=== PATIENT | female | born 1995 | race Caucasian/White ===

== ENCOUNTER 2023-02-21 09:28 | Outpatient (OUT) | payer OTHER, SELFPAY ==
--- NOTE | 2023-02-21 09:30 | US_ITS ---
[place] [id number] Patient Name: HAROLDO MARCH MRN: [id number] date: 1995 Sex: F Assigned Patient Location: US Current Patient Location: US Accession/Order Number: [id number] Exam Date: 02/21/2023 09:31 Report Date: 02/21/2023 10:12 At the request of: IVANNA BRYANT Procedure: US OB growth EXAMINATION: US OB growth HISTORY: SIZE INCONSISTENT WITH DATES COMPARISON: 12/01/2022 FINDINGS: position: Cephalic presentation, longitudinal lie Amniotic fluid volume: 17.4 cm, normal. Largest fluid pocket: 5.6 cm Heart rate: 149 bpm BPD: 8.8 cm, 35 weeks 3 days, 37% Head circumference: 32.2 cm, 36 weeks 2 days, 24% Abdominal circumference: 32.6 cm, 36 weeks 3 days, 70% Femur length: 7 cm, 35 weeks 6 days, 39% Estimated weight: 2873 g, 6 lbs. 5 oz., 53% Femur length BPD: 79.9 Femur length abdominal circumference: 21.5 Femur length head circumference: 21.8 Clinical age: 36 weeks 1 day Clinical HANNAH: 03/20/2023 Ultrasound age: 36 weeks 0 days Ultrasound HANNAH: 03/21/2023 US/US OB growth IMPRESSION: Normal interval growth Electronically authenticated by: LIUDMILA CARRION Date: 02/21/2023 10:12
== END 2023-02-21 09:29 | disposition home or self-care (01) ==
LOC: US 09:28
PROVIDERS: Visit Provider Obstetrics & Gynecology
DX: O26.843 Uterine size-date discrepancy, third trimester (principal); Z3A.36 36 weeks gestation of pregnancy
CPT/HCPCS: 76816; 87081; 87150; 87186

== ENCOUNTER 2023-02-21 19:05 | Outpatient (REF) | payer OTHER, SELFPAY | END 2023-02-21 19:06 | disposition home or self-care (01) | LOC: LAB 19:05 | PROVIDERS: Visit Provider Obstetrics & Gynecology | DX: Z34.93 Encounter for supervision of normal pregnancy, unspecified, third trimester (principal) | CPT/HCPCS: 87081; 87150 ==

== ENCOUNTER 2023-03-15 22:02 | Inpatient (IN) | payer OTHER, SELFPAY ==
[2023-03-15 22:28] VITALS: BP 121/70; PULSE 71; RESP 18; TEMP 36.8
[2023-03-15] MEDS: 0.9 % SODIUM CHLORIDE 1,000 ML 125 ML IV (22:40)
[2023-03-15 22:43] LABS: Hematocrit 35.1 % (36.0-48.0); Hemoglobin 11.9 g/dL (12.0-16.0); Mean Corpuscular HGB Conc 33.9 g/dL (29.9-35.2); Mean Corpuscular Hemoglobin 29.2 pg (26.7-34.0); Mean Platelet Volume 11.1 fL (9.5-13.5); Platelet Count 229 10^3/uL (150-450); Red Blood Count 4.08 10^6/uL (4.20-5.40); Red Cell Distribution Width 13.5 % (11.0-15.0); White Blood Count 11.8 10^3/uL (4.0-11.0)
[2023-03-15 22:55] VITALS: TEMP 36.8
[2023-03-15 22:56] LABS: Amphetamine Screen Urine NEGATIVE (NEGATIVE); Barbiturates Screen Urine NEGATIVE (NEGATIVE); Benzodiazepines Screen Urine NEGATIVE (NEGATIVE); Buprenorphine Screen Urine NEGATIVE (NEGATIVE); Cannabinoid Screen Urine POSITIVE (NEGATIVE); Cocaine Screen Urine NEGATIVE (NEGATIVE); Methadone Screen Urine NEGATIVE (NEGATIVE); Methamphetamines Screen Urine NEGATIVE (NEGATIVE); Opiate Screen Urine NEGATIVE (NEGATIVE); Oxycodone Screen Urine NEGATIVE (NEGATIVE); Phencyclidine Screen Urine NEGATIVE (NEGATIVE); Tricyclic Antidepressant Urine NEGATIVE (NEGATIVE)
[2023-03-15 22:59] VITALS: BP 121/70; PULSE 71
[2023-03-16] VITALS (85 sets, daily range): BP systolic 107–166; BP diastolic 52–95; PULSE 51–106; RESP 16; TEMP 34.9–36.6
[2023-03-16] MEDS: AMPICILLIN SODIUM 2,000 MG in 0.9 % SODIUM CHLORIDE 100 ML 200 MG IV
[2023-03-16] MEDS: AMPICILLIN SODIUM 1,000 MG in 0.9 % SODIUM CHLORIDE 50 ML 100 MG IV ×5 (04:21→19:46)
[2023-03-16] MEDS: 0.9 % SODIUM CHLORIDE 1,000 ML 125 ML IV (07:20)
[2023-03-16] MEDS: 0.9 % SODIUM CHLORIDE 1,000 ML 1000 ML IV ×2 (10:00→16:33)
[2023-03-16] MEDS: FENTANYL CITRATE/PF 100 MCG/2 ML VIAL EPIDURAL ×3 (10:01→23:20)
[2023-03-16] MEDS: LIDOCAINE HCL 2% PF 100 MG/5 ML VIAL INJ (10:02)
[2023-03-16] MEDS: ROPIVACAINE HCL/PF 400 MG/200 ML PREMIX 6 MG EPIDURAL (10:02)
[2023-03-16] MEDS: ROPIVACAINE HCL/PF 400 MG/200 ML PREMIX EPIDURAL ×2 (10:02→23:16)
[2023-03-16] MEDS: OXYTOCIN/0.9 % SODIUM CHLORIDE 10 UNITS/500 ML PLAST..BAG 6 UNIT IV ×3 (10:59→19:45)
[2023-03-16] MEDS: ONDANSETRON PF 4 MG/2 ML VIAL IV ×2 (11:03→21:52)
[2023-03-17] VITALS (32 sets, daily range): BP systolic 106–155; BP diastolic 51–115; PULSE 55–125; RESP 16; TEMP 36.4–36.5
[2023-03-17] MEDS: AMPICILLIN SODIUM 1,000 MG in 0.9 % SODIUM CHLORIDE 50 ML 100 MG IV ×2 (00:12→03:51)
[2023-03-17] MEDS: 0.9 % SODIUM CHLORIDE 1,000 ML 125 ML IV (01:42)
[2023-03-17] MEDS: OXYTOCIN/0.9 % SODIUM CHLORIDE 10 UNITS/500 ML PLAST..BAG 6 UNIT IV (03:50)
--- NOTE | 2023-03-17 04:49 | PM.OBPRCVD ---
Procedure Intrapartal events: None Induction method: per pitocin protocol Delivery augmentation: rupture of membranes and pitocin Delivery monitor: external FHT and external uterine Route of delivery: Episiotomy Description: none Laceration description: none Estimated blood loss (mL): 250 Anesthesia type: possible epidural Disposition: floor Infant Delivery date: 03/17/23 presentation: vertex Placental delivery description: Spontaneous cord description: 3 Vessels
--- NOTE | 2023-03-17 06:34 | PC.NURSE ---
0620-Epidural removed with tip intact. Patient up to bathroom without issue. Linens changed and patient back to bed.
[2023-03-17] MEDS: IBUPROFEN 600 MG TABLET PO (16:59)
--- NOTE | 2023-03-17 17:02 | PM.OBPN ---
Exam Constitutional Vital Signs, click to edit/add: Last Vital Signs Temp 97.7 F 03/17/23 03:22 Pulse 64 03/17/23 16:55 Resp 16 03/17/23 03:22 BP 139/74 03/17/23 16:55 OB - PN: A/P Time Spent with Patient Time: Total time spent is greater than 50% in coordination of care (as documented) at patient's floor/unit and/or counseling patient: Total time spent with greater than 50% in coordination of care (as documented) at patient's floor/unit and/or counseling patient: less than 15 minutes
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
[2023-03-18 05:38] LABS: Alanine Aminotransferase 8 U/L (14-59); Albumin Globulin Ratio 0.6; Albumin Level 2.1 g/dL (3.4-5.0); Alkaline Phosphatase 84 U/L (46-116); Anion Gap 12.9; Aspartate Amino Transferase 35 U/L (15-37); BUN Creatinine Ratio 14.3; Bilirubin Total 0.3 mg/dL (0.2-1.0); Calcium 8.3 mg/dL (8.5-10.1); Carbon Dioxide 20.6 mmol/L (21.0-32.0); Chloride 106 mmol/L (98-107); Estimated GFR (African America >60 (>=60); Estimated GFR (Non-African Ame >60 (>=60); Globulin 3.5 g/dL; Glucose 72 mg/dL (74-106); Potassium 3.5 mmol/L (3.5-5.1); Sodium 136 mmol/L (136-145); Total Protein 5.6 g/dL (6.4-8.2)
[2023-03-18 06:20] LABS: Basophils Percent Auto 0.2 % (0.2-2.0); Eosinophils Absolute Auto 0.3 10^3/uL (0.0-0.7); Hematocrit 31.4 % (36.0-48.0); Hemoglobin 10.7 g/dL (12.0-16.0); Immature Granulocytes Abs Auto 0.04 10^3/uL (0.00-0.03); Immature Granulocytes Pct Auto 0.4 % (0.0-0.5); Lymphocytes Absolute Auto 2.6 10^3/uL (1.2-3.8); Lymphocytes Percent Auto 28.7 % (20.5-60.0); Mean Corpuscular HGB Conc 34.1 g/dL (29.9-35.2); Mean Corpuscular Hemoglobin 29.6 pg (26.7-34.0); Mean Platelet Volume 11.5 fL (9.5-13.5); Monocytes Absolute Auto 0.5 10^3/uL (0.3-0.8); Monocytes Percent Auto 5.3 % (1.7-12.0); Neutrophils Absolute Auto 5.6 10^3/uL (1.4-6.5); Neutrophils Percent Auto 62.4 % (43.0-75.0); Platelet Count 184 10^3/uL (150-450); Red Blood Count 3.61 10^6/uL (4.20-5.40); Red Cell Distribution Width 13.5 % (11.0-15.0); White Blood Count 8.9 10^3/uL (4.0-11.0)
--- NOTE | 2023-03-18 07:04 | W.PC.ACHO ---
Registration Status: ADM IN Primary Language: Liberian Preferred Language: Liberian Active Medications Generic Name Dose Route Start Last Admin Trade Name Freq PRN Reason Stop Dose Admin Acetaminophen 650 mg 03/17/23 04:46 Acetaminophen 325 Mg Tablet PO Q6H PRN Mild Pain Al Hydroxide/Mg Hydroxide 2,400 mg 03/17/23 04:46 Magnesium Hydroxide 2,400 Mg/10 Ml Oral.Susp PO Q6H PRN Dyspepsia Benzocaine/Menthol 1 applic 03/17/23 04:46 Benzocaine/Menthol 85 Gram Bottle TOPICAL Q2H PRN Pain Carboprost Tromethamine 250 mcg 03/15/23 22:07 Carboprost Tromethamine 250 Mcg/Ml 1 Ml Vial IM Q15M PRN Bleeding Diphenhydramine HCl 25 mg 03/16/23 07:34 Diphenhydramine Hcl 50 Mg/Ml (1ml) Vial IV Q6H PRN Itching Diphtheria/Pertussis/Tetanus Vacc 0.5 ml 03/19/23 09:00 Adacel Diph,Pertuss(Acell),Tet Vac/Pf 0.5 Ml Adult Syringe IM 03/19/23 09:01 .ONCE ONE Docusate Sodium 100 mg 03/18/23 09:00 Docusate Sodium 100 Mg Capsule PO BID BREANNE Ephedrine Sulfate 5 mg 03/16/23 07:34 Ephedrine Sulfate 50 Mg/Ml Vial IV Q5M PRN Blood Pressure - Low Fentanyl Citrate 100 mcg 03/16/23 23:27 03/16/23 23:20 Fentanyl Citrate/Pf 100 Mcg/2 Ml Vial EPIDURAL 100 mcg Q4H PRN Administration Pain Ampicillin 1,000 mg/ Sodium 50 mls @ 100 mls/hr 03/16/23 04:00 03/17/23 03:51 Chloride IV 100 ml/hr Q4H BREANNE 100 mls/hr Administration Sodium Chloride 1,000 mls @ 125 mls/hr 03/15/23 22:15 03/17/23 01:42 Sodium Chloride 0.9% 1,000 Ml IV 125 mls/hr .Q8H BREANNE Administration Oxytocin/Sodium Chloride 20 units in 1,000 mls @ 125 mls/hr 03/15/23 22:07 Pitocin 20 Unit/1,000 Ml-Ns IV ONCE PRN delivery Protocol Ropivacaine/Sodium Chloride 400 mg in 200 mls @ 6 mls/hr 03/16/23 07:45 03/16/23 23:16 Naropin 0.2% 400 Mg/200 Ml Bag EPIDURAL 400 mls/hr Q24H BREANNE 400 mls/hr Administration Oxytocin/Sodium Chloride 10 units in 500 mls @ 6 mls/hr 03/16/23 19:26 03/17/23 03:50 Pitocin 10 Unit/500 Ml-Ns IV 2 milliunit/min Q24H BREANNE 6 mls/hr Administration Protocol 2 MILLIUNIT/MIN Ibuprofen 600 mg 03/17/23 04:46 03/17/23 16:59 Ibuprofen 600 Mg Tablet PO 600 mg Q6H PRN Administration Moderate Pain Lidocaine 5 ml 03/15/23 22:07 Lidocaine Viscous 2% 15 Ml Topical Solution TOPICAL .PRN PRN Pain Lidocaine 1 ml 03/15/23 22:07 Lidocaine Hcl 1% 200 Mg/20 Ml Mdv INJ .PRN PRN Pain Lidocaine 5 ml 03/16/23 07:34 03/16/23 10:02 Lidocaine Hcl 2% Pf 100 Mg/5 Ml Vial INJ 5 ml Q1H PRN Administration Pain Measles/Mumps/Rubella Vaccine Live 0.5 ml 03/19/23 09:00 Measles,Mumps,Rubella Vacc/Pf 0.5 Ml Vial SQ 03/19/23 09:01 .ONCE ONE Methylergonovine Maleate 0.2 mg 03/15/23 22:07 Methylergonovine Maleate 0.2 Mg Tablet PO Q4H PRN Uterine Contractility/Contract Methylergonovine Maleate 0.2 mg 03/15/23 22:07 Methylergonovine Maleate 0.2 Mg/Ml Ampule IM ONCE PRN Uterine Contractility/Contract Misoprostol 600 mcg 03/15/23 22:07 Misoprostol 100 Mcg Tablet PO ONCE PRN Uterine Bleeding Misoprostol 800 mcg 03/15/23 22:07 Misoprostol 100 Mcg Tablet SL ONCE PRN Uterine Bleeding Misoprostol 1,000 mcg 03/15/23 22:07 Misoprostol 100 Mcg Tablet WI ONCE PRN Uterine Bleeding Ondansetron HCl 4 mg 03/15/23 22:07 03/16/23 21:52 Ondansetron Pf 4 Mg/2 Ml Vial IV 4 mg Q6H PRN Administration Nausea And Vomiting Ondansetron HCl 4 mg 03/15/23 22:07 Ondansetron 4 Mg Rapdis Tablet SL Q6H PRN Nausea And Vomiting Oxytocin 10 unit 03/15/23 22:07 Oxytocin 10 Unit/Ml Vial IM ONCE PRN Bleeding Senna 17.2 mg 03/17/23 20:00 Sennosides 8.6 Mg Tablet PO QHS PRN Constipation Simethicone 80 mg 03/17/23 04:46 Simethicone 80 Mg Tab.Chew PO QID PRN Abdominal Distention Temazepam 15 mg 03/17/23 20:00 Temazepam 15 Mg Capsule PO HS PRN Sleep Witch Batool/Glycerin 1 pad 03/17/23 04:46 Glycerin/Witch Batool Pads TOPICAL Q2H PRN Pain Diet Category Date Time Status Regular Consistency Diet Diet 03/17/23 Breakfast Active Respiratory Oxygen Delivery Method Room Air Oxygen Delivery Method Room Air
[2023-03-18] MEDS: IBUPROFEN 600 MG TABLET PO (09:06)
[2023-03-18] MEDS: DOCUSATE SODIUM 100 MG CAPSULE PO (09:07)
[2023-03-18 09:08] VITALS: BP 133/73; PULSE 56
--- NOTE | 2023-03-18 12:58 | PM.OBPN ---
OB - PN: Subj Subjective Patient comments: no complaints [place] status: doing well [place] feeding status: exclusively bottle feeding Exam Constitutional Vital Signs, click to edit/add: Last Vital Signs Temp 97.5 F L 03/17/23 23:54 Pulse 56 L 03/18/23 09:08 Resp 16 03/17/23 23:54 BP 133/73 03/18/23 09:08 O2 Del Method Room Air 03/17/23 23:54 Documenting provider has reviewed patient's vital signs: yes Common normals: no apparent distress, oriented x3, no limitations, healthy appearing, alert and well nourished General appearance: cooperative, comfortable and well kempt Nutritional appearance: overweight Orientation/consciousness: Yes awake, Yes oriented to person, Yes oriented to place and Yes oriented to time HENMT Common normals: normocephalic and head/scalp atraumatic Eye Pupil: PERRL and accommodation reflex normal Neck & C-Spine Common normals: full ROM and supple Respiratory Common normals: normal respiratory effort and no retractions Cardio Common normals: regular rate and regular rhythm Common normals: no CVA tenderness Extremity Common normals: normal to inspection, full ROM and no calf tenderness Neuro Common normals: CN's II-XII intact bilaterally, moves all extremities, no focal motor deficits and no sensory deficits noted Motor exam: strength 5/5 throughout Psych Common normals: mental status grossly normal, thought process normal, cooperative, affect normal and denies suicidal ideation Appearance: grossly normal and well kempt Attitude: calm and engaged Activity/motor behavior: appropriate eye contact Speech: normal speech Mood and affect: euthymic mood Thought process: normal thought process Attention/concentration: attention grossly intact Other: STATES NO DEPRESSED MOOD Results Labs Labs: Short CBC 03/18/23 Range/Units 04:52 WBC 8.9 (4.0-11.0) 10^3/uL Hgb 10.7 L (12.0-16.0) g/dL Hct 31.4 L (36.0-48.0) % Plt Count 184 (150-450) 10^3/uL BMP 03/18/23 04:52 Sodium 136 Potassium 3.5 Chloride 106 Carbon Dioxide 20.6 L BUN 8.0 Creatinine 0.56 Glucose 72 L Calcium 8.3 L Liver Function 03/18/23 Range/Units 04:52 Total Bilirubin 0.3 (0.2-1.0) mg/dL AST 35 (15-37) U/L ALT 8 L (14-59) U/L Alkaline Phosphatase 84 (46-116) U/L Albumin 2.1 L (3.4-5.0) g/dL OB - PN: A/P Assessment and Plan (1) Anxiety: Assessment and Plan: DENIES (2) Depression: Assessment and Plan: DENIES (3) Enlarged liver: Assessment and Plan: INFORMED THAT LFT'S DRAWN TODAY WERE NORMAL (4) GERD (gastroesophageal reflux disease): Assessment and Plan: NO COMPLAINTS (5) Hepatitis C: Assessment and Plan: APPARENTLY NOT ACTIVE PER PATIENT HISTORY (6) Panic attack: Assessment and Plan: NONE (7) Suicidal thoughts: Assessment and Plan: NONE Plan - Vaginal Delivery day: 2 Plan: routine care Comment: BABY NOT READY FOR DISCHARGE NOR IS PATIENT. SOCIAL SERVICE TO SEE PATIENT TOMORROW. Time Spent with Patient Time: Total time spent is greater than 50% in coordination of care (as documented) at patient's floor/unit and/or counseling patient: Total time spent with greater than 50% in coordination of care (as documented) at patient's floor/unit and/or counseling patient: less than 15 minutes
[2023-03-18 16:20] VITALS: TEMP 37.1
[2023-03-18 16:21] VITALS: BP 113/53; PULSE 69
--- NOTE | 2023-03-18 17:30 | PC.NURSE ---
patient requests electric breast pump use- demonstrated use of breast pump and pumps 10 ml of colostrum
--- NOTE | 2023-03-18 19:19 | W.PC.ACHO ---
Registration Status: ADM IN Primary Language: Mongolian Preferred Language: Mongolian Active Medications Generic Name Dose Route Start Last Admin Trade Name Freq PRN Reason Stop Dose Admin Acetaminophen 650 mg 03/17/23 04:46 Acetaminophen 325 Mg Tablet PO Q6H PRN Mild Pain Al Hydroxide/Mg Hydroxide 2,400 mg 03/17/23 04:46 Magnesium Hydroxide 2,400 Mg/10 Ml Oral.Susp PO Q6H PRN Dyspepsia Benzocaine/Menthol 1 applic 03/17/23 04:46 Benzocaine/Menthol 85 Gram Bottle TOPICAL Q2H PRN Pain Carboprost Tromethamine 250 mcg 03/15/23 22:07 Carboprost Tromethamine 250 Mcg/Ml 1 Ml Vial IM Q15M PRN Bleeding Diphenhydramine HCl 25 mg 03/16/23 07:34 Diphenhydramine Hcl 50 Mg/Ml (1ml) Vial IV Q6H PRN Itching Diphtheria/Pertussis/Tetanus Vacc 0.5 ml 03/19/23 09:00 Adacel Diph,Pertuss(Acell),Tet Vac/Pf 0.5 Ml Adult Syringe IM 03/19/23 09:01 .ONCE ONE Docusate Sodium 100 mg 03/18/23 09:00 03/18/23 09:07 Docusate Sodium 100 Mg Capsule PO 100 mg BID BREANNE Administration Ephedrine Sulfate 5 mg 03/16/23 07:34 Ephedrine Sulfate 50 Mg/Ml Vial IV Q5M PRN Blood Pressure - Low Fentanyl Citrate 100 mcg 03/16/23 23:27 03/16/23 23:20 Fentanyl Citrate/Pf 100 Mcg/2 Ml Vial EPIDURAL 100 mcg Q4H PRN Administration Pain Ampicillin 1,000 mg/ Sodium 50 mls @ 100 mls/hr 03/16/23 04:00 03/17/23 03:51 Chloride IV 100 ml/hr Q4H BREANNE 100 mls/hr Administration Sodium Chloride 1,000 mls @ 125 mls/hr 03/15/23 22:15 03/17/23 01:42 Sodium Chloride 0.9% 1,000 Ml IV 125 mls/hr .Q8H BREANNE Administration Oxytocin/Sodium Chloride 20 units in 1,000 mls @ 125 mls/hr 03/15/23 22:07 Pitocin 20 Unit/1,000 Ml-Ns IV ONCE PRN delivery Protocol Ropivacaine/Sodium Chloride 400 mg in 200 mls @ 6 mls/hr 03/16/23 07:45 03/16/23 23:16 Naropin 0.2% 400 Mg/200 Ml Bag EPIDURAL 400 mls/hr Q24H BREANNE 400 mls/hr Administration Oxytocin/Sodium Chloride 10 units in 500 mls @ 6 mls/hr 03/16/23 19:26 03/17/23 03:50 Pitocin 10 Unit/500 Ml-Ns IV 2 milliunit/min Q24H BREANNE 6 mls/hr Administration Protocol 2 MILLIUNIT/MIN Ibuprofen 600 mg 03/17/23 04:46 03/18/23 09:06 Ibuprofen 600 Mg Tablet PO 600 mg Q6H PRN Administration Moderate Pain Lidocaine 5 ml 03/15/23 22:07 Lidocaine Viscous 2% 15 Ml Topical Solution TOPICAL .PRN PRN Pain Lidocaine 1 ml 03/15/23 22:07 Lidocaine Hcl 1% 200 Mg/20 Ml Mdv INJ .PRN PRN Pain Lidocaine 5 ml 03/16/23 07:34 03/16/23 10:02 Lidocaine Hcl 2% Pf 100 Mg/5 Ml Vial INJ 5 ml Q1H PRN Administration Pain Measles/Mumps/Rubella Vaccine Live 0.5 ml 03/19/23 09:00 Measles,Mumps,Rubella Vacc/Pf 0.5 Ml Vial SQ 03/19/23 09:01 .ONCE ONE Methylergonovine Maleate 0.2 mg 03/15/23 22:07 Methylergonovine Maleate 0.2 Mg Tablet PO Q4H PRN Uterine Contractility/Contract Methylergonovine Maleate 0.2 mg 03/15/23 22:07 Methylergonovine Maleate 0.2 Mg/Ml Ampule IM ONCE PRN Uterine Contractility/Contract Misoprostol 600 mcg 03/15/23 22:07 Misoprostol 100 Mcg Tablet PO ONCE PRN Uterine Bleeding Misoprostol 800 mcg 03/15/23 22:07 Misoprostol 100 Mcg Tablet SL ONCE PRN Uterine Bleeding Misoprostol 1,000 mcg 03/15/23 22:07 Misoprostol 100 Mcg Tablet [place] ONCE PRN Uterine Bleeding Ondansetron HCl 4 mg 03/15/23 22:07 03/16/23 21:52 Ondansetron Pf 4 Mg/2 Ml Vial IV 4 mg Q6H PRN Administration Nausea And Vomiting Ondansetron HCl 4 mg 03/15/23 22:07 Ondansetron 4 Mg Rapdis Tablet SL Q6H PRN Nausea And Vomiting Oxytocin 10 unit 03/15/23 22:07 Oxytocin 10 Unit/Ml Vial IM ONCE PRN Bleeding Senna 17.2 mg 03/17/23 20:00 Sennosides 8.6 Mg Tablet PO QHS PRN Constipation Simethicone 80 mg 03/17/23 04:46 Simethicone 80 Mg Tab.Chew PO QID PRN Abdominal Distention Temazepam 15 mg 03/17/23 20:00 Temazepam 15 Mg Capsule PO HS PRN Sleep Witch Batool/Glycerin 1 pad 03/17/23 04:46 Glycerin/Witch Batool Pads TOPICAL Q2H PRN Pain Respiratory Oxygen Delivery Method Room Air Oxygen Delivery Method Room Air
[2023-03-19 00:56] VITALS: BP 134/60; PULSE 55
[2023-03-19] MEDS: IBUPROFEN 600 MG TABLET PO (00:59)
--- NOTE | 2023-03-19 06:09 | PM.ANPOEV ---
Post Anesthesia Evaluation Visit Summary Date of anesthesia: 03/19/23 Type of anesthesia: epidural Mental status: baseline Last Vital Signs Last Vitals: Temp Pulse Resp BP O2 Del Method 98.7 F 55 L 16 134/60 Room Air 03/18/23 16:20 03/19/23 00:56 03/17/23 23:54 03/19/23 00:56 03/18/23 16:20 Patient Conditions Respiratory status: stable Cardiovascular status: stable Subjective pain score (0-10): 1 Objective pain score: mild Nausea: none Vomiting: none Post-op hydration status: adequate Regional anesthetic: no residual effects noted Additional Comments Additional comments: Patient doing well, post- day #2 Anesthesia Outcomes Anesthesia: no adverse outcomes Recovered from Anesthesia Care Patient has recovered from anesthesia care: Patient has recovered from anesthesia care
--- NOTE | 2023-03-19 07:09 | W.PC.ACHO ---
Registration Status: ADM IN Primary Language: Jamaican Preferred Language: Jamaican Active Medications Generic Name Dose Route Start Last Admin Trade Name Freq PRN Reason Stop Dose Admin Acetaminophen 650 mg 03/17/23 04:46 Acetaminophen 325 Mg Tablet PO Q6H PRN Mild Pain Al Hydroxide/Mg Hydroxide 2,400 mg 03/17/23 04:46 Magnesium Hydroxide 2,400 Mg/10 Ml Oral.Susp PO Q6H PRN Dyspepsia Benzocaine/Menthol 1 applic 03/17/23 04:46 Benzocaine/Menthol 85 Gram Bottle TOPICAL Q2H PRN Pain Carboprost Tromethamine 250 mcg 03/15/23 22:07 Carboprost Tromethamine 250 Mcg/Ml 1 Ml Vial IM Q15M PRN Bleeding Diphenhydramine HCl 25 mg 03/16/23 07:34 Diphenhydramine Hcl 50 Mg/Ml (1ml) Vial IV Q6H PRN Itching Diphtheria/Pertussis/Tetanus Vacc 0.5 ml 03/19/23 09:00 Adacel Diph,Pertuss(Acell),Tet Vac/Pf 0.5 Ml Adult Syringe IM 03/19/23 09:01 .ONCE ONE Docusate Sodium 100 mg 03/18/23 09:00 03/19/23 01:00 Docusate Sodium 100 Mg Capsule PO Not Given BID BREANNE Ephedrine Sulfate 5 mg 03/16/23 07:34 Ephedrine Sulfate 50 Mg/Ml Vial IV Q5M PRN Blood Pressure - Low Fentanyl Citrate 100 mcg 03/16/23 23:27 03/16/23 23:20 Fentanyl Citrate/Pf 100 Mcg/2 Ml Vial EPIDURAL 100 mcg Q4H PRN Administration Pain Ampicillin 1,000 mg/ Sodium 50 mls @ 100 mls/hr 03/16/23 04:00 03/17/23 03:51 Chloride IV 100 ml/hr Q4H BREANNE 100 mls/hr Administration Sodium Chloride 1,000 mls @ 125 mls/hr 03/15/23 22:15 03/17/23 01:42 Sodium Chloride 0.9% 1,000 Ml IV 125 mls/hr .Q8H BREANNE Administration Oxytocin/Sodium Chloride 20 units in 1,000 mls @ 125 mls/hr 03/15/23 22:07 Pitocin 20 Unit/1,000 Ml-Ns IV ONCE PRN delivery Protocol Ropivacaine/Sodium Chloride 400 mg in 200 mls @ 6 mls/hr 03/16/23 07:45 03/16/23 23:16 Naropin 0.2% 400 Mg/200 Ml Bag EPIDURAL 400 mls/hr Q24H BREANNE 400 mls/hr Administration Oxytocin/Sodium Chloride 10 units in 500 mls @ 6 mls/hr 03/16/23 19:26 03/17/23 03:50 Pitocin 10 Unit/500 Ml-Ns IV 2 milliunit/min Q24H BREANNE 6 mls/hr Administration Protocol 2 MILLIUNIT/MIN Ibuprofen 600 mg 03/17/23 04:46 03/19/23 00:59 Ibuprofen 600 Mg Tablet PO 600 mg Q6H PRN Administration Moderate Pain Lidocaine 5 ml 03/15/23 22:07 Lidocaine Viscous 2% 15 Ml Topical Solution TOPICAL .PRN PRN Pain Lidocaine 1 ml 03/15/23 22:07 Lidocaine Hcl 1% 200 Mg/20 Ml Mdv INJ .PRN PRN Pain Lidocaine 5 ml 03/16/23 07:34 03/16/23 10:02 Lidocaine Hcl 2% Pf 100 Mg/5 Ml Vial INJ 5 ml Q1H PRN Administration Pain Measles/Mumps/Rubella Vaccine Live 0.5 ml 03/19/23 09:00 Measles,Mumps,Rubella Vacc/Pf 0.5 Ml Vial SQ 03/19/23 09:01 .ONCE ONE Methylergonovine Maleate 0.2 mg 03/15/23 22:07 Methylergonovine Maleate 0.2 Mg Tablet PO Q4H PRN Uterine Contractility/Contract Methylergonovine Maleate 0.2 mg 03/15/23 22:07 Methylergonovine Maleate 0.2 Mg/Ml Ampule IM ONCE PRN Uterine Contractility/Contract Misoprostol 600 mcg 03/15/23 22:07 Misoprostol 100 Mcg Tablet PO ONCE PRN Uterine Bleeding Misoprostol 800 mcg 03/15/23 22:07 Misoprostol 100 Mcg Tablet SL ONCE PRN Uterine Bleeding Misoprostol 1,000 mcg 03/15/23 22:07 [address] ONCE PRN Uterine Bleeding Ondansetron HCl 4 mg 03/15/23 22:07 03/16/23 21:52 Ondansetron Pf 4 Mg/2 Ml Vial IV 4 mg Q6H PRN Administration Nausea And Vomiting Ondansetron HCl 4 mg 03/15/23 22:07 Ondansetron 4 Mg Rapdis Tablet SL Q6H PRN Nausea And Vomiting Oxytocin 10 unit 03/15/23 22:07 Oxytocin 10 Unit/Ml Vial IM ONCE PRN Bleeding Senna 17.2 mg 03/17/23 20:00 Sennosides 8.6 Mg Tablet PO QHS PRN Constipation Simethicone 80 mg 03/17/23 04:46 Simethicone 80 Mg Tab.Chew PO QID PRN Abdominal Distention Temazepam 15 mg 03/17/23 20:00 Temazepam 15 Mg Capsule PO HS PRN Sleep Witch Batool/Glycerin 1 pad 03/17/23 04:46 Glycerin/Witch Batool Pads TOPICAL Q2H PRN Pain Respiratory Oxygen Delivery Method Room Air
[2023-03-19 08:08] VITALS: BP 138/72; PULSE 65
[2023-03-19 08:15] VITALS: RESP 16; TEMP 37.1
--- NOTE | 2023-03-19 08:26 | P.OBPN_ITS ---
OB - PN: Subj Subjective Patient comments: no complaints [place] status: doing well Exam Constitutional Vital Signs, click to edit/add: Last Vital Signs Temp 98.7 F 03/18/23 16:20 Pulse 65 03/19/23 08:08 Resp 16 03/17/23 23:54 BP 138/72 03/19/23 08:08 O2 Del Method Room Air 03/18/23 16:20 Documenting provider has reviewed patient's vital signs: yes Common normals: no apparent distress Respiratory Common normals: normal respiratory effort and clear to auscultation bilaterally Cardio Common normals: regular rate and regular rhythm GI Common normals: Normal to inspection, nondistended, normoactive bowel sounds present Extremity Common normals: no clubbing, cyanosis or edema and no calf tenderness OB - PN: A/P Assessment and Plan (1) Anxiety: (2) Depression: (3) Enlarged liver: (4) GERD (gastroesophageal reflux disease): (5) Hepatitis C: (6) Panic attack: (7) Suicidal thoughts: Plan - Vaginal Delivery day: 2 Plan: routine care, discharge home and follow up 6 weeks Time Spent with Patient Time: Total time spent is greater than 50% in coordination of care (as documented) at patient's floor/unit and/or counseling patient: Total time spent with greater than 50% in coordination of care (as documented) at patient's floor/unit and/or counseling patient: less than 15 minutes
[2023-03-19] MEDS: MEASLES,MUMPS,RUBELLA VACC/PF 0.5 ML VIAL SQ (11:38)
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
[2023-03-21 12:09] LABS: Cannabinoid Positive (.); Carboxy THC Conf, MS, UR 484 ng/mL (Cutoff=10)
== END 2023-03-19 12:00 | disposition home or self-care (01) | DRG 560 ==
PROVIDERS: Obstetrics & Gynecology; Admitting Provider Obstetrics & Gynecology; Visit Provider Obstetrics & Gynecology
DX: O99.62 Diseases of the digestive system complicating childbirth (principal); K21.9 Gastro-esophageal reflux disease without esophagitis; O99.344 Other mental disorders complicating childbirth; F41.9 Anxiety disorder, unspecified; O99.824 Streptococcus B carrier state complicating childbirth; Z3A.00 Weeks of gestation of pregnancy not specified; Z37.0 Single live birth; O99.214 Obesity complicating childbirth; E66.01 Morbid (severe) obesity due to excess calories; Z86.59 Personal history of other mental and behavioral disorders; Z86.19 Personal history of other infectious and parasitic diseases; Z91.51 Personal history of suicidal behavior
CPT/HCPCS: 36415; 51702; 59050; 59410; 80053; 80307; 80349; 85025; 85027; 86850; 86900; 86901; 90471; 90707; 96365; 96366; 96368; 96375; 96376

== ENCOUNTER 2023-04-11 12:15 | Outpatient (OUT) | payer OTHER, SELFPAY ==
--- NOTE | 2023-04-11 12:59 | XR_ITS ---
The [address] [address] Patient Name: HAROLDO MARCH MRN: [id number] date: 1995 Sex: F Assigned Patient Location: SURGOUT Current Patient Location: [facility] Accession/Order Number: [id number] Exam Date: 04/11/2023 12:50 Report Date: 04/11/2023 13:27 At the request of: IVANNA BRYANT Procedure: XR chest 2V EXAM: XR chest 2V HISTORY: Preop exam COMPARISON: None. TECHNIQUE: PA and lateral views of the chest. FINDINGS: The cardiomediastinal silhouette is normal. No focal consolidation is identified. There is no pneumothorax. No pleural effusion is noted. The osseous structures are intact. XR/XR chest 2V IMPRESSION: No acute cardiopulmonary process. Electronically authenticated by: CARSON SIMON Date: 04/11/2023 13:27
== END 2023-04-11 12:16 | disposition home or self-care (01) ==
LOC: PST 12:15
PROVIDERS: Visit Provider Obstetrics & Gynecology
DX: Z01.810 Encounter for preprocedural cardiovascular examination (principal); Z30.2 Encounter for sterilization
CPT/HCPCS: 71046

== ENCOUNTER 2023-04-25 11:15 | Day surgery (SDC) | payer OTHER, SELFPAY ==
[2023-04-11 12:43] VITALS: BP 137/85; PULSE 72; RESP 14; TEMP 36.5; O2SAT 98; BMI 40.0
[2023-04-25] VITALS (15 sets, daily range): BP systolic 130–145; BP diastolic 67–95; PULSE 51–85; RESP 7–19; TEMP 36.1–36.7; O2SAT 94–100; BMI 41.2
[2023-04-25] MEDS: LACTATED RINGER'S SOLUTION 1,000 ML 50 ML IV (11:44)
[2023-04-25 11:54] LABS: Basophils Percent Auto 0.5 % (0.2-2.0); Eosinophils Absolute Auto 0.3 10^3/uL (0.0-0.7); Eosinophils Percent Auto 3.6 % (0.9-7.0); Hematocrit 37.8 % (36.0-48.0); Hemoglobin 12.3 g/dL (12.0-16.0); Immature Granulocytes Abs Auto 0.03 10^3/uL (0.00-0.03); Immature Granulocytes Pct Auto 0.4 % (0.0-0.5); Lymphocytes Absolute Auto 2.2 10^3/uL (1.2-3.8); Lymphocytes Percent Auto 28.2 % (20.5-60.0); Mean Corpuscular HGB Conc 32.5 g/dL (29.9-35.2); Mean Corpuscular Hemoglobin 29.2 pg (26.7-34.0); Mean Corpuscular Volume 89.8 fL (81.0-99.0); Mean Platelet Volume 10.6 fL (9.5-13.5); Monocytes Absolute Auto 0.4 10^3/uL (0.3-0.8); Monocytes Percent Auto 4.7 % (1.7-12.0); Neutrophils Absolute Auto 4.9 10^3/uL (1.4-6.5); Neutrophils Percent Auto 62.6 % (43.0-75.0); Platelet Count 246 10^3/uL (150-450); Red Blood Count 4.21 10^6/uL (4.20-5.40); Red Cell Distribution Width 13.1 % (11.0-15.0); White Blood Count 7.9 10^3/uL (4.0-11.0)
[2023-04-25 12:29] LABS: HCG Quantitative <1 mIU/mL
--- NOTE | 2023-04-25 13:58 | P.ON_ITS ---
Brief Operative Note Date of procedure: 04/25/23 Pre-op diagnosis: desires permanent sterilization Post-op diagnosis: same as pre-op Procedure: NAME OF PROCEDURE: bilateral laparoscopic salpingectomy PROCEDURE: The patient was taken back to the Operating Room where she was given general anesthesia without difficulty. She was then prepped and draped in the normal sterile fashion after being placed in a dorsal lithotomy position. A wet sponge stick was placed into the patient's vagina. Attention was then turned to the patient's abdomen, where a scalpel was used to make a small infraumbilical incision. The S retractors were then used to dissect the underlying layers until the fascia could be seen. The fascia was then grasped with Millie clamps and tented up. A knife was then used to make a small incision to the fascia. The m uscle was identified, at that time two sutures of #0 Vicryl on a GI needle was then used and placed through the fascia. the peritoneum was then identified and entered bluntly. The 10-4 Bettie was then placed into the patient's abdomen. This was confirmed with direct visualization of the bowel, using the laparoscope. The patient's abdomen was then insufflated using approximately 4 liters of CO2 gas. Survey of the patient's abdomen demonstrated ovaries were normal in appearance as well as both tubes and uterus. A second and third rt and lt lateral robotic ports which were 8 mm in size, was then placed after the skin incision was made under direct visualization . robotic arms were engaged. The patient's tube on the patient's right side was identified and tented up using a grasper, the vessel sealer apparatus was then used to come across the mesosalpingx from the fimbriated end to the insertion site at the uterus, the tube was then amputated and removed in its entirety. This was done on the contralateral side. The tubes were the removed from the patients abdomen. Excellent hemostasis was noted. The lateral ports were then moved under direct visualization with excellent hemostasis. All instruments were removed from the patient's abdomen. The fascia was closed using the #0 Vicryl on GI needle. The skin was closed using 4-0 Vicryl subcuticularly. All instruments were removed from the patient's vagina as well. The patient was taken out of the dorsal lithotomy position and placed in the supine position and taken to recovery in stable condition. Sponge, lap and needle counts were correct x2. Anesthesia: KALEY Surgeon: Mike Goetz [employer] Field Service Technician: Demi Lira Estimated blood loss (mL): 5 Pathology: other (bilateral tubes) Condition: stable Disposition: PACU
[2023-04-25] MEDS: HYDROMORPHONE HCL 0.5 MG/0.5 ML SYRINGE IV ×2 (14:27→14:40)
[2023-04-25] MEDS: LACTATED RINGER'S SOLUTION 1,000 ML 150 ML IV (15:04)
== END 2023-04-25 15:54 | disposition home or self-care (01) ==
PROVIDERS: Visit Provider Obstetrics & Gynecology
PROC: (CPT 840; principal; 2023-04-25 12:30)
DX: Z30.2 Encounter for sterilization (principal)
CPT/HCPCS: 58661; 36415; 84702; 85025; 88302; J1170; J2704

== ENCOUNTER 2023-08-11 17:18 | Emergency (ER) | payer OTHER, SELFPAY ==
[2023-08-11 17:22] VITALS: BP 147/98; PULSE 117; RESP 16; TEMP 37.4; O2SAT 97; BMI 43.3
--- NOTE | 2023-08-11 17:35 | ED.ABDPAIN1 ---
HPI - Abdominal Pain General Chief Complaint: Nausea/Vomiting/Diarrhea Stated Complaint: ABDOMINAL/FLANK PAIN Time Seen by Provider: 08/11/23 17:33 Source: patient Mode of arrival: walk-in Limitations: no limitations History of Present Illness HPI narrative: 27 year old female presents to the ED for N//V x3 days. She developed chills, fever, and RUQ pain today. Denies diarrhea, injury, urinary sx. Denies cough, congestion. Reports taking Tylenol around 1300 today. Rates her pain 01/06. Denies chance of . MD elicited complaint: Reports abdominal pain Related Data Previous Rx's Medication Instructions Recorded cephalexin 500 mg capsule 500 mg PO BID 5 days #10 caps 08/11/23 dicyclomine 10 mg capsule 10 mg PO QID PRN abdominal pain 08/11/23 #12 caps ondansetron 4 mg disintegrating 4 mg PO Q8H PRN nausea and 08/11/23 tablet vomiting 4 days #12 tabs Allergies Allergy/AdvReac Type Severity Reaction Status Date / Time No Known Drug Allergies Allergy Verified 08/11/23 17:22 Review of Systems ROS Constitutional Reports: fever and chills Ears, nose, mouth, and throat Denies: throat pain or neck pain Cardiovascular Denies: chest pain Respiratory Denies: shortness of breath or cough Gastrointestinal Reports: abdominal pain, nausea and vomiting; Denies: diarrhea or constipation Genitourinary Denies: painful urination, urinary frequency, urinary urgency or blood in urine Musculoskeletal Denies: back pain or neck pain Integumentary/Breast Denies: rash PFSH PFSH Medical History (Updated 08/11/23 @ 20:04 by Katy Romeo) Migraine ?G43.909 - Migraine, unspecified, not intractable, without status migrainosus (ICD-10) Heartburn ?R12 - Heartburn (ICD-10) Request for sterilization ?Z30.2 - Encounter for sterilization (ICD-10) Enlarged liver ?R16.0 - Hepatomegaly, not elsewhere classified (ICD-10) Suicidal thoughts ?R45.851 - Suicidal ideations (ICD-10) Depression ?F32.A - Depression, unspecified (ICD-10) Panic attack ?F41.0 - Panic disorder [episodic paroxysmal anxiety] (ICD-10) Anxiety ?F41.9 - Anxiety disorder, unspecified (ICD-10) GERD (gastroesophageal reflux disease) ?K21.9 - Gastro-esophageal reflux disease without esophagitis (ICD-10) Hepatitis C ?B19.20 - Unspecified viral hepatitis C without hepatic coma (ICD-10) Surgical History (Updated 04/11/23 @ 12:43 by Clari Pineda NP) History of wisdom tooth extraction ?K08.409 - Partial loss of teeth, unspecified cause, unspecified class (ICD-10) Family History (Updated 03/16/23 @ 03:25 by Jostin Rose) Grandmother Family history of COPD (chronic obstructive pulmonary disease) Family history of diabetes mellitus Family history of hypertension Family history of stroke Mother Family history of hypertension Grandfather Family history of myocardial infarction Sister Cystic fibrosis carrier Social History (Updated 03/15/23 @ 22:37 by Jostin Rose) Within the past year, how often did you have a drink containing alcohol: never Within the past year, how often did you have six or more drinks on one occasion: never Score interpretation: A score less than 3 is consistent with normal alcohol consumption. Smoking status: Current every day smoker Nicotine containing products detail: 1/2 pack Non-prescribed substance use: cannabis (any form) Non-prescribed substance use details: past IV drug use Known occupational exposures/hazards details: [employer] Highest level of school completed/degree received: some college, no degree In a typical week, how many times do you talk on the telephone with family, friends, or neighbors: 3 or more times per week How often do you get together with friends or relatives: 3 or more times per week How often do you attend congregation or jew services: never Do you belong to any clubs or organizations such as congregation groups unions, fraternal or athletic groups, or school groups: no Little interest or pleasure in doing things: not at all Feeling down, depressed, or hopeless: not at all Feel stressed/tense/nervous/anxious/difficulty sleeping: not at all Do you think of yourself as: straight/heterosexual Gender Identity: female Exam Constitutional Vital Signs, click to edit/add: Last Vital Signs Temp 99.4 F 08/11/23 17:22 Pulse 85 08/11/23 19:41 Resp 16 08/11/23 17:22 BP 120/64 08/11/23 20:16 Pulse Ox 96 08/11/23 20:16 Common normals: no apparent distress and oriented x3 HENMT Mouth: oral and palatal mucosa normal and lip normal Eye Common normals: conjunctivae normal and no scleral icterus Neck & C-Spine Common normals: supple Chest Chest: symmetrical chest wall rise Respiratory Common normals: normal respiratory effort Effort & inspection: able to speak in complete sentences and symmetric chest movement Auscultation: clear to auscultation bilaterally Cardio Common normals: regular rhythm Rate: tachycardic GI Common normals: soft to palpation Inspection: normal to inspection Auscultation: normoactive bowel sounds Palpation: tender Details: RLQ and RUQ Neuro Common normals: oriented x3 and moves all extremities Sensorium/orientation: awake and alert Course Vital Signs Vital signs: Vital Signs Temperature 99.4 F 08/11/23 17:22 Pulse Rate 117 H 08/11/23 17:22 Respiratory Rate 16 08/11/23 17:22 Blood Pressure 147/98 H 08/11/23 17:22 Pulse Oximetry 97 08/11/23 17:22 Temperature 99.4 F 08/11/23 17:22 Pulse Rate 85 08/11/23 19:41 Respiratory Rate 16 08/11/23 17:22 Blood Pressure 120/64 08/11/23 20:16 Pulse Oximetry 96 08/11/23 20:16 MDM - Abdominal Pain MDM Narrative Medical decision making narrative: WBC count was 16.2. CT scan of the abdomen/pelvis was negative for acute findings. Urinalysis showed concerns for infection; culture is pending. Findings were discussed with the patient. She was given medication with some improvement. Prescriptions were provided for Zofran, Keflex, and Bentyl. Follow up with pcp for a recheck, further evaluation and treatment. Return to ED if condition worsens. Differential Diagnosis Differential diagnosis: Likely abdominal pain, acute appendicitis, diverticulitis, gastroenteritis, pancreatitis and small bowel obstruction Medical Records Attestation: I reviewed the patient's medical records. Lab Data Attestation: I reviewed the patient's lab results. Labs: Lab Results 08/11/23 08/11/23 Range/Units 17:40 17:50 WBC 16.2 H (4.0-11.0) 10^3/uL RBC 4.84 (4.20-5.40) 10^6/uL Hgb 13.4 (12.0-16.0) g/dL Hct 42.0 (36.0-48.0) % MCV 86.8 (81.0-99.0) fL MCH 27.7 (26.7-34.0) pg MCHC 31.9 (29.9-35.2) g/dL RDW 13.1 (11.0-15.0) % Plt Count 256 (150-450) 10^3/uL MPV 10.9 (9.5-13.5) fL Neut % (Auto) 85.9 H (43.0-75.0) % Lymph % (Auto) 8.2 L (20.5-60.0) % [place] % (Auto) 3.8 (1.7-12.0) % Eos % (Auto) 1.6 (0.9-7.0) % Baso % (Auto) 0.2 (0.2-2.0) % Neut # (Auto) 14.0 H (1.4-6.5) 10^3/uL Lymph # (Auto) 1.3 (1.2-3.8) 10^3/uL [place] # (Auto) 0.6 (0.3-0.8) 10^3/uL Eos # (Auto) 0.3 (0.0-0.7) 10^3/uL Baso # (Auto) 0.0 (0.0-0.1) 10^3/uL Abs Immat Gran (auto) 0.05 H (0.00-0.03) 10^3/uL Imm/Tot Granulo (auto) 0.3 (0.0-0.5) % Sodium 137 (136-145) mmol/L Potassium 3.7 (3.5-5.1) mmol/L Chloride 102 (98-107) mmol/L Carbon Dioxide 23.3 (21.0-32.0) mmol/L Anion Gap 15.4 BUN 10.0 (7.0-18.0) mg/dL Creatinine 0.93 (0.55-1.02) mg/dL Est GFR ( Amer) >60 (>=60) Est GFR (Non-Af Amer) >60 (>=60) BUN/Creatinine Ratio 10.8 Glucose 100 (74-106) mg/dL Calcium 9.2 (8.5-10.1) mg/dL Total Bilirubin 0.6 (0.2-1.0) mg/dL AST 23 (15-37) U/L ALT 34 (14-59) U/L Alkaline Phosphatase 71 (46-116) U/L Total Protein 8.4 H (6.4-8.2) g/dL Albumin 3.8 (3.4-5.0) g/dL Globulin 4.6 g/dL Albumin/Globulin Ratio 0.8 Lipase 33.0 (16.0-77.0) U/L Urine Color Yellow (YELLOW) Urine Clarity Clear (CLEAR) Urine pH 8.5 (5.0-9.0) Ur Specific [place] 1.015 (1.005-1.025) Urine Protein Negative (NEG/TRACE) mg/dL Urine Glucose (UA) Negative (NEGATIVE) mg/dL Urine Ketones Negative (NEGATIVE) mg/dL Urine Occult Blood Trace-i (NEGATIVE) Urine Nitrite Negative (NEGATIVE) Urine Bilirubin Negative (NEGATIVE) Urine Urobilinogen 0.2 (0.2-1.0) EU/dL Ur Leukocyte Esterase Negative (NEGATIVE) Urine RBC 2-5 A (0-2) #/HPF Urine WBC 10-20 A (NONE SEEN) #/HPF Ur Squamous Epith Cells Rare (NONE/RARE) #/LPF Urine Crystals None seen (None Seen) #/HPF Urine Bacteria Trace A (NONE SEEN) #/HPF Urine Casts None seen (NONE SEEN) #/LPF Urine Mucus Trace A (NONE SEEN) Ur Culture Indicated? Yes Urine HCG, Qual Negative (NEGATIVE) Imaging Data CT scan - abdomen: Attestation: I have reviewed the pertinent imaging results. Radiologist's impression: ITS Impressions Abdomen/Pelvis CT 08/11/23 18:24 IMPRESSION: No acute abdominal pathology. No acute inflammatory process. No obstructing urinary tract stone. No evidence for bowel obstruction. Hepatic steatosis. 10 mm nonobstructing stone lower pole left kidney. Electronically authenticated by: JOHNSON SCANLON Date: 08/11/2023 19:31 Procedure: CT abdomen pelvis w con EXAM: CT abdomen pelvis w con TECHNIQUE: Axial CT images were obtained of the abdomen and pelvis with intravenous contrast. Sagittal and coronal reformatted images were also obtained. Dose reduction techniques were achieved by using automated exposure control and/or adjustment of mA and/or kV according to patient size and/or use of iterative reconstruction technique. HISTORY: pain COMPARISON: None. FINDINGS: Lower chest: Lungs are clear inferiorly. Liver: Diffuse decreased attenuation of liver consistent with steatosis. Gallbladder: The gallbladder is unremarkable. There is no intra or extrahepatic biliary dilatation. Pancreas: The pancreas is homogeneous without evidence for mass lesion or inflammation. Spleen: The spleen is unremarkable without evidence for mass lesion. Adrenal glands: The adrenal glands are unremarkable Kidneys and bladder: Small benign cyst posterior cortex right kidney. 10 mm nonobstructing stone lower pole left kidney. The ureters demonstrate normal caliber. The urinary bladder is unremarkable. GI Tract: Stomach is unremarkable. Visualized small bowel is unremarkable without evidence for obstruction or active inflammation. The appendix is unremarkable.The visualized portion of the large bowel is unremarkable. Reproductive: Unremarkable Lymph nodes: No retroperitoneal or abdominal lymphadenopathy. Vascular: The aorta is not dilated. Peritoneum: No free intraperitoneal air or fluid. No acute inflammation. Abdominal wall: Unremarkable without acute abnormality. CT/CT abdomen pelvis w con IMPRESSION: No acute abdominal pathology. No acute inflammatory process. No obstructing urinary tract stone. No evidence for bowel obstruction. Hepatic steatosis. 10 mm nonobstructing stone lower pole left kidney. Electronically authenticated by: JOHNSON SCANLON Date: 08/11/2023 19:31 Discharge Plan Discharge Chief Complaint: Nausea/Vomiting/Diarrhea Clinical Impression: UTI (urinary tract infection), Nausea & vomiting, Abdominal pain Patient Disposition: Home, Self-Care Time of Disposition Decision: 20:04 Condition: Good Mode of Transportation: Private Vehicle Prescriptions / Home Meds: New cephalexin 500 mg capsule 500 mg PO BID 5 Days Qty: 10 0RF ondansetron 4 mg tablet,disintegrating 4 mg PO Q8H PRN (Reason: nausea and vomiting) 4 Days Qty: 12 0RF dicyclomine 10 mg capsule 10 mg PO QID PRN (Reason: abdominal pain) Qty: 12 0RF Instructions: Urinary Tract Infection in Women (ED), Acute Nausea and Vomiting (ED), Abdominal Pain (ED) Additional Instructions: Return to the ER if your condition worsens. Follow up with your family physician for a recheck, further evaluation and treatment. Stand Alone Forms: Portal Instructions Referrals: Physician,Non-Staff, MD [Primary Care Provider] - 1 week Discharge Date/Time: 08/11/23 20:18
[2023-08-11 17:48] LABS: Basophils Percent Auto 0.2 % (0.2-2.0); Eosinophils Absolute Auto 0.3 10^3/uL (0.0-0.7); Eosinophils Percent Auto 1.6 % (0.9-7.0); Hemoglobin 13.4 g/dL (12.0-16.0); Immature Granulocytes Abs Auto 0.05 10^3/uL (0.00-0.03); Immature Granulocytes Pct Auto 0.3 % (0.0-0.5); Lymphocytes Absolute Auto 1.3 10^3/uL (1.2-3.8); Lymphocytes Percent Auto 8.2 % (20.5-60.0); Mean Corpuscular HGB Conc 31.9 g/dL (29.9-35.2); Mean Corpuscular Hemoglobin 27.7 pg (26.7-34.0); Mean Corpuscular Volume 86.8 fL (81.0-99.0); Mean Platelet Volume 10.9 fL (9.5-13.5); Monocytes Absolute Auto 0.6 10^3/uL (0.3-0.8); Monocytes Percent Auto 3.8 % (1.7-12.0); Neutrophils Percent Auto 85.9 % (43.0-75.0); Platelet Count 256 10^3/uL (150-450); Red Blood Count 4.84 10^6/uL (4.20-5.40); Red Cell Distribution Width 13.1 % (11.0-15.0); White Blood Count 16.2 10^3/uL (4.0-11.0)
[2023-08-11] MEDS: 0.9 % SODIUM CHLORIDE 1,000 ML 1000 ML IV (17:56)
[2023-08-11] MEDS: ONDANSETRON PF 4 MG/2 ML VIAL IV (17:56)
[2023-08-11] MEDS: FAMOTIDINE/PF 20 MG/2 ML VIAL IV (17:56)
[2023-08-11 18:06] LABS: Alanine Aminotransferase 34 U/L (14-59); Albumin Globulin Ratio 0.8; Albumin Level 3.8 g/dL (3.4-5.0); Alkaline Phosphatase 71 U/L (46-116); Anion Gap 15.4; Aspartate Amino Transferase 23 U/L (15-37); BUN Creatinine Ratio 10.8; Bilirubin Total 0.6 mg/dL (0.2-1.0); Calcium 9.2 mg/dL (8.5-10.1); Carbon Dioxide 23.3 mmol/L (21.0-32.0); Chloride 102 mmol/L (98-107); Estimated GFR (African America >60 (>=60); Estimated GFR (Non-African Ame >60 (>=60); Globulin 4.6 g/dL; Glucose 100 mg/dL (74-106); Potassium 3.7 mmol/L (3.5-5.1); Sodium 137 mmol/L (136-145); Total Protein 8.4 g/dL (6.4-8.2)
[2023-08-11 18:19] LABS: Bilirubin Urine NEGATIVE (NEGATIVE); Blood Urine TRACE-I (NEGATIVE); Clarity Urine CLEAR (CLEAR); Color Urine YELLOW (YELLOW); Glucose Urine UA NEGATIVE (NEGATIVE); Ketones Urine NEGATIVE (NEGATIVE); Leukocyte Esterase Urine NEGATIVE (NEGATIVE); Nitrite Urine NEGATIVE (NEGATIVE); Protein Urine NEGATIVE (NEG/TRACE); Specific Gravity Urine 1.015 (1.005-1.025); Urobilinogen Urine 0.2 EU/dL (0.2-1.0); pH Urine 8.5 (5.0-9.0)
[2023-08-11 18:21] LABS: HCG Qualitative Urine* NEGATIVE (NEGATIVE); Urine Microscopic Indicated YES
--- NOTE | 2023-08-11 18:24 | CT_ITS ---
[address] [address] Patient Name: HAROLDO MARCH MRN: [id number] date: 1995 Sex: F Assigned Patient Location: ER Current Patient Location: ER Accession/Order Number: [id number] Exam Date: 08/11/2023 18:40 Report Date: 08/11/2023 19:31 At the request of: KENNETH BARRAGAN Procedure: CT abdomen pelvis w con EXAM: CT abdomen pelvis w con TECHNIQUE: Axial CT images were obtained of the abdomen and pelvis with intravenous contrast. Sagittal and coronal reformatted images were also obtained. Dose reduction techniques were achieved by using automated exposure control and/or adjustment of mA and/or kV according to patient size and/or use of iterative reconstruction technique. HISTORY: pain COMPARISON: None. FINDINGS: Lower chest: Lungs are clear inferiorly. Liver: Diffuse decreased attenuation of liver consistent with steatosis. Gallbladder: The gallbladder is unremarkable. There is no intra or extrahepatic biliary dilatation. Pancreas: The pancreas is homogeneous without evidence for mass lesion or inflammation. Spleen: The spleen is unremarkable without evidence for mass lesion. Adrenal glands: The adrenal glands are unremarkable Kidneys and bladder: Small benign cyst posterior cortex right kidney. 10 mm nonobstructing stone lower pole left kidney. The ureters demonstrate normal caliber. The urinary bladder is unremarkable. GI Tract: Stomach is unremarkable. Visualized small bowel is unremarkable without evidence for obstruction or active inflammation. The appendix is unremarkable.The visualized portion of the large bowel is unremarkable. Reproductive: Unremarkable Lymph nodes: No retroperitoneal or abdominal lymphadenopathy. Vascular: The aorta is not dilated. Peritoneum: No free intraperitoneal air or fluid. No acute inflammation. Abdominal wall: Unremarkable without acute abnormality. CT/CT abdomen pelvis w con IMPRESSION: No acute abdominal pathology. No acute inflammatory process. No obstructing urinary tract stone. No evidence for bowel obstruction. Hepatic steatosis. 10 mm nonobstructing stone lower pole left kidney. Electronically authenticated by: JOHNSON SCANLON Date: 08/11/2023 19:31
[2023-08-11 18:26] LABS: Bacteria Urine TRACE #/HPF (NONE SEEN); Cast Seen? NONE SEEN #/LPF (NONE SEEN); Crystals Seen? None Seen #/HPF (None Seen); Mucus Urine TRACE (NONE SEEN); Squamous Epithelial Cell Urine RARE #/LPF (NONE/RARE); Urine Culture Indicated YES
[2023-08-11 19:22] VITALS: BP 119/86; O2SAT 98
[2023-08-11] MEDS: FENTANYL CITRATE/PF 100 MCG/2 ML VIAL 50 MCG IV (19:40)
[2023-08-11 19:41] VITALS: BP 121/71; PULSE 85; O2SAT 99
[2023-08-11] MEDS: DICYCLOMINE HCL 20 MG/2 ML VIAL IM (20:07)
[2023-08-11 20:16] VITALS: BP 120/64; O2SAT 96
== END 2023-08-11 20:18 | disposition home or self-care (01) ==
PROVIDERS: Nurse Practitioner Family; Emergency Provider Emergency Medicine
DX: N39.0 Urinary tract infection, site not specified (principal); R11.2 Nausea with vomiting, unspecified; R10.9 Unspecified abdominal pain; F32.A Depression, unspecified; F41.9 Anxiety disorder, unspecified; K21.9 Gastro-esophageal reflux disease without esophagitis; B19.20 Unspecified viral hepatitis C without hepatic coma; F17.210 Nicotine dependence, cigarettes, uncomplicated; F12.90 Cannabis use, unspecified, uncomplicated
CPT/HCPCS: 36415; 74177; 80053; 81001; 83690; 84703; 85025; 87086; 96361; 96372; 96374; 96375; 99285; J0500; J2405; J3010; Q9967

== ENCOUNTER 2023-10-01 08:40 | Outpatient (OUT) | payer OTHER, SELFPAY ==
--- OUTSIDE RECORDS SUMMARY | 2023-10-01 08:45 | XMS_ITS | CCD ---
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 Role Phone Radames Ridley Unavailable REQUEST, NONE LISTED Primary Care Unavaila ble KARLY, DR SOLIS Admitting Unavailable PAY ., DR ALVAREZ Consulting Unavailable KARLY, DR SOLIS Attending Unavailable GRECHNY ., ANJALI MURRIETA Consulting Unavailabl e ANNETTE ., DR GONCALVES Attending Unavailable REQUEST, DR NONE LISTED Primary Care Unavaila ble ANNETTE ., DR GONCALVES Consulting Unavailable ANNETTE ., DR GONCALVES Admitting Unavailable REQUEST, NONE LISTED Primary Care Unavaila ble ANNETTE ., DR GONCALVES Attending Unavailable ANNETTE ., DR GONCALVES Admitting Unavailable ANNETTE ., DR GONCALVES Consulting Unavailable ZIEBER, DR ALVIN Griffin Consulting Unavailable REQUEST, DR MARTINEZ LISTED Consulting Unavaila ble LAISHA, SHAIKH Amanda Primary Care Unavailable GRECHNY ., ANJALI MURRIETA Consulting Unavailabl e HAY ., DR GRECO Admitting Unavailable HAY ., DR GRECO Attending Unavailable HAY ., DR GRECO Consulting Unavailable LIUDMILA MCKEON Consulting Unavailable REQUEST, DR NONE LISTED Primary Care Unavaila ble DIAB ., CHEO Consulting Unavailable DIAB ., CHEO Admitting Unavailable DIAB ., CHEO Attending Unavailable REQUEST, DR NONE LISTED Referring Unavaila ble REQUEST, DR MARTINEZ LISTED Primary Care Unavaila ble ANNETTE ., DR GONCALVES Admitting Unavailable ANNETTE ., DR GONCALVES Attending Unavailable ANNETTE ., DR GONCALVES Consulting Unavailable REQUEST, NONE LISTED Primary Care Unavaila ble GISELL ., BEAU Admitting Unavailable KENNETH BARRAGAN Consulting Unavailable GISELL ., BEAU Attending Unavailable DIAB ., CHEO Consulting Unavailable REQUEST, NONE LISTED Primary Care Unavaila ble ANNETTE ., DR GONCALVES Consulting Unavailable ANNETTE ., DR GONCALVES Attending Unavailable ANNETTE ., DR GONCALVES Admitting Unavailable ANNETTE ., DR GONCALVES Admitting Unavailable ANNETTE ., DR GONCALVES Attending Unavailable MISC, DR LYNN Primary Care Unavailable ANNETTE ., DR GONCALVES Consulting Unavailable MISC, DR LYNN Admitting Unavailable MISC, DR LYNN Attending Unavailable RADAMES RIDLEY Consulting Unavailable FAWWAD, PAEZ H Primary Care Unavailable REQUEST, DR NONE LISTED Primary Care Unavaila ble SKYLER ., JANN Admitting Unavailable SKYLER ., JANN Attending Unavailable SKYLER ., JANN Consulting Unavailable REQUEST, DR NONE LISTED Primary Care Unavaila ble ANNETTE ., DR GONCALVES Attending Unavailable WEST, DR LIUDMILA Gruber Consulting Unavailable ANNETTE ., DR GONCALVES Admitting Unavailable ANNETTE ., DR GONCALVES Consulting Unavailable REQUEST, DR NONE LISTED Primary Care Unavaila ble ANNETTE ., DR GONCALVES Attending Unavailable ANNETTE ., DR GONCALVES Consulting Unavailable ANNETTE ., DR GONCALVES Admitting Unavailable KALYAN ZAIDI Admitting Unavailable KALYAN ZAIDI Attending Unavailable GRECHNY ., ANJALI MURRIETA Consulting Unavailabl e MISC, DR LYNN Primary Care Unavailable KALYAN ZAIDI Consulting Unavailable AHDOOT, YADY Consulting Unavailable JOSEPH KWAN Consulting Unavailable REQUEST, DR NONE LISTED Primary Care Unavaila ble ANNETTE ., DR GONCALVES Attending Unavailable ANNETTE ., DR GONCALVES Admitting Unavailable ANNETTE ., DR GONCALVES Consulting Unavailable ZIEBER, DR ALVIN Griffin Consulting Unavailable ANNETTE ., DR GONCALVES Admitting Unavailable ANNETTE ., DR GONCALVES Attending Unavailable ANNETTE ., DR GONCALVES Consulting Unavailable REQUEST, DR NONE LISTED Primary Care Unavaila ble HOA, LIUDMILA Consulting Unavailable REQUEST, NONE LISTED Primary Care Unavaila ble ANNETTE ., DR GONCALVES Admitting Unavailable ANNETTE ., DR GONCALVES Attending Unavailable WEST, DR LIUDMILA Gruber Consulting Unavailable ANNETTE ., DR GONCALVES Consulting Unavailable KALYAN ZAIDI Admitting Unavailable KALYAN ZAIDI Attending Unavailable MISC, DR LYNN Primary Care Unavailable MURALI, DR LIUDMILA Gruber Consulting Unavailable SKYLER ., JANN Consulting Unavailable KALYAN ZAIDI Consulting Unavailable REQUEST, DR NONE LISTED Primary Care Unavaila ble ANNETTE ., DR GONCALVES Attending Unavailable KARASIK ., DR SEGURA Consulting Unavailabl e ANNETTE ., DR GONCALVES Admitting Unavailable ZIEBER, DR ALVIN Griffin Consulting Unavailable Gregorio Allen Attending Unavailab Gregorio Summers Admitting Unavailab amrik Vega Megha Unavailable IVANNA BRYANT Attending Unavailable Medications Current Medications Medication Drug Class(es) Dates Sig (Normalized) Sig (Original) amoxicillin 875 mg / clavulanate 125 mg oral tablet (1 source) Penicillin-class Antibacterial Start: 08-19-2023 take 1 tablet by mouth every twelve hours Amoxicillin-Pot Clavulanate 875-125 MG 1 tablet Orally every 12 hrs for 10 day(s) Jul, Active hydrocortisone 10 mg/ml / neomycin 3.5 mg/ml / polymyxin b 64008 unt/ml otic suspension (1 source) Aminoglycoside Antibacterial, Polymyxin-class Antibacterial, Corticosteroid Start: 08-19-2023 Neomycin-Polymyx in-HC [id number] 3 drops right ear Three times a day for 7 days Jul, Active Problems Active Problems Problem Classification Problem Date Documented Da te Episodic/Chronic Abdominal pain (10 sources) Right upper quadrant pain; Translations: [Unspecified abdominal pain] Onset: 07-17-2022 Episodic Hepatitis (7 sources) Viral hepatitis C; Translations: [Unspecified viral hepatitis C without hepatic coma] Onset: 04-25-2022 Episodic Immunizations and screening for infectious disease (1 source) Encounter for screening for infections with a predominantly sexual mode of transmission; Translations: [ENC SCREEN INFECTIONS SEXL TRANSMS] Onset: 10-16-2022 Episodic Menstrual disorders (5 sources) Irregular menstruation, unspecified; Translations: [IRREGULAR MENSTRUATION UNSPECIFIED] Onset: 07-19-2022 Chronic Nausea and vomiting (3 sources) Nausea; Translations: [Nausea with vomiting, unspecified] Onset: 06-29-2022 Episodic Other complications of (1 source) Smoking (tobacco) complicating , second trimester; Translations: [SMOKING TOBACCO COMP PREG 2ND TRI] Onset: 12-06-2022 Episodic Other complications of (4 sources) Other specified related conditions, second trimester; Translations: [OTH SPEC PREG RELATED COND 2ND TRI] Onset: 12-01-2022 Episodic Other ear and sense organ disorders (1 source) Unspecified acute noninfective otitis externa, right ear Episodic Other female genital disorders (1 source) Other specified noninflammatory disorders of vagina; Translations: [OTH SPEC NONINFLAMMATORY D/O VAGINA] Onset: 10-16-2022 Episodic Other gastrointestinal disorders (1 source) Diarrhea, unspecified; Translations: [DIARRHEA UNSPECIFIED] Onset: 12-25-2022 Episodic Other liver diseases (1 source) Abnormal levels of other serum enzymes Episodic Other screening for suspected conditions (not mental disorders or infectious disease) (20 sources) Elevated liver enzymes level; Translations: [Other specified abnormal findings of blood chemistry] Onset: 09-01-2022 Episodic Otitis media and related conditions (1 source) Otitis media, unspecified, bilateral Episodic Residual codes; unclassified (1 source) 28 weeks gestation of ; Translations: [28 WEEKS GESTATION OF ] Onset: 12-25-2022 Episodic Residual codes; unclassified (1 source) 24 weeks gestation of ; Translations: [24 WEEKS GESTATION OF ] Onset: 12-06-2022 Episodic Residual codes; unclassified (1 source) 17 weeks gestation of ; Translations: [17 WEEKS GESTATION OF ] Onset: 10-30-2022 Episodic Substance-related disorders (1 source) Nicotine dependence, cigarettes, uncomplicated; Translations: [NICOTINE DEPEND CIGARETTES UNCOMP] Onset: 12-06-2022 Chronic Substance-related disorders (2 sources) Drug use complicating , second trimester; Translations: [Cannabis use, unspecified, uncomplicated] Onset: 10-30-2022 Episodic Unclassified (1 source) OTH SPCF DIS/COND COMPL ; Translations: [OTH SPCF DIS/COND COMPL ] Onset: 12-25-2022 Unclassified (2 sources) LOW BACK PAIN, UNSPECIFIED; Translations: [LOW BACK PAIN, UNSPECIFIED] Onset: 09-18-2022 Unclassified (3 sources) COUGH, UNSPECIFIED; Translations: [COUGH, UNSPECIFIED] Onset: 07-28-2022 Unclassified (1 source) CONTACT W/AND (SUSP) EXPOS COVID-19; Translations: [CONTACT W/AND (SUSP) EXPOS COVID-19] Onset: 07-28-2022 Past or Other Problems Problem Classification Problem Date Documented Da te Episodic/Chronic E Codes: Natural/environment (1 source) Other and unspecified overexertion or strenuous movements or postures, initial encounter; Translations: [OTH AND UNS OVREXRT/STRN MVMT/POS INT] Onset: 09-18-2022 Episodic Gastritis and duodenitis (1 source) Gastritis, unspecified, without bleeding; Translations: [GASTRITIS UNS WITHOUT BLEEDING] Onset: 08-25-2022 Episodic Other complications of (1 source) Injury, poisoning and certain other consequences of external causes complicating , second trimester; Translations: [INJ POISON OTH EXT COMP PG 2ND TRI] Onset: 09-18-2022 Episodic Other complications of (1 source) Other specified related conditions, third trimester; Translations: [OTH SPEC PREG RELATED COND 3RD TRI] Onset: 08-25-2022 Episodic Other complications of (1 source) Smoking (tobacco) complicating , unspecified trimester; Translations: [SMOKING TOBACCO COMP PREG UNS TRI] Onset: 08-25-2022 Episodic Other complications of (1 source) Diseases of the digestive system complicating , unspecified trimester; Translations: [DZ DIGESTIVE SYS COMP PREG UNS TRI] Onset: 08-25-2022 Episodic Other complications of (1 source) Diseases of the respiratory system complicating , first trimester; Translations: [DISEASES RESP SYS COMP PREG 1ST TRI] Onset: 07-28-2022 Episodic Other complications of (2 sources) Other specified related conditions, first trimester; Translations: [OTH SPEC PREG RELATED COND 1ST TRI] Onset: 07-19-2022 Episodic Other complications of (1 source) Smoking (tobacco) complicating , first trimester; Translations: [SMOKING TOBACCO COMP PREG 1ST TRI] Onset: 07-28-2022 Episodic Other connective tissue disease (1 source) Myalgia, unspecified site; Translations: [MYALGIA UNSPECIFIED SITE] Onset: 07-28-2022 Episodic Other non-traumatic joint disorders (1 source) Pain in unspecified joint; Translations: [PAIN IN UNSPECIFIED JOINT] Onset: 07-28-2022 Episodic Other and delivery including normal (3 sources) Encounter for supervision of normal first , first trimester; Translations: [Encounter for supervision of other normal , first trimester] Onset: 08-19-2022 Episodic Other upper respiratory infections (1 source) Acute upper respiratory infection, unspecified; Translations: [ACUTE UP RESPIRATORY INFECTION UNS] Onset: 07-28-2022 Episodic Residual codes; unclassified (1 source) 14 weeks gestation of ; Translations: [14 WEEKS GESTATION OF ] Onset: 09-18-2022 Episodic Residual codes; unclassified (1 source) Weeks of gestation of not specified; Translations: [WEEKS GESTATION NOT SPEC] Onset: 08-25-2022 Episodic Residual codes; unclassified (1 source) Less than 8 weeks gestation of ; Translations: [< 8 WEEKS GESTATION ] Onset: 07-28-2022 Episodic Spondylosis; intervertebral disc disorders; other back problems (1 source) Lumbago with sciatica, unspecified side; Translations: [LUMBAGO WITH SCIATICA UNS SIDE] Onset: 09-18-2022 Episodic Sprains and strains (1 source) Strain of muscle, fascia and tendon of lower back, initial encounter; Translations: [STRAIN MUSC FASC TENDON LW BACK INT] Onset: 09-18-2022 Episodic Unclassified (1 source) LOW BACK PAIN, UNSPECIFIED; Translations: [LOW BACK PAIN, UNSPECIFIED] Onset: 09-14-2022 Unclassified (1 source) COUGH, UNSPECIFIED; Translations: [COUGH, UNSPECIFIED] Onset: 07-26-2022 Results Test Name Value Interpretation Reference Range Facil ity AMYLASEon 12-21-2022 Amylase [Catalytic activity/Vol] 59 U/L Normal 25-115 [facility] Comment on above: Performed By: #### E RUR #### [facility] [address] [address] [address] Augustine Lou CBC AUTO DIFFon 12-21-2022 BASO # 0.0 103/ul Normal 0.0-0.1 [facility] Comment on above: Performed By: #### H IV12 #### [facility] [address] [address] [address] Augustine Lou Basophils/100 WBC (Bld) 0.2 % Normal 0.2-2.0 [facility] Comment on above: Performed By: #### H IV12 #### [facility] [address] [address] [address] Augustine Lou EO # 0.2 103/ul Normal 0.0-0.7 [facility] Comment on above: Performed By: #### H IV12 #### [facility] [address] [place] [address] Dr. Augustine Lou Eosinophils/100 WBC (Bld) 1.2 % Normal 0.9-7.0 [facility] Comment on above: Performed By: #### H IV12 #### [facility] [address] [place] [address] Dr. Augustine Lou Erythrocyte distribution width (RBC) [Ratio] 13.0 % Normal 11.0-15.0 [facility] Comment on above: Performed By: #### H IV12 #### [facility] [address] [place] [address] Dr. Augustine Lou Hematocrit (Bld) [Volume fraction] 35.9 % Critically low 36.0-48.0 [facility] Comment on above: Performed By: #### H IV12 #### [facility] [address] [place] [address] Dr. Augustine Lou Hemoglobin (Bld) [Mass/Vol] 12.1 g/dL Normal 12.0-16.0 [facility] Comment on above: Performed By: #### H IV12 #### [facility] [address] [place] [address] Dr. Augustine Lou IG # 0.08 10e3/ul Critically high 0.00-0.03 [facility] Comment on above: Performed By: #### H IV12 #### [facility] [address] [place] [address] Dr. Augustine Lou IG % 0.5 % Normal 0.0-0.5 [facility] Comment on above: Performed By: #### H IV12 #### [facility] [address] [place] [address] Dr. Augustine Lou LYMPH # 1.3 103/ul Normal 1.2-3.8 [facility] Comment on above: Performed By: #### H IV12 #### [facility] [address] [place] [address] Dr. Augustine Lou Lymphocytes/100 WBC (Bld) 7.8 % Critically low 20.5-60.0 [facility] Comment on above: Performed By: #### H IV12 #### [facility] [address] [place] [address] Dr. Augustine Lou MANUAL DIFF REQ NO Normal [facility] Comment on above: Performed By: #### H IV12 #### [facility] [address] [place] [address] Dr. Augustine Lou MCH (RBC) [Entitic mass] 29.6 pg Normal 26.7-34.0 [facility] Comment on above: Performed By: #### H IV12 #### [facility] [address] [place] [address] Dr. Augustine Lou MCHC (RBC) [Mass/Vol] 33.7 g/dL Normal 29.9-35.2 [facility] Comment on above: Performed By: #### H IV12 #### [facility] [address] [place] [address] Dr. Augustine Lou MCV (RBC) [Entitic vol] 87.8 fL Normal 81.0-99.0 [facility] Comment on above: Performed By: #### H IV12 #### [facility] [address] [place] [address] Dr. Augustine Lou MONO # 0.7 103/ul Normal 0.3-0.8 [facility] Comment on above: Performed By: #### H IV12 #### [facility] [address] [place] [address] Dr. Augustine Lou Monocytes/100 WBC (Bld) 4.3 % Normal 1.7-12.0 [facility] Comment on above: Performed By: #### H IV12 #### [facility] [address] [place] [address] Dr. Augustine Lou NEUT # 14.7 103/ul Critically high 1.4-6.5 [facility] Comment on above: Performed By: #### H IV12 #### [facility] [address] [place] [address] Dr. Augustine Lou Neutrophils/100 WBC (Bld) 86.0 % Critically high 43.0-75.0 [facility] Comment on above: Performed By: #### H IV12 #### [facility] [address] [place] [address] Dr. Augustine Lou Platelet mean volume (Bld) [Entitic vol] 10.4 fL Normal 9.5-13.5 [facility] Comment on above: Performed By: #### H IV12 #### [facility] [address] [address] [address] Augustine Lou PLT 249 103/ul Normal 150-450 [facility] Comment on above: Performed By: #### H IV12 #### [facility] [address] [address] [address] Augustine Lou RBC 4.09 106/ul Critically low 4.20-5.40 [facility] Comment on above: Performed By: #### H IV12 #### [facility] [address] [place] [address] Dr. Augustine Lou WBC 17.0 103/ul Critically high 4.0-11.0 [facility] Comment on above: Performed By: #### H IV12 #### [facility] [address] [place] [address] Dr. Augustine Lou GI PANEL (PCR)on 12-21-2022 Adenovirus F 40/41 Not detected Normal NOT DETECTED [facility] Comment on above: Performed By: #### P T #### [facility] [address] [place] [address] Dr. Augustine Lou Astrovirus Not detected Normal NOT DETECTED [facility] Comment on above: Performed By: #### P T #### [facility] [address] [place] [address] Dr. Augustine Lou C. Diff toxin A/B Not detected Normal NOT DETECTED [facility] Comment on above: Performed By: #### P T #### [facility] [address] [place] [address] Dr. Augustine Lou Campylobacter Not detected Normal NOT DETECTED [facility] Comment on above: Performed By: #### P T #### [facility] [address] [place] [address] Dr. Augustine Lou Cryptosporidium Not detected Normal NOT DETECTED [facility] Comment on above: Performed By: #### P T #### [facility] [address] [address] [address] Augustine Lou Cyclos. Cayetanensis Not detected Normal NOT DETECTED [facility] Comment on above: Performed By: #### P T #### [facility] [address] [place] [address] Dr. Augustine Lou E. Coli O157 Not Applicable Normal Not Applicable [facility] Comment on above: Performed By: #### P T #### [facility] [address] [place] [address] Dr. Augustine Lou E. histolytica Not detected Normal NOT DETECTED [facility] Comment on above: Performed By: #### P T #### [facility] [address] [place] [address] Dr. Augustine Lou EAEC Not detected Normal NOT DETECTED [facility] Comment on above: Performed By: #### P T #### [facility] [address] [place] [address] Dr. Augustine Lou EIEC Not detected Normal NOT DETECTED [facility] Comment on above: Performed By: #### P T #### [facility] [address] [place] [address] Dr. Augustine Lou EPEC Not detected Normal NOT DETECTED [facility] Comment on above: Performed By: #### P T #### [facility] [address] [place] [address] Dr. Augustine Lou ETEC Not detected Normal NOT DETECTED [facility] Comment on above: Performed By: #### P T #### [facility] [address] [place] [address] Dr. Augustine Lou G. Lamblia Not detected Normal NOT DETECTED [facility] Comment on above: Performed By: #### P T #### [facility] [address] [place] [address] Dr. Augustine Lou GIPANEL CONTROLS PASSED Normal [facility] Comment on above: Performed By: #### P T #### [facility] [address] [address] [address] Augustine FAYE HEADER GI PANEL BACTERIA Normal [facility] Comment on above: Performed By: #### P T #### [facility] [address] [address] [address] Augustine BOUDREAUX ECOLI GI PANEL DIARRHEAGEN IC E.COLI / SHIGELLA Normal [facility] Comment on above: Performed By: #### P T #### [facility] [address] [address] [address] Augustine BOUDREAUX INFO SEE BELOW Normal [facility] Comment on above: Result Comment: EAEC - Enteroaggregative E. Coli EPEC- Enteropathogenic E. Coli ETEC- Enterotoxigenic E. Coli lt/st STEC- Shigella-like toxin-producing E. Coli stx1/stx2 EIEC- Shigella/Enteroinvasive E. Coli Performed By: #### P T #### [facility] [address] [place] [address] Dr. Augustine BOUDREAUX PARASITES GI PANEL PARASITES Normal [facility] Comment on above: Performed By: #### P T #### [facility] [address] [place] [address] Dr. Augustine BOUDREAUX VIRUS GI PANEL VIRUSES Normal [facility] Comment on above: Performed By: #### P T #### [facility] [address] [place] [address] Dr. Augustine Lou Norovirus GI/GII Not detected Normal NOT DETECTED [facility] Comment on above: Performed By: #### P T #### [facility] [address] [address] [address] Augustine Kilpatrick. Shigelloides Not detected Normal NOT DETECTED [facility] Comment on above: Performed By: #### P T #### [facility] [address] [address] [address] Augustine Lou Rotavirus A Not detected Normal NOT DETECTED [facility] Comment on above: Performed By: #### P T #### [facility] [address] [place] [address] Dr. Augustine Lou Salmonella Not detected Normal NOT DETECTED [facility] Comment on above: Performed By: #### P T #### [facility] [address] [place] [address] Dr. Augustine Lou Sapovirus Not detected Normal NOT DETECTED [facility] Comment on above: Performed By: #### P T #### [facility] [address] [place] [address] Dr. Augustine Lou STEC Not detected Normal NOT DETECTED [facility] Comment on above: Performed By: #### P T #### [facility] [address] [place] [address] Dr. Augustine Lou Vibrio Not detected Normal NOT DETECTED [facility] Comment on above: Performed By: #### P T #### [facility] [address] [place] [address] Dr. Augustine Lou Vibrio Cholera Not detected Normal NOT DETECTED [facility] Comment on above: Performed By: #### P T #### [facility] [address] [place] [address] Dr. Augustine Lou Y. Enterocolitica Not detected Normal NOT DETECTED [facility] Comment on above: Performed By: #### P T #### [facility] [address] [place] [address] Dr. Augustine Lou LIPASEon 12-21-2022 Lipase [Catalytic activity/Vol] 89.0 U/L Normal 73.0-393.0 [facility] Comment on above: Performed By: #### E RUR #### [facility] [address] [place] [address] Dr. Augustine Lou LIVER PROFILEon 12-21-2022 Albumin [Mass/Vol] 2.7 g/dL Critically low 3.4-5.[address] [facility] Comment on above: Performed By: #### E RUR #### [facility] [address] [place] [address] Dr. Augustine Lou Albumin/Globulin [Mass ratio] 0.6 {ratio} Normal [facility] Comment on above: Performed By: #### E RUR #### [facility] [address] [address] [address] Augustine Lou ALP [Catalytic activity/Vol] 59 U/L Normal 46-116 [facility] Comment on above: Performed By: #### E RUR #### [facility] [address] [address] [address] Augustine Lou ALT [Catalytic activity/Vol] 18 U/L Normal 14-59 [facility] Comment on above: Performed By: #### E RUR #### [facility] [address] [address] [address] Augustine Lou AST [Catalytic activity/Vol] 17 U/L Normal 15-37 [facility] Comment on above: Performed By: #### E RUR #### [facility] [address] [place] [address] Dr. Augustine Lou BILI, CONJUGATED 0.0 mg/dL Normal 0.0-0.2 [facility] Comment on above: Performed By: #### E RUR #### [facility] [address] [place] [address] Dr. Augustine Lou Bilirubin [Mass/Vol] 0.2 mg/dL Normal 0.2-1.0 [facility] Comment on above: Performed By: #### E RUR #### [facility] [address] [place] [address] Dr. Augustine Lou Globulin (S) [Mass/Vol] 4.4 g/dL Normal [facility] Comment on above: Performed By: #### E RUR #### [facility] [address] [place] [address] Dr. Augusitne Lou Protein [Mass/Vol] 7.1 g/dL Normal 6.4-8.2 [facility] Comment on above: Performed By: #### E RUR #### [facility] [address] [place] [address] Dr. Augustine Lou PROF CHEM 8 (BAS METB)on Anion gap [Moles/Vol] 15.2 mmol/L Normal [facility] Comment on above: Performed By: #### E RUR #### [facility] [address] [address] [address] Augustine Lou Calcium [Mass/Vol] 8.9 mg/dL Normal 8.5-10.1 [facility] [place] Comment on above: Performed By: #### E RUR #### [facility] [address] [place] [address] Dr. Augustine Lou Chloride [Moles/Vol] 106 mmol/L Normal 98-107 [facility] Comment on above: Performed By: #### E RUR #### [facility] [address] [place] [address] Dr. Augustine Lou CO2 [Moles/Vol] 21.7 mmol/L Normal 21.0-32.0 [facility] Comment on above: Performed By: #### E RUR #### [facility] [address] [place] [address] Dr. Augustine Lou Creatinine [Mass/Vol] 0.53 mg/dL Critically low 0.55-1.02 [facility] Comment on above: Performed By: #### E RUR #### [facility] [address] [place] [address] Dr. Augustine Lou EGFR-AF PALESTINIAN >60 Normal >=60 [facility] Comment on above: Performed By: #### E RUR #### [facility] [address] [place] [address] Dr. Augustine Lou EGFR-NON AF PALESTINIAN >60 Normal >=60 [facility] Comment on above: Performed By: #### E RUR #### [facility] [address] [place] [address] Dr. Augustine Lou Glucose [Mass/Vol] 86 mg/dL Normal 74-106 [facility] [place] Comment on above: Performed By: #### E RUR #### [facility] [address] [place] [address] Dr. Augustine Lou Potassium [Moles/Vol] 3.9 mmol/L Normal 3.5-5.1 [facility] Comment on above: Performed By: #### E RUR #### [facility] [address] [place], [place] [address] Dr. Augustine Lou Sodium [Moles/Vol] 139 mmol/L Normal 136-145 [facility] Comment on above: Performed By: #### E RUR #### [facility] [address] [place], [place] [address] Dr. Augustine Lou Urea nitrogen [Mass/Vol] 10.0 mg/dL Normal 7.0-18.0 [facility] Comment on above: Performed By: #### E RUR #### [facility] [address] [place], [place] [address] Dr. Augustine Lou Urea nitrogen/Creatinine [Mass ratio] 18.9 mg/mg Normal [facility] Comment on above: Performed By: #### E RUR #### [facility] [address] [place], [place] [address] Dr. Augustine Lou US SINGLE QUAD RT UPPERon US SINGLE QUAD RT UPPER EXAMINATION: US SINGLE QUAD RT UPPER HISTORY: Pain COMPARISON: 12/01/2022 FINDINGS: The pancreas is normal in appearance The liver is normal in size, contour and echotexture with no focal mass. Hepatopedal flow in the main portal vein with a velocity of 30 cm/s The gallbladder is normal in size. The wall measures 1.8 mm. Negative sonographic Delgado sign. The common bile duct measures 5.8 mm, normal. The right kidney is normal in size and echotexture measuring 11.7 x 6.1 x 5.4 cm IMPRESSION: No acute abnormality Electronically authenticated by: LIUDMILA CARRION Date: 2022-12-21 16:26 Normal [facility] US PREG INCOMPLETE ANATOMYon 12-05-2022 US PREG INCOMPLETE ANATOMY EXAMINATION: US PREG INCOMPLETE ANATOMY HISTORY: screening COMPARISON: Ultrasound anatomy single 11/03/2022 FINDINGS: Heart rate: 130 bpm Anatomy: Right ventricle outflow tract, left ventricle outflow tract, four-chamber heart, and hard palate visualized and appear unremarkable. GA: 25 weeks 0 days HANNAH: 03/20/2023 IMPRESSION: 1 single live intrauterine . 2. Adequate visualization of the four-chamber heart, cardiac outflow tracts, and hard palate. No appreciable abnormality. Electronically authenticated by: ALVIN GALDAMEZ Date: 2022-12-05 15:13 Normal [facility] BILIRUBIN CONJUGATED (DIRECT )on 12-01-2022 BILI, CONJUGATED 0.0 mg/dL Normal 0.0-0.2 [facility] Comment on above: Performed By: #### A FPMAT #### [facility] [address] [place] [address] Dr. Augustine Lou BILIRUBIN TOTALon 12-01-2022 Bilirubin [Mass/Vol] 0.1 mg/dL Critically low 0.2-1.0 [facility] Comment on above: Performed By: #### C BC #### [facility] [address] [place] [address] Dr. Augustine Lou BUNon 12-01-2022 Urea nitrogen [Mass/Vol] 6.0 mg/dL Critically low 7.0-18.0 [facility] Comment on above: Performed By: #### H IV12 #### [facility] [address] [place] [address] Dr. Augustine Lou CBC AUTO DIFFon 12-01-2022 BASO # 0.0 103/ul Normal 0.0-0.1 [facility] Comment on above: Performed By: #### C BC #### [facility] [address] [place] [address] Dr. Augustine Lou Basophils/100 WBC (Bld) 0.2 % Normal 0.2-2.0 [facility] Comment on above: Performed By: #### C BC #### [facility] [address] [place] [address] Dr. Augustine Lou EO # 0.3 103/ul Normal 0.0-0.7 [facility] Comment on above: Performed By: #### C BC #### [facility] [address] [place] [address] Dr. Augustine Lou Eosinophils/100 WBC (Bld) 3.5 % Normal 0.9-7.0 [facility] Comment on above: Performed By: #### C BC #### [facility] [address] [place] [address] Dr. Augustine Lou Erythrocyte distribution width (RBC) [Ratio] 13.1 % Normal 11.0-15.0 [facility] Comment on above: Performed By: #### C BC #### [facility] [address] [place] [address] Dr. Augustine Lou Hematocrit (Bld) [Volume fraction] 32.2 % Critically low 36.0-48.0 [facility] Comment on above: Performed By: #### C BC #### [facility] [address] [place] [address] Dr. Augustine Lou Hemoglobin (Bld) [Mass/Vol] 10.7 g/dL Critically low 12.0-16.0 [facility] Comment on above: Performed By: #### C BC #### [facility] [address] [place] [address] Dr. Augustine Lou IG # 0.04 10e3/ul Critically high 0.00-0.03 [facility] Comment on above: Performed By: #### C BC #### [facility] [address] [place] [address] Dr. Augustine Lou IG % 0.4 % Normal 0.0-0.5 [facility] Comment on above: Performed By: #### C BC #### [facility] [address] [place] [address] Dr. Augustine Lou LYMPH # 2.6 103/ul Normal 1.2-3.8 [facility] Comment on above: Performed By: #### C BC #### [facility] [address] [place] [address] Dr. Augustine Lou Lymphocytes/100 WBC (Bld) 27.2 % Normal 20.5-60.0 [facility] Comment on above: Performed By: #### C BC #### [facility] [address] [place] [address] Dr. Augustine Lou MANUAL DIFF REQ NO Normal [facility] Comment on above: Performed By: #### C BC #### [facility] [address] [place] [address] Dr. Augustine Lou MCH (RBC) [Entitic mass] 29.8 pg Normal 26.7-34.0 [facility] Comment on above: Performed By: #### C BC #### [facility] [address] [address] [address] Augustine Lou MCHC (RBC) [Mass/Vol] 33.2 g/dL Normal 29.9-35.2 [facility] Comment on above: Performed By: #### C BC #### [facility] [address] [address] [address] Augustine Lou MCV (RBC) [Entitic vol] 89.7 fL Normal 81.0-99.0 [facility] Comment on above: Performed By: #### C BC #### [facility] [address] [place] [address] Dr. Augustine Lou MONO # 0.6 103/ul Normal 0.3-0.8 [facility] Comment on above: Performed By: #### C BC #### [facility] [address] [place] [address] Dr. Augustine Lou Monocytes/100 WBC (Bld) 6.1 % Normal 1.7-12.0 [facility] Comment on above: Performed By: #### C BC #### [facility] [address] [place] [address] Dr. Augustine Lou NEUT # 5.9 103/ul Normal 1.4-6.5 [facility] Comment on above: Performed By: #### C BC #### [facility] [address] [place] [address] Dr. Augustine Lou Neutrophils/100 WBC (Bld) 62.6 % Normal 43.0-75.0 [facility] Comment on above: Performed By: #### C BC #### [facility] [address] [address] [address] Augustine Lou Platelet mean volume (Bld) [Entitic vol] 10.8 fL Normal 9.5-13.5 [facility] Comment on above: Performed By: #### C BC #### [facility] [address] [address] [address] Augustine Lou PLT 217 103/ul Normal 150-450 [facility] Comment on above: Performed By: #### C BC #### [facility] [address] [address] [address] Augustine Lou RBC 3.59 106/ul Critically low 4.20-5.40 [facility] Comment on above: Performed By: #### C BC #### [facility] [address] [place] [address] Dr. Augustine Lou WBC 9.4 103/ul Normal 4.0-11.0 [facility] Comment on above: Performed By: #### C BC #### [facility] [address] [address] [address] Augustine Lou CREATININEon 12-01-2022 Creatinine [Mass/Vol] 0.60 mg/dL Normal 0.55-1.02 [facility] Comment on above: Performed By: #### H IV12 #### [facility] [address] [place] [address] Dr. Augustine Lou EGFR-AF PALESTINIAN >60 Normal >=60 [facility] Comment on above: Performed By: #### H IV12 #### [facility] [address] [place] [address] Dr. Augustine Lou EGFR-NON AF PALESTINIAN >60 Normal >=60 [facility] Comment on above: Performed By: #### H IV12 #### [facility] [address] [place] [address] Dr. Augustine Lou ELECTROLYTESon 12-01-2022 Anion gap [Moles/Vol] 11.0 mmol/L Normal [facility] Comment on above: Performed By: #### C BC #### [facility] [address] [place] [address] Dr. Augustine Lou Chloride [Moles/Vol] 105 mmol/L Normal 98-107 [facility] Comment on above: Performed By: #### C BC #### [facility] [address] [place] [address] Dr. Augustine Lou CO2 [Moles/Vol] 25.6 mmol/L Normal 21.0-32.0 [facility] Comment on above: Performed By: #### C BC #### [facility] [address] [place] [address] Dr. Augustine Lou Potassium [Moles/Vol] 3.6 mmol/L Normal 3.5-5.1 [facility] Comment on above: Performed By: #### C BC #### [facility] [address] [place] [address] Dr. Augustine Lou Sodium [Moles/Vol] 138 mmol/L Normal 136-145 [facility] Comment on above: Performed By: #### C BC #### [facility] [address] [place] [address] Dr. Augustine Lou SGOTon 12-01-2022 AST [Catalytic activity/Vol] 19 U/L Normal 15-37 [facility] Comment on above: Performed By: #### H IV12 #### [facility] [address] [place] [address] Dr. Augustine Lou SGPTon 12-01-2022 ALT [Catalytic activity/Vol] 19 U/L Normal 14-59 [facility] Comment on above: Performed By: #### C BC #### [facility] [address] [place] [address] Dr. Augustine Lou UA (CLEAN/CATCH) THREAD SPOOLER/MICRO I F IND.on 12-01-2022 Bilirubin Ql (U) Negative Normal NEGATIVE [facility] Comment on above: Performed By: #### A FPMAT #### [facility] [address] [place] [address] Dr. Augustine Lou Clarity (U) CLEAR Normal CLEAR [facility] Comment on above: Performed By: #### A FPMAT #### [facility] [address] [place] [address] Dr. Augustine Lou Color (U) LT. YELLOW Normal YELLOW [facility] Comment on above: Performed By: #### A FPMAT #### [facility] [address] [place] [address] Dr. Augustine Lou Glucose Ql (U) Negative Normal NEGATIVE [facility] Comment on above: Performed By: #### A FPMAT #### [facility] [address] [address] [address] Augustine Lou Hemoglobin Ql (U) Negative Normal NEGATIVE [facility] Comment on above: Performed By: #### A FPMAT #### [facility] [address] [place] [address] Dr. Augustine Lou Ketones Ql (U) 15 mg/dl Abnormal NEGATIVE [facility] Comment on above: Performed By: #### A FPMAT #### [facility] [address] [place] [address] Dr. Augustine Lou LEUKOCYTES Negative Normal NEGATIVE [facility] Comment on above: Performed By: #### A FPMAT #### [facility] [address] [place] [address] Dr. Augustine Lou Nitrite Ql (U) Negative Normal NEGATIVE [facility] Comment on above: Performed By: #### A FPMAT #### [facility] [address] [place] [address] Dr. Augustine Lou pH (U) 6.0 [pH] Normal 5-9 [facility] Comment on above: Performed By: #### A FPMAT #### [facility] [address] [place] [address] Dr. Augustine Lou SPEC GRAVITY 1.020 Normal 1.005-<=1.025 [facility] Comment on above: Performed By: #### A FPMAT #### [facility] [address] [place] [address] Dr. Augustine Lou UA PROTEIN Negative Normal NEGATIVE/ TRACE [facility] Comment on above: Performed By: #### A FPMAT #### [facility] [address] [place] [address] Dr. Augustine Lou UR MICRO IND NOT INDICATED Normal [facility] Comment on above: Performed By: #### A FPMAT #### [facility] [address] [place] [address] Dr. Augustine Lou Urobilinogen Qn (U) 0.2 {Erinn'U}/dL Normal 0.2 - 1. 0 [facility] Comment on above: Performed By: #### A FPMAT #### [facility] [address] [address] [address] Augustine Lou US SINGLE QUAD RT UPPERon US SINGLE QUAD RT UPPER EXAMINATION: US SINGLE QUAD RT UPPER HISTORY: Right upper quadrant pain for 3 days COMPARISON: No relevant comparison available. TECHNIQUE: Transabdominal evaluation of the right upper quadrant. FINDINGS: LIVER: Normal size and echotexture. Color Doppler demonstrates patent hepatic veins. PORTAL VEIN: Duplex Doppler demonstrates normal hepatopetal flow pattern with flow velocity averaging 29 cm/s. GALLBLADDER: No visible gallstones, wall thickening, or pericholecystic free fluid. Negative sonographic Delgado's sign. BILIARY: No abnormal dilation or stones. Common bile duct diameter is within normal limits. PANCREASE: No visible mass, abnormal atrophy, or duct dilation. KIDNEY: No hydronephrosis. No visible mass or stones. Size: 12.0 x 6.8 x 5.9 cm IMPRESSION: 1. Normal right upper quadrant ultrasound. No acute findings to account for patient's symptoms. Electronically authenticated by: ALVIN GALDAMEZ Date: 2022-12-01 08:26 Normal [facility] US PREG ANATOMY SINGLEon US PREG ANATOMY SINGLE EXAMINATION: US PREG ANATOMY SINGLE HISTORY: screening COMPARISON: No relevant comparison available. TECHNIQUE: Transabdominal sonographic examination was performed for obstetrical and evaluation. FINDINGS: Number: 1 Heart Rate: 149.2 bpm H.B. /min Amniotic Fluid Volume: Subjectively normal position: Breech presentation, variable lie Placental Location: Posterior, grade 0. Placental edge 4.1 cm from the cervical os Cervix Length: 4.8 cm, closed Normal observed anatomy: Lateral ventricles, cerebellum, posterior fossa, orbits, diaphragm, stomach, kidneys, abdominal cord insertion, bladder, umbilical cord arteries, three-vessel cord, spine, extremities Suboptimal visualization: Four-chamber heart, RVOT, LVOT Nonvisualized, nose and lips BIOMETRY: BPD: 4.9 cm 20 weeks 6 days , 66% HC: 18.5 cm 20 weeks 6 days, 62% AC: 15.5 cm 20 weeks 5 days, 53% FL: 3.6 cm 21 weeks 2 days, 72% EFW:388.8 grams; 14 ounces, 75% FL/AC: 23.0 FL/BPD: 72.8 HC/AC: 1.2 GESTATIONAL AGE: Age by EDC: 20 weeks 3 days HANNAH by EDC: 03/20/2023 Age by current US: 21 weeks 0 days HANNAH by current US: 03/16/2023 IMPRESSION: Suboptimal/nonvisualiz ation detailed above Otherwise normal anatomy scan *Reference: [employer] Practice Guideline for the performance of Obstetric Ultrasound Examinations, April 29, 2007. Electronically authenticated by: LIUDMILA CARRION Date: 2022-11-03 10:30 [facility] PAP ACOG PANEL 2: 21 to 29on 10-19-2022 . . Normal [facility] Comment on above: Performed By: #### A 1C #### [facility] [address] [place] [address] Dr. Augustine Lou Age Gdln ACOG Testing - [facility] Comment on above: Performed By: #### A 1C #### [facility] [address] [place] [address] Dr. Augustine Lou DIAGNOSIS: Comment [facility] Comment on above: Result Comment: NEGA TIVE FOR INTRAEPITHELIAL LESION OR MALIGNANCY. Performed By: #### A 1C #### [facility] [address] [place] [address] Dr. Augustine Lou Methodology: Comment [facility] Comment on above: Result Comment: This liquid based ThinPrep(R) pap test was screened with the use of an image guided system. Performed By: #### A 1C #### [facility] [address] [place] [address] Dr. Augustine Lou Note: Comment [facility] Comment on above: Result Comment: The Pap smear is a screening test designed to aid in the detection of premalignant and malignant conditions of the uterine cervix. It is not a diagnostic procedure and should not be used as the sole means of detecting cervical cancer. Both false-positive and false-negative reports do occur. . Performed By: #### A 1C #### [facility] [address] [place] [address] Dr. Augustine Lou Performed by: Comment [facility] Comment on above: Result Comment: Michael Dempsey, Hoof And Shoe Inspector (ASCP) Performed By: #### A 1C #### [facility] [address] [place] [address] Dr. Augustine Lou Reflex Criteria: Comment Normal [facility] Comment on above: Result Comment: The HPV DNA reflex criteria were not met with this specimen result therefore, no HPV testing was performed. . Performed By: #### A 1C #### [facility] [address] [place] [address] Dr. Augustine Lou Specimen adequacy: Comment Normal [facility] [place] Comment on above: Result Comment: Sati sfactory for evaluation. Endocervical and/or squamous metaplastic cells (endocervical component) are present. Performed By: #### A 1C #### [facility] [address] [place] [address] Dr. Augustine Lou CBC AUTO DIFFon 10-16-2022 BASO # 0.0 103/ul Normal 0.0-0.1 [facility] Comment on above: Performed By: #### H IV12 #### [facility] [address] [place] [address] Dr. Augustine Lou Basophils/100 WBC (Bld) 0.2 % Normal 0.2-2.0 [facility] Comment on above: Performed By: #### H IV12 #### [facility] [address] [place] [address] Dr. Augustine Lou EO # 0.4 103/ul Normal 0.0-0.7 [facility] Comment on above: Performed By: #### H IV12 #### [facility] [address] [place] [address] Dr. Augustine Lou Eosinophils/100 WBC (Bld) 3.5 % Normal 0.9-7.0 [facility] Comment on above: Performed By: #### H IV12 #### [facility] [address] [place] [address] Dr. Augustine Lou Erythrocyte distribution width (RBC) [Ratio] 13.2 % Normal 11.0-15.0 [facility] Comment on above: Performed By: #### H IV12 #### [facility] [address] [place] [address] Dr. Augustine Lou Hematocrit (Bld) [Volume fraction] 32.1 % Critically low 36.0-48.0 [facility] Comment on above: Performed By: #### H IV12 #### [facility] [address] [place] [address] Dr. Augustine Lou Hemoglobin (Bld) [Mass/Vol] 10.8 g/dL Critically low 12.0-16.0 [facility] Comment on above: Performed By: #### H IV12 #### [facility] [address] [place] [address] Dr. Augustine Lou IG # 0.03 10e3/ul Normal 0.00-0.03 [facility] Comment on above: Performed By: #### H IV12 #### [facility] [address] [place] [address] Dr. Augustine Lou IG % 0.3 % Normal 0.0-0.5 [facility] Comment on above: Performed By: #### H IV12 #### [facility] [address] [place] [address] Dr. Augustine Lou LYMPH # 2.7 103/ul Normal 1.2-3.8 [facility] Comment on above: Performed By: #### H IV12 #### [facility] [address] [place] [address] Dr. Augustine Lou Lymphocytes/100 WBC (Bld) 27.5 % Normal 20.5-60.0 [facility] Comment on above: Performed By: #### H IV12 #### [facility] [address] [place] [address] Dr. Augustine Lou MANUAL DIFF REQ NO Normal [facility] Comment on above: Performed By: #### H IV12 #### [facility] [address] [place] [address] Dr. Augustine Lou MCH (RBC) [Entitic mass] 29.3 pg Normal 26.7-34.0 [facility] Comment on above: Performed By: #### H IV12 #### [facility] [address] [place] [address] Dr. Augustine Lou MCHC (RBC) [Mass/Vol] 33.6 g/dL Normal 29.9-35.2 [facility] Comment on above: Performed By: #### H IV12 #### [facility] [address] [place] [address] Dr. uAgustine Lou MCV (RBC) [Entitic vol] 87.0 fL Normal 81.0-99.0 [facility] Comment on above: Performed By: #### H IV12 #### [facility] [address] [place] [address] Dr. Augustine Lou MONO # 0.5 103/ul Normal 0.3-0.8 [facility] Comment on above: Performed By: #### H IV12 #### [facility] [address] [place] [address] Dr. Augustine Lou Monocytes/100 WBC (Bld) 5.5 % Normal 1.7-12.0 [facility] Comment on above: Performed By: #### H IV12 #### [facility] [address] [place] [address] Dr. Augustine Lou NEUT # 6.2 103/ul Normal 1.4-6.5 [facility] Comment on above: Performed By: #### H IV12 #### [facility] [address] [place] [address] Dr. Augustine Lou Neutrophils/100 WBC (Bld) 63.0 % Normal 43.0-75.0 [facility] Comment on above: Performed By: #### H IV12 #### [facility] [address] [place] [address] Dr. Augustine Lou Platelet mean volume (Bld) [Entitic vol] 10.5 fL Normal 9.5-13.5 [facility] Comment on above: Performed By: #### H IV12 #### [facility] [address] [place] [address] Dr. Augustine Lou PLT 208 103/ul Normal 150-450 [facility] Comment on above: Performed By: #### H IV12 #### [facility] [address] [place] [address] Dr. Augustine Lou RBC 3.69 106/ul Critically low 4.20-5.40 [facility] Comment on above: Performed By: #### H IV12 #### [facility] [address] [place] [address] Dr. Augustine Lou WBC 9.9 103/ul Normal 4.0-11.0 [facility] Comment on above: Performed By: #### H IV12 #### [facility] [address] [address] [address] Augustine Lou DRUG SCREEN RAPID (URINE)on 10-16-2022 AMP Negative Normal NEGATIVE [facility] Comment on above: Performed By: #### A 1C #### [facility] [address] [place] [address] Dr. Augustine Lou BAR Negative Normal NEGATIVE [facility] Comment on above: Performed By: #### A 1C #### [facility] [address] [place] [address] Dr. Augustine Lou BUP Negative Normal NEGATIVE [facility] Comment on above: Performed By: #### A 1C #### [facility] [address] [place] [address] Dr. Augustine Lou BZO Negative Normal NEGATIVE [facility] Comment on above: Performed By: #### A 1C #### [facility] [address] [place] [address] Dr. Augustine Lou FERNANDO Negative Normal NEGATIVE [facility] Comment on above: Performed By: #### A 1C #### [facility] [address] [place] [address] Dr. Augustine Lou CUT-OFFS SEE BELOW Normal [facility] Comment on above: Result Comment: AMP (Amphetamine): 500ng/mL, BAR (Barbituates): 200 ng/mL, BZO (Benzodiazepines): 150 ng/mL, BUP (Buprenorphine): 10 ng/mL, FERNANDO (Cocaine): 150 ng/mL, mAMP (Methamphetamine): 500 ng/mL, MTD (Methadone): 200 ng/mL, OPI (Opiates): 100 ng/mL, OXY (Oxycodone): 100 ng/mL, PCP (Phencyclidine): 25 ng/mL, PPX (Propoxyphene): 300 ng/mL, THC (Cannabinoids): 50 ng/mL, TCA (Trycyclic Antidepressants): 300 ng/mL Performed By: #### A 1C #### [facility] [address] [place] [address] Dr. Augustine Lou DRUG CUT HEADER DRUG CLASS TEST SYST EM CUT-OFF CONCENTRATIONS ARE FOLLOWS: Normal [facility] Comment on above: Performed By: #### A 1C #### [facility] [address] [place] [address] Dr. Augustine Lou mAMP Negative Normal NEGATIVE [facility] Comment on above: Performed By: #### A 1C #### [facility] [address] [place] [address] Dr. Augustine Lou MTD Negative Normal NEGATIVE [facility] Comment on above: Performed By: #### A 1C #### [facility] [address] [place] [address] Dr. Augustine Lou OPI Negative Normal NEGATIVE [facility] Comment on above: Performed By: #### A 1C #### [facility] [address] [place] [address] Dr. Augustine Lou OXY Negative Normal NEGATIVE [facility] Comment on above: Performed By: #### A 1C #### [facility] [address] [place] [address] Dr. Augustine Lou PCP Negative Normal NEGATIVE [facility] Comment on above: Performed By: #### A 1C #### [facility] [address] [place] [address] Dr. Augustine Lou PPX Negative Normal NEGATIVE [facility] Comment on above: Performed By: #### A 1C #### [facility] [address] [place] [address] Dr. Augustine Lou TCA Negative Normal NEGATIVE [facility] Comment on above: Performed By: #### A 1C #### [facility] [address] [place] [address] Dr. Augustine Lou THC Positive Abnormal NEGATIVE [facility] Comment on above: Performed By: #### A 1C #### [facility] [address] [place] [address] Dr. Augustine Lou UA (CLEAN/CATCH) THREAD SPOOLER/MICRO I F IND.on 10-16-2022 Bilirubin Ql (U) Negative Normal NEGATIVE [facility] Comment on above: Performed By: #### U ACSIND #### [facility] [address] [place] [address] Dr. Augustine Lou Clarity (U) CLEAR Normal CLEAR [facility] Comment on above: Performed By: #### U ACSIND #### [facility] [address] [place] [address] Dr. Augustine Lou Color (U) LT. YELLOW Normal YELLOW [facility] Comment on above: Performed By: #### U ACSIND #### [facility] [address] [place] [address] Dr. Augustine Lou Glucose Ql (U) Negative Normal NEGATIVE [facility] Comment on above: Performed By: #### U ACSIND #### [facility] [address] [place] [address] Dr. Augustine Lou Hemoglobin Ql (U) Negative Normal NEGATIVE [facility] Comment on above: Performed By: #### U ACSIND #### [facility] [address] [place] [address] Dr. Augustine Lou Ketones Ql (U) Negative Normal NEGATIVE [facility] Comment on above: Performed By: #### U ACSIND #### [facility] [address] [place] [address] Dr. Augustine Lou LEUKOCYTES Negative Normal NEGATIVE [facility] Comment on above: Performed By: #### U ACSIND #### [facility] [address] [place] [address] Dr. Augustine Lou Nitrite Ql (U) Negative Normal NEGATIVE [facility] Comment on above: Performed By: #### U ACSIND #### [facility] [address] [place] [address] Dr. Augustine Lou pH (U) 6.0 [pH] Normal 5-9 [facility] Comment on above: Performed By: #### U ACSIND #### [facility] [address] [place] [address] Dr. Augustine Lou SPEC GRAVITY 1.020 Normal 1.005-<=1.025 [facility] Comment on above: Performed By: #### U ACSIND #### [facility] [address] [address] [address] Augustine Lou UA PROTEIN Negative Normal NEGATIVE/ TRACE [facility] Comment on above: Performed By: #### U ACSIND #### [facility] [address] [address] [address] Augustine Lou UR MICRO IND NOT INDICATED Normal [facility] Comment on above: Performed By: #### U ACSIND #### [facility] [address] [address] [address] Augustine Lou Urobilinogen Qn (U) 0.2 {Erinn'U}/dL Normal 0.2 - 1. 0 [facility] Comment on above: Performed By: #### U ACSIND #### [facility] [address] [place] [address] Dr. Augustine Lou US PREG PLACENTAon 3 US PREG PLACENTA EXAMINATION: US PREG PLACENTA HISTORY: Abdominal pain ; trauma to right lower quadrant COMPARISON: No relevant comparison available. FINDINGS: PLACENTA: [Patient or subchorionic hematoma. CERVIX LENGTH: Not evaluated. HEART RATE: 141 bpm OTHER: presentation: Breech; amniotic fluid volume is subjectively normal. IMPRESSION: 1. Single live intrauterine 17 weeks 6 days by gestational age. 2. No acute or suspicious findings. Electronically authenticated by: ALVIN GALDAMEZ Date: 2022-10-16 15:44 Normal [facility] CHLAMYDIA/GONOCOCCUS GISELLE ( AB/URINE/PAPon 10-14-2022 Chlamydia trachomatis, GISELLE Negative Normal Negative [facility] Comment on above: Performed By: #### S SCRCarl GRASTCX #### [facility] [address] [place] [address] Dr. Augustine Lou Neisseria gonorrhoeae, GISELLE Negative Normal Negative [facility] Comment on above: Performed By: #### S SCRN GRASTCX #### [facility] [address] [place] [address] Dr. Augustine Lou VAGINITIS/VAGINOSIS DNA PROB Camilo 10-13-2022 Gloria species Negative Normal Negative [facility] Comment on above: Performed By: #### E RUR #### [facility] [address] [address] [address] Augustine Lou Gardnerella vaginalis Positive Abnormal Negative [facility] Comment on above: Performed By: #### E RUR #### [facility] [address] [address] [address] Augustine Lou Trichomonas vaginalis Negative Normal Negative [facility] Comment on above: Performed By: #### E RUR #### [facility] [address] [address] [address] Augustine Lou AFP MATERNAL FOR SPINA BIFID Aon 09-30-2022 AFP MoM 0.58 Normal [facility] Comment on above: Performed By: #### A FPMAT #### [facility] [address] [place] [address] Dr. Augustine Lou AFP Value 13.6 ng/mL Normal [facility] Comment on above: Performed By: #### A FPMAT #### [facility] [address] [address] [address] Augustine Lou AFP, Serum for Spina Bifida Report Normal [facility] Comment on above: Performed By: #### A FPMAT #### [facility] [address] [place] [address] Dr. Augustine Lou Comment Comment Normal [facility] Comment on above: Result Comment: Elva Pelayo, Ph.D., [facility] Director . References: Available Upon Request. . Multiples Of Median Cutoffs For AFP Elevations Malcolm 2.5 Black 2.8 IDD 2.0 Twins 4.5 Abbreviation Definitions IDD - Insulin Dep Diabetes OSBR - Open Spina Bifida Risk . For further inquiries contact [employer] [facility] at [phone]. . This test was developed and its performance characteristics determined by [employer]. It has not been cleared or approved by the Food and Drug Administration. Performed By: #### A FPMAT #### [facility] [address] [address] [address] Augustine Lou Gest Age Collection Date 15.3 weeks Normal [facility] Comment on above: Performed By: #### A FPMAT #### [facility] [address] [place] [address] Dr. Augustine Lou Gestat, Age Based on Ultrasound Normal [facility] Comment on above: Result Comment: 8.9 on 08/14/2022 Recalculations are not recommended when gestational dating by LMP and ultrasound are within 10 days. Performed By: #### A FPMAT #### [facility] [address] [place] [address] Dr. Augustine Lou Insulin Dep Diabetes No Normal [facility] Comment on above: Performed By: #### A FPMAT #### [facility] [address] [place] [address] Dr. Augustine Lou Interpretation Comment Normal [facility] Comment on above: Result Comment: Inte rpretation: Screen Negative . This result is screen negative for OSB. The AFP MoM calculated is based on the gestational age provided. MS-AFP can identify up to 80% of open neural tube defects. Closed neural tube defects and some open defects may not be detected by this test. This test does not screen for Down Syndrome or Trisomy 18. If screening for Down Syndrome or Trisomy 18 is desired, contact [employer] to discuss available options. The [employer] recommends amniocentesis be offered to women age 35 and older. Performed By: #### A FPMAT #### [facility] [address] [place] [address] Dr. Augustine Lou [age] Normal [facility] Comment on above: Performed By: #### A FPMAT #### [facility] [address] [place] [address] Dr. Augustine Lou Multiple Gestation No Normal [facility] Comment on above: Performed By: #### A FPMAT #### [facility] [address] [place] [address] Dr. Augustine Lou OS[place] [id number] Normal [facility] Comment on above: Performed By: #### A FPMAT #### [facility] [address] [place] [address] Dr. Augustine Lou PDF . Normal [facility] Comment on above: Performed By: #### A FPMAT #### [facility] [address] [place] [address] Dr. Augustine Lou Race Comment Normal [facility] Comment on above: Result Comment: Not provided. . Performed By: #### A FPMAT #### [facility] [address] [place] [address] Dr. Augustine Lou Test Results: Negative Normal [facility] Comment on above: Performed By: #### A FPMAT #### [facility] [address] [place] [address] Dr. Augustine Lou CULTURE URINEon 09-14-2022 CULTURE URINE Culture Observations : LIGHT GROWTH OF MIXED GENITAL PASTOR. NO POTENTIAL PATHOGENS SEEN. Normal [facility] Comment on above: Performed By: #### A FPMAT #### [facility] [address] [place] [address] Dr. Augustine Lou ER URINE PROFILEon 3 Bilirubin Ql (U) Negative Normal NEGATIVE [facility] Comment on above: Performed By: #### H IV12 #### [facility] [address] [place] [address] Dr. Augustine Lou Clarity (U) CLEAR Normal CLEAR [facility] Comment on above: Performed By: #### H IV12 #### [facility] [address] [place] [address] Dr. Augustine Lou Color (U) YELLOW Normal YELLOW [facility] Comment on above: Performed By: #### H IV12 #### [facility] [address] [place] [address] Dr. Augustine Lou ERUAUGUSTO A micrscopic examination will be performed if indicated. [facility] Comment on above: Performed By: #### H IV12 #### [facility] [address] [place] [address] Dr. Augustine Lou Glucose Ql (U) Negative Normal NEGATIVE [facility] Comment on above: Performed By: #### H IV12 #### [facility] [address] [address] [address] Augustine Lou Hemoglobin Ql (U) MODERATE Abnormal NEGATIVE [facility] Comment on above: Performed By: #### H IV12 #### [facility] [address] [address] [address] Augustine Lou Ketones Ql (U) Negative Normal NEGATIVE [facility] Comment on above: Performed By: #### H IV12 #### [facility] [address] [place] [address] Dr. Augustine Lou LEUKOCYTES Negative Normal NEGATIVE [facility] Comment on above: Performed By: #### H IV12 #### [facility] [address] [place] [address] Dr. Augustine Lou Nitrite Ql (U) Negative Normal NEGATIVE [facility] Comment on above: Performed By: #### H IV12 #### [facility] [address] [place] [address] Dr. Augustine Lou pH (U) 5.5 [pH] Normal 5-9 [facility] Comment on above: Performed By: #### H IV12 #### [facility] [address] [place] [address] Dr. Augustine Lou SPEC GRAVITY >=1.030 Abnormal 1.005-<=1.025 [facility] Comment on above: Performed By: #### H IV12 #### [facility] [address] [place] [address] Dr. Augustine Lou UA PROTEIN TRACE Normal NEGATIVE/ TRACE [facility] Comment on above: Performed By: #### H IV12 #### [facility] [address] [place] [address] Dr. Augustine Lou UR MICRO IND INDICATED Normal [facility] Comment on above: Performed By: #### H IV12 #### [facility] [address] [place] [address] Dr. Augustine Lou Urobilinogen Qn (U) 0.2 {Erinn'U}/dL Normal 0.2 - 1. 0 [facility] Comment on above: Performed By: #### H IV12 #### [facility] [address] [address] [address] Augustine Lou URon 09-14-2022 , QUAL Positive Abnormal NEGATIVE [facility] Comment on above: Performed By: #### H IV12 #### [facility] [address] [place] [address] Dr. Augustine Lou URINE MICROSCOPIC ONLYon BACTERIA NONE SEEN Normal NONE SEEN [facility] Comment on above: Performed By: #### H IV12 #### [facility] [address] [address] [address] Augustine Lou Bacteria identified Cx Nom (U) INDICATED Normal [facility] Comment on above: Performed By: #### H IV12 #### [facility] [address] [place] [address] Dr. Augustine Lou CAST NONE SEEN Normal NONE SEEN [facility] Comment on above: Performed By: #### H IV12 #### [facility] [address] [place] [address] Dr. Augustine Lou Crystals LM Nom (Urine sed) NONE SEEN Normal NONE SEEN [facility] Comment on above: Performed By: #### H IV12 #### [facility] [address] [address] [address] Augustine Lou Epithelial cells LM Ql (Urine sed) FEW Abnormal NONE SEEN /RARE [facility] Comment on above: Performed By: #### H IV12 #### [facility] [address] [address] [address] Augustine Lou MUCOUS MODERATE Abnormal NONE SEEN [facility] Comment on above: Performed By: #### H IV12 #### [facility] [address] [address] [address] Augustine Lou RBC 20-50 Abnormal 0-2 [facility] Comment on above: Performed By: #### H IV12 #### [facility] [address] [place] [address] Dr. Augustine Lou WBC 5-10 Abnormal NONE SEEN [facility] Comment on above: Performed By: #### H IV12 #### [facility] [address] [address] [address] Augustine Lou HEPATITIS C VIRUS AB W/ REFL EX QUANTon 09-05-2022 HCV AB >11.0 Critically high 0.0-0.9 [facility] Comment on above: Result Comment: . Performed By: #### P T #### [facility] [address] [address] [address] Augustine Lou HCV log10 Normal [facility] Comment on above: Performed By: #### P T #### [facility] [address] [address] [address] Augustine Lou Hep C Quantitation Not detected Normal [facility] Comment on above: Performed By: #### P T #### [facility] [address] [place] [address] Dr. Augustine Lou Interpretation Comment Normal [facility] Comment on above: Result Comment: Posi tive HCV antibody screen without the presence of HCV RNA is consistent with a resolved past infection or a false positive HCV antibody. Consider repeat testing after one month. Performed By: #### P T #### [facility] [address] [place] [address] Dr. Augustine Lou Test Information: Comment Normal [facility] Comment on above: Result Comment: The quantitative range of this assay is 15 IU/mL to 100 million IU/mL. Performed By: #### P T #### [facility] [address] [place] [address] Dr. Augustine Lou HEP B SURFACE ANTIGEN SCREEN on 09-02-2022 HBsAg Screen Negative Normal Negative [facility] [facility] Comment on above: Performed By: #### A 1C #### [facility] [address] [place] [address] Dr. Augustine Lou HIV 1 AND 2 WITH REFLEXon HIV Screen 4th Generation wRfx Non-Reactive Normal Non Reactive [facility] Comment on above: Result Comment: HIV Negative HIV-1/HIV-2 antibodies and HIV-1 p24 antigen were NOT detected. There is no laboratory evidence of HIV infection. Performed By: #### A FPMAT #### [facility] [address] [place] [address] Dr. Augustine Lou RPR QUANTon 09-02-2022 Rapid Plasma Reagin, Quant Non-Reactive Normal NonRea<1:1 [facility] Comment on above: Result Comment: Werner sepulveda Note: This test does not meet current guidelines for screening and diagnosis of syphilis. This test is intended for following treatment response in patients being treated for syphilis infection. To screen for syphilis infection, a reflex cascade that includes both RPR and a treponema-specific assay should be utilized, such as Treponema pallidum (Syphilis) Screening Creola (764699) or Rapid Plasma Reagin (RPR) Test With Reflex to Quantitative RPR and Confirmatory Treponema pallidum Antibodies (237341). Performed By: #### E RUR #### [facility] [address] [place] [address] Dr. Augustine Lou RUBELLA AB IGGon 09-02-2022 Rubella Antibodies, IgG <0.90 Critically low Immune >0.99 [facility] Comment on above: Result Comment: Non- immune <0.90 Equivocal 0.90 - 0.99 Immune >0.99 Performed By: #### A 1C #### [facility] [address] [place] [address] Dr. Augustine Lou CBC AUTO DIFFon 09-01-2022 BASO # 0.0 103/ul Normal 0.0-0.1 [facility] Comment on above: Performed By: #### A 1C #### [facility] [address] [place] [address] Dr. Augustine Lou Basophils/100 WBC (Bld) 0.2 % Normal 0.2-2.0 [facility] Comment on above: Performed By: #### A 1C #### [facility] [address] [place] [address] Dr. Augustine Lou EO # 0.3 103/ul Normal 0.0-0.7 [facility] Comment on above: Performed By: #### A 1C #### [facility] [address] [place] [address] Dr. Augustine Lou Eosinophils/100 WBC (Bld) 2.6 % Normal 0.9-7.0 [facility] Comment on above: Performed By: #### A 1C #### [facility] [address] [place] [address] Dr. Augustine Lou Erythrocyte distribution width (RBC) [Ratio] 12.4 % Normal 11.0-15.0 [facility] Comment on above: Performed By: #### A 1C #### [facility] [address] [place] [address] Dr. Augustine Lou Hematocrit (Bld) [Volume fraction] 35.7 % Critically low 36.0-48.0 [facility] Comment on above: Performed By: #### A 1C #### [facility] [address] [place] [address] Dr. Augustine Lou Hemoglobin (Bld) [Mass/Vol] 13.3 g/dL Normal 12.0-16.0 [facility] Comment on above: Performed By: #### A 1C #### [facility] [address] [place] [address] Dr. Augustine Lou IG # 0.04 10e3/ul Critically high 0.00-0.03 [facility] Comment on above: Performed By: #### A 1C #### [facility] [address] [place] [address] Dr. Augustine Lou IG % 0.4 % Normal 0.0-0.5 [facility] Comment on above: Performed By: #### A 1C #### [facility] [address] [place] [address] Dr. Augustine Lou LYMPH # 3.1 103/ul Normal 1.2-3.8 [facility] Comment on above: Performed By: #### A 1C #### [facility] [address] [place] [address] Dr. Augustine Lou Lymphocytes/100 WBC (Bld) 31.1 % Normal 20.5-60.0 [facility] Comment on above: Performed By: #### A 1C #### [facility] [address] [place] [address] Dr. Augustine Lou MANUAL DIFF REQ NO Normal [facility] Comment on above: Performed By: #### A 1C #### [facility] [address] [place] [address] Dr. Augustine Lou MCH (RBC) [Entitic mass] 29.5 pg Normal 26.7-34.0 [facility] Comment on above: Performed By: #### A 1C #### [facility] [address] [place] [address] Dr. Augustine Lou MCHC (RBC) [Mass/Vol] 37.3 g/dL Critically high 29.9-35.2 [facility] Comment on above: Performed By: #### A 1C #### [facility] [address] [place] [address] Dr. Augustine Lou MCV (RBC) [Entitic vol] 79.2 fL Critically low 81.0-99.0 [facility] Comment on above: Performed By: #### A 1C #### [facility] [address] [place] [address] Dr. Augustine Lou MONO # 0.5 103/ul Normal 0.3-0.8 [facility] Comment on above: Performed By: #### A 1C #### [facility] [address] [place] [address] Dr. Augustine Lou Monocytes/100 WBC (Bld) 4.8 % Normal 1.7-12.0 [facility] Comment on above: Performed By: #### A 1C #### [facility] [address] [place] [address] Dr. Augustine Lou NEUT # 6.1 103/ul Normal 1.4-6.5 [facility] Comment on above: Performed By: #### A 1C #### [facility] [address] [place] [address] Dr. Augustine Luo Neutrophils/100 WBC (Bld) 60.9 % Normal 43.0-75.0 [facility] Comment on above: Performed By: #### A 1C #### [facility] [address] [place] [address] Dr. Augustine Lou Platelet mean volume (Bld) [Entitic vol] 10.7 fL Normal 9.5-13.5 [facility] Comment on above: Performed By: #### A 1C #### [facility] [address] [place] [address] Dr. Augustine Lou PLT 228 103/ul Normal 150-450 [facility] Comment on above: Performed By: #### A 1C #### [facility] [address] [place] [address] Dr. Augustine Lou RBC 4.51 106/ul Normal 4.20-5.40 [facility] Comment on above: Performed By: #### A 1C #### [facility] [address] [place] [address] Dr. Augustine Lou WBC 10.0 103/ul Normal 4.0-11.0 [facility] Comment on above: Performed By: #### A 1C #### [facility] [address] [place] [address] Dr. Augustine Lou CULTURE URINEon 09-01-2022 CULTURE URINE Culture Observations : NO GROWTH. Normal [facility] Comment on above: Performed By: #### A FPMAT #### [facility] [address] [place] [address] Dr. Augustine Lou GLYCOHEMOGLOBIN A1Con 2022 ADA RECOMMENDATION SEE BELOW Normal [facility] Comment on above: Result Comment: ADA RECOMMENDED LIMIT 4.0 - 6.0 ADA THERAPEUTIC TARGET < 7.0 ACTION SUGGESTED > 7.0 Performed By: #### A 1C #### [facility] [address] [place] [address] Dr. Augustine Lou Glucose [Mass/Vol] 105 mg/dL Normal [facility] Comment on above: Performed By: #### A 1C #### [facility] [address] [place] [address] Dr. Augustine Lou HbA1c (Bld) [Mass fraction] 5.3 % Normal 4.5-6.2 [facility] Comment on above: Performed By: #### A 1C #### [facility] [address] [place] [address] Dr. Augustine Lou EVANGELINA BOX TEST PT SEND OUTo n 09-01-2022 SENT TO REF LAB 09/01/2021 Normal [facility] Comment on above: Performed By: #### A 1C #### [facility] [address] [place] [address] Dr. Augustine Lou TYPE AND SCREENon 09-01-2022 TYPE AND SCREEN Negative Normal [facility] Comment on above: Performed By: #### A FPMAT #### [facility] [address] [place] [address] Dr. Augustine Lou CBC AUTO DIFFon 08-24-2022 BASO # 0.0 103/ul Normal 0.0-0.1 [facility] Comment on above: Performed By: #### C BC #### [facility] [address] [place] [address] Dr. Augustine Lou Basophils/100 WBC (Bld) 0.1 % Critically low 0.2-2.0 [facility] Comment on above: Performed By: #### C BC #### [facility] [address] [place] [address] Dr. Augustine Lou EO # 0.2 103/ul Normal 0.0-0.7 [facility] Comment on above: Performed By: #### C BC #### [facility] [address] [place] [address] Dr. Augustine Lou Eosinophils/100 WBC (Bld) 2.1 % Normal 0.9-7.0 [facility] Comment on above: Performed By: #### C BC #### [facility] [address] [place] [address] Dr. Augustine Lou Erythrocyte distribution width (RBC) [Ratio] 12.9 % Normal 11.0-15.0 [facility] Comment on above: Performed By: #### C BC #### [facility] [address] [place] [address] Dr. Augustine Lou Hematocrit (Bld) [Volume fraction] 38.8 % Normal 36.0-48.0 [facility] Comment on above: Performed By: #### C BC #### [facility] [address] [place] [address] Dr. Augustine Lou Hemoglobin (Bld) [Mass/Vol] 11.9 g/dL Critically low 12.0-16.0 [facility] Comment on above: Performed By: #### C BC #### [facility] [address] [place] [address] Dr. Augustine Lou IG # 0.02 10e3/ul Normal 0.00-0.03 [facility] Comment on above: Performed By: #### C BC #### [facility] [address] [place] [address] Dr. Augustine Lou IG % 0.2 % Normal 0.0-0.5 [facility] Comment on above: Performed By: #### C BC #### [facility] [address] [place] [address] Dr. Augustine Lou LYMPH # 2.1 103/ul Normal 1.2-3.8 [facility] Comment on above: Performed By: #### C BC #### [facility] [address] [place] [address] Dr. Augustine Lou Lymphocytes/100 WBC (Bld) 25.8 % Normal 20.5-60.0 [facility] Comment on above: Performed By: #### C BC #### [facility] [address] [place] [address] Dr. Augustine Lou MANUAL DIFF REQ NO Normal [facility] Comment on above: Performed By: #### C BC #### [facility] [address] [place] [address] Dr. Augustine Lou MCH (RBC) [Entitic mass] 29.0 pg Normal 26.7-34.0 [facility] Comment on above: Performed By: #### C BC #### [facility] [address] [place] [address] Dr. Augustine Lou MCHC (RBC) [Mass/Vol] 30.7 g/dL Normal 29.9-35.2 [facility] Comment on above: Performed By: #### C BC #### [facility] [address] [place] [address] Dr. Augustine Lou MCV (RBC) [Entitic vol] 94.4 fL Normal 81.0-99.0 [facility] Comment on above: Performed By: #### C BC #### [facility] [address] [address] [address] Augustine Lou MONO # 0.6 103/ul Normal 0.3-0.8 [facility] Comment on above: Performed By: #### C BC #### [facility] [address] [address] [address] Augustine Lou Monocytes/100 WBC (Bld) 7.5 % Normal 1.7-12.0 [facility] Comment on above: Performed By: #### C BC #### [facility] [address] [address] [address] Augustine Lou NEUT # 5.1 103/ul Normal 1.4-6.5 [facility] Comment on above: Performed By: #### C BC #### [facility] [address] [place] [address] Dr. Augustine Lou Neutrophils/100 WBC (Bld) 64.3 % Normal 43.0-75.0 [facility] Comment on above: Performed By: #### C BC #### [facility] [address] [address] [address] Augustine Lou Platelet mean volume (Bld) [Entitic vol] 11.0 fL Normal 9.5-13.5 [facility] Comment on above: Performed By: #### C BC #### [facility] [address] [address] [address] Augustine Lou PLT 234 103/ul Normal 150-450 [facility] Comment on above: Performed By: #### C BC #### [facility] [address] [address] [address] Augustine Lou RBC 4.11 106/ul Critically low 4.20-5.40 [facility] Comment on above: Performed By: #### C BC #### [facility] [address] [address] [address] Augustine Lou WBC 8.0 103/ul Normal 4.0-11.0 [facility] Comment on above: Performed By: #### C BC #### [facility] [address] [address] [address] Augustine Lou ER URINE PROFILEon 3 Bilirubin Ql (U) Negative Normal NEGATIVE [facility] Comment on above: Performed By: #### H IV12 #### [facility] [address] [address] [address] Augustine Lou Clarity (U) CLEAR Normal CLEAR [facility] Comment on above: Performed By: #### H IV12 #### [facility] [address] [address] [address] Augustine Lou Color (U) YELLOW Normal YELLOW [facility] Comment on above: Performed By: #### H IV12 #### [facility] [address] [place] [address] Dr. Augustine VALERIO A micrscopic examination will be performed if indicated. Normal [facility] Comment on above: Performed By: #### H IV12 #### [facility] [address] [address] [address] Augustine Lou Glucose Ql (U) Negative Normal NEGATIVE [facility] Comment on above: Performed By: #### H IV12 #### [facility] [address] [place] [address] Dr. Augustine Lou Hemoglobin Ql (U) Negative Normal NEGATIVE [facility] Comment on above: Performed By: #### H IV12 #### [facility] [address] [address] [address] Augustine Lou Ketones Ql (U) Negative Normal NEGATIVE [facility] Comment on above: Performed By: #### H IV12 #### [facility] [address] [address] [address] Augustine Lou LEUKOCYTES Negative Normal NEGATIVE [facility] Comment on above: Performed By: #### H IV12 #### [facility] [address] [place] [address] Dr. Augustine Lou Nitrite Ql (U) Negative Normal NEGATIVE [facility] Comment on above: Performed By: #### H IV12 #### [facility] [address] [place] [address] Dr. Augustine Lou pH (U) 6.0 [pH] Normal 5-9 [facility] Comment on above: Performed By: #### H IV12 #### [facility] [address] [place] [address] Dr. Augustine Lou SPEC GRAVITY 1.025 Normal 1.005-<=1.025 [facility] Comment on above: Performed By: #### H IV12 #### [facility] [address] [place] [address] Dr. Augustine Lou UA PROTEIN Negative Normal NEGATIVE/ TRACE [facility] Comment on above: Performed By: #### H IV12 #### [facility] [address] [place] [address] Dr. Augustine Lou UR MICRO IND NOT INDICATED Normal [facility] Comment on above: Performed By: #### H IV12 #### [facility] [address] [place] [address] Dr. Augustine Lou Urobilinogen Qn (U) 0.2 {Erinn'U}/dL Normal 0.2 - 1. 0 [facility] Comment on above: Performed By: #### H IV12 #### [facility] [address] [place] [address] Dr. Augustine Lou PROF 14(COMP METB)on 023 Albumin [Mass/Vol] 3.1 g/dL Critically low 3.4-5.[address] [facility] Comment on above: Performed By: #### H IV12 #### [facility] [address] [place] [address] Dr. Augustine Lou Albumin/Globulin [Mass ratio] 0.7 {ratio} Normal [facility] Comment on above: Performed By: #### H IV12 #### [facility] [address] [place] [address] Dr. Augustine Lou ALP [Catalytic activity/Vol] 47 U/L Normal 46-116 [facility] Comment on above: Performed By: #### H IV12 #### [facility] [address] [place] [address] Dr. Augustine Lou ALT [Catalytic activity/Vol] 15 U/L Normal 14-59 [facility] Comment on above: Performed By: #### H IV12 #### [facility] [address] [place] [address] Dr. Augustine Lou Anion gap [Moles/Vol] 10.6 mmol/L Normal [facility] Comment on above: Performed By: #### H IV12 #### [facility] [address] [address] [address] Augustine Lou AST [Catalytic activity/Vol] 11 U/L Critically low 15-37 [facility] Comment on above: Performed By: #### H IV12 #### [facility] [address] [address] [address] Augustine Lou Bilirubin [Mass/Vol] 0.2 mg/dL Normal 0.2-1.0 [facility] Comment on above: Performed By: #### H IV12 #### [facility] [address] [address] [address] Augustine Lou Calcium [Mass/Vol] 9.3 mg/dL Normal 8.5-10.1 [facility] Comment on above: Performed By: #### H IV12 #### [facility] [address] [place] [address] Dr. Augustine Lou Chloride [Moles/Vol] 104 mmol/L Normal 98-107 [facility] Comment on above: Performed By: #### H IV12 #### [facility] [address] [address] [address] Augustine Lou CO2 [Moles/Vol] 26.9 mmol/L Normal 21.0-32.0 [facility] Comment on above: Performed By: #### H IV12 #### [facility] [address] [address] [address] Augustine Lou Creatinine [Mass/Vol] 0.59 mg/dL Normal 0.55-1.02 [facility] Comment on above: Performed By: #### H IV12 #### [facility] [address] [address] [address] Augustine Lou EGFR-AF PALESTINIAN >60 Normal >=60 [facility] Comment on above: Performed By: #### H IV12 #### [facility] [address] [address] [address] Augustine Lou EGFR-NON AF PALESTINIAN >60 Normal >=60 [facility] Comment on above: Performed By: #### H IV12 #### [facility] [address] [address] [address] Augustine Lou Globulin (S) [Mass/Vol] 4.2 g/dL Normal [facility] Comment on above: Performed By: #### H IV12 #### [facility] [address] [address] [address] Augustine Lou Glucose [Mass/Vol] 93 mg/dL Normal 74-106 [facility] Comment on above: Performed By: #### H IV12 #### [facility] [address] [place] [address] Dr. Augustine Lou Potassium [Moles/Vol] 3.5 mmol/L Normal 3.5-5.1 [facility] Comment on above: Performed By: #### H IV12 #### [facility] [address] [address] [address] Augustine Lou Protein [Mass/Vol] 7.3 g/dL Normal 6.4-8.2 [facility] Comment on above: Performed By: #### H IV12 #### [facility] [address] [address] [address] Augustine Lou Sodium [Moles/Vol] 138 mmol/L Normal 136-145 [facility] Comment on above: Performed By: #### H IV12 #### [facility] [address] [address] [address] Augustine Lou Urea nitrogen [Mass/Vol] 7.0 mg/dL Normal 7.0-18.0 [facility] Comment on above: Performed By: #### H IV12 #### [facility] [address] [address] [address] Augustine Lou Urea nitrogen/Creatinine [Mass ratio] 11.9 mg/mg Normal [facility] Comment on above: Performed By: #### H IV12 #### [facility] [address] [address] [address] Augustine Lou US SINGLE QUAD RT UPPERon US SINGLE QUAD RT UPPER EXAM: US SINGLE QUAD RT UPPER HISTORY: . Cholecystitis . COMPARISON: None. TECHNIQUE: Grayscale and color imaging was performed FINDINGS: The pancreas appears normal. Scanning of the liver demonstrates a liver to be normal in size. No masses are noted. Color-flow is noted in the portal and hepatic veins. The gallbladder appears to be partially contracted. Grossly no stones or sludge is identified. Common bile duct is normal measuring 4 mm. Right kidney measures 12 x 5.5 x 6.6 cm. No solid renal cortical masses or hydronephrosis is noted. No fluid is noted in the right upper quadrant. IMPRESSION: 1. The gallbladder was partially contracted which limits evaluation. Grossly no stones or sludge identified. Patient had no pain upon scanning over the gallbladder. 2. The remainder the right upper quadrant was unremarkable. Electronically authenticated by: LIUDMILA CAMARA Date: 2022-08-24 08:36 Normal [facility] US PREG TVon 08-15-2022 US PREG TV EXAMINATION: US PREG TV HISTORY: Missed period COMPARISON: No relevant comparison available. FINDINGS: Transvaginal images Malcolm intrauterine gestation Gestational sac: 3.98 cm, 9 weeks 2 days CRL: 2.2 cm, 8 weeks 6 days Yolk sac: 4.7 mm Heart rate: 174 bpm Cervix: Closed, 5.4 cm The uterus is normal, anteverted, anteflexed The ovaries are normal Clinical age: Unknown Ultrasound age: 8 weeks 6 days Ultrasound HANNAH: 03/20/2023 IMPRESSION: Viable malcolm intrauterine gestation measuring 8 weeks 6 days Electronically authenticated by: LIUDMILA CARRION Date: 2022-08-15 16:01 Normal [facility] Covid-19 PCR (CVDTB)on 06-30 SARS-CoV-2 (COVID-19) RNA GISELLE+probe Ql (Unsp spec) Not detected Normal NOT DETECTED [facility] Comment on above: Result Comment: This test is not yet approved or cleared by the [place] FDA. When there are no FDA-approved or cleared tests available, and other criteria are met, FDA can make tests available under an emergency access mechanism called an Emergency Use Authorization (EUA). The EUA for this test is supported by the [employer] of Health and Human Service's (HHS's) declaration that circumstances exist to justify the emergency use of in vitro diagnostics for the detection and/or diagnosis of the virus that causes COVID-19. This EUA will remain in effect (meaning this test can be used) for the duration of the COVID-19 declaration justifying emergency of IVDs, unless it is terminated or revoked by FDA (after which the test may no longer be used). When diagnostic testing is negative, the possibility of a false negative should be considered in the context of a patient's recent exposures and the presence of clinical signs and symptoms consistent with SARS-CoV-2. Performed By: #### A FPMAT #### [facility] [address] [place] [address] Dr. Augustine Lou ER URINE PROFILEon 2 Bilirubin Ql (U) Negative Normal NEGATIVE [facility] Comment on above: Performed By: #### C BC #### [facility] [address] [place] [address] Dr. Augustine Lou Clarity (U) CLEAR Normal CLEAR [facility] Comment on above: Performed By: #### C BC #### [facility] [address] [place] [address] Dr. Augustine Lou Color (U) YELLOW Normal YELLOW [facility] Comment on above: Performed By: #### C BC #### [facility] [address] [place] [address] Dr. Augustine MCDONOUGHJair A micrscopic examination will be performed if indicated. Normal [facility] Comment on above: Performed By: #### C BC #### [facility] [address] [place] [address] Dr. Augustine Lou Glucose Ql (U) Negative Normal NEGATIVE [facility] Comment on above: Performed By: #### C BC #### [facility] [address] [place] [address] Dr. Augustine Lou Hemoglobin Ql (U) Negative Normal NEGATIVE [facility] Comment on above: Performed By: #### C BC #### [facility] [address] [place] [address] Dr. Augustine Lou Ketones Ql (U) TRACE Abnormal NEGATIVE [facility] Comment on above: Performed By: #### C BC #### [facility] [address] [place] [address] Dr. Augustine Lou LEUKOCYTES Negative Normal NEGATIVE [facility] Comment on above: Performed By: #### C BC #### [facility] [address] [place] [address] Dr. Augustine Lou Nitrite Ql (U) Negative Normal NEGATIVE [facility] Comment on above: Performed By: #### C BC #### [facility] [address] [place] [address] Dr. Augustine Lou pH (U) 5.5 [pH] Normal 5-9 [facility] Comment on above: Performed By: #### C BC #### [facility] [address] [place] [address] Dr. Augustine Lou SPEC GRAVITY >=1.030 Abnormal 1.005-<=1.025 [facility] Comment on above: Performed By: #### C BC #### [facility] [address] [place] [address] Dr. Augustine Lou UA PROTEIN TRACE Normal NEGATIVE/ TRACE [facility] Comment on above: Performed By: #### C BC #### [facility] [address] [place] [address] Dr. Augustine Lou UR MICRO IND NOT INDICATED Normal [facility] Comment on above: Performed By: #### C BC #### [facility] [address] [place] [address] Dr. Augustine Lou Urobilinogen Qn (U) 0.2 {Erinn'U}/dL Normal 0.2 - 1. 0 [facility] Comment on above: Performed By: #### C BC #### [facility] [address] [place] [address] Dr. Augustine Lou GROUP A STREP CULTUREon 06-30 S. pyogenes Ag Ql (Unsp spec) Culture Observations: NEGATIVE FOR GROUP A STREPTOCOCCUS. Normal [facility] Comment on above: Performed By: #### S SCRN, GRASTCX #### [facility] [address] [place] [address] Dr. Augustine Lou INFLUENZA A AND B AGon 07-26 INFLUANEGH SEE BELOW Normal [facility] Comment on above: Result Comment: Nega tive for Flu A protein angiten. Infection due to Flu A cannot be ruled out. Flu A angiten in the sample may be below the detection limit of the test. Performed By: #### A 1C #### [facility] [address] [place] [address] Dr. Augustine Lou INFLUBNEGH SEE BELOW Normal [facility] Comment on above: Result Comment: Nega tive for Flu B protein antigen. Infection due to Flu B cannot be ruled out. Flu B antigen in the sample may be below the detection limit of the test. Performed By: #### A 1C #### [facility] [address] [place] [address] Dr. Augustine Lou INFLUENZA A AG Negative Normal NEGATIVE SEE COMMENT [facility] Comment on above: Performed By: #### A 1C #### [facility] [address] [place] [address] Dr. Augustine Lou INFLUENZA B AG Negative Normal NEGATIVE SEE COMMENT [facility] Comment on above: Performed By: #### A 1C #### [facility] [address] [place] [address] Dr. Augustine Lou STREPT SCREENon 07-26-2022 STREP SCREEN A Negative Normal NEGATIVE [facility] Comment on above: Performed By: #### S RASHEED GRASTCX #### [facility] [address] [place] [address] Dr. Augustine Lou CBC AUTO DIFFon 07-17-2022 BASO # 0.1 103/ul Normal 0.0-0.1 [facility] Comment on above: Performed By: #### A FPMAT #### [facility] [address] [place] [address] Dr. Augustine Lou Basophils/100 WBC (Bld) 0.6 % Normal 0.2-2.0 [facility] Comment on above: Performed By: #### A FPMAT #### [facility] [address] [place] [address] Dr. Augustine Lou EO # 0.4 103/ul Normal 0.0-0.7 [facility] Comment on above: Performed By: #### A FPMAT #### [facility] [address] [place] [address] Dr. Augustine Lou Eosinophils/100 WBC (Bld) 5.1 % Normal 0.9-7.0 [facility] Comment on above: Performed By: #### A FPMAT #### [facility] [address] [place] [address] Dr. Augustine Lou Erythrocyte distribution width (RBC) [Ratio] 13.2 % Normal 11.0-15.0 [facility] Comment on above: Performed By: #### A FPMAT #### [facility] [address] [place] [address] Dr. Augustine Lou Hematocrit (Bld) [Volume fraction] 38.6 % Normal 36.0-48.0 [facility] Comment on above: Performed By: #### A FPMAT #### [facility] [address] [place] [address] Dr. Augustine Lou Hemoglobin (Bld) [Mass/Vol] 13.1 g/dL Normal 12.0-16.0 [facility] Comment on above: Performed By: #### A FPMAT #### [facility] [address] [place] [address] Dr. Augustine Lou IG # 0.03 10e3/ul Normal 0.00-0.03 [facility] Comment on above: Performed By: #### A FPMAT #### [facility] [address] [place] [address] Dr. Augustine Lou IG % 0.4 % Normal 0.0-0.5 [facility] Comment on above: Performed By: #### A FPMAT #### [facility] [address] [place] [address] Dr. Augustine Lou LYMPH # 2.4 103/ul Normal 1.2-3.8 [facility] Comment on above: Performed By: #### A FPMAT #### [facility] [address] [address] [address] Augustine Lou Lymphocytes/100 WBC (Bld) 27.9 % Normal 20.5-60.0 [facility] Comment on above: Performed By: #### A FPMAT #### [facility] [address] [place] [address] Dr. Augustine Lou MANUAL DIFF REQ NO Normal [facility] Comment on above: Performed By: #### A FPMAT #### [facility] [address] [place] [address] Dr. Augustine Lou MCH (RBC) [Entitic mass] 29.9 pg Normal 26.7-34.0 [facility] Comment on above: Performed By: #### A FPMAT #### [facility] [address] [place] [address] Dr. Augustine Lou MCHC (RBC) [Mass/Vol] 33.9 g/dL Normal 29.9-35.2 [facility] Comment on above: Performed By: #### A FPMAT #### [facility] [address] [place] [address] Dr. Augustine Lou MCV (RBC) [Entitic vol] 88.1 fL Normal 81.0-99.0 [facility] Comment on above: Performed By: #### A FPMAT #### [facility] [address] [place] [address] Dr. Augustine Lou MONO # 0.5 103/ul Normal 0.3-0.8 [facility] Comment on above: Performed By: #### A FPMAT #### [facility] [address] [place] [address] Dr. Augustine Lou Monocytes/100 WBC (Bld) 5.6 % Normal 1.7-12.0 [facility] Comment on above: Performed By: #### A FPMAT #### [facility] [address] [place] [address] Dr. Augustine Lou NEUT # 5.1 103/ul Normal 1.4-6.5 [facility] Comment on above: Performed By: #### A FPMAT #### [facility] [address] [place] [address] Dr. Augustine Lou Neutrophils/100 WBC (Bld) 60.4 % Normal 43.0-75.0 [facility] Comment on above: Performed By: #### A FPMAT #### [facility] [address] [place] [address] Dr. Augustine Lou Platelet mean volume (Bld) [Entitic vol] 11.4 fL Normal 9.5-13.5 [facility] Comment on above: Performed By: #### A FPMAT #### [facility] [address] [place] [address] Dr. Augustine Lou PLT 339 103/ul Normal 150-450 [facility] Comment on above: Performed By: #### A FPMAT #### [facility] [address] [place] [address] Dr. Augustine Lou RBC 4.38 106/ul Normal 4.20-5.40 [facility] Comment on above: Performed By: #### A FPMAT #### [facility] [address] [place] [address] Dr. Augustine Lou WBC 8.4 103/ul Normal 4.0-11.0 [facility] Comment on above: Performed By: #### A FPMAT #### [facility] [address] [place] [address] Dr. Augustine Lou ER URINE PROFILEon 2 Bilirubin Ql (U) Negative Normal NEGATIVE [facility] Comment on above: Performed By: #### E RUR #### [facility] [address] [place] [address] Dr. Augustine Lou Clarity (U) CLEAR Normal CLEAR [facility] Comment on above: Performed By: #### E RUR #### [facility] [address] [place] [address] Dr. Augustine Lou Color (U) YELLOW Normal YELLOW [facility] Comment on above: Performed By: #### E RUR #### [facility] [address] [place] [address] Dr. Augustine VALERIO A micrscopic examination will be performed if indicated. Normal [facility] Comment on above: Performed By: #### E RUR #### [facility] [address] [place] [address] Dr. Augustine Lou Glucose Ql (U) Negative Normal NEGATIVE [facility] Comment on above: Performed By: #### E RUR #### [facility] [address] [place] [address] Dr. Augustine Lou Hemoglobin Ql (U) Negative Normal NEGATIVE [facility] Comment on above: Performed By: #### E RUR #### [facility] [address] [place] [address] Dr. Augustine Lou Ketones Ql (U) Negative Normal NEGATIVE [facility] Comment on above: Performed By: #### E RUR #### [facility] [address] [place] [address] Dr. Augustine Lou LEUKOCYTES Negative Normal NEGATIVE [facility] Comment on above: Performed By: #### E RUR #### [facility] [address] [place] [address] Dr. Augustine Lou Nitrite Ql (U) Negative Normal NEGATIVE [facility] Comment on above: Performed By: #### E RUR #### [facility] [address] [place] [address] Dr. Augustine Lou pH (U) 7.0 [pH] Normal 5-9 [facility] Comment on above: Performed By: #### E RUR #### [facility] [address] [place] [address] Dr. Augustine Lou SPEC GRAVITY 1.020 Normal 1.005-<=1.025 [facility] Comment on above: Performed By: #### E RUR #### [facility] [address] [place] [address] Dr. Augustine Lou UA PROTEIN Negative Normal NEGATIVE/ TRACE [facility] Comment on above: Performed By: #### E RUR #### [facility] [address] [place] [address] Dr. Augustine Lou UR MICRO IND NOT INDICATED Normal [facility] Comment on above: Performed By: #### E RUR #### [facility] [address] [place] [address] Dr. Augustine Lou Urobilinogen Qn (U) 0.2 {Erinn'U}/dL Normal 0.2 - 1. 0 [facility] Comment on above: Performed By: #### E RUR #### [facility] [address] [place] [address] Dr. Augustine Lou PREG QUANT HCGon 07-17-2022 HCG QUANT 2809 mIU/mL Normal [facility] Comment on above: Performed By: #### C BC #### [facility] [address] [place] [address] Dr. Augustine Lou HCG RANGE SEE BELOW Normal [facility] Comment on above: Result Comment: 5-50 0.2-1 WEEK 50-500 1-2 WEEKS 100-5,000 2-3 WEEKS 500-10,000 3-4 WEEKS 1,000-50,000 4-5 WEEKS 10,000-100,000 5-6 WEEKS 15,000-200,000 6-8 WEEKS 10,000-100,000 2-3 MONTHS Performed By: #### C BC #### [facility] [address] [place] [address] Dr. Augustine Lou PROF 14(COMP METB)on 022 Albumin [Mass/Vol] 3.2 g/dL Critically low 3.4-5.0 [facility] Comment on above: Performed By: #### A 1C #### [facility] [address] [place] [address] Dr. Augustine Lou Albumin/Globulin [Mass ratio] 0.8 {ratio} Normal [facility] Comment on above: Performed By: #### A 1C #### [facility] [address] [place] [address] Dr. Augustine Lou ALP [Catalytic activity/Vol] 54 U/L Normal 46-116 [facility] Comment on above: Performed By: #### A 1C #### [facility] [address] [place], [place] [id number] Dr. Augustine Lou ALT [Catalytic activity/Vol] 16 U/L Normal 14-59 [facility] Comment on above: Performed By: #### A 1C #### [facility] [address] [place] [address] Dr. Augustine Lou Anion gap [Moles/Vol] 13.2 mmol/L Normal [facility] Comment on above: Performed By: #### A 1C #### [facility] [address] [address] [address] Augustine Lou AST [Catalytic activity/Vol] 21 U/L Normal 15-37 [facility] Comment on above: Performed By: #### A 1C #### [facility] [address] [place] [address] Dr. Augustine Lou Bilirubin [Mass/Vol] 0.2 mg/dL Normal 0.2-1.0 [facility] Comment on above: Performed By: #### A 1C #### [facility] [address] [place] [address] Dr. Augustine Lou Calcium [Mass/Vol] 9.0 mg/dL Normal 8.5-10.1 [facility] Comment on above: Performed By: #### A 1C #### [facility] [address] [place] [address] Dr. Augustine Lou Chloride [Moles/Vol] 105 mmol/L Normal 98-107 [facility] Comment on above: Performed By: #### A 1C #### [facility] [address] [place] [address] Dr. Augustine Lou CO2 [Moles/Vol] 24.9 mmol/L Normal 21.0-32.0 [facility] Comment on above: Performed By: #### A 1C #### [facility] [address] [place] [address] Dr. Augustine Lou Creatinine [Mass/Vol] 0.58 mg/dL Normal 0.55-1.02 [facility] Comment on above: Performed By: #### A 1C #### [facility] [address] [place] [address] Dr. Augustine Lou EGFR-AF PALESTINIAN >60 Normal >=60 [facility] Comment on above: Performed By: #### A 1C #### [facility] [address] [address] [address] Augustine Lou EGFR-NON AF PALESTINIAN >60 Normal >=60 [facility] Comment on above: Performed By: #### A 1C #### [facility] [address] [address] [address] Augustine Lou Globulin (S) [Mass/Vol] 4.1 g/dL Normal [facility] Comment on above: Performed By: #### A 1C #### [facility] [address] [address] [address] Augustine Lou Glucose [Mass/Vol] 96 mg/dL Normal 74-106 [facility] Comment on above: Performed By: #### A 1C #### [facility] [address] [place] [address] Dr. Augustine Lou Potassium [Moles/Vol] 4.1 mmol/L Normal 3.5-5.1 [facility] Comment on above: Performed By: #### A 1C #### [facility] [address] [address] [address] Augustine Lou Protein [Mass/Vol] 7.3 g/dL Normal 6.4-8.2 [facility] Comment on above: Performed By: #### A 1C #### [facility] [address] [address] [address] Augustine Lou Sodium [Moles/Vol] 139 mmol/L Normal 136-145 [facility] Comment on above: Performed By: #### A 1C #### [facility] [address] [address] [address] Augustine Lou Urea nitrogen [Mass/Vol] 10.0 mg/dL Normal 7.0-18.0 [facility] Comment on above: Performed By: #### A 1C #### [facility] [address] [address] [address] Augustine Lou Urea nitrogen/Creatinine [Mass ratio] 17.2 mg/mg Normal [facility] Comment on above: Performed By: #### A 1C #### [facility] [address] [address] [address] Augustine Lou US APPENDIXon 07-17-2022 US APPENDIX INDICATION: Acute appendicitis EXAMINATION: Ultrasound US APPENDIX TECHNIQUE: Land scale imaging with graded compression and color doppler was obtained of the right lower quadrant. COMPARISON: None. FINDINGS: APPENDIX: Not visualized. FREE FLUID: None. BOWEL LOOPS: No fluid-filled bowel loops are identified. IMPRESSION: 1. The appendix is not visualized and cannot be commented upon. 2. No secondary evidence of acute appendicitis. Electronically authenticated by: JOSEPH KWAN Date: 2022-07-17 17:54 Normal [facility] US PREG TVon 07-17-2022 US PREG TV EXAM: US PREG TV HISTORY: Ectopic COMPARISON: CT abdomen/pelvis dated 05/11/2021. TECHNIQUE: Endovaginal approach pelvic ultrasound is performed. Multiple grayscale and color Doppler images are submitted for review. FINDINGS: The uterus is anteverted and demonstrates normal morphology with normal echotexture. No uterine mass is visualized. Intrauterine sonolucent sac is seen. Mean sac diameter measures 0.59 cm. Yolk sac, pole or cardiac activity are not visualized on this examination. The cervix is closed. Cervical length measures 3.4 cm. The right ovary measures 3.7 x 1.8 x 6.6 cm and demonstrates normal morphology and blood flow. The left ovary measures 2.0 x 1.9 x 2.9 cm and demonstrates normal morphology and blood flow. No significant free pelvic fluid is seen. No abnormal adnexal mass is visualized. IMPRESSION: Intrauterine sonolucent sac is seen with mean sac diameter measuring 0.59 cm. . No yolk sac or pole is seen at this time. No abnormal adnexal mass is visualized. This may be related to early intrauterine . However, continued clinical, laboratory and sonographic correlation is suggested. Electronically authenticated by: YADY COPELAND Date: 2022-07-17 18:16 Normal [facility] PREG QUANT HCGon 07-14-2022 HCG QUANT 822 mIU/mL Normal [facility] Comment on above: Performed By: #### P T #### [facility] [address] [address] [address] Augustine Lou HCG RANGE SEE BELOW Normal [facility] Comment on above: Result Comment: 5-50 0.2-1 WEEK 50-500 1-2 WEEKS 100-5,000 2-3 WEEKS 500-10,000 3-4 WEEKS 1,000-50,000 4-5 WEEKS 10,000-100,000 5-6 WEEKS 15,000-200,000 6-8 WEEKS 10,000-100,000 2-3 MONTHS Performed By: #### P T #### [facility] [address] [address] [address] Augustine Lou Covid-19 PCR ([facility])on 05-31 SARS-CoV-2 (COVID-19) RNA GISELLE+probe Ql (Unsp spec) Not detected Normal NOT DETECTED [facility] Comment on above: Result Comment: When diagnostic testing is negative, the possibility of a false negative should be considered in the context of a patient's recent exposures and the presence of clinical signs and symptoms consistent with SARS-CoV-2. This test is not yet approved or cleared by the [place] FDA. When there are no FDA-approved or cleared tests available, and other criteria are met, FDA can make tests available under an emergency access mechanism called an Emergency Use Authorization (EUA). The EUA for this test is supported by the [employer] of Health and Human Service's declaration that circumstances exist to justify the emergency use of in vitro diagnostics for the detection and/or diagnosis of the virus that causes COVID-19. This EUA will remain in effect for the duration of the COVID-19 declaration justifying emergency of IVDs, unless it is terminated or revoked by the FDA (after which the test may no longer be used). Performed By: #### P T #### [facility] [address] [address] [address] Augustine Lou INFLUENZA A AND B AGon 06-27 INFLUANEGH SEE BELOW Normal [facility] Comment on above: Result Comment: Nega tive for Flu A protein angiten. Infection due to Flu A cannot be ruled out. Flu A angiten in the sample may be below the detection limit of the test. Performed By: #### E RUR #### [facility] [address] [place] [address] [facility] SEE BELOW Normal [facility] Comment on above: Result Comment: Nega tive for Flu B protein antigen. Infection due to Flu B cannot be ruled out. Flu B antigen in the sample may be below the detection limit of the test. Performed By: #### E RUR #### [facility] [address] [place] [address] Dr. Augustine Lou INFLUENZA A AG Negative Normal NEGATIVE SEE COMMENT [facility] Comment on above: Performed By: #### E RUR #### [facility] [address] [place] [address] Dr. Augustine Lou INFLUENZA B AG Negative Normal NEGATIVE SEE COMMENT [facility] Comment on above: Performed By: #### E RUR #### [facility] [address] [place] [address] Dr. Augustine Lou INTERNAL CONTROLS Within Normal Limits Normal Wi thin Normal Limits [facility] Comment on above: Performed By: #### E RUR #### [facility] [address] [place] [address] Dr. Augustine Lou URon 06-27-2022 , QUAL Negative Normal NEGATIVE [facility] Comment on above: Performed By: #### E RUR #### [facility] [address] [place] [address] Dr. Augustine Lou XR CHEST 1 Von 06-27-2022 XR CHEST 1 V EXAMINATION: XR CHES T 1 V HISTORY: Cough COMPARISON: None. TECHNIQUE: Portable chest FINDINGS: The lung parenchyma is free of consolidation or infiltrate. No pneumothorax or pleural effusion. The cardiac, mediastinal and hilar contours are normal. The visualized osseous structures exhibit no gross abnormality. IMPRESSION: No acute cardiopulmonary abnormality. Electronically authenticated by: LIUDMILA MCKEON Date: 2022-06-27 18:03 Normal [facility] HEPATITIS C VIRUS GENOTYPING , NONREFLEXon 04-29-2022 Hepatitis C Genotype Comment Normal [facility] Comment on above: Result Comment: Spec imen has insufficient hepatitis C virus RNA to obtain genotyping results. This genotyping assay should only be used for known HCV positive patients with HCV RNA levels above 1000 IU/mL. Performed By: #### A 1C #### [facility] [address] [place] [address] Dr. Augustine Lou Please note: Comment Normal [facility] Comment on above: Result Comment: This test was developed and its performance characteristics determined by [employer]. It has not been cleared or approved by the U.S. Food and Drug Administration. . The FDA has determined that such clearance or approval is not necessary. This test is used for clinical purposes. It should not be regarded as investigational or for research. Performed By: #### A 1C #### [facility] [address] [place] [address] Dr. Augustine Lou HEPATITIS C VIRUS AB W/ REFL EX QUANTon 04-28-2022 HCV AB >11.0 Critically high 0.0-0.9 [facility] Comment on above: Result Comment: . Performed By: #### A 1C #### [facility] [address] [place] [address] Dr. Augustine Lou HCV log10 Normal [facility] Comment on above: Performed By: #### A 1C #### [facility] [address] [place] [address] Dr. Augustine Lou Hep C Quantitation Not detected Normal [facility] Comment on above: Performed By: #### A 1C #### [facility] [address] [place] [address] Dr. Augustine Lou Interpretation Comment Normal [facility] Comment on above: Result Comment: Posi tive HCV antibody screen without the presence of HCV RNA is consistent with a resolved past infection or a false positive HCV antibody. Consider repeat testing after one month. Performed By: #### A 1C #### [facility] [address] [place] [address] Dr. Augustine Lou Test Information: Comment Normal [facility] Comment on above: Result Comment: The quantitative range of this assay is 15 IU/mL to 100 million IU/mL. Performed By: #### A 1C #### [facility] [address] [place] [address] Dr. Augustine Lou HEP B SURFACE ANTIGEN SCREEN on 04-26-2022 HBsAg Screen Negative Normal Negative [facility] Comment on above: Performed By: #### A FPMAT #### [facility] [address] [place] [address] Dr. Augustine Lou HEPATITIS B CORE, IgMon 03-31 Hep B Core Ab, IgM Negative Normal Negative [facility] Comment on above: Performed By: #### E RUR #### [facility] [address] [place] [address] Dr. Augustine Lou HEPATITIS B SURFACE ANTIBODY , QUANTon 04-26-2022 Hepatitis B Surf AB Quant <3.1 Critically low Immunity>9.9 [facility] Comment on above: Result Comment: Stat us of Immunity Anti-HBs Level Inconsistent with Immunity 0.0 - 9.9 Consistent with Immunity >9.9 Performed By: #### H EPBSRF #### [facility] [address] [place] [address] Dr. Augustine Lou HIV 1 AND 2 WITH REFLEXon HIV Screen 4th Generation wRfx Non-Reactive Normal Non Reactive [facility] Comment on above: Result Comment: HIV Negative HIV-1/HIV-2 antibodies and HIV-1 p24 antigen were NOT detected. There is no laboratory evidence of HIV infection. Performed By: #### H IV12 #### [facility] [address] [place] [address] Dr. Augustine Lou CBC AUTO DIFFon 04-25-2022 BASO # 0.0 103/ul Normal 0.0-0.1 [facility] Comment on above: Performed By: #### E RUR #### [facility] [address] [place] [address] Dr. Augustine Lou Basophils/100 WBC (Bld) 0.4 % Normal 0.2-2.0 [facility] Comment on above: Performed By: #### E RUR #### [facility] [address] [place] [address] Dr. Augustine Lou EO # 0.2 103/ul Normal 0.0-0.7 [facility] Comment on above: Performed By: #### E RUR #### [facility] [address] [place] [address] Dr. Augustine Lou Eosinophils/100 WBC (Bld) 1.5 % Normal 0.9-7.0 [facility] Comment on above: Performed By: #### E RUR #### [facility] [address] [place] [address] Dr. Augustine Lou Erythrocyte distribution width (RBC) [Ratio] 13.2 % Normal 11.0-15.0 [facility] Comment on above: Performed By: #### E RUR #### [facility] [address] [place] [address] Dr. Augustine Lou Hematocrit (Bld) [Volume fraction] 44.4 % Normal 36.0-48.0 [facility] Comment on above: Performed By: #### E RUR #### [facility] [address] [place] [address] Dr. Augustine Lou Hemoglobin (Bld) [Mass/Vol] 14.6 g/dL Normal 12.0-16.0 [facility] Comment on above: Performed By: #### E RUR #### [facility] [address] [place] [address] Dr. Augustine Lou IG # 0.03 10e3/ul Normal 0.00-0.03 [facility] Comment on above: Performed By: #### E RUR #### [facility] [address] [place] [address] Dr. Augustine Lou IG % 0.3 % Normal 0.0-0.5 [facility] Comment on above: Performed By: #### E RUR #### [facility] [address] [place] [address] Dr. Augustine Lou LYMPH # 2.8 103/ul Normal 1.2-3.8 [facility] Comment on above: Performed By: #### E RUR #### [facility] [address] [place] [address] Dr. Augustine Lou Lymphocytes/100 WBC (Bld) 26.3 % Normal 20.5-60.0 [facility] Comment on above: Performed By: #### E RUR #### [facility] [address] [place] [address] Dr. Augustine Lou MANUAL DIFF REQ NO Normal [facility] Comment on above: Performed By: #### E RUR #### [facility] [address] [place] [address] Dr. Augustine Lou MCH (RBC) [Entitic mass] 28.9 pg Normal 26.7-34.0 [facility] Comment on above: Performed By: #### E RUR #### [facility] [address] [place] [address] Dr. Augustine Lou MCHC (RBC) [Mass/Vol] 32.9 g/dL Normal 29.9-35.2 [facility] Comment on above: Performed By: #### E RUR #### [facility] [address] [place] [address] Dr. Augustine Lou MCV (RBC) [Entitic vol] 87.7 fL Normal 81.0-99.0 [facility] Comment on above: Performed By: #### E RUR #### [facility] [address] [place] [address] Dr. Augustine Lou MONO # 0.5 103/ul Normal 0.3-0.8 [facility] Comment on above: Performed By: #### E RUR #### [facility] [address] [place] [address] Dr. Augustine Lou Monocytes/100 WBC (Bld) 4.3 % Normal 1.7-12.0 [facility] Comment on above: Performed By: #### E RUR #### [facility] [address] [place] [address] Dr. Augustine Lou NEUT # 7.2 103/ul Critically high 1.4-6.5 [facility] Comment on above: Performed By: #### E RUR #### [facility] [address] [place] [address] Dr. Augustine Lou Neutrophils/100 WBC (Bld) 67.2 % Normal 43.0-75.0 [facility] Comment on above: Performed By: #### E RUR #### [facility] [address] [place] [address] Dr. Augustine Lou Platelet mean volume (Bld) [Entitic vol] 10.7 fL Normal 9.5-13.5 [facility] Comment on above: Performed By: #### E RUR #### [facility] [address] [place] [address] Dr. Augustine Lou PLT 258 103/ul Normal 150-450 [facility] Comment on above: Performed By: #### E RUR #### [facility] [address] [place] [address] Dr. Augustine Luo RBC 5.06 106/ul Normal 4.20-5.40 [facility] Comment on above: Performed By: #### E RUR #### [facility] [address] [place] [address] Dr. Augustine Lou WBC 10.8 103/ul Normal 4.0-11.0 [facility] Comment on above: Performed By: #### E RUR #### [facility] [address] [place] [address] Dr. Augustine Lou PROF 14(COMP METB)on 022 Albumin [Mass/Vol] 4.3 g/dL Normal 3.4-5.0 [facility] Comment on above: Performed By: #### C BC #### [facility] [address] [place] [address] Dr. Augustine Lou Albumin/Globulin [Mass ratio] 1.0 {ratio} Normal [facility] Comment on above: Performed By: #### C BC #### [facility] [address] [place] [address] Dr. Augustine Lou ALP [Catalytic activity/Vol] 65 U/L Normal 46-116 [facility] Comment on above: Performed By: #### C BC #### [facility] [address] [place] [address] Dr. Augustine Lou ALT [Catalytic activity/Vol] 38 U/L Normal 14-59 [facility] Comment on above: Performed By: #### C BC #### [facility] [address] [place] [address] Dr. Augustine Lou Anion gap [Moles/Vol] 14.9 mmol/L Normal [facility] Comment on above: Performed By: #### C BC #### [facility] [address] [address] [address] Augustine Lou AST [Catalytic activity/Vol] 23 U/L Normal 15-37 [facility] Comment on above: Performed By: #### C BC #### [facility] [address] [place] [address] Dr. Augustine Lou Bilirubin [Mass/Vol] 0.9 mg/dL Normal 0.2-1.0 [facility] Comment on above: Performed By: #### C BC #### [facility] [address] [place] [address] Dr. Augustine Lou Calcium [Mass/Vol] 9.8 mg/dL Normal 8.5-10.1 [facility] Comment on above: Performed By: #### C BC #### [facility] [address] [place] [address] Dr. Augustine Lou Chloride [Moles/Vol] 104 mmol/L Normal 98-107 [facility] Comment on above: Performed By: #### C BC #### [facility] [address] [place] [address] Dr. Augustine Lou CO2 [Moles/Vol] 24.8 mmol/L Normal 21.0-32.0 [facility] Comment on above: Performed By: #### C BC #### [facility] [address] [place] [address] Dr. Augustine Lou Creatinine [Mass/Vol] 0.87 mg/dL Normal 0.55-1.02 [facility] Comment on above: Performed By: #### C BC #### [facility] [address] [place] [address] Dr. Augustine Lou EGFR-AF PALESTINIAN >60 Normal >=60 [facility] Comment on above: Performed By: #### C BC #### [facility] [address] [address] [address] Augustine Lou EGFR-NON AF PALESTINIAN >60 Normal >=60 [facility] Comment on above: Performed By: #### C BC #### [facility] [address] [address] [address] Augustine Lou Globulin (S) [Mass/Vol] 4.4 g/dL Normal [facility] Comment on above: Performed By: #### C BC #### [facility] [address] [address] [address] Augustine Lou Glucose [Mass/Vol] 90 mg/dL Normal 74-106 [facility] Comment on above: Performed By: #### C BC #### [facility] [address] [place] [address] Dr. Augustine Lou Potassium [Moles/Vol] 3.7 mmol/L Normal 3.5-5.1 [facility] Comment on above: Performed By: #### C BC #### [facility] [address] [place] [address] Dr. Augustine Lou Protein [Mass/Vol] 8.7 g/dL Critically high 6.4-8.2 [facility] Comment on above: Performed By: #### C BC #### [facility] [address] [place] [address] Dr. Augustine Lou Sodium [Moles/Vol] 140 mmol/L Normal 136-145 [facility] Comment on above: Performed By: #### C BC #### [facility] [address] [address] [address] Augustine Lou Urea nitrogen [Mass/Vol] 12.0 mg/dL Normal 7.0-18.0 [facility] Comment on above: Performed By: #### C BC #### [facility] [address] [address] [address] Augustine Lou Urea nitrogen/Creatinine [Mass ratio] 13.8 mg/mg Normal [facility] Comment on above: Performed By: #### C BC #### [facility] [address] [place], [place] [address] Dr. Augustine Lou PROTIMEon 04-25-2022 INR Coag (PPP) [Relative time] 1.02 {INR} Normal [facility] Comment on above: Performed By: #### P T #### [facility] [address] [address] [address] Augustine Lou INR GUIDELINES SEE BELOW Normal [facility] Comment on above: Result Comment: RICKEY RED INR: 2.0 - 3.0 CONDITIONS NOT LISTED BELOW 2.5 - 3.5 FOR PROSTHETIC HEART VALVE REPLACEMENT 2.5 - 3.5 RECURRENT THROMBOSIS Performed By: #### P T #### [facility] [address] [address] [address] Augustine Lou PT Coag (PPP) [Time] 11.0 s Normal 9.0-11.6 [facility] Comment on above: Performed By: #### P T #### [facility] [address] [address] [address] Augustine Lou Vital Signs Date Time Vital Sign Value Performing Clinician Facility 08-19-2023 14:05-0500 Body height 177.8 cm Megha Silvia Other [facility] Other 08-19-2023 14:05-0500 Body mass index (BMI) [Ratio] 41.89 kg/m2 Megha Silvia Other [facility] Other 08-19-2023 14:05-0500 Body temperature 97.7 [degF] Megha Silvia Other [facility] Other 08-19-2023 14:05-0500 Body weight 132.45 kg Megha Silvia Other [facility] Other 08-19-2023 14:05-0500 Diastolic blood pressure 70 mm[Hg] Megha Silvia Other [facility] Other 08-19-2023 14:05-0500 Respiratory rate 18 /min Megha Vega Other [facility] Other 08-19-2023 14:05-0500 SaO2% (BldA) [Mass fraction] 96 % Megha Vega Other [facility] Other 08-19-2023 14:05-0500 Systolic blood pressure 124 mm[Hg] Megha Vega Other [facility] Other 09-30-2022 03:06-0500 Body weight 116.[address] MARTINEZ LISTED REQUEST [facility] Comment on above: Performed By: #### AFPMAT #### [facility] [address] [place] [address] Dr. Augustine Lou 04-25-2022 12:15-0400 Body height 182.88 cm Radames Ridley Other [facility] Other 04-25-2022 12:15-0400 Body mass index (BMI) [Ratio] 32.82 kg/m2 Radames Ridley Other [facility] Other 04-25-2022 12:15-0400 Body weight 109.77 kg Radames Ridley Other [facility] Other 04-25-2022 12:15-0400 Diastolic blood pressure 105 mm[Hg] Radames Ridley Other [facility] Other 04-25-2022 12:15-0400 Systolic blood pressure 136 mm[Hg] Radames Ridley Other [facility] Other Encounters Encounter Date Encounter Type Care Provider Facility Start: 09-18-2023 End: 09-18-2023 ambulatory IVANNA BRYANT Not Available Start: 08-19-2023 End: 08-19-2023 ambulatory Megha Vega Other [facility] Other Start: 08-19-2023 Office outpatient visit 15 minutes Megha Vega [facility] Start: 04-24-2023 ambulatory Gregorio Fernandez acility:[facility] Start: 12-21-2022 End: 12-21-2022 ambulatory KALYAN ZAIDI Facility:[facility] Start: 12-05-2022 End: 12-06-[address] NONE LISTED REQUEST Facility:[facility] Start: 12-01-2022 End: 12-01-[address] NONE LISTED REQUEST Facility: Start: 11-03-2022 End: 11-04-[address] NONE LISTED REQUEST Facility: Start: 10-16-2022 End: 10-16-[address] NONE LISTED REQUEST Facility:[facility] Start: 10-11-2022 End: 10-11-[address] NONE LISTED REQUEST Facility:[facility] Start: 09-28-2022 End: 09-29-[address] NONE LISTED REQUEST Facility:[facility] Start: 09-14-2022 End: 09-14-[address] NONE LISTED REQUEST Facility: Start: 09-01-2022 End: 09-02-[address] NONE LISTED REQUEST Facility: Start: 08-24-2022 End: 08-25-[address] IVANNA BRYANT . Facility:[facility] Start: 08-24-2022 End: 08-24-[address] NONE LISTED REQUEST Facility:[facility] Start: 08-14-2022 End: 08-15-[address] NONE LISTED REQUEST Facility:[facility] Start: 07-26-2022 End: 07-27-[address] NONE LISTED REQUEST Facility:[facility] Start: 07-17-2022 End: 07-18-[address] IVANNA BRYANT . Facility:[facility] Start: 07-14-2022 End: 07-30-[address] NONE LISTED REQUEST Facility:[facility] Start: 06-27-2022 End: 06-27-2022 ambulatory PAEZ H FAWTARSHA Facility:[facility] Start: 04-25-2022 End: 04-26-[address] LYNN [facility] Other Start: 04-25-2022 [facility] visit new patient Radames Ridley [facility] Payers Date Payer Category Payer Self-pay 1994 Unknown [id number] 2.16.84 [id number] 1994 Unknown [id number] 2.16.84 [id number] 1994 Unknown [id number] 2.16.84 [id number] 1994 Unknown [id number] 2.16.84 0.1.385313.3.579.2.593 1994 Unknown [id number] 2.16.84 [id number] 1994 Unknown [id number] 2.16.84 0.1.495553.3.579.2.593 1994 Unknown [id number] 2.16.84 0.1.132920.3.579.2.593 1994 Unknown [id number] 2.16.84 0.1.753930.3.579.2.593 1994 Unknown [id number] 2.16.84 0.1.336047.3.579.2.593 1994 Unknown [id number] 2.16.84 0.1.625568.3.579.2.593 1994 Unknown [id number] 2.16.84 0.1.347928.3.579.2.593 1994 Unknown [id number] 2.16.84 0.1.875439.3.579.2.593 1994 Unknown [id number] 2.16.84 0.1.766863.3.579.2.593 1994 Unknown [id number] 2.16.84 0.1.925077.3.579.2.593 1994 Unknown [id number] 2.16.84 0.1.014186.3.579.2.593 1994 Unknown [id number] 2.16.84 0.1.656656.3.579.2.593 1994 Unknown [id number] 2.16.84 0.1.673977.3.579.2.593 1994 Unknown [id number] 2.16.84 0.1.993015.3.579.2.593 1994 Unknown [id number] 2.16.84 0.1.143033.3.579.2.1259 1959 Unknown [id number] 2.1 [id number] 1959 Unknown [id number] Unknown [id number] 2.16.84 0.1.868700.3.579.2.593 Social History Date Type Detail Facility Sex Assigned At [facility] Other Evaluation note 08-19-2023 Note Date & Type Note Facility 08-19-2023 Evaluation note Encounter Date Diagnosis Assessment Notes Jul, Bilateral otitis media, unspecified otitis media type (ICD-10 - H66.93) Drink plenty fluids, get plenty of rest. Take the amoxicillin with clavulanate as prescribed until gone for your middle ear infections. Use eardrops as prescribed for your outer ear infection on the right. You may use them on the left if you need to. Take Tylenol or Motrin as needed for aches pains or fevers. Follow-up with your family physician if no improvement in 2 to 3 days if no improvement Jul, Acute otitis externa of right ear, unspecified type (ICD-10 - H60.501) [facility] Other History general Narrative - Reported 03-30-2023 Note Date & Type Note Facility 03-30-2023 History general N arrative - Reported Type Surgical History tubal ligation 03/2023 [facility] Other Evaluation note 04-25-2022 Note Date & Type Note Facility 04-25-2022 Evaluation note Encounter Date Diagnosis Assessment Notes Mar, Elevated liver enzymes (ICD-10 - R74.8) Mar, Hepatitis C (ICD-10 - B19.20) START PPW FOR [facility] THERAPY THIS PATIENT IS A GOOD CANDIDATE FOR THERAPY HE / SHE IS MOTIVATED AND AGREES TO PROCEED WITH THERAPY THE PATIENT READINESS CONSENT WAS DISCUSSED AND SIGNED BY PATIENT AND PHYSICIAN HE / SHE DOES NOT HAVE ANY LIMITED LIFE EXPECTACNCY DUE TO NON LIVER COMORBITIES AND AGREES TO RNA TESTING Q 4 WEEKS WHILE ON THERAPY Mar, Nausea (ICD-10 - R11.0) [facility] Other Summary Purpose Family History No Family History Records FoundNo Family History Records FoundNo Family History Records Found Advance Directives No Advanced Directives Records FoundNo Advanced Directives Records FoundNo Advanced Directives Records Found Additional Source Comments REASON FOR VISIT (unrecogniz ed section and content) PATIENT HERE AT THE REQUEST OF DR INTERIANO FOR HEP C AND ELEVATED LIVER ENZYMESPOSS EAR INFECTION INFORMATION SOURCE (unrecogn ized section and content) DATE CREATED AUTHOR 01/05/[address] [facility] DATE CREATED AUTHOR AUTHOR'S ORGANIZ ATION 07/20/2023 [facility] DATE CREATED AUTHOR AUTHOR'S ORGANIZ ATION 09/19/2023 [facility] FOR RECORDS PERTAINING TO PATIENTS WHO ARE OR HAVE BEEN ENROLLED IN A CHEMICAL DEPENDENCY/SUBSTANCEABUSE PROGRAM, SOME INFORMATION MAY BE OMITTED. This clinical summary was aggregated from multiple sources. Caution should be exercised in using it in the provision of clinical care. This summary normalizes information from multiple sources, and as a consequence, information in this document may materially change the coding, format and clinical context of patient data. In addition, data may be omitted in some cases. CLINICAL DECISIONS SHOULD BE BASED ON THE PRIMARY CLINICAL RECORDS. [employer] provides no warranty or guarantee of the accuracy or completeness of information in this document.
[2023-10-01 09:26] LABS: Basophils Percent Auto 0.4 % (0.2-2.0); Eosinophils Absolute Auto 0.5 10^3/uL (0.0-0.7); Eosinophils Percent Auto 4.7 % (0.9-7.0); Hematocrit 38.8 % (36.0-48.0); Hemoglobin 12.2 g/dL (12.0-16.0); Immature Granulocytes Abs Auto 0.02 10^3/uL (0.00-0.03); Immature Granulocytes Pct Auto 0.2 % (0.0-0.5); Lymphocytes Percent Auto 29.6 % (20.5-60.0); Mean Corpuscular HGB Conc 31.4 g/dL (29.9-35.2); Mean Corpuscular Hemoglobin 27.9 pg (26.7-34.0); Mean Corpuscular Volume 88.6 fL (81.0-99.0); Mean Platelet Volume 10.9 fL (9.5-13.5); Monocytes Absolute Auto 0.5 10^3/uL (0.3-0.8); Monocytes Percent Auto 5.4 % (1.7-12.0); Neutrophils Percent Auto 59.7 % (43.0-75.0); Platelet Count 259 10^3/uL (150-450); Red Blood Count 4.38 10^6/uL (4.20-5.40); Red Cell Distribution Width 14.2 % (11.0-15.0); White Blood Count 10.1 10^3/uL (4.0-11.0)
[2023-10-01 09:35] LABS: INR 0.96; Partial Thromboplastin Time 25.6 sec (22.3-36.2); Prothrombin Time 10.2 sec (9.0-11.6)
[2023-10-01 09:54] LABS: HCG Quantitative <1 mIU/mL; Thyroid Stimulating Hormone 2.072 uIU/mL (0.358-3.740)
[2023-10-01 10:03] LABS: Free T4 1.06 ng/dL (0.76-1.46)
[2023-10-01 11:01] LABS: Estimated Average Glucose 108 mg/dL; Glycohemoglobin A1C 5.4 % (4.5-6.2)
== END 2023-10-01 08:41 | disposition home or self-care (01) ==
LOC: LAB 08:41
PROVIDERS: Visit Provider Obstetrics & Gynecology
DX: N92.0 Excessive and frequent menstruation with regular cycle (principal)
CPT/HCPCS: 36415; 83036; 84439; 84443; 84702; 85025; 85610; 85730

== ENCOUNTER 2023-10-02 16:40 | Outpatient (OUT) | payer OTHER, SELFPAY ==
--- NOTE | 2023-10-02 | US_ITS ---
The [address] [address] Patient Name: HAROLDO MARCH MRN: [id number] date: 1995 Sex: F Assigned Patient Location: Current Patient Location: Accession/Order Number: [id number] Exam Date: 10/02/2023 17:00 Report Date: 10/03/2023 07:25 At the request of: IVANNA BRYANT Procedure: US pelvis w/ transvaginal EXAMINATION: US pelvis w/ transvaginal HISTORY: Menorrhagia/pelvic pain COMPARISON: No relevant comparison available. FINDINGS: The uterus is normal in size, contour and myometrial echotexture measuring 9.5-4 0.9 x 5.6 cm. No focal myometrial mass The endometrium measures 13.9 mm, normal The right ovary is normal measuring 4.5 x 2.1 x 2.7 cm. Normal color and Doppler flow Left ovary is normal measuring 2.5 x 1.7 x 1.7 cm. Normal color and Doppler flow US/US pelvis w/ transvaginal IMPRESSION: Normal exam Electronically authenticated by: LIUDMILA CARRION Date: 10/03/2023 07:25
== END 2023-10-02 16:41 | disposition home or self-care (01) ==
LOC: US 16:40
PROVIDERS: Visit Provider Obstetrics & Gynecology
DX: N92.0 Excessive and frequent menstruation with regular cycle (principal)
CPT/HCPCS: 76830; 76856

== ENCOUNTER 2023-10-29 11:56 | Outpatient (OUT) | payer OTHER, SELFPAY | END 2023-10-29 11:57 | disposition home or self-care (01) | LOC: PST 11:57 | PROVIDERS: Visit Provider Obstetrics & Gynecology | DX: Z01.818 Encounter for other preprocedural examination (principal); N92.0 Excessive and frequent menstruation with regular cycle; N93.9 Abnormal uterine and vaginal bleeding, unspecified; R10.2 Pelvic and perineal pain ==

== ENCOUNTER 2023-11-05 08:04 | Day surgery (SDC) | payer OTHER, SELFPAY ==
[2023-10-29 12:46] VITALS: BP 141/94; PULSE 80; TEMP 36.2; O2SAT 96; BMI 41.9
[2023-11-05] VITALS (15 sets, daily range): BP systolic 123–180; BP diastolic 83–107; PULSE 46–78; TEMP 36.1–36.6; O2SAT 95–98; BMI 42.9
--- OUTSIDE RECORDS SUMMARY | 2023-11-05 08:13 | XMS_ITS | CCD ---
Author Organization [facility] [place] Care Team Providers Care Proof Sorter Name Role Phone Radames Ridley Unavailable REQUEST, [...] REQUEST, DR MARTINEZ LISTED Consulting Unavaila ble PATRICIAWTARSHA, SHAIKH Amanda Primary Care Unavailable GRECHNY ., ANJALI MURRIETA Consulting Unavailabl e HAY ., DR GRECO Admitting Unavailable HAY ., DR GRECO Attending Unavailable HAY ., DR GRECO Consulting Unavailable LIUDMILA MCKEON Consulting Unavailable REQUEST, NONE LISTED Primary Care Unavaila ble DIAB ., CHEO Consulting Unavailable DIAB ., CHEO Admitting Unavailable DIAB ., CHEO Attending Unavailable REQUEST, DR MARTINEZ LISTED Referring Unavaila ble REQUEST, DR MARTINEZ LISTED Primary Care Unavaila ble ANNETTE ., DR GONCALVES Admitting Unavailable ANNETTE ., DR GONCALVES Attending Unavailable ANNETTE ., DR GONCALVES Consulting Unavailable REQUEST, DR MARTINEZ LISTED Primary Care Unavaila ble GISELL ., [...] LYNN Attending Unavailable RADAMES RIDLEY Consulting Unavailable SHAIKH Amanda INTERIANO Primary Care Unavailable REQUEST, DR NONE LISTED [...] Unavailable ANNETTE ., DR GONCALVES Admitting Unavailable KATKO, KALYAN Adam Admitting Unavailable KATKALYAN ROSALES Attending Unavailable GRECHNY ., ANJALI MURRIETA Consulting Unavailabl e MISC, DR LYNN Primary Care Unavailable KALYAN ZAIDI Consulting Unavailable AHDOGARDENIA, YADY Consulting Unavailable JOSEPH KWAN Consulting Unavailable [...] DR NONE LISTED Primary Care Unavaila ble LIUDMILA CAMARA Consulting Unavailable REQUEST, DR NONE LISTED Primary [...] Allen Attending Unavailab Gregorio Summers Admitting Unavailab Megha Cano Unavailable IVANNA BRYANT Attending Unavailable IVANNA BRYANT Attending Unavailable Medications Current [...] / neomycin 3.5 mg/ml / polymyxin b 75061 unt/ml otic suspension (1 source) Aminoglycoside Antibacterial, Polymyxin-class Antibacterial, Corticosteroid Start: 08-19-2023 Neomycin-Polymyx in-HC [id number] 3 drops right ear Three times a [...] Amylase [Catalytic activity/Vol] 59 U/L Normal 25-115 [facility] Comment on above: Performed By: #### E RUR #### [facility] [address] [place] [address] Dr. Augustine Lou CBC AUTO DIFFon 12-21-2022 BASO # 0.0 103/ul Normal 0.0-0.1 [facility] Comment on above: Performed By: #### H IV12 #### [facility] [address] [place] [address] Dr. Augustine Lou Basophils/100 WBC (Bld) 0.2 % Normal 0.2-2.0 [facility] Comment on above: Performed By: #### H IV12 #### [facility] [address] [place] [address] Dr. Augustine Lou EO # 0.2 103/ul Normal 0.0-0.7 [facility] Comment on above: Performed By: #### H IV12 #### [facility] [address] [address] [address] Augustine Lou Eosinophils/100 WBC (Bld) 1.2 % Normal 0.9-7.0 [facility] Comment on above: Performed By: #### H IV12 #### [facility] [address] [place] [address] Dr. Augustine Lou Erythrocyte distribution width (RBC) [Ratio] 13.0 % Normal 11.0-15.0 [facility] Comment on above: Performed By: #### H IV12 #### [facility] [address] [place] [address] Dr. Augustine Lou Hematocrit (Bld) [Volume fraction] 35.9 % Critically low 36.0-48.0 [facility] Comment on above: Performed By: #### H IV12 #### [facility] [address] [place] [address] Dr. Augustine Lou Hemoglobin (Bld) [Mass/Vol] 12.1 g/dL Normal 12.0-16.0 [facility] Comment on above: Performed By: #### H IV12 #### [facility] [address] [place] [address] Dr. Augustine Lou IG # 0.08 10e3/ul Critically high 0.00-0.03 [facility] Comment on above: Performed By: #### H IV12 #### [facility] [address] [place] [address] Dr. Augusitne Lou IG % 0.5 % Normal 0.0-0.5 [facility] Comment on above: Performed By: #### H IV12 #### [facility] [address] [place] [address] Dr. Augustine Lou LYMPH # 1.3 103/ul Normal 1.2-3.8 [facility] Comment on above: Performed By: #### H IV12 #### [facility] [address] [place] [address] Dr. Augustine Lou Lymphocytes/100 WBC (Bld) 7.8 % Critically low 20.5-60.0 [facility] Comment on above: Performed By: #### H IV12 #### [facility] [address] [address] [address] Augustine Lou MANUAL DIFF REQ NO Normal [facility] Comment on above: Performed By: #### H IV12 #### [facility] [address] [address] [address] Augustine Lou MCH (RBC) [Entitic mass] 29.6 pg Normal 26.7-34.0 [facility] Comment on above: Performed By: #### H IV12 #### [facility] [address] [address] [address] Augustine Lou MCHC (RBC) [Mass/Vol] 33.7 g/dL Normal 29.9-35.2 [facility] Comment on above: Performed By: #### H IV12 #### [facility] [address] [place] [address] Dr. Augustine Lou MCV (RBC) [Entitic vol] 87.8 fL Normal 81.0-99.0 [facility] Comment on above: Performed By: #### H IV12 #### [facility] [address] [address] [address] Augustine Lou MONO # 0.7 103/ul Normal 0.3-0.8 [facility] Comment on above: Performed By: #### H IV12 #### [facility] [address] [place] [address] Dr. Augustine Lou Monocytes/100 WBC (Bld) 4.3 % Normal 1.7-12.0 [facility] Comment on above: Performed By: #### H IV12 #### [facility] [address] [place] [address] Dr. Augustine Lou NEUT # 14.7 103/ul Critically high 1.4-6.5 [facility] Comment on above: Performed By: #### H IV12 #### [facility] [address] [place] [address] Dr. Augustine Lou Neutrophils/100 WBC (Bld) 86.0 % Critically high 43.0-75.0 [facility] Comment on above: Performed By: #### H IV12 #### [facility] [address] [address] [address] Augustine Lou Platelet mean volume (Bld) [Entitic vol] 10.4 fL Normal 9.5-13.5 [facility] Comment on above: Performed By: #### H IV12 #### [facility] [address] [address] [address] Augustine Lou PLT 249 103/ul Normal 150-450 [facility] Comment on above: Performed By: #### H IV12 #### [facility] [address] [address] [address] Augustine Lou RBC 4.09 106/ul Critically low 4.20-5.40 [facility] Comment on above: Performed By: #### H IV12 #### [facility] [address] [place] [address] Dr. Augustine Lou WBC 17.0 103/ul Critically high 4.0-11.0 [facility] Comment on above: Performed By: #### H IV12 #### [facility] [address] [place] [address] Dr. Augustine Lou GI PANEL (PCR)on 12-21-2022 Adenovirus F 40/41 Not detected Normal NOT DETECTED [facility] Comment on above: Performed By: #### P T #### [facility] [address] [place] [address] Dr. Augustine Lou Astrovirus Not detected Normal NOT DETECTED [facility] Comment on above: Performed By: #### P T #### [facility] [address] [place] [address] Dr. Augustine Lou C. Diff toxin A/B Not detected Normal NOT DETECTED [facility] Comment on above: Performed By: #### P T #### [facility] [address] [place] [address] Dr. Augustine Lou Campylobacter Not detected Normal NOT DETECTED [facility] Comment on above: Performed By: #### P T #### [facility] [address] [place] [address] Dr. Augustine Lou Cryptosporidium Not detected Normal NOT DETECTED [facility] Comment on above: Performed By: #### P T #### [facility] [address] [place] [address] Dr. Augustine Lou Cyclos. Cayetanensis Not detected Normal NOT DETECTED [facility] Comment on above: Performed By: #### P T #### [facility] [address] [place] [address] Dr. Augustine Lou E. Coli O157 Not Applicable Normal Not Applicable [facility] Comment on above: Performed By: #### P T #### [facility] [address] [place] [address] Dr. Augustine Lou E. histolytica Not detected Normal NOT DETECTED [facility] Comment on above: Performed By: #### P T #### [facility] [address] [place] [address] Dr. Augustine Lou EAEC Not detected Normal NOT DETECTED [facility] Comment on above: Performed By: #### P T #### [facility] [address] [place] [address] Dr. Augustine Lou EIEC Not detected Normal NOT DETECTED [facility] Comment on above: Performed By: #### P T #### [facility] [address] [place] [address] Dr. Augustine Lou EPEC Not detected Normal NOT DETECTED [facility] Comment on above: Performed By: #### P T #### [facility] [address] [place] [address] Dr. Augustine Lou ETEC Not detected Normal NOT DETECTED [facility] Comment on above: Performed By: #### P T #### [facility] [address] [place] [address] Dr. Augustine Lou G. Lamblia Not detected Normal NOT DETECTED [facility] Comment on above: Performed By: #### P T #### [facility] [address] [place] [address] Dr. Augustine Lou GIPANEL CONTROLS PASSED Normal [facility] Comment on above: Performed By: #### P T #### [facility] [address] [address] [address] Augustine [facility] HEADER GI PANEL BACTERIA Normal [facility] Comment on above: Performed By: #### P T #### [facility] [address] [address] [address] Augustine BOUDREAUX ECOLI GI PANEL DIARRHEAGEN IC E.COLI / SHIGELLA Normal [facility] Comment on above: Performed By: #### P T #### [facility] [address] [address] [address] Augustine BOUDREAUX INFO SEE BELOW Normal [facility] Comment on above: Result Comment: EAEC - Enteroaggregative E. Coli EPEC- Enteropathogenic E. Coli ETEC- Enterotoxigenic E. Coli lt/st STEC- Shigella-like toxin-producing E. Coli stx1/stx2 EIEC- Shigella/Enteroinvasive E. Coli Performed By: #### P T #### [facility] [address] [address] [address] Augustine BOUDREAUX PARASITES GI PANEL PARASITES Normal [facility] Comment on above: Performed By: #### P T #### [facility] [address] [address] [address] Augustine BOUDREAUX VIRUS GI PANEL VIRUSES Normal [facility] Comment on above: Performed By: #### P T #### [facility] [address] [address] [address] Augustine Lou Norovirus GI/GII Not detected Normal NOT DETECTED [facility] Comment on above: Performed By: #### P T #### [facility] [address] [address] [address] Augustine Kilpatrick. Shigelloides Not detected Normal NOT DETECTED [facility] Comment on above: Performed By: #### P T #### [facility] [address] [address] [address] Augustine Lou Rotavirus A Not detected Normal NOT DETECTED [facility] Comment on above: Performed By: #### P T #### [facility] [address] [address] [address] Augustine Lou Salmonella Not detected Normal NOT DETECTED [facility] Comment on above: Performed By: #### P T #### [facility] [address] [place] [address] Dr. Augustine Lou Sapovirus Not detected Normal NOT DETECTED [facility] Comment on above: Performed By: #### P T #### [facility] [address] [place] [address] Dr. Augustine Lou STEC Not detected Normal NOT DETECTED [facility] Comment on above: Performed By: #### P T #### [facility] [address] [place] [address] Dr. Augustine Lou Vibrio Not detected Normal NOT DETECTED [facility] Comment on above: Performed By: #### P T #### [facility] [address] [place] [address] Dr. Augustine Lou Vibrio Cholera Not detected Normal NOT DETECTED [facility] Comment on above: Performed By: #### P T #### [facility] [address] [place] [address] Dr. Augustine Lou Y. Enterocolitica Not detected Normal NOT DETECTED [facility] Comment on above: Performed By: #### P T #### [facility] [address] [place] [address] Dr. Augustine Lou LIPASEon 12-21-2022 Lipase [Catalytic activity/Vol] 89.0 U/L Normal 73.0-393.0 [facility] Comment on above: Performed By: #### E RUR #### [facility] [address] [place] [address] Dr. Augustine Lou LIVER PROFILEon 12-21-2022 Albumin [Mass/Vol] 2.7 g/dL Critically low 3.4-5.0 [facility] Comment on above: Performed By: #### E RUR #### [facility] [address] [place] [address] Dr. Augustine Lou Albumin/Globulin [Mass ratio] 0.6 {ratio} Normal [facility] Comment on above: Performed By: #### E RUR #### [facility] [address] [place] [address] Dr. Augustine Lou ALP [Catalytic activity/Vol] 59 U/L Normal 46-116 [facility] Comment on above: Performed By: #### E RUR #### [facility] [address] [place] [address] Dr. Augustine Lou ALT [Catalytic activity/Vol] 18 U/L Normal 14-59 [facility] Comment on above: Performed By: #### E RUR #### [facility] [address] [place] [address] Dr. Augustine Lou AST [Catalytic activity/Vol] 17 U/L Normal 15-37 [facility] Comment on above: Performed By: #### E RUR #### [facility] [address] [place] [address] Dr. Augustine Lou BILI, CONJUGATED 0.0 mg/dL Normal 0.0-0.2 [facility] Comment on above: Performed By: #### E RUR #### [facility] [address] [place] [address] Dr. Augustine Lou Bilirubin [Mass/Vol] 0.2 mg/dL Normal 0.2-1.0 [facility] Comment on above: Performed By: #### E RUR #### [facility] [address] [place] [address] Dr. Augustine Lou Globulin (S) [Mass/Vol] 4.4 g/dL Normal [facility] Comment on above: Performed By: #### E RUR #### [facility] [address] [place] [address] Dr. Augustine Lou Protein [Mass/Vol] 7.1 g/dL Normal 6.4-8.2 [facility] Comment on above: Performed By: #### E RUR #### [facility] [address] [place] [address] Dr. Augustine Lou PROF CHEM 8 (BAS METB)on Anion gap [Moles/Vol] 15.2 mmol/L Normal [facility] Comment on above: Performed By: #### E RUR #### [facility] [address] [address] [address] Augustine Lou Calcium [Mass/Vol] 8.9 mg/dL Normal 8.5-10.1 [facility] Comment on above: Performed By: #### E RUR #### [facility] [address] [address] [address] Augustine Lou Chloride [Moles/Vol] 106 mmol/L Normal 98-107 [facility] Comment on above: Performed By: #### E RUR #### [facility] [address] [address] [address] Augustine Lou CO2 [Moles/Vol] 21.7 mmol/L Normal 21.0-32.0 [facility] Comment on above: Performed By: #### E RUR #### [facility] [address] [place] [address] Dr. Augustine Lou Creatinine [Mass/Vol] 0.53 mg/dL Critically low 0.55-1.02 [facility] Comment on above: Performed By: #### E RUR #### [facility] [address] [address] [address] Augustine Lou EGFR-AF NORWEGIAN >60 Normal >=60 [facility] Comment on above: Performed By: #### E RUR #### [facility] [address] [place] [address] Dr. Augustine Lou EGFR-NON AF NORWEGIAN >60 Normal >=60 [facility] Comment on above: Performed By: #### E RUR #### [facility] [address] [address] [address] Augustine Lou Glucose [Mass/Vol] 86 mg/dL Normal 74-106 [facility] Comment on above: Performed By: #### E RUR #### [facility] [address] [address] [address] Augustine Lou Potassium [Moles/Vol] 3.9 mmol/L Normal 3.5-5.1 [facility] Comment on above: Performed By: #### E RUR #### [facility] [address] [address] [address] Augustine Lou Sodium [Moles/Vol] 139 mmol/L Normal 136-145 [facility] Comment on above: Performed By: #### E RUR #### [facility] [address] [address] [address] Augustine Lou Urea nitrogen [Mass/Vol] 10.0 mg/dL Normal 7.0-18.0 [facility] Comment on above: Performed By: #### E RUR #### [facility] [address] [address] [address] Augustine Lou Urea nitrogen/Creatinine [Mass ratio] 18.9 mg/mg Normal [facility] Comment on above: Performed By: #### E RUR #### [facility] [address] [address] [address] Augustine Lou US SINGLE QUAD RT [...] LIUDMILA CARRION Date: 2022-12-21 16:26 Normal [facility] US PREG INCOMPLETE ANATOMYon 12-05-2022 US PREG [...] by: ALVIN GALDAMEZ Date: 2022-12-05 15:13 Normal [facility] BILIRUBIN CONJUGATED (DIRECT )on 12-01-2022 BILI, CONJUGATED 0.0 mg/dL Normal 0.0-0.2 [facility] Comment on above: Performed By: #### A FPMAT #### [facility] [address] [place] [address] Dr. Augustine Lou BILIRUBIN TOTALon 12-01-2022 Bilirubin [Mass/Vol] 0.1 mg/dL Critically low 0.2-1.0 [facility] Comment on above: Performed By: #### C BC #### [facility] [address] [place] [address] Dr. Augustine Lou BUNon 12-01-2022 Urea nitrogen [Mass/Vol] 6.0 mg/dL Critically low 7.0-18.0 [facility] Comment on above: Performed By: #### H IV12 #### [facility] [address] [place] [address] Dr. Augustine Lou CBC AUTO DIFFon 12-01-2022 BASO # 0.0 103/ul Normal 0.0-0.1 [facility] Comment on above: Performed By: #### C BC #### [facility] [address] [place] [address] Dr. Augustine Lou Basophils/100 WBC (Bld) 0.2 % Normal 0.2-2.0 [facility] Comment on above: Performed By: #### C BC #### [facility] [address] [place] [address] Dr. Augustine Lou EO # 0.3 103/ul Normal 0.0-0.7 [facility] Comment on above: Performed By: #### C BC #### [facility] [address] [place] [address] Dr. Augustine Lou Eosinophils/100 WBC (Bld) 3.5 % Normal 0.9-7.0 [facility] Comment on above: Performed By: #### C BC #### [facility] [address] [place] [address] Dr. Augustine Lou Erythrocyte distribution width (RBC) [Ratio] 13.1 % Normal 11.0-15.0 [facility] Comment on above: Performed By: #### C BC #### [facility] [address] [address] [address] Augustine Lou Hematocrit (Bld) [Volume fraction] 32.2 % Critically low 36.0-48.0 [facility] Comment on above: Performed By: #### C BC #### [facility] [address] [address] [address] Augustine Lou Hemoglobin (Bld) [Mass/Vol] 10.7 g/dL Critically low 12.0-16.0 [facility] Comment on above: Performed By: #### C BC #### [facility] [address] [place] [address] Dr. Augustine Lou IG # 0.04 10e3/ul Critically high 0.00-0.03 [facility] Comment on above: Performed By: #### C BC #### [facility] [address] [place] [address] Dr. Augustine Lou IG % 0.4 % Normal 0.0-0.5 [facility] Comment on above: Performed By: #### C BC #### [facility] [address] [address] [address] Augustine Lou LYMPH # 2.6 103/ul Normal 1.2-3.8 [facility] Comment on above: Performed By: #### C BC #### [facility] [address] [place] [address] Dr. Augustine Lou Lymphocytes/100 WBC (Bld) 27.2 % Normal 20.5-60.0 [facility] Comment on above: Performed By: #### C BC #### [facility] [address] [place] [address] Dr. Augustine Lou MANUAL DIFF REQ NO Normal [facility] Comment on above: Performed By: #### C BC #### [facility] [address] [place] [address] Dr. Augustine Lou MCH (RBC) [Entitic mass] 29.8 pg Normal 26.7-34.0 [facility] Comment on above: Performed By: #### C BC #### [facility] [address] [place] [address] Dr. Augustine Lou MCHC (RBC) [Mass/Vol] 33.2 g/dL Normal 29.9-35.2 [facility] Comment on above: Performed By: #### C BC #### [facility] [address] [place] [address] Dr. Augustine Lou MCV (RBC) [Entitic vol] 89.7 fL Normal 81.0-99.0 [facility] Comment on above: Performed By: #### C BC #### [facility] [address] [place] [address] Dr. Augustine Lou MONO # 0.6 103/ul Normal 0.3-0.8 [facility] Comment on above: Performed By: #### C BC #### [facility] [address] [place] [address] Dr. Augustine Lou Monocytes/100 WBC (Bld) 6.1 % Normal 1.7-12.0 [facility] Comment on above: Performed By: #### C BC #### [facility] [address] [place] [address] Dr. Augustine Lou NEUT # 5.9 103/ul Normal 1.4-6.5 [facility] Comment on above: Performed By: #### C BC #### [facility] [address] [place] [address] Dr. Augustine Lou Neutrophils/100 WBC (Bld) 62.6 % Normal 43.0-75.0 [facility] Comment on above: Performed By: #### C BC #### [facility] [address] [place] [address] Dr. Augustine Lou Platelet mean volume (Bld) [Entitic vol] 10.8 fL Normal 9.5-13.5 [facility] Comment on above: Performed By: #### C BC #### [facility] [address] [place] [address] Dr. Augustine Lou PLT 217 103/ul Normal 150-450 [facility] Comment on above: Performed By: #### C BC #### [facility] [address] [place] [address] Dr. Augustien Lou RBC 3.59 106/ul Critically low 4.20-5.40 [facility] Comment on above: Performed By: #### C BC #### [facility] [address] [place] [address] Dr. Augustine Lou WBC 9.4 103/ul Normal 4.0-11.0 [facility] Comment on above: Performed By: #### C BC #### [facility] [address] [place] [address] Dr. Augustine Lou CREATININEon 12-01-2022 Creatinine [Mass/Vol] 0.60 mg/dL Normal 0.55-1.02 [facility] [facility] Comment on above: Performed By: #### H IV12 #### [facility] [address] [place] [address] Dr. Augustine Lou EGFR-AF NORWEGIAN >60 Normal >=60 [facility] Comment on above: Performed By: #### H IV12 #### [facility] [address] [place] [address] Dr. Augustine Lou EGFR-NON AF NORWEGIAN >60 Normal >=60 [facility] Comment on above: Performed By: #### H IV12 #### [facility] [address] [place] [address] Dr. Augustine Lou ELECTROLYTESon 12-01-2022 Anion gap [Moles/Vol] 11.0 mmol/L Normal [facility] Comment on above: Performed By: #### C BC #### [facility] [address] [place] [address] Dr. Augustine Lou Chloride [Moles/Vol] 105 mmol/L Normal 98-107 [facility] Comment on above: Performed By: #### C BC #### [facility] [address] [place] [address] Dr. Augustine Lou CO2 [Moles/Vol] 25.6 mmol/L Normal 21.0-32.0 [facility] Comment on above: Performed By: #### C BC #### [facility] [address] [place] [address] Dr. Augustine Lou Potassium [Moles/Vol] 3.6 mmol/L Normal 3.5-5.1 [facility] Comment on above: Performed By: #### C BC #### [facility] [address] [place] [address] Dr. Augustine Lou Sodium [Moles/Vol] 138 mmol/L Normal 136-145 [facility] Comment on above: Performed By: #### C BC #### [facility] [address] [place] [address] Dr. Augustine Lou SGOTon 12-01-2022 AST [Catalytic activity/Vol] 19 U/L Normal 15-37 [facility] Comment on above: Performed By: #### H IV12 #### [facility] [address] [place] [address] Dr. Augustine Lou SGPTon 12-01-2022 ALT [Catalytic activity/Vol] 19 U/L Normal 14-59 [facility] Comment on above: Performed By: #### C BC #### [facility] [address] [place] [address] Dr. Augustine Lou UA (CLEAN/CATCH) PROVIDER NETWORK MGR/MICRO I F IND.on 12-01-2022 Bilirubin Ql (U) Negative Normal NEGATIVE [facility] Comment on above: Performed By: #### A FPMAT #### [facility] [address] [place] [address] Dr. Augustine Lou Clarity (U) CLEAR Normal CLEAR [facility] Comment on above: Performed By: #### A FPMAT #### [facility] [address] [place] [address] Dr. Augustine Lou Color (U) LT. YELLOW Normal YELLOW [facility] Comment on above: Performed By: #### A FPMAT #### [facility] [address] [place] [address] Dr. Augustine Lou Glucose Ql (U) Negative Normal NEGATIVE [facility] Comment on above: Performed By: #### A FPMAT #### [facility] [address] [place] [address] Dr. Augustine Lou Hemoglobin Ql (U) Negative Normal NEGATIVE [facility] Comment on above: Performed By: #### A FPMAT #### [facility] [address] [place] [address] Dr. Augustine Lou Ketones Ql (U) 15 mg/dl Abnormal NEGATIVE [facility] Comment on above: Performed By: #### A FPMAT #### [facility] [address] [place] [address] Dr. Augustine Lou LEUKOCYTES Negative Normal NEGATIVE [facility] Comment on above: Performed By: #### A FPMAT #### [facility] [address] [place] [address] Dr. Augustine Lou Nitrite Ql (U) Negative Normal NEGATIVE [facility] Comment on above: Performed By: #### A FPMAT #### [facility] [address] [place] [address] Dr. Augustine Lou pH (U) 6.0 [pH] Normal 5-9 [facility] Comment on above: Performed By: #### A FPMAT #### [facility] [address] [place] [address] Dr. Augustine Lou SPEC GRAVITY 1.020 Normal 1.005-<=1.025 [facility] Comment on above: Performed By: #### A FPMAT #### [facility] [address] [place] [address] Dr. Augustine Lou UA PROTEIN Negative Normal NEGATIVE/ TRACE [facility] Comment on above: Performed By: #### A FPMAT #### [facility] [address] [place] [address] Dr. Augustine Lou UR MICRO IND NOT INDICATED Normal [facility] Comment on above: Performed By: #### A FPMAT #### [facility] [address] [place] [address] Dr. Augustine Lou Urobilinogen Qn (U) 0.2 {Erinn'U}/dL Normal 0.2 - 1. 0 [facility] Comment on above: Performed By: #### A FPMAT #### [facility] [address] [place] [address] Dr. Augustine Lou US SINGLE QUAD RT [...] by: ALVIN GALDAMEZ Date: 2022-12-01 08:26 Normal [facility] US PREG ANATOMY SINGLEon US PREG ANATOMY [...] authenticated by: LIUDMILA CARRION Date: 2022-11-03 10:30 Normal [facility] PAP ACOG PANEL 2: 21 to 29on 10-19-2022 . . Normal [facility] Comment on above: Performed By: #### A 1C #### [facility] [address] [place] [address] Dr. Augustine Lou Age Gdln ACOG Testing - [facility] Comment on above: Performed By: #### A 1C #### [facility] [address] [place] [address] Dr. Augustine Lou DIAGNOSIS: Comment [facility] Comment on above: Result Comment: NEGA TIVE FOR INTRAEPITHELIAL LESION OR MALIGNANCY. Performed By: #### A 1C #### [facility] [address] [place] [address] Dr. Augustine Lou Methodology: Comment [facility] Comment on above: Result Comment: This liquid based ThinPrep(R) pap test was screened with the use of an image guided system. Performed By: #### A 1C #### [facility] [address] [place] [address] Dr. Augustine Lou Note: Comment [facility] Comment on above: Result Comment: The Pap smear is a screening test designed to aid in the detection of premalignant and malignant conditions of the uterine cervix. It is not a diagnostic procedure and should not be used as the sole means of detecting cervical cancer. Both false-positive and false-negative reports do occur. . Performed By: #### A 1C #### [facility] [address] [place] [address] Dr. Augustine Lou Performed by: Comment Normal [facility] Comment on above: Result Comment: Michael Dempsey, Credit Collections Manager (ASCP) Performed By: #### A 1C #### [facility] [address] [place] [address] Dr. Augustine Lou Reflex Criteria: Comment Normal [facility] Comment on above: Result Comment: The HPV DNA reflex criteria were not met with this specimen result therefore, no HPV testing was performed. . Performed By: #### A 1C #### [facility] [address] [place] [address] Dr. Augustine Lou Specimen adequacy: Comment Normal [facility] Comment on above: Result Comment: Sati sfactory for evaluation. Endocervical and/or squamous metaplastic cells (endocervical component) are present. Performed By: #### A 1C #### [facility] [address] [place] [address] Dr. Augustine Lou CBC AUTO DIFFon 10-16-2022 BASO # 0.0 103/ul Normal 0.0-0.1 [facility] Comment on above: Performed By: #### H IV12 #### [facility] [address] [place] [address] Dr. Augustine Lou Basophils/100 WBC (Bld) 0.2 % Normal 0.2-2.0 [facility] Comment on above: Performed By: #### H IV12 #### [facility] [address] [place] [address] Dr. Augustine Lou EO # 0.4 103/ul Normal 0.0-0.7 [facility] Comment on above: Performed By: #### H IV12 #### [facility] [address] [place] [address] Dr. Augustine Lou Eosinophils/100 WBC (Bld) 3.5 % Normal 0.9-7.0 [facility] Comment on above: Performed By: #### H IV12 #### [facility] [address] [place] [address] Dr. Augustine Lou Erythrocyte distribution width (RBC) [Ratio] 13.2 % Normal 11.0-15.0 [facility] Comment on above: Performed By: #### H IV12 #### [facility] [address] [place] [address] Dr. Augustine Lou Hematocrit (Bld) [Volume fraction] 32.1 % Critically low 36.0-48.0 [facility] Comment on above: Performed By: #### H IV12 #### [facility] [address] [address] [address] Augustine Lou Hemoglobin (Bld) [Mass/Vol] 10.8 g/dL Critically low 12.0-16.0 [facility] Comment on above: Performed By: #### H IV12 #### [facility] [address] [address] [address] Augustine Lou IG # 0.03 10e3/ul Normal 0.00-0.03 [facility] Comment on above: Performed By: #### H IV12 #### [facility] [address] [place] [address] Dr. Augustine Lou IG % 0.3 % Normal 0.0-0.5 [facility] Comment on above: Performed By: #### H IV12 #### [facility] [address] [address] [address] Augustine Lou LYMPH # 2.7 103/ul Normal 1.2-3.8 [facility] Comment on above: Performed By: #### H IV12 #### [facility] [address] [place] [address] Dr. Augustine Lou Lymphocytes/100 WBC (Bld) 27.5 % Normal 20.5-60.0 [facility] Comment on above: Performed By: #### H IV12 #### [facility] [address] [place] [address] Dr. Augustine Lou MANUAL DIFF REQ NO Normal [facility] Comment on above: Performed By: #### H IV12 #### [facility] [address] [address] [address] Augustine Lou MCH (RBC) [Entitic mass] 29.3 pg Normal 26.7-34.0 [facility] Comment on above: Performed By: #### H IV12 #### [facility] [address] [place] [address] Dr. Augustine Lou MCHC (RBC) [Mass/Vol] 33.6 g/dL Normal 29.9-35.2 [facility] Comment on above: Performed By: #### H IV12 #### [facility] [address] [place] [address] Dr. Augustine Lou MCV (RBC) [Entitic vol] 87.0 fL Normal 81.0-99.0 [facility] Comment on above: Performed By: #### H IV12 #### [facility] [address] [place] [address] Dr. Augustine Lou MONO # 0.5 103/ul Normal 0.3-0.8 [facility] Comment on above: Performed By: #### H IV12 #### [facility] [address] [place] [address] Dr. Augustine Lou Monocytes/100 WBC (Bld) 5.5 % Normal 1.7-12.0 [facility] Comment on above: Performed By: #### H IV12 #### [facility] [address] [place] [address] Dr. Augustine Lou NEUT # 6.2 103/ul Normal 1.4-6.5 [facility] Comment on above: Performed By: #### H IV12 #### [facility] [address] [place] [address] Dr. Augustine Lou Neutrophils/100 WBC (Bld) 63.0 % Normal 43.0-75.0 [facility] Comment on above: Performed By: #### H IV12 #### [facility] [address] [place] [address] Dr. Augustine Lou Platelet mean volume (Bld) [Entitic vol] 10.5 fL Normal 9.5-13.5 [facility] Comment on above: Performed By: #### H IV12 #### [facility] [address] [place] [address] Dr. Augustine Lou PLT 208 103/ul Normal 150-450 [facility] Comment on above: Performed By: #### H IV12 #### [facility] [address] [place] [address] Dr. Augustine Lou RBC 3.69 106/ul Critically low 4.20-5.40 [facility] Comment on above: Performed By: #### H IV12 #### [facility] [address] [place] [address] Dr. Augustine Lou WBC 9.9 103/ul Normal 4.0-11.0 [facility] Comment on above: Performed By: #### H IV12 #### [facility] [address] [place] [address] Dr. Augustine Lou DRUG SCREEN RAPID (URINE)on 10-16-2022 AMP Negative Normal NEGATIVE [facility] Comment on above: Performed By: #### A 1C #### [facility] [address] [place] [address] Dr. Augustine Lou BAR Negative Normal NEGATIVE [facility] Comment on above: Performed By: #### A 1C #### [facility] [address] [place] [address] Dr. Augustine Lou BUP Negative Normal NEGATIVE [facility] Comment on above: Performed By: #### A 1C #### [facility] [address] [place] [address] Dr. Augustine Lou BZO Negative Normal NEGATIVE [facility] Comment on above: Performed By: #### A 1C #### [facility] [address] [place] [address] Dr. Augustine Lou FERNANDO Negative Normal NEGATIVE [facility] Comment on above: Performed By: #### A 1C #### [facility] [address] [place] [address] Dr. Augustine Lou CUT-OFFS SEE BELOW Normal [facility] Comment on above: Result Comment: AMP (Amphetamine): 500ng/mL, BAR (Barbituates): 200 ng/mL, BZO (Benzodiazepines): 150 ng/mL, BUP (Buprenorphine): 10 ng/mL, FERNANDO (Cocaine): 150 ng/mL, mAMP (Methamphetamine): 500 ng/mL, MTD (Methadone): 200 ng/mL, OPI (Opiates): 100 ng/mL, OXY (Oxycodone): 100 ng/mL, PCP (Phencyclidine): 25 ng/mL, PPX (Propoxyphene): 300 ng/mL, THC (Cannabinoids): 50 ng/mL, TCA (Trycyclic Antidepressants): 300 ng/mL Performed By: #### A 1C #### [facility] [address] [place] [address] Dr. Augustine Lou DRUG CUT HEADER DRUG CLASS TEST SYST EM CUT-OFF CONCENTRATIONS ARE FOLLOWS: Normal [facility] Comment on above: Performed By: #### A 1C #### [facility] [address] [place] [address] Dr. Augustine Lou mAMP Negative Normal NEGATIVE [facility] Comment on above: Performed By: #### A 1C #### [facility] [address] [place] [address] Dr. Augustine Lou MTD Negative Normal NEGATIVE [facility] Comment on above: Performed By: #### A 1C #### [facility] [address] [place] [address] Dr. Augustine Lou OPI Negative Normal NEGATIVE [facility] Comment on above: Performed By: #### A 1C #### [facility] [address] [place] [address] Dr. Augustine Lou OXY Negative Normal NEGATIVE [facility] Comment on above: Performed By: #### A 1C #### [facility] [address] [place] [address] Dr. Augustine Lou PCP Negative Normal NEGATIVE [facility] Comment on above: Performed By: #### A 1C #### [facility] [address] [place] [address] Dr. Augustine Lou PPX Negative Normal NEGATIVE [facility] Comment on above: Performed By: #### A 1C #### [facility] [address] [place] [address] Dr. Augustine Lou TCA Negative Normal NEGATIVE [facility] Comment on above: Performed By: #### A 1C #### [facility] [address] [place] [address] Dr. Augustine Lou THC Positive Abnormal NEGATIVE [facility] Comment on above: Performed By: #### A 1C #### [facility] [address] [place] [address] Dr. Augustine Lou UA (CLEAN/CATCH) PROVIDER NETWORK MGR/MICRO I F IND.on 10-16-2022 Bilirubin Ql (U) Negative Normal NEGATIVE [facility] Comment on above: Performed By: #### U ACSIND #### [facility] [address] [place] [address] Dr. Augustine Lou Clarity (U) CLEAR Normal CLEAR [facility] Comment on above: Performed By: #### U ACSIND #### [facility] [address] [address] [address] Augustine Lou Color (U) LT. YELLOW Normal YELLOW [facility] Comment on above: Performed By: #### U ACSIND #### [facility] [address] [place] [address] Dr. Augustine Lou Glucose Ql (U) Negative Normal NEGATIVE [facility] Comment on above: Performed By: #### U ACSIND #### [facility] [address] [place] [address] Dr. Augustine Lou Hemoglobin Ql (U) Negative Normal NEGATIVE [facility] Comment on above: Performed By: #### U ACSIND #### [facility] [address] [place] [address] Dr. Augustine Lou Ketones Ql (U) Negative Normal NEGATIVE [facility] Comment on above: Performed By: #### U ACSIND #### [facility] [address] [place] [address] Dr. Augustine Lou LEUKOCYTES Negative Normal NEGATIVE [facility] Comment on above: Performed By: #### U ACSIND #### [facility] [address] [address] [address] Augustine Lou Nitrite Ql (U) Negative Normal NEGATIVE [facility] Comment on above: Performed By: #### U ACSIND #### [facility] [address] [place] [address] Dr. Augustine Lou pH (U) 6.0 [pH] Normal 5-9 [facility] Comment on above: Performed By: #### U ACSIND #### [facility] [address] [place] [address] Dr. Augustine Lou SPEC GRAVITY 1.020 Normal 1.005-<=1.025 [facility] Comment on above: Performed By: #### U ACSIND #### [facility] [address] [address] [address] Augustine Lou UA PROTEIN Negative Normal NEGATIVE/ TRACE [facility] Comment on above: Performed By: #### U ACSIND #### [facility] [address] [address] [address] Augustine Lou UR MICRO IND NOT INDICATED Normal [facility] Comment on above: Performed By: #### U ACSIND #### [facility] [address] [address] [address] Augustine Lou Urobilinogen Qn (U) 0.2 {Erinn'U}/dL Normal 0.2 - 1. 0 [facility] Comment on above: Performed By: #### U ACSIND #### [facility] [address] [place] [address] Dr. Augustine Lou US PREG PLACENTAon 3 [...] ALVIN GALDAMEZ Date: 2022-10-16 15:44 Normal [facility] CHLAMYDIA/GONOCOCCUS GISELLE (SW AB/URINE/PAPon 10-14-2022 Chlamydia trachomatis, GISELLE Negative Normal Negative [facility] Comment on above: Performed By: #### S SCRN GRASTCX #### [facility] [address] [place] [address] Dr. Augustine Lou Neisseria gonorrhoeae, GISELLE Negative Normal Negative [facility] Comment on above: Performed By: #### S SCRN, GRASTCX #### [facility] [address] [place] [address] Dr. Augustine Lou VAGINITIS/VAGINOSIS DNA PROB Camilo 10-13-2022 Gloria species Negative Normal Negative [facility] Comment on above: Performed By: #### E RUR #### [facility] [address] [address] [address] Augustine Lou Gardnerella vaginalis Positive Abnormal Negative [facility] Comment on above: Performed By: #### E RUR #### [facility] [address] [address] [address] Augustine Lou Trichomonas vaginalis Negative Normal Negative [facility] Comment on above: Performed By: #### E RUR #### [facility] [address] [address] [address] Augustine Lou AFP MATERNAL FOR SPINA BIFID Aon 09-30-2022 AFP MoM 0.58 Normal [facility] Comment on above: Performed By: #### A FPMAT #### [facility] [address] [place] [address] Dr. Augustine Lou AFP Value 13.6 ng/mL Normal [facility] Comment on above: Performed By: #### A FPMAT #### [facility] [address] [place] [address] Dr. Augustine Lou AFP, Serum for Spina Bifida Report Normal [facility] Comment on above: Performed By: #### A FPMAT #### [facility] [address] [place] [address] Dr. Augustine Lou Comment Comment Normal [facility] Comment on above: Result Comment: Elva Pelayo, Ph.D., [facility] Director . References: Available Upon Request. . Multiples Of Median Cutoffs For AFP Elevations Malcoml 2.5 Black 2.8 IDD 2.0 Twins 4.5 Abbreviation Definitions IDD - Insulin Dep Diabetes OSBR - Open Spina Bifida Risk . For further inquiries contact [employer] [facility] at [phone]. . This test was developed and its performance characteristics determined by [employer]. It has not been cleared or approved by the Food and Drug Administration. Performed By: #### A FPMAT #### [facility] [address] [place] [address] Dr. Augustine Lou Gest Age Collection Date 15.3 weeks Normal [facility] Comment on above: Performed By: #### A FPMAT #### [facility] [address] [place] [address] Dr. Augustine Lou Gestat, Age Based on Ultrasound Normal [facility] Comment on above: Result Comment: 8.9 on 08/14/2022 Recalculations are not recommended when gestational dating by LMP and ultrasound are within 10 days. Performed By: #### A FPMAT #### [facility] [address] [address] [address] Augustine Lou Insulin Dep Diabetes No Normal [facility] Comment on above: Performed By: #### A FPMAT #### [facility] [address] [place] [address] Dr. Augustine Lou Interpretation Comment Normal [facility] Comment on above: Result Comment: Inte [...] Customer Services to discuss available options. The [employer] recommends amniocentesis be offered to women age 35 and older. Performed By: #### A FPMAT #### [facility] [address] [place] [address] Dr. Augustine Lou [age] Normal [facility] Comment on above: Performed By: #### A FPMAT #### [facility] [address] [address] [address] Augustine Lou Multiple Gestation No Normal [facility] Comment on above: Performed By: #### A FPMAT #### [facility] [address] [place] [address] Dr. Augustine Lou [place] [id number] Normal [facility] Comment on above: Performed By: #### A FPMAT #### [facility] [address] [place] [address] Dr. Augustine Lou PDF . Normal [facility] Comment on above: Performed By: #### A FPMAT #### [facility] [address] [place] [address] Dr. Augustine Lou Race Comment Normal [facility] Comment on above: Result Comment: Not provided. . Performed By: #### A FPMAT #### [facility] [address] [place] [address] Dr. Augustine Lou Test Results: Negative Normal [facility] Comment on above: Performed By: #### A FPMAT #### [facility] [address] [place] [address] Dr. Augustine Lou CULTURE URINEon 09-14-2022 CULTURE URINE Culture Observations : LIGHT GROWTH OF MIXED GENITAL PASTOR. NO POTENTIAL PATHOGENS SEEN. Normal [facility] Comment on above: Performed By: #### A FPMAT #### [facility] [address] [place] [address] Dr. Augustine Lou ER URINE PROFILEon 3 Bilirubin Ql (U) Negative Normal NEGATIVE [facility] Comment on above: Performed By: #### H IV12 #### [facility] [address] [place] [address] Dr. Augustine Lou Clarity (U) CLEAR Normal CLEAR [facility] Comment on above: Performed By: #### H IV12 #### [facility] [address] [place] [address] Dr. Augustine Lou Color (U) YELLOW Normal YELLOW [facility] Comment on above: Performed By: #### H IV12 #### [facility] [address] [place] [address] Dr. Augustine Lou ERUAHD A micrscopic examination will be performed if indicated. Normal [facility] Comment on above: Performed By: #### H IV12 #### [facility] [address] [place] [address] Dr. Augustine Lou Glucose Ql (U) Negative Normal NEGATIVE [facility] Comment on above: Performed By: #### H IV12 #### [facility] [address] [address] [address] Augustine Lou Hemoglobin Ql (U) MODERATE Abnormal NEGATIVE [facility] Comment on above: Performed By: #### H IV12 #### [facility] [address] [address] [address] Augustine Lou Ketones Ql (U) Negative Normal NEGATIVE [facility] Comment on above: Performed By: #### H IV12 #### [facility] [address] [place] [address] Dr. Augustine Lou LEUKOCYTES Negative Normal NEGATIVE [facility] Comment on above: Performed By: #### H IV12 #### [facility] [address] [place] [address] Dr. Augustine Lou Nitrite Ql (U) Negative Normal NEGATIVE [facility] Comment on above: Performed By: #### H IV12 #### [facility] [address] [place] [address] Dr. Augustine Lou pH (U) 5.5 [pH] Normal 5-9 [facility] Comment on above: Performed By: #### H IV12 #### [facility] [address] [place] [address] Dr. Augustine Lou SPEC GRAVITY >=1.030 Abnormal 1.005-<=1.025 [facility] Comment on above: Performed By: #### H IV12 #### [facility] [address] [place] [address] Dr. Augustine Lou UA PROTEIN TRACE Normal NEGATIVE/ TRACE [facility] Comment on above: Performed By: #### H IV12 #### [facility] [address] [place] [address] Dr. Augustine Lou UR MICRO IND INDICATED Normal [facility] Comment on above: Performed By: #### H IV12 #### [facility] [address] [place] [address] Dr. Augustine Lou Urobilinogen Qn (U) 0.2 {Erinn'U}/dL Normal 0.2 - 1. 0 [facility] Comment on above: Performed By: #### H IV12 #### [facility] [address] [address] [address] Augustine Lou URon 09-14-2022 , QUAL Positive Abnormal NEGATIVE [facility] Comment on above: Performed By: #### H IV12 #### [facility] [address] [place] [address] Dr. Augustine Lou URINE MICROSCOPIC ONLYon BACTERIA NONE SEEN Normal NONE SEEN [facility] Comment on above: Performed By: #### H IV12 #### [facility] [address] [place] [address] Dr. Augustine Lou Bacteria identified Cx Nom (U) INDICATED Normal [facility] Comment on above: Performed By: #### H IV12 #### [facility] [address] [place] [address] Dr. Augustine Lou CAST NONE SEEN Normal NONE SEEN [facility] Comment on above: Performed By: #### H IV12 #### [facility] [address] [place] [address] Dr. Augustine Lou Crystals LM Nom (Urine sed) NONE SEEN Normal NONE SEEN [facility] Comment on above: Performed By: #### H IV12 #### [facility] [address] [place] [address] Dr. Augustine Lou Epithelial cells LM Ql (Urine sed) FEW Abnormal NONE SEEN /RARE [facility] Comment on above: Performed By: #### H IV12 #### [facility] [address] [place] [address] Dr. Augustine Lou MUCOUS MODERATE Abnormal NONE SEEN [facility] Comment on above: Performed By: #### H IV12 #### [facility] [address] [place] [address] Dr. Augustine Lou RBC 20-50 Abnormal 0-2 [facility] Comment on above: Performed By: #### H IV12 #### [facility] [address] [place] [address] Dr. Augustine Lou WBC 5-10 Abnormal NONE SEEN [facility] Comment on above: Performed By: #### H IV12 #### [facility] [address] [place] [address] Dr. Augustine Lou HEPATITIS C VIRUS AB W/ REFL EX QUANTon 09-05-2022 HCV AB >11.0 Critically high 0.0-0.9 [facility] Comment on above: Result Comment: . Performed By: #### P T #### [facility] [address] [place] [address] Dr. Augustine Lou HCV log10 Normal [facility] Comment on above: Performed By: #### P T #### [facility] [address] [place] [address] Dr. Augustine Lou Hep C Quantitation Not detected Normal [facility] Comment on above: Performed By: #### P T #### [facility] [address] [place] [address] Dr. Augustine Lou Interpretation Comment Normal [facility] Comment on above: Result Comment: Posi tive HCV antibody screen without the presence of HCV RNA is consistent with a resolved past infection or a false positive HCV antibody. Consider repeat testing after one month. Performed By: #### P T #### [facility] [address] [place] [address] Dr. Augustine Lou Test Information: Comment Normal [facility] Comment on above: Result Comment: The quantitative range of this assay is 15 IU/mL to 100 million IU/mL. Performed By: #### P T #### [facility] [address] [place] [address] Dr. Augustine Lou HEP B SURFACE ANTIGEN SCREEN on 09-02-2022 HBsAg Screen Negative Normal Negative [facility] Comment on above: Performed By: #### A 1C #### [facility] [address] [place] [address] Dr. Augustine Lou HIV 1 AND 2 WITH REFLEXon HIV Screen 4th Generation wRfx Non-Reactive Normal Non Reactive [facility] Comment on above: Result Comment: HIV Negative HIV-1/HIV-2 antibodies and HIV-1 p24 antigen were NOT detected. There is no laboratory evidence of HIV infection. Performed By: #### A FPMAT #### [facility] [address] [place] [address] Dr. Augustine Lou RPR QUANTon 09-02-2022 Rapid Plasma Reagin, Quant Non-Reactive Normal NonRea<1:1 [facility] Comment on above: Result Comment: Werner sepulveda Note: This test does not meet current guidelines for screening and diagnosis of syphilis. This test is intended for following treatment response in patients being treated for syphilis infection. To screen for syphilis infection, a reflex cascade that includes both RPR and a treponema-specific assay should be utilized, such as Treponema pallidum (Syphilis) Screening [place] (298204) or Rapid Plasma Reagin (RPR) Test With Reflex to Quantitative RPR and Confirmatory Treponema pallidum Antibodies (055566). Performed By: #### E RUR #### [facility] [address] [place] [address] Dr. Augustine Lou RUBELLA AB IGGon 09-02-2022 Rubella Antibodies, IgG <0.90 Critically low Immune >0.99 [facility] Comment on above: Result Comment: Non- immune <0.90 Equivocal 0.90 - 0.99 Immune >0.99 Performed By: #### A 1C #### [facility] [address] [place] [address] Dr. Augustine Lou CBC AUTO DIFFon 09-01-2022 BASO # 0.0 103/ul Normal 0.0-0.1 [facility] Comment on above: Performed By: #### A 1C #### [facility] [address] [place] [address] Dr. Augustine Lou Basophils/100 WBC (Bld) 0.2 % Normal 0.2-2.0 [facility] Comment on above: Performed By: #### A 1C #### [facility] [address] [place] [address] Dr. Augustine Lou EO # 0.3 103/ul Normal 0.0-0.7 [facility] Comment on above: Performed By: #### A 1C #### [facility] [address] [place] [address] Dr. Augustine Lou Eosinophils/100 WBC (Bld) 2.6 % Normal 0.9-7.0 [facility] Comment on above: Performed By: #### A 1C #### [facility] [address] [place] [address] Dr. Augustine Lou Erythrocyte distribution width (RBC) [Ratio] 12.4 % Normal 11.0-15.0 [facility] Comment on above: Performed By: #### A 1C #### [facility] [address] [place] [address] Dr. Augustine Lou Hematocrit (Bld) [Volume fraction] 35.7 % Critically low 36.0-48.0 [facility] Comment on above: Performed By: #### A 1C #### [facility] [address] [place] [address] Dr. Augustine Lou Hemoglobin (Bld) [Mass/Vol] 13.3 g/dL Normal 12.0-16.0 [facility] Comment on above: Performed By: #### A 1C #### [facility] [address] [place] [address] Dr. Augustine Lou IG # 0.04 10e3/ul Critically high 0.00-0.03 [facility] Comment on above: Performed By: #### A 1C #### [facility] [address] [place] [address] Dr. Augustine Lou IG % 0.4 % Normal 0.0-0.5 [facility] Comment on above: Performed By: #### A 1C #### [facility] [address] [place] [address] Dr. Augustine Lou LYMPH # 3.1 103/ul Normal 1.2-3.8 [facility] Comment on above: Performed By: #### A 1C #### [facility] [address] [place] [address] Dr. Augustine Lou Lymphocytes/100 WBC (Bld) 31.1 % Normal 20.5-60.0 [facility] Comment on above: Performed By: #### A 1C #### [facility] [address] [place] [address] Dr. Augustine Lou MANUAL DIFF REQ NO Normal [facility] Comment on above: Performed By: #### A 1C #### [facility] [address] [place] [address] Dr. Augustine Lou MCH (RBC) [Entitic mass] 29.5 pg Normal 26.7-34.0 [facility] Comment on above: Performed By: #### A 1C #### [facility] [address] [place] [address] Dr. Augustine Lou MCHC (RBC) [Mass/Vol] 37.3 g/dL Critically high 29.9-35.2 [facility] Comment on above: Performed By: #### A 1C #### [facility] [address] [place] [address] Dr. Augustine Lou MCV (RBC) [Entitic vol] 79.2 fL Critically low 81.0-99.0 [facility] Comment on above: Performed By: #### A 1C #### [facility] [address] [place] [address] Dr. Augustine Lou MONO # 0.5 103/ul Normal 0.3-0.8 [facility] Comment on above: Performed By: #### A 1C #### [facility] [address] [place] [address] Dr. Augustine Lou Monocytes/100 WBC (Bld) 4.8 % Normal 1.7-12.0 [facility] Comment on above: Performed By: #### A 1C #### [facility] [address] [place] [address] Dr. Augustine Lou NEUT # 6.1 103/ul Normal 1.4-6.5 [facility] Comment on above: Performed By: #### A 1C #### [facility] [address] [place] [address] Dr. Augustine Lou Neutrophils/100 WBC (Bld) 60.9 % Normal 43.0-75.0 [facility] Comment on above: Performed By: #### A 1C #### [facility] [address] [place] [address] Dr. Augustine Lou Platelet mean volume (Bld) [Entitic vol] 10.7 fL Normal 9.5-13.5 [facility] Comment on above: Performed By: #### A 1C #### [facility] [address] [place] [address] Dr. Augustine Lou PLT 228 103/ul Normal 150-450 [facility] Comment on above: Performed By: #### A 1C #### [facility] [address] [place] [address] Dr. Augustine Lou RBC 4.51 106/ul Normal 4.20-5.40 [facility] Comment on above: Performed By: #### A 1C #### [facility] [address] [place] [address] Dr. Augustine Lou WBC 10.0 103/ul Normal 4.0-11.0 [facility] Comment on above: Performed By: #### A 1C #### [facility] [address] [place] [address] Dr. Augustine Lou CULTURE URINEon 09-01-2022 CULTURE URINE Culture Observations : NO GROWTH. Normal [facility] Comment on above: Performed By: #### A FPMAT #### [facility] [address] [place] [address] Dr. Augustine Lou GLYCOHEMOGLOBIN A1Con 2022 ADA RECOMMENDATION SEE BELOW Normal [facility] Comment on above: Result Comment: ADA RECOMMENDED LIMIT 4.0 - 6.0 ADA THERAPEUTIC TARGET < 7.0 ACTION SUGGESTED > 7.0 Performed By: #### A 1C #### [facility] [address] [place] [address] Dr. Augustine Lou Glucose [Mass/Vol] 105 mg/dL Normal [facility] Comment on above: Performed By: #### A 1C #### [facility] [address] [place] [address] Dr. Augustine Lou HbA1c (Bld) [Mass fraction] 5.3 % Normal 4.5-6.2 [facility] Comment on above: Performed By: #### A 1C #### [facility] [address] [place] [address] Dr. Augustine Lou EVANGELINA BOX TEST PT SEND OUTo n 09-01-2022 SENT TO REF LAB 09/01/2021 Normal [facility] Comment on above: Performed By: #### A 1C #### [facility] [address] [place] [address] Dr. Augustine Lou TYPE AND SCREENon 09-01-2022 TYPE AND SCREEN Negative Normal [facility] Comment on above: Performed By: #### A FPMAT #### [facility] [address] [place] [address] Dr. Augustine Lou CBC AUTO DIFFon 08-24-2022 BASO # 0.0 103/ul Normal 0.0-0.1 [facility] Comment on above: Performed By: #### C BC #### [facility] [address] [place] [address] Dr. Augustine Lou Basophils/100 WBC (Bld) 0.1 % Critically low 0.2-2.0 [facility] Comment on above: Performed By: #### C BC #### [facility] [address] [place] [address] Dr. uAgustine Lou EO # 0.2 103/ul Normal 0.0-0.7 [facility] Comment on above: Performed By: #### C BC #### [facility] [address] [place] [address] Dr. Augustine Lou Eosinophils/100 WBC (Bld) 2.1 % Normal 0.9-7.0 [facility] Comment on above: Performed By: #### C BC #### [facility] [address] [place] [address] Dr. Augustine Lou Erythrocyte distribution width (RBC) [Ratio] 12.9 % Normal 11.0-15.0 [facility] Comment on above: Performed By: #### C BC #### [facility] [address] [place] [address] Dr. Augustine Lou Hematocrit (Bld) [Volume fraction] 38.8 % Normal 36.0-48.0 [facility] Comment on above: Performed By: #### C BC #### [facility] [address] [place] [address] Dr. Augustine Lou Hemoglobin (Bld) [Mass/Vol] 11.9 g/dL Critically low 12.0-16.0 [facility] Comment on above: Performed By: #### C BC #### [facility] [address] [place] [address] Dr. Augustine Lou IG # 0.02 10e3/ul Normal 0.00-0.03 [facility] Comment on above: Performed By: #### C BC #### [facility] [address] [place] [address] Dr. Augustine Lou IG % 0.2 % Normal 0.0-0.5 [facility] Comment on above: Performed By: #### C BC #### [facility] [address] [place] [address] Dr. Augustine Lou LYMPH # 2.1 103/ul Normal 1.2-3.8 [facility] Comment on above: Performed By: #### C BC #### [facility] [address] [place] [address] Dr. Augustine Lou Lymphocytes/100 WBC (Bld) 25.8 % Normal 20.5-60.0 [facility] Comment on above: Performed By: #### C BC #### [facility] [address] [place] [address] Dr. Augustine Lou MANUAL DIFF REQ NO Normal [facility] Comment on above: Performed By: #### C BC #### [facility] [address] [place] [address] Dr. Augustine Lou MCH (RBC) [Entitic mass] 29.0 pg Normal 26.7-34.0 [facility] Comment on above: Performed By: #### C BC #### [facility] [address] [place] [address] Dr. Augustine Lou MCHC (RBC) [Mass/Vol] 30.7 g/dL Normal 29.9-35.2 [facility] Comment on above: Performed By: #### C BC #### [facility] [address] [place] [address] Dr. Augustine Lou MCV (RBC) [Entitic vol] 94.4 fL Normal 81.0-99.0 [facility] Comment on above: Performed By: #### C BC #### [facility] [address] [place] [address] Dr. Augustine Lou MONO # 0.6 103/ul Normal 0.3-0.8 [facility] Comment on above: Performed By: #### C BC #### [facility] [address] [address] [address] Augustine Lou Monocytes/100 WBC (Bld) 7.5 % Normal 1.7-12.0 [facility] Comment on above: Performed By: #### C BC #### [facility] [address] [place] [address] Dr. Augustine Lou NEUT # 5.1 103/ul Normal 1.4-6.5 [facility] Comment on above: Performed By: #### C BC #### [facility] [address] [place] [address] Dr. Augustine Lou Neutrophils/100 WBC (Bld) 64.3 % Normal 43.0-75.0 [facility] Comment on above: Performed By: #### C BC #### [facility] [address] [place] [address] Dr. Augustine Lou Platelet mean volume (Bld) [Entitic vol] 11.0 fL Normal 9.5-13.5 [facility] Comment on above: Performed By: #### C BC #### [facility] [address] [place] [address] Dr. Augustine Lou PLT 234 103/ul Normal 150-450 [facility] Comment on above: Performed By: #### C BC #### [facility] [address] [place] [address] Dr. Augustine Lou RBC 4.11 106/ul Critically low 4.20-5.40 [facility] Comment on above: Performed By: #### C BC #### [facility] [address] [place] [address] Dr. Augustine Lou WBC 8.0 103/ul Normal 4.0-11.0 [facility] Comment on above: Performed By: #### C BC #### [facility] [address] [place] [address] Dr. Augustine Lou ER URINE PROFILEon 3 Bilirubin Ql (U) Negative Normal NEGATIVE [facility] Comment on above: Performed By: #### H IV12 #### [facility] [address] [place] [address] Dr. Augustine Lou Clarity (U) CLEAR Normal CLEAR [facility] Comment on above: Performed By: #### H IV12 #### [facility] [address] [place] [address] Dr. Augustine Lou Color (U) YELLOW Normal YELLOW [facility] Comment on above: Performed By: #### H IV12 #### [facility] [address] [place] [address] Dr. Augustine VALERIO A micrscopic examination will be performed if indicated. Normal [facility] Comment on above: Performed By: #### H IV12 #### [facility] [address] [place] [address] Dr. Augustine Lou Glucose Ql (U) Negative Normal NEGATIVE [facility] Comment on above: Performed By: #### H IV12 #### [facility] [address] [place] [address] Dr. Augustine Lou Hemoglobin Ql (U) Negative Normal NEGATIVE [facility] Comment on above: Performed By: #### H IV12 #### [facility] [address] [place] [address] Dr. Augustine Lou Ketones Ql (U) Negative Normal NEGATIVE [facility] Comment on above: Performed By: #### H IV12 #### [facility] [address] [place] [address] Dr. Augustine Lou LEUKOCYTES Negative Normal NEGATIVE [facility] Comment on above: Performed By: #### H IV12 #### [facility] [address] [place] [address] Dr. Augustine Lou Nitrite Ql (U) Negative Normal NEGATIVE [facility] Comment on above: Performed By: #### H IV12 #### [facility] [address] [place] [address] Dr. Augustine Lou pH (U) 6.0 [pH] Normal 5-9 [facility] Comment on above: Performed By: #### H IV12 #### [facility] [address] [place] [address] Dr. Augustine Lou SPEC GRAVITY 1.025 Normal 1.005-<=1.025 [facility] Comment on above: Performed By: #### H IV12 #### [facility] [address] [place] [address] Dr. Augustine Lou UA PROTEIN Negative Normal NEGATIVE/ TRACE [facility] Comment on above: Performed By: #### H IV12 #### [facility] [address] [address] [address] Augustine Lou UR MICRO IND NOT INDICATED Normal [facility] Comment on above: Performed By: #### H IV12 #### [facility] [address] [place] [address] Dr. Augustine Luo Urobilinogen Qn (U) 0.2 {Erinn'U}/dL Normal 0.2 - 1. 0 [facility] Comment on above: Performed By: #### H IV12 #### [facility] [address] [place] [address] Dr. Augustine Lou PROF 14(COMP METB)on 023 Albumin [Mass/Vol] 3.1 g/dL Critically low 3.4-5.0 [facility] Comment on above: Performed By: #### H IV12 #### [facility] [address] [place] [address] Dr. Augustine Lou Albumin/Globulin [Mass ratio] 0.7 {ratio} Normal [facility] Comment on above: Performed By: #### H IV12 #### [facility] [address] [place] [address] Dr. Augustine Lou ALP [Catalytic activity/Vol] 47 U/L Normal 46-116 [facility] Comment on above: Performed By: #### H IV12 #### [facility] [address] [place] [address] Dr. Augustine Lou ALT [Catalytic activity/Vol] 15 U/L Normal 14-59 [facility] Comment on above: Performed By: #### H IV12 #### [facility] [address] [address] [address] Augustine Lou Anion gap [Moles/Vol] 10.6 mmol/L Normal [facility] Comment on above: Performed By: #### H IV12 #### [facility] [address] [address] [address] Augustine Lou AST [Catalytic activity/Vol] 11 U/L Critically low 15-37 [facility] Comment on above: Performed By: #### H IV12 #### [facility] Laboratory [address] [address] [address] Augustine Lou Bilirubin [Mass/Vol] 0.2 mg/dL Normal 0.2-1.0 [facility] Comment on above: Performed By: #### H IV12 #### [facility] [address] [address] [address] Augustine Lou Calcium [Mass/Vol] 9.3 mg/dL Normal 8.5-10.1 [facility] Comment on above: Performed By: #### H IV12 #### [facility] [address] [address] [address] Augustine Lou Chloride [Moles/Vol] 104 mmol/L Normal 98-107 [facility] Comment on above: Performed By: #### H IV12 #### [facility] [address] [address] [address] Augustine Lou CO2 [Moles/Vol] 26.9 mmol/L Normal 21.0-32.0 [facility] Comment on above: Performed By: #### H IV12 #### [facility] [address] [address] [address] Augustine Lou Creatinine [Mass/Vol] 0.59 mg/dL Normal 0.55-1.02 [facility] Comment on above: Performed By: #### H IV12 #### [facility] [address] [address] [address] Augustine Lou EGFR-AF NORWEGIAN >60 Normal >=60 [facility] Comment on above: Performed By: #### H IV12 #### [facility] [address] [address] [address] Augustine Lou EGFR-NON AF NORWEGIAN >60 Normal >=60 [facility] Comment on above: Performed By: #### H IV12 #### [facility] [address] [address] [address] Augustine Lou Globulin (S) [Mass/Vol] 4.2 g/dL Normal [facility] Comment on above: Performed By: #### H IV12 #### [facility] [address] [address] [address] Augustine Lou Glucose [Mass/Vol] 93 mg/dL Normal 74-106 [facility] Comment on above: Performed By: #### H IV12 #### [facility] [address] [place] [address] Dr. Augustine Lou Potassium [Moles/Vol] 3.5 mmol/L Normal 3.5-5.1 [facility] Comment on above: Performed By: #### H IV12 #### [facility] [address] [place] [address] Dr. Augustine Lou Protein [Mass/Vol] 7.3 g/dL Normal 6.4-8.2 [facility] Comment on above: Performed By: #### H IV12 #### [facility] [address] [place] [address] Dr. Augustine Lou Sodium [Moles/Vol] 138 mmol/L Normal 136-145 [facility] Comment on above: Performed By: #### H IV12 #### [facility] [address] [address] [address] Augustine Lou Urea nitrogen [Mass/Vol] 7.0 mg/dL Normal 7.0-18.0 [facility] Comment on above: Performed By: #### H IV12 #### [facility] [address] [place] [address] Dr. Augustine Lou Urea nitrogen/Creatinine [Mass ratio] 11.9 mg/mg Normal [facility] Comment on above: Performed By: #### H IV12 #### [facility] [address] [place], [place] [address] Dr. Augustine Lou US SINGLE QUAD RT [...] LIUDMILA CAMARA Date: 2022-08-24 08:36 Normal [facility] US PREG TVon 08-15-2022 US PREG TV [...] LIUDMILA CARRION Date: 2022-08-15 16:01 Normal [facility] Covid-19 PCR (CVDTBH)on 06-30 SARS-CoV-2 (COVID-19) RNA GISELLE+probe Ql (Unsp spec) Not detected Normal NOT DETECTED [facility] Comment on above: Result Comment: This test is not yet approved or cleared by the [place] FDA. When there are no FDA-approved or cleared tests available, and other criteria are met, FDA can make tests available under an emergency access mechanism called an Emergency Use Authorization (EUA). The EUA for this test is supported by the [employer] of Health and Human Service's (HHS's) declaration [...] SARS-CoV-2. Performed By: #### A FPMAT #### [facility] [address] [place] [address] Dr. Augustine Lou ER URINE PROFILEon 2 Bilirubin Ql (U) Negative Normal NEGATIVE [facility] Comment on above: Performed By: #### C BC #### [facility] [address] [place] [address] Dr. Augustine Lou Clarity (U) CLEAR Normal CLEAR [facility] Comment on above: Performed By: #### C BC #### [facility] [address] [place] [address] Dr. Augustine Lou Color (U) YELLOW Normal YELLOW [facility] Comment on above: Performed By: #### C BC #### [facility] [address] [place] [address] Dr. Augustine VALERIO A micrscopic examination will be performed if indicated. Normal [facility] Comment on above: Performed By: #### C BC #### [facility] [address] [place] [address] Dr. Augustine Lou Glucose Ql (U) Negative Normal NEGATIVE [facility] Comment on above: Performed By: #### C BC #### [facility] [address] [place] [address] Dr. Augustine Lou Hemoglobin Ql (U) Negative Normal NEGATIVE [facility] Comment on above: Performed By: #### C BC #### [facility] [address] [place] [address] Dr. Augustine Lou Ketones Ql (U) TRACE Abnormal NEGATIVE [facility] Comment on above: Performed By: #### C BC #### [facility] [address] [place] [address] Dr. Augustine Lou LEUKOCYTES Negative Normal NEGATIVE [facility] Comment on above: Performed By: #### C BC #### [facility] [address] [place] [address] Dr. Augustine Lou Nitrite Ql (U) Negative Normal NEGATIVE [facility] Comment on above: Performed By: #### C BC #### [facility] [address] [place] [address] Dr. Augustine Lou pH (U) 5.5 [pH] Normal 5-9 [facility] Comment on above: Performed By: #### C BC #### [facility] [address] [place] [address] Dr. Augustine Lou SPEC GRAVITY >=1.030 Abnormal 1.005-<=1.025 [facility] Comment on above: Performed By: #### C BC #### [facility] [address] [place] [address] Dr. Augustine Lou UA PROTEIN TRACE Normal NEGATIVE/ TRACE [facility] Comment on above: Performed By: #### C BC #### [facility] [address] [place] [address] Dr. Augustine Lou UR MICRO IND NOT INDICATED Normal [facility] Comment on above: Performed By: #### C BC #### [facility] [address] [place] [address] Dr. Augustine Lou Urobilinogen Qn (U) 0.2 {Erinn'U}/dL Normal 0.2 - 1. 0 [facility] Comment on above: Performed By: #### C BC #### [facility] [address] [place] [address] Dr. Augustine Lou GROUP A STREP CULTUREon 06-30 S. pyogenes Ag Ql (Unsp spec) Culture Observations: NEGATIVE FOR GROUP A STREPTOCOCCUS. Normal [facility] Comment on above: Performed By: #### S SCRN, GRASTCX #### [facility] [address] [place] [address] Dr. Augustine Lou INFLUENZA A AND B AGon 07-26 INFLUANEGH SEE BELOW Normal [facility] Comment on above: Result Comment: Nega tive for Flu A protein angiten. Infection due to Flu A cannot be ruled out. Flu A angiten in the sample may be below the detection limit of the test. Performed By: #### A 1C #### [facility] [address] [place] [address] Dr. Augustine Lou INFLUBNEGH SEE BELOW Normal [facility] Comment on above: Result Comment: Nega tive for Flu B protein antigen. Infection due to Flu B cannot be ruled out. Flu B antigen in the sample may be below the detection limit of the test. Performed By: #### A 1C #### [facility] [address] [place] [address] Dr. Augustine Lou INFLUENZA A AG Negative Normal NEGATIVE SEE COMMENT [facility] Comment on above: Performed By: #### A 1C #### [facility] [address] [place] [address] Dr. Augustine Lou INFLUENZA B AG Negative Normal NEGATIVE SEE COMMENT [facility] Comment on above: Performed By: #### A 1C #### [facility] [address] [place] [address] Dr. Augustine Lou STREPT SCREENon 07-26-2022 STREP SCREEN A Negative Normal NEGATIVE [facility] Comment on above: Performed By: #### S SCRN, GRASTCX #### [facility] [address] [place] [address] Dr. Augustine Lou CBC AUTO DIFFon 07-17-2022 BASO # 0.1 103/ul Normal 0.0-0.1 [facility] Comment on above: Performed By: #### A FPMAT #### [facility] [address] [place] [address] Dr. Augustine Lou Basophils/100 WBC (Bld) 0.6 % Normal 0.2-2.0 [facility] Comment on above: Performed By: #### A FPMAT #### [facility] [address] [place] [address] Dr. Augustine Lou EO # 0.4 103/ul Normal 0.0-0.7 [facility] Comment on above: Performed By: #### A FPMAT #### [facility] [address] [place] [address] Dr. Augustine Lou Eosinophils/100 WBC (Bld) 5.1 % Normal 0.9-7.0 [facility] Comment on above: Performed By: #### A FPMAT #### [facility] [address] [place] [address] Dr. Augustine Lou Erythrocyte distribution width (RBC) [Ratio] 13.2 % Normal 11.0-15.0 [facility] Comment on above: Performed By: #### A FPMAT #### [facility] [address] [place] [address] Dr. Augustine Lou Hematocrit (Bld) [Volume fraction] 38.6 % Normal 36.0-48.0 [facility] Comment on above: Performed By: #### A FPMAT #### [facility] [address] [place] [address] Dr. Augustine Lou Hemoglobin (Bld) [Mass/Vol] 13.1 g/dL Normal 12.0-16.0 [facility] Comment on above: Performed By: #### A FPMAT #### [facility] [address] [place] [address] Dr. Augustine Lou IG # 0.03 10e3/ul Normal 0.00-0.03 [facility] Comment on above: Performed By: #### A FPMAT #### [facility] [address] [place] [address] Dr. Augustine Lou IG % 0.4 % Normal 0.0-0.5 [facility] Comment on above: Performed By: #### A FPMAT #### [facility] [address] [place] [address] Dr. Augustine Lou LYMPH # 2.4 103/ul Normal 1.2-3.8 [facility] Comment on above: Performed By: #### A FPMAT #### [facility] [address] [place] [address] Dr. Augustine Lou Lymphocytes/100 WBC (Bld) 27.9 % Normal 20.5-60.0 [facility] Comment on above: Performed By: #### A FPMAT #### [facility] [address] [place] [address] Dr. Augustine Lou MANUAL DIFF REQ NO Normal [facility] Comment on above: Performed By: #### A FPMAT #### [facility] [address] [place] [address] Dr. Augustine Lou MCH (RBC) [Entitic mass] 29.9 pg Normal 26.7-34.0 [facility] Comment on above: Performed By: #### A FPMAT #### [facility] [address] [place] [address] Dr. Augustine Lou MCHC (RBC) [Mass/Vol] 33.9 g/dL Normal 29.9-35.2 [facility] Comment on above: Performed By: #### A FPMAT #### [facility] [address] [place] [address] Dr. Augustine Lou MCV (RBC) [Entitic vol] 88.1 fL Normal 81.0-99.0 [facility] Comment on above: Performed By: #### A FPMAT #### [facility] [address] [place] [address] Dr. Augustine Lou MONO # 0.5 103/ul Normal 0.3-0.8 [facility] Comment on above: Performed By: #### A FPMAT #### [facility] [address] [place] [address] Dr. Augustine Lou Monocytes/100 WBC (Bld) 5.6 % Normal 1.7-12.0 [facility] Comment on above: Performed By: #### A FPMAT #### [facility] [address] [place] [address] Dr. Augustine Lou NEUT # 5.1 103/ul Normal 1.4-6.5 [facility] Comment on above: Performed By: #### A FPMAT #### [facility] [address] [place] [address] Dr. Augustine Lou Neutrophils/100 WBC (Bld) 60.4 % Normal 43.0-75.0 [facility] Comment on above: Performed By: #### A FPMAT #### [facility] [address] [place] [address] Dr. Augustine Lou Platelet mean volume (Bld) [Entitic vol] 11.4 fL Normal 9.5-13.5 [facility] Comment on above: Performed By: #### A FPMAT #### [facility] [address] [place] [address] Dr. Augustine Lou PLT 339 103/ul Normal 150-450 [facility] Comment on above: Performed By: #### A FPMAT #### [facility] [address] [place] [address] Dr. Augustine Lou RBC 4.38 106/ul Normal 4.20-5.40 [facility] Comment on above: Performed By: #### A FPMAT #### [facility] [address] [place] [address] Dr. Augustine Lou WBC 8.4 103/ul Normal 4.0-11.0 [facility] Comment on above: Performed By: #### A FPMAT #### [facility] [address] [place] [address] Dr. Augustine Lou ER URINE PROFILEon 2 Bilirubin Ql (U) Negative Normal NEGATIVE [facility] Comment on above: Performed By: #### E RUR #### [facility] [address] [place] [address] Dr. Augustine Lou Clarity (U) CLEAR Normal CLEAR [facility] Comment on above: Performed By: #### E RUR #### [facility] [address] [place] [address] Dr. Augustine Lou Color (U) YELLOW Normal YELLOW [facility] Comment on above: Performed By: #### E RUR #### [facility] [address] [place] [address] Dr. Yilan Lou ERUAHD A micrscopic examination will be performed if indicated. Normal [facility] Comment on above: Performed By: #### E RUR #### [facility] [address] [place] [address] Dr. Augustine Lou Glucose Ql (U) Negative Normal NEGATIVE [facility] Comment on above: Performed By: #### E RUR #### [facility] [address] [place] [address] Dr. Augustine Lou Hemoglobin Ql (U) Negative Normal NEGATIVE [facility] Comment on above: Performed By: #### E RUR #### [facility] [address] [place] [address] Dr. Augustine Lou Ketones Ql (U) Negative Normal NEGATIVE [facility] Comment on above: Performed By: #### E RUR #### [facility] [address] [place] [address] Dr. Augustine Lou LEUKOCYTES Negative Normal NEGATIVE [facility] Comment on above: Performed By: #### E RUR #### [facility] [address] [place] [address] Dr. Augustine Lou Nitrite Ql (U) Negative Normal NEGATIVE [facility] Comment on above: Performed By: #### E RUR #### [facility] [address] [place] [address] Dr. Augustine Lou pH (U) 7.0 [pH] Normal 5-9 [facility] Comment on above: Performed By: #### E RUR #### [facility] [address] [place] [address] Dr. Augustine Lou SPEC GRAVITY 1.020 Normal 1.005-<=1.025 [facility] Comment on above: Performed By: #### E RUR #### [facility] [address] [place] [address] Dr. Augustine Lou UA PROTEIN Negative Normal NEGATIVE/ TRACE [facility] Comment on above: Performed By: #### E RUR #### [facility] [address] [place] [address] Dr. Augustine Lou UR MICRO IND NOT INDICATED Normal [facility] Comment on above: Performed By: #### E RUR #### [facility] [address] [place] [address] Dr. Augustine Lou Urobilinogen Qn (U) 0.2 {Erinn'U}/dL Normal 0.2 - 1. 0 [facility] Comment on above: Performed By: #### E RUR #### [facility] [address] [place] [address] Dr. Augustine Lou PREG QUANT HCGon 07-17-2022 HCG QUANT 2809 mIU/mL Normal [facility] Comment on above: Performed By: #### C BC #### [facility] [address] [place] [address] Dr. Augustine Lou HCG RANGE SEE BELOW Normal [facility] Comment on above: Result Comment: 5-50 0.2-1 WEEK 50-500 1-2 WEEKS 100-5,000 2-3 WEEKS 500-10,000 3-4 WEEKS 1,000-50,000 4-5 WEEKS 10,000-100,000 5-6 WEEKS 15,000-200,000 6-8 WEEKS 10,000-100,000 2-3 MONTHS Performed By: #### C BC #### [facility] [address] [place] [address] Dr. Augustine Lou PROF 14(COMP METB)on 022 Albumin [Mass/Vol] 3.2 g/dL Critically low 3.4-5.0 [facility] Comment on above: Performed By: #### A 1C #### [facility] [address] [place] [address] Dr. Augustine Lou Albumin/Globulin [Mass ratio] 0.8 {ratio} Normal [facility] Comment on above: Performed By: #### A 1C #### [facility] [address] [place] [address] Dr. Augustine Lou ALP [Catalytic activity/Vol] 54 U/L Normal 46-116 [facility] Comment on above: Performed By: #### A 1C #### [facility] [address] [place] [address] Dr. Augustine Lou ALT [Catalytic activity/Vol] 16 U/L Normal 14-59 [facility] Comment on above: Performed By: #### A 1C #### [facility] [address] [place] [address] Dr. Augustine Lou Anion gap [Moles/Vol] 13.2 mmol/L Normal [facility] Comment on above: Performed By: #### A 1C #### [facility] [address] [address] [address] Augustine Lou AST [Catalytic activity/Vol] 21 U/L Normal 15-37 [facility] Comment on above: Performed By: #### A 1C #### [facility] [address] [address] [address] Augustine Lou Bilirubin [Mass/Vol] 0.2 mg/dL Normal 0.2-1.0 [facility] Comment on above: Performed By: #### A 1C #### [facility] [address] [place] [address] Dr. Augustine Lou Calcium [Mass/Vol] 9.0 mg/dL Normal 8.5-10.1 [facility] Comment on above: Performed By: #### A 1C #### [facility] [address] [place] [address] Dr. Augustine Lou Chloride [Moles/Vol] 105 mmol/L Normal 98-107 [facility] Comment on above: Performed By: #### A 1C #### [facility] [address] [place] [address] Dr. Augustine Lou CO2 [Moles/Vol] 24.9 mmol/L Normal 21.0-32.0 [facility] Comment on above: Performed By: #### A 1C #### [facility] [address] [place] [address] Dr. Augustine Lou Creatinine [Mass/Vol] 0.58 mg/dL Normal 0.55-1.02 [facility] Comment on above: Performed By: #### A 1C #### [facility] [address] [place] [address] Dr. Augustine Lou EGFR-AF NORWEGIAN >60 Normal >=60 [facility] Comment on above: Performed By: #### A 1C #### [facility] [address] [address] [address] Augustine Lou EGFR-NON AF NORWEGIAN >60 Normal >=60 [facility] Comment on above: Performed By: #### A 1C #### [facility] [address] [address] [address] Augustine Lou Globulin (S) [Mass/Vol] 4.1 g/dL Normal [facility] Comment on above: Performed By: #### A 1C #### [facility] [address] [address] [address] Augustine Lou Glucose [Mass/Vol] 96 mg/dL Normal 74-106 [facility] Comment on above: Performed By: #### A 1C #### [facility] [address] [place] [address] Dr. Augustine Lou Potassium [Moles/Vol] 4.1 mmol/L Normal 3.5-5.1 [facility] Comment on above: Performed By: #### A 1C #### [facility] [address] [place] [address] Dr. Augustine Lou Protein [Mass/Vol] 7.3 g/dL Normal 6.4-8.2 [facility] Comment on above: Performed By: #### A 1C #### [facility] [address] [place] [address] Dr. Augustine Lou Sodium [Moles/Vol] 139 mmol/L Normal 136-145 [facility] Comment on above: Performed By: #### A 1C #### [facility] [address] [place] [address] Dr. Augustine Lou Urea nitrogen [Mass/Vol] 10.0 mg/dL Normal 7.0-18.0 [facility] Comment on above: Performed By: #### A 1C #### [facility] [address] [place] [address] Dr. Augustine Lou Urea nitrogen/Creatinine [Mass ratio] 17.2 mg/mg Normal [facility] Comment on above: Performed By: #### A 1C #### [facility] [address] [address] [address] Augustine Lou US APPENDIXon 07-17-2022 US [...] JOSEPH KWAN Date: 2022-07-17 17:54 Normal [facility] US PREG TVon 07-17-2022 US PREG TV [...] YADY COPELAND Date: 2022-07-17 18:16 Normal [facility] PREG QUANT HCGon 07-14-2022 HCG QUANT 822 mIU/mL Normal [facility] Comment on above: Performed By: #### P T #### [facility] [address] [address] [address] Augustine Lou HCG RANGE SEE BELOW Normal [facility] Comment on above: Result Comment: 5-50 0.2-1 WEEK 50-500 1-2 WEEKS 100-5,000 2-3 WEEKS 500-10,000 3-4 WEEKS 1,000-50,000 4-5 WEEKS 10,000-100,000 5-6 WEEKS 15,000-200,000 6-8 WEEKS 10,000-100,000 2-3 MONTHS Performed By: #### P T #### [facility] [address] [place] [address] Dr. Augustine Lou Covid-19 PCR ([facility])on 05-31 SARS-CoV-2 (COVID-19) RNA GISELLE+probe Ql (Unsp spec) Not detected Normal NOT DETECTED [facility] Comment on above: Result Comment: When diagnostic [...] for this test is supported by the [place] of Health and Human Service's declaration that [...] used). Performed By: #### P T #### [facility] [address] [place], [place] [id number] Dr. Augustine Lou INFLUENZA A AND B AGon 06-27 INFLUANEGH SEE BELOW Normal [facility] Comment on above: Result Comment: Nega tive for Flu A protein angiten. Infection due to Flu A cannot be ruled out. Flu A angiten in the sample may be below the detection limit of the test. Performed By: #### E RUR #### [facility] [address] [address] [address] Augustine Lou [facility] SEE BELOW Normal [facility] Comment on above: Result Comment: Nega tive for Flu B protein antigen. Infection due to Flu B cannot be ruled out. Flu B antigen in the sample may be below the detection limit of the test. Performed By: #### E RUR #### [facility] [address] [address] [address] Augustine Lou INFLUENZA A AG Negative Normal NEGATIVE SEE COMMENT [facility] Comment on above: Performed By: #### E RUR #### [facility] [address] [address] [address] Augustine Lou INFLUENZA B AG Negative Normal NEGATIVE SEE COMMENT [facility] Comment on above: Performed By: #### E RUR #### [facility] [address] [address] [address] Augustine Lou INTERNAL CONTROLS Within Normal Limits Normal [place] thin Normal Limits [facility] Comment on above: Performed By: #### E RUR #### [facility] [address] [address] [address] Augustine Lou URon 06-27-2022 , QUAL Negative Normal NEGATIVE [facility] Comment on above: Performed By: #### E RUR #### [facility] [address] [address] [address] Augustine Lou XR CHEST 1 Von [...] LIUDMILA MCKEON Date: 2022-06-27 18:03 Normal [facility] HEPATITIS C VIRUS GENOTYPING , NONREFLEXon 04-29-2022 Hepatitis C Genotype Comment Normal [facility] Comment on above: Result Comment: Spec francesca has insufficient hepatitis C virus RNA to obtain genotyping results. This genotyping assay should only be used for known HCV positive patients with HCV RNA levels above 1000 IU/mL. Performed By: #### A 1C #### [facility] [address] [place] [address] Dr. Augustine Lou Please note: Comment Normal [facility] Comment on above: Result Comment: This test was developed and its performance characteristics determined by [employer]. It has not been cleared or approved by the U.S. Food and Drug Administration. . The FDA has determined that such clearance or approval is not necessary. This test is used for clinical purposes. It should not be regarded as investigational or for research. Performed By: #### A 1C #### [facility] [address] [address] [address] Augustine Lou HEPATITIS C VIRUS AB W/ REFL EX QUANTon 04-28-2022 HCV AB >11.0 Critically high 0.0-0.9 [facility] Comment on above: Result Comment: . Performed By: #### A 1C #### [facility] [address] [place] [address] Dr. Augustine Lou HCV log10 Normal [facility] Comment on above: Performed By: #### A 1C #### [facility] [address] [place] [address] Dr. Augustine Lou Hep C Quantitation Not detected Normal [facility] Comment on above: Performed By: #### A 1C #### [facility] [address] [place] [address] Dr. Augustine Lou Interpretation Comment Normal [facility] Comment on above: Result Comment: Posi tive HCV antibody screen without the presence of HCV RNA is consistent with a resolved past infection or a false positive HCV antibody. Consider repeat testing after one month. Performed By: #### A 1C #### [facility] [address] [place] [address] Dr. Augustine Lou Test Information: Comment Normal [facility] Comment on above: Result Comment: The quantitative range of this assay is 15 IU/mL to 100 million IU/mL. Performed By: #### A 1C #### [facility] [address] [place] [address] Dr. Augustine Lou HEP B SURFACE ANTIGEN SCREEN on 04-26-2022 HBsAg Screen Negative Normal Negative [facility] Comment on above: Performed By: #### A FPMAT #### [facility] [address] [place] [address] Dr. Augustine Lou HEPATITIS B CORE, IgMon 03-31 Hep B Core Ab, IgM Negative Normal Negative [facility] Comment on above: Performed By: #### E RUR #### [facility] [address] [place] [address] Dr. Augustine Lou HEPATITIS B SURFACE ANTIBODY , QUANTon 04-26-2022 Hepatitis B Surf AB Quant <3.1 Critically low Immunity>9.9 [facility] Comment on above: Result Comment: Stat us of Immunity Anti-HBs Level Inconsistent with Immunity 0.0 - 9.9 Consistent with Immunity >9.9 Performed By: #### H EPBSRF #### [facility] [address] [place] [address] Dr. Augustine Lou HIV 1 AND 2 WITH REFLEXon HIV Screen 4th Generation wRfx Non-Reactive Normal Non Reactive [facility] Comment on above: Result Comment: HIV Negative HIV-1/HIV-2 antibodies and HIV-1 p24 antigen were NOT detected. There is no laboratory evidence of HIV infection. Performed By: #### H IV12 #### [facility] [address] [place] [address] Dr. Augustine Lou CBC AUTO DIFFon 04-25-2022 BASO # 0.0 103/ul Normal 0.0-0.1 [facility] Comment on above: Performed By: #### E RUR #### [facility] [address] [place] [address] Dr. Augustine Lou Basophils/100 WBC (Bld) 0.4 % Normal 0.2-2.0 [facility] Comment on above: Performed By: #### E RUR #### [facility] [address] [place] [address] Dr. Augustine Lou EO # 0.2 103/ul Normal 0.0-0.7 [facility] Comment on above: Performed By: #### E RUR #### [facility] [address] [place] [address] Dr. Augustine Lou Eosinophils/100 WBC (Bld) 1.5 % Normal 0.9-7.0 [facility] Comment on above: Performed By: #### E RUR #### [facility] [address] [place] [address] Dr. Augustine Lou Erythrocyte distribution width (RBC) [Ratio] 13.2 % Normal 11.0-15.0 [facility] Comment on above: Performed By: #### E RUR #### [facility] [address] [place] [address] Dr. Augustine Lou Hematocrit (Bld) [Volume fraction] 44.4 % Normal 36.0-48.0 [facility] Comment on above: Performed By: #### E RUR #### [facility] [address] [place] [address] Dr. Augustine Lou Hemoglobin (Bld) [Mass/Vol] 14.6 g/dL Normal 12.0-16.0 [facility] Comment on above: Performed By: #### E RUR #### [facility] [address] [place] [address] Dr. Augustine Lou IG # 0.03 10e3/ul Normal 0.00-0.03 [facility] Comment on above: Performed By: #### E RUR #### [facility] [address] [place] [address] Dr. Augustine Lou IG % 0.3 % Normal 0.0-0.5 [facility] Comment on above: Performed By: #### E RUR #### [facility] [address] [place] [address] Dr. Augustine Lou LYMPH # 2.8 103/ul Normal 1.2-3.8 [facility] Comment on above: Performed By: #### E RUR #### [facility] [address] [place] [address] Dr. Augustine Lou Lymphocytes/100 WBC (Bld) 26.3 % Normal 20.5-60.0 [facility] Comment on above: Performed By: #### E RUR #### [facility] [address] [place] [address] Dr. Augustine Lou MANUAL DIFF REQ NO Normal [facility] Comment on above: Performed By: #### E RUR #### [facility] [address] [place] [address] Dr. Augustine Lou MCH (RBC) [Entitic mass] 28.9 pg Normal 26.7-34.0 [facility] Comment on above: Performed By: #### E RUR #### [facility] [address] [place] [address] Dr. Augustine Lou MCHC (RBC) [Mass/Vol] 32.9 g/dL Normal 29.9-35.2 [facility] Comment on above: Performed By: #### E RUR #### [facility] [address] [place] [address] Dr. Augustine Lou MCV (RBC) [Entitic vol] 87.7 fL Normal 81.0-99.0 [facility] Comment on above: Performed By: #### E RUR #### [facility] [address] [place] [address] Dr. Augustine Lou MONO # 0.5 103/ul Normal 0.3-0.8 [facility] Comment on above: Performed By: #### E RUR #### [facility] [address] [place] [address] Dr. Augustine Lou Monocytes/100 WBC (Bld) 4.3 % Normal 1.7-12.0 [facility] Comment on above: Performed By: #### E RUR #### [facility] [address] [place] [address] Dr. Augustine Lou NEUT # 7.2 103/ul Critically high 1.4-6.5 [facility] Comment on above: Performed By: #### E RUR #### [facility] [address] [place] [address] Dr. Augustine Lou Neutrophils/100 WBC (Bld) 67.2 % Normal 43.0-75.0 [facility] Comment on above: Performed By: #### E RUR #### [facility] [address] [place] [address] Dr. Augustine Lou Platelet mean volume (Bld) [Entitic vol] 10.7 fL Normal 9.5-13.5 [facility] Comment on above: Performed By: #### E RUR #### [facility] [address] [place] [address] Dr. Augustine Lou PLT 258 103/ul Normal 150-450 [facility] Comment on above: Performed By: #### E RUR #### [facility] [address] [place] [address] Dr. Augustine Lou RBC 5.06 106/ul Normal 4.20-5.40 [facility] Comment on above: Performed By: #### E RUR #### [facility] [address] [place] [address] Dr. Augustine Lou WBC 10.8 103/ul Normal 4.0-11.0 [facility] Comment on above: Performed By: #### E RUR #### [facility] [address] [place] [address] Dr. Augustine oLu PROF 14(COMP METB)on 022 Albumin [Mass/Vol] 4.3 g/dL Normal 3.4-5.0 [facility] Comment on above: Performed By: #### C BC #### [facility] [address] [place] [address] Dr. Augustine Lou Albumin/Globulin [Mass ratio] 1.0 {ratio} Normal [facility] Comment on above: Performed By: #### C BC #### [facility] [address] [place] [address] Dr. Augustine Lou ALP [Catalytic activity/Vol] 65 U/L Normal 46-116 [facility] Comment on above: Performed By: #### C BC #### [facility] [address] [place] [address] Dr. Augustine Lou ALT [Catalytic activity/Vol] 38 U/L Normal 14-59 [facility] Comment on above: Performed By: #### C BC #### [facility] [address] [address] [address] Augustine Lou Anion gap [Moles/Vol] 14.9 mmol/L Normal [facility] Comment on above: Performed By: #### C BC #### [facility] [address] [address] [address] Augustine Lou AST [Catalytic activity/Vol] 23 U/L Normal 15-37 [facility] Comment on above: Performed By: #### C BC #### [facility] [address] [address] [address] Augustine Lou Bilirubin [Mass/Vol] 0.9 mg/dL Normal 0.2-1.0 [facility] Comment on above: Performed By: #### C BC #### [facility] [address] [address] [address] Augustine Lou Calcium [Mass/Vol] 9.8 mg/dL Normal 8.5-10.1 [facility] Comment on above: Performed By: #### C BC #### [facility] [address] [address] [address] Augustine Lou Chloride [Moles/Vol] 104 mmol/L Normal 98-107 [facility] Comment on above: Performed By: #### C BC #### [facility] [address] [address] [address] Augustine Lou CO2 [Moles/Vol] 24.8 mmol/L Normal 21.0-32.0 [facility] Comment on above: Performed By: #### C BC #### [facility] [address] [address] [address] Augustine Lou Creatinine [Mass/Vol] 0.87 mg/dL Normal 0.55-1.02 [facility] Comment on above: Performed By: #### C BC #### [facility] [address] [address] [address] Augustine Lou EGFR-AF NORWEGIAN >60 Normal >=60 [facility] Comment on above: Performed By: #### C BC #### [facility] [address] [place] [address] Dr. Augustine Lou EGFR-NON AF NORWEGIAN >60 Normal >=60 [facility] Comment on above: Performed By: #### C BC #### [facility] [address] [address] [address] Augustine Lou Globulin (S) [Mass/Vol] 4.4 g/dL Normal [facility] Comment on above: Performed By: #### C BC #### [facility] [address] [place] [address] Dr. Augustine Lou Glucose [Mass/Vol] 90 mg/dL Normal 74-106 [facility] Comment on above: Performed By: #### C BC #### [facility] [address] [place] [address] Dr. Augustine Lou Potassium [Moles/Vol] 3.7 mmol/L Normal 3.5-5.1 [facility] Comment on above: Performed By: #### C BC #### [facility] [address] [place] [address] Dr. Augustine Lou Protein [Mass/Vol] 8.7 g/dL Critically high 6.4-8.[address] [facility] Comment on above: Performed By: #### C BC #### [facility] [address] [place] [address] Dr. Augustine Lou Sodium [Moles/Vol] 140 mmol/L Normal 136-145 [facility] Comment on above: Performed By: #### C BC #### [facility] [address] [place] [address] Dr. Augustine Lou Urea nitrogen [Mass/Vol] 12.0 mg/dL Normal 7.0-18.0 [facility] Comment on above: Performed By: #### C BC #### [facility] [address] [place] [address] Dr. Augustine Lou Urea nitrogen/Creatinine [Mass ratio] 13.8 mg/mg Normal [facility] Comment on above: Performed By: #### C BC #### [facility] [address] [place] [address] Dr. Augustine Lou PROTIMEon 04-25-2022 INR Coag (PPP) [Relative time] 1.02 {INR} Normal [facility] Comment on above: Performed By: #### P T #### [facility] [address] [address] [address] Augustine Lou INR GUIDELINES SEE BELOW Normal [facility] Comment on above: Result Comment: RICKEY RED INR: 2.0 - 3.0 CONDITIONS NOT LISTED BELOW 2.5 - 3.5 FOR PROSTHETIC HEART VALVE REPLACEMENT 2.5 - 3.5 RECURRENT THROMBOSIS Performed By: #### P T #### [facility] [address] [address] [address] Augustine Lou PT Coag (PPP) [Time] 11.0 s Normal 9.0-11.6 [facility] Comment on above: Performed By: #### P T #### [facility] [address] [address] [address] Augustine Lou Vital Signs Date Time Vital Sign Value Performing Clinician Facility 08-19-2023 14:05-0500 Body height 177.8 cm Megha Holmanmond Other [facility] Other 08-19-2023 14:05-0500 Body mass index (BMI) [Ratio] 41.89 kg/m2 Megha Silvia Other [facility] Other 08-19-2023 14:05-0500 Body temperature 97.7 [degF] Megha Silvia Other [facility] Other 08-19-2023 14:05-0500 Body weight 132.45 kg Megha Holmanmond Other [facility] Other 08-19-2023 14:05-0500 Diastolic blood pressure 70 mm[Hg] Megha Silvia Other [facility] Other 08-19-2023 14:05-0500 Respiratory rate 18 /min Megha Vega Other [facility] Other 08-19-2023 14:05-0500 SaO2% (BldA) [Mass fraction] 96 % Megha Vega Other [facility] Other 08-19-2023 14:05-0500 Systolic blood pressure 124 mm[Hg] Megha Vega Other [facility] Other 09-30-2022 03:06-0500 Body weight 116.[address] MARTINEZ LISTED REQUEST [facility] Comment on above: Performed By: #### AFPMAT #### [facility] [address] [place] [address] Dr. Augustine Lou 04-25-2022 12:15-0400 Body height 182.88 cm Radames Ridley Other [facility] Other 04-25-2022 12:15-0400 Body mass index (BMI) [Ratio] 32.82 kg/m2 Radames Ridley Other [facility] Other 04-25-2022 12:15-0400 Body weight 109.77 kg Radames Ridley Other [facility] Other 04-25-2022 12:15-0400 Diastolic blood pressure 105 mm[Hg] Radames Ridley Other [facility] Other 04-25-2022 12:15-0400 Systolic blood pressure 136 mm[Hg] Radames Ridley Other [facility] Other Encounters Encounter Date Encounter Type Care Provider Facility Start: 10-11-2023 End: 10-11-2023 ambulatory IVANNA ANNETTE Not Available Start: 09-18-2023 End: 09-18-2023 ambulatory IVANNA BASSO Not Available Start: 08-19-2023 End: 08-19-2023 ambulatory Megha Silvia Other [facility] Other Start: 08-19-2023 Office outpatient visit 15 minutes Megha Vega [facility] Start: 04-24-2023 ambulatory Gregorio Fernandez acility:[facility] Start: 12-21-2022 End: 12-21-2022 ambulatory KALYAN ZAIDI Facility:[facility] Start: 12-05-2022 End: 12-06-[address] NONE LISTED REQUEST Facility: Start: 12-01-2022 End: 12-01-[address] NONE LISTED REQUEST Facility:[facility] Start: 11-03-2022 End: 11-04-[address] NONE LISTED REQUEST Facility: Start: 10-16-2022 End: 10-16-[address] NONE LISTED REQUEST Facility: Start: 10-11-2022 End: 10-11-[address] NONE LISTED REQUEST Facility:[facility] Start: 09-28-2022 End: 09-29-[address] NONE LISTED REQUEST Facility: Start: 09-14-2022 End: 09-14-[address] NONE LISTED REQUEST Facility:[facility] Start: 09-01-2022 End: 09-02-[address] NONE LISTED REQUEST Facility:[facility] Start: 08-24-2022 End: 08-25-[address] IVANNA [...] REQUEST Facility:[facility] Start: 06-27-2022 End: 06-27-2022 ambulatory SHAIKH Amanda INTERIANO Facility:[facility] Start: 04-25-2022 End: 04-26-[address] LYNN [facility] [place] Other Start: 04-25-2022 FQ visit new patient Radames Ridley [facility] Payers Date Payer Category Payer Self-pay 1994 Unknown [id number] 2.16.84 [id number] 1994 Unknown [id number] 2.16.84 [id number] 1994 Unknown [id number] 2.16.84 0.1.988060.3.579.2.593 1994 Unknown [id number] 2.16.84 0.1.416542.3.579.2.593 1994 Unknown [id number] 2.16.84 0.1.859498.3.579.2.593 1994 Unknown [id number] 2.16.84 0.1.798920.3.579.2.593 1994 Unknown [id number] 2.16.84 0.1.316243.3.579.2.593 1994 Unknown [id number] 2.16.84 0.1.041613.3.579.2.593 1994 Unknown [id number] 2.16.84 0.1.584815.3.579.2.593 1994 Unknown [id number] 2.16.84 0.1.038785.3.579.2.593 1994 Unknown [id number] 2.16.84 0.1.432934.3.579.2.593 1994 Unknown [id number] 2.16.84 0.1.536889.3.579.2.593 1994 Unknown [id number] 2.16.84 0.1.585595.3.579.2.593 1994 Unknown [id number] 2.16.84 0.1.103737.3.579.2.593 1994 Unknown [id number] 2.16.84 0.1.295812.3.579.2.593 1994 Unknown [id number] 2.16.84 0.1.173107.3.579.2.593 1994 Unknown [id number] 2.16.84 0.1.340580.3.579.2.593 1994 Unknown [id number] 2.16.84 0.1.008740.3.579.2.593 1994 Unknown [id number] 2.16.84 0.1.324680.3.579.2.1259 1994 Unknown [id number] 2.16.84 0.1.784122.3.579.2.1259 1959 Unknown [id number] 2.1 6.840.1.955430.19 1959 Unknown [id number] Unknown [id number] 2.16.84 0.1.841482.3.579.2.593 Social History Date Type Detail Facility Sex Assigned At [facility] Other Evaluation note 08-19-2023 Note Date & [...] right ear, unspecified type (ICD-10 - H60.501) [facility] Other History general Narrative - Reported 03-30-2023 Note Date & Type Note Facility 03-30-2023 History general N arrative - Reported Type Surgical History tubal ligation 03/2023 [facility] Other Evaluation note 04-25-2022 Note Date & [...] ON THERAPY Mar, Nausea (ICD-10 - R11.0) [facility] Other Summary Purpose Family History No Family [...] and content) DATE CREATED AUTHOR 01/05/2023 [facility] DATE CREATED AUTHOR AUTHOR'S ORGANIZ ATION 07/20/2023 [facility] DATE CREATED AUTHOR AUTHOR'S ORGANIZ ATION 10/12/2023 [facility] FOR RECORDS PERTAINING TO PATIENTS WHO ARE [...] BE BASED ON THE PRIMARY CLINICAL RECORDS. [email or web address] provides no warranty or guarantee of the accuracy or completeness of information in this document.
[2023-11-05 08:19] LABS: Basophils Absolute Auto 0.1 10^3/uL (0.0-0.1); Basophils Percent Auto 0.5 % (0.2-2.0); Eosinophils Absolute Auto 0.5 10^3/uL (0.0-0.7); Eosinophils Percent Auto 5.6 % (0.9-7.0); Hematocrit 41.2 % (36.0-48.0); Hemoglobin 13.2 g/dL (12.0-16.0); Immature Granulocytes Abs Auto 0.02 10^3/uL (0.00-0.03); Immature Granulocytes Pct Auto 0.2 % (0.0-0.5); Lymphocytes Absolute Auto 3.7 10^3/uL (1.2-3.8); Lymphocytes Percent Auto 37.8 % (20.5-60.0); Mean Corpuscular Volume 87.5 fL (81.0-99.0); Mean Platelet Volume 10.8 fL (9.5-13.5); Monocytes Absolute Auto 0.7 10^3/uL (0.3-0.8); Monocytes Percent Auto 6.8 % (1.7-12.0); Neutrophils Absolute Auto 4.8 10^3/uL (1.4-6.5); Neutrophils Percent Auto 49.1 % (43.0-75.0); Platelet Count 264 10^3/uL (150-450); Red Blood Count 4.71 10^6/uL (4.20-5.40); Red Cell Distribution Width 13.8 % (11.0-15.0); White Blood Count 9.7 10^3/uL (4.0-11.0)
[2023-11-05] MEDS: LACTATED RINGER'S SOLUTION 1,000 ML 50 ML IV (08:32)
[2023-11-05 08:51] LABS: HCG Quantitative <1 mIU/mL
--- NOTE | 2023-11-05 10:33 | PM.ONB ---
Brief Operative Note Date of procedure: 11/05/23 Pre-op diagnosis general: menorrhagia Post-op diagnosis: same as pre-op Procedure: NAME OF PROCEDURE: [ ] Melissa endometrial ablation with hysteroscopy. PROCEDURE: The patient was taken back to the OR where she was prepped and draped in the normal sterile fashion after being placed in the dorsal lithotomy position, after being placed under general anesthesia without difficulty.? A weighted speculum was placed into the vagina. The anterior lip was grasped with a single tooth tenaculum. The patient was then sounded to approximated 8cm. The patient?s cervix was gently dilated using hegardilators. The hysteroscope was passed through the cervix into the uterus where both ostia were seen. No gross evidence of polyps, fibroids or malignancy. The cervical length was noted to be 4 cm. The total cavity length is 4cm.? The Melissa ablation apparatus was set to approximately 4cm in length. This was placed through the cervix and into the uterus. After the seal was tested, at that time the total ablation of 120 seconds was performed with the Melissa withoutdifficulty. All instruments were removed from the vagina. Excellent hemostasis noted.? Sponge and lap count correct times 2.? Patient taken to recovery in stable condition. Anesthesia: GETA Surgeon: Mike Goetz Estimated blood loss (mL): 5 Pathology: none sent Condition: stable Disposition: PACU Urinary Catheter Management Urinary Catheter Management Urethral: Cath placed during this visit: no
[2023-11-05] MEDS: HYDROCODONE/ACET 5-325 MG TABLET 1 TAB PO (10:51)
== END 2023-11-05 11:41 | disposition home or self-care (01) ==
PROVIDERS: Visit Provider Obstetrics & Gynecology
PROC: (CPT 00952; principal; 2023-11-05 09:30)
DX: N92.0 Excessive and frequent menstruation with regular cycle (principal); N93.9 Abnormal uterine and vaginal bleeding, unspecified; R10.2 Pelvic and perineal pain; K21.9 Gastro-esophageal reflux disease without esophagitis; B19.20 Unspecified viral hepatitis C without hepatic coma
CPT/HCPCS: 00952; 58563; 36415; 84702; 85025; J2704

== ENCOUNTER 2024-11-23 06:11 | Emergency (ER) | payer OTHER, SELFPAY ==
[2024-11-23 06:16] VITALS: BP 160/48; PULSE 69; TEMP 36.9; O2SAT 98; BMI 43.3
--- NOTE | 2024-11-23 06:52 | ED.LOWEXI1 ---
HPI HPI - Extremity Injury (Lower) General Chief Complaint: Extremity Injury, Lower Stated Complaint: LE INJURY Time Seen by Provider: 11/23/24 06:34 Source: patient Mode of arrival: walk-in Limitations: no limitations History of Present Illness HPI Narrative: cc - right ankle injury Patient said that she was leaving her work at [employer] when she stepped funny onto the asphalt and injured the right ankle. She did not fall to the ground. She complains of pain to the inner aspect of the ankle. She was able to ambulate afterward. She told me that she had injured the ankle about a month ago in a similar twisting incident. She did not seek help or evaluation at that time. She said that the ankle had been hurting her since that initial injury about a month ago. She localizes pain to the inside and outside of the ankle Related Data Allergies Allergy/AdvReac Type Severity Reaction Status Date / Time No Known Drug Allergies Allergy Verified 11/23/24 06:16 Opioid HPI Opioid Management Most Recent Pain and Opioid Data: Last Pain Scale 8 11/23/24 06:27 11/23/24 Last ED Pain Assessment 11/23/24 06:27 Urine Cannabinoids Positive (.) A 03/15/23 22:20 03/15/23 Ur Phencyclidine Scrn Negative (NEGATIVE) 03/15/23 22:20 03/15/23 PFSH PFSH Medical History (Updated 11/23/24 @ 06:56 by Manuel Arias) Pelvic pain ?R10.2 - Pelvic and perineal pain (ICD-10) Abnormal uterine bleeding ?N93.9 - Abnormal uterine and vaginal bleeding, unspecified (ICD-10) Menorrhagia ?N92.0 - Excessive and frequent menstruation with regular cycle (ICD-10) Headache ?R51.9 - Headache, unspecified (ICD-10) Migraine ?G43.909 - Migraine, unspecified, not intractable, without status migrainosus (ICD-10) Heartburn ?R12 - Heartburn (ICD-10) Request for sterilization ?Z30.2 - Encounter for sterilization (ICD-10) Enlarged liver ?R16.0 - Hepatomegaly, not elsewhere classified (ICD-10) Suicidal thoughts ?R45.851 - Suicidal ideations (ICD-10) Depression ?F32.A - Depression, unspecified (ICD-10) Panic attack ?F41.0 - Panic disorder [episodic paroxysmal anxiety] (ICD-10) Anxiety ?F41.9 - Anxiety disorder, unspecified (ICD-10) GERD (gastroesophageal reflux disease) ?K21.9 - Gastro-esophageal reflux disease without esophagitis (ICD-10) Hepatitis C ?B19.20 - Unspecified viral hepatitis C without hepatic coma (ICD-10) Surgical History (Updated 10/29/23 @ 12:33 by Clari Pineda NP) History of salpingectomy (04/25/23) ?Z90.79 - Acquired absence of other genital organ(s) (ICD-10) History of wisdom tooth extraction ?K08.409 - Partial loss of teeth, unspecified cause, unspecified class (ICD-10) Family History (Updated 03/16/23 @ 03:25 by Jostin Rose) Grandmother Family history of COPD (chronic obstructive pulmonary disease) Family history of diabetes mellitus Family history of hypertension Family history of stroke Mother Family history of hypertension Grandfather Family history of myocardial infarction Sister Cystic fibrosis carrier Social History (Updated 10/29/23 @ 12:40 by Clari Pineda NP) Within the past year, how often did you have a drink containing alcohol: never Within the past year, how often did you have six or more drinks on one occasion: never Score interpretation: A score less than 3 is consistent with normal alcohol consumption. Smoking status: Current every day smoker What tobacco products do you use: cigarettes Cigarettes per day: 4 Years smoked: 5 Smoking pack-years: 1.00 Non-prescribed substance use: cannabis (any form) Non-prescribed substance use details: past IV drug use Previous occupational history: Formerly [employer] Highest level of school completed/degree received: some college, no degree In a typical week, how many times do you talk on the telephone with family, friends, or neighbors: 3 or more times per week How often do you get together with friends or relatives: 3 or more times per week How often do you attend episcopalian or amish services: never Do you belong to any clubs or organizations such as episcopalian groups unions, fraternal or athletic groups, or school groups: no Little interest or pleasure in doing things: not at all Feeling down, depressed, or hopeless: not at all Feel stressed/tense/nervous/anxious/difficulty sleeping: not at all Do you think of yourself as: straight/heterosexual Gender Identity: female Exam Narrative Exam Narrative: Vital signs reviewed and nurse's notes. The patient is not hypoxic. General: Alert, no acute distress, patient resting comfortably Skin: warm, intact, no pallor noted Head: Normocephalic, atraumatic Eye: Normal conjunctiva Respiratory: No acute distress Musculoskeletal: No evidence of deformity to the R ankle. There is minimal amount of right ankle swelling. There is no ecchymosis. No erythema or warmth noted. DP and PT pulses are intact 2+. Normal sensation, normal capillary refill less than 2 seconds. There is no cyanosis or mottling noted. The patient has tenderness to the medial aspect of the right ankle. The patient was able to dorsiflex and plantarflex although with pain. Patient was able to extend leg off the cart without difficulty. No tenderness noted to the 5th MT, midfoot or proximal fibular area. There is no pain with calcaneal squeeze, achilles tendon is intact and no defect is palpated. Neurological: alert and orient x4, normal sensory and motor observed. Psychiatric: Cooperative Constitutional Vital Signs, click to edit/add: Last Vital Signs Temp 98.4 F 11/23/24 06:16 Pulse 69 11/23/24 06:16 Resp 20 11/23/24 06:16 BP 174/114 H 11/23/24 06:16 Pulse Ox 98 11/23/24 06:16 O2 Del Method Room Air 11/23/24 06:16 Course Vital Signs Vital signs: Vital Signs Temperature 98.4 F 11/23/24 06:16 Pulse Rate 69 11/23/24 06:16 Respiratory Rate 20 11/23/24 06:16 Blood Pressure 174/114 H 11/23/24 06:16 Pulse Oximetry 98 11/23/24 06:16 Oxygen Delivery Method Room Air 11/23/24 06:16 Temperature 98.4 F 11/23/24 06:16 Pulse Rate 69 11/23/24 06:16 Respiratory Rate 20 11/23/24 06:16 Blood Pressure 174/114 H 11/23/24 06:16 Pulse Oximetry 98 11/23/24 06:16 Oxygen Delivery Method Room Air 11/23/24 06:16 MDM - Extremity Injury (Lower) MDM Narrative Medical decision making narrative: X-rays of the right ankle were obtained. Patient does not show any evidence of acute fracture or dislocation. ED nurse applied an Jose Eduardo wrap to the right ankle and then also applied an Aircast splint. Patient was given Motrin before discharge. She can follow-up with her primary care physician or seek orthopedic follow-up although it does not appear to be surgical at this time. We discussed rest, elevation, icing, limited activity. Imaging Data xr ankle: My impression: No acute fracture or dislocation Discharge Plan Discharge Chief Complaint: Extremity Injury, Lower Clinical Impression: Ankle sprain and strain Patient Disposition: Home, Self-Care Time of Disposition Decision: 06:56 Print Language: Sinhala Instructions: Ankle Sprain (ED), P.R.I.C.E. Treatment (ED) Referrals: Physician,Non-Staff, [Primary Care Provider] - 1 week
--- NOTE | 2024-11-23 07:01 | PC.NURSE ---
DORY AND AIR-STIRRUP PLACED. PMS INTACT
[2024-11-23] MEDS: IBUPROFEN 400 MG TABLET 800 MG PO (07:11)
== END 2024-11-23 07:22 | disposition home or self-care (01) ==
PROVIDERS: Emergency Provider Emergency Medicine
DX: S93.401A Sprain of unspecified ligament of right ankle, initial encounter (principal); S96.911A Strain of unspecified muscle and tendon at ankle and foot level, right foot, initial encounter; X50.1XXA Overexertion from prolonged static or awkward postures, initial encounter; F17.210 Nicotine dependence, cigarettes, uncomplicated
CPT/HCPCS: 73610; 99283

== ENCOUNTER 2025-07-06 11:41 | Emergency (ER) | payer OTHER, SELFPAY ==
[2025-07-06 11:47] VITALS: BP 144/110; PULSE 85; TEMP 37.1; O2SAT 98; BMI 40.3
--- NOTE | 2025-07-06 12:00 | CT_ITS ---
[address] [address] Patient Name: HAROLDO MARCH MRN: [id number] date: 1995 Sex: F Assigned Patient Location: ER Current Patient Location: [facility] Accession/Order Number: [id number] Exam Date: 07/06/2025 12:26 Report Date: 07/06/2025 13:37 At the request of: CHEO WILKINS MD Procedure: CT abdomen pelvis wo con CT abdomen pelvis wo con 07/06/2025 12:31 PM SIGNS AND SYMPTOMS: ^LLQ abd pain hx of stones TECHNIQUE: Multidetector ct axial images of the abdomen and pelvis were obtained without IV contrast. Multiplanar reformats were performed and reviewed to further define anatomy and possible pathology. CT was performed with one or more of the following dose reduction techniques: Automated exposure control, adjustment of the mA and/or kV according to patient size, or use of iterative reconstruction technique. COMPARISON: 08/11/2023 FINDINGS: Lower Chest: Within normal limits. ABDOMEN: Liver: Within normal limits. Bile Ducts: Normal caliber. Gallbladder: No calcified gallstones. Normal caliber wall. Pancreas: Within normal limits. Spleen: Within normal limits. Adrenals: Within normal limits. Kidneys: There is an 8 mm nonobstructing stone in the left renal collecting system. Pelvis: Reproductive Organs: No pelvic masses. Ureters: Within normal limits. Bladder: Within normal limits. Bowel: There are diverticula within the sigmoid colon. There is fat stranding accompanying a diverticulum suggesting acute diverticulitis. There is no perforation or abscess formation. No evidence of bowel obstruction. There is a normal appendix in the right lower quadrant. Mesenteric Lymph Nodes: No enlarged mesenteric lymph nodes. Peritoneum: No ascites or free air, no fluid collection. Vessels: within normal limits Retroperitoneum: Within normal limits. Abdominal Wall: Within normal limits. Bones: Degenerative changes are noted in the thoracolumbar spine. CT/CT abdomen pelvis wo con IMPRESSION: Findings are consistent with acute diverticulitis along the sigmoid colon. No evidence of perforation or abscess formation. No bowel obstruction. No free fluid or free air. There is an 8 mm nonobstructing stone in the left renal collecting system. Impression dictated by: Vadim Gooden M.D. 07/06/2025 1:37 PM Dictation Location: [place] [address] Electronically authenticated by: [id number] Y Date: 07/06/2025 13:37
[2025-07-06] MEDS: KETOROLAC TROMETHAMINE 30 MG/ML VIAL IVP (12:21)
[2025-07-06 12:31] LABS: Hematocrit 44.6 % (36.0-48.0); Hemoglobin 14.8 g/dL (12.0-16.0); Immature Granulocytes Abs Auto 0.05 10^3/uL (0.00-0.03); Immature Granulocytes Pct Auto 0.3 % (0.0-0.5); Lymphocytes Absolute Auto 2.7 10^3/uL (1.2-3.8); Mean Corpuscular HGB Conc 33.2 g/dL (29.9-35.2); Mean Corpuscular Hemoglobin 29.4 pg (26.7-34.0); Mean Corpuscular Volume 88.7 fL (81.0-99.0); Platelet Count 246 10^3/uL (150-450); Red Blood Count 5.03 10^6/uL (4.20-5.40); White Blood Count 15.7 10^3/uL (4.0-11.0)
[2025-07-06 12:55] LABS: Alanine Aminotransferase 79 U/L (14-59); Albumin Globulin Ratio 0.8; Albumin Level 3.6 g/dL (3.4-5.0); Alkaline Phosphatase 61 U/L (46-116); Anion Gap 11.4; Aspartate Amino Transferase 30 U/L (15-37); Blood Urea Nitrogen 7.0 mg/dL (7.0-18.0); Calcium 9.1 mg/dL (8.5-10.1); Carbon Dioxide 26.4 mmol/L (21.0-32.0); Chloride 104 mmol/L (98-107); Estimated GFR (African America >60 (>=60 mL/min/1.73m^2); Estimated GFR (Non-African Ame >60 (>=60 mL/min/1.73m^2); Globulin 4.3 g/dL; Glucose 91 mg/dL (74-106); Potassium 3.8 mmol/L (3.5-5.1); Sodium 138 mmol/L (136-145); Total Protein 7.9 g/dL (6.4-8.2)
--- OUTSIDE RECORDS SUMMARY | 2025-07-06 12:59 | XMS_ITS | CCD ---
Author Organization [facility] Care Team Providers Care Coroner'S Juror Name Role Phone Radames Ridley Unavailable REQUEST, NONE LISTED Primary Care Unavaila ble KARLY, DR SOLIS Admitting Unavailable PAY ., DR ALVAREZ Consulting Unavailable KARLY, DR SOLIS Attending Unavailable GRECHNY ., ANJALI MURRIETA Consulting Unavailabl e SOFY ., DR GONCALVES Attending Unavailable REQUEST, NONE LISTED Primary Care Unavaila ble SOFY ., DR GONCALVES Consulting Unavailable SOFY ., DR GONCALVES Admitting Unavailable REQUEST, DR MARTINEZ LISTED Primary Care Unavaila ble SOFY ., DR GONCALVES Attending Unavailable SOFY ., DR OGNCALVES Admitting Unavailable SOFY ., DR GONCALVES Consulting Unavailable ZIEBER, DR ALVIN Griffin Consulting Unavailable REQUEST, DR MARTINEZ LISTED Consulting Unavaila ble SHAIKH Amanda INTERIANO Primary Care Unavailable GRECHNY ., ANJALI MURRIETA Consulting Unavailabl e HAY ., DR GRECO Admitting Unavailable HAY ., DR GRECO Attending Unavailable HAY ., DR GRECO Consulting Unavailable KLLIUDMILA UBSH Consulting Unavailable REQUEST, NONE LISTED Primary Care Unavaila ble DIAB ., CHEO Consulting Unavailable DIAB ., CHEO Admitting Unavailable DIAB ., CHEO Attending Unavailable REQUEST, DR MARTINEZ LISTED Referring Unavaila ble REQUEST, DR MARTINEZ LISTED Primary Care Unavaila ble SOFY ., DR GONCALVES Admitting Unavailable SOFY ., DR GONCALVES Attending Unavailable SOFY ., DR GONCALVES Consulting Unavailable REQUEST, DR MARTINEZ LISTED Primary Care Unavaila ble GISELL ., BEAU Admitting Unavailable KENNETH BARRAGAN Consulting Unavailable GISELL ., BEAU Attending Unavailable DIAB ., CHEO Consulting Unavailable REQUEST, DR MARTINEZ LISTED Primary Care Unavaila ble SOFY ., DR GONCALVES Consulting Unavailable SOFY ., DR GONCALVES Attending Unavailable SOFY ., DR GONCALVES Admitting Unavailable SOFY ., DR GONCALVES Admitting Unavailable SOFY ., DR GONCALVES Attending Unavailable MISC, DR LYNN Primary Care Unavailable SOFY ., DR GONCALVES Consulting Unavailable MISC, DR LYNN Admitting Unavailable MISC, DR LYNN Attending Unavailable RADAMES RIDLEY Consulting Unavailable FAWWAD, H Primary Care Unavailable REQUEST, DR NONE LISTED Primary Care Unavaila ble SKYLER ., JANN Admitting Unavailable SKYLER ., JANN Attending Unavailable SKYLER ., JANN Consulting Unavailable REQUEST, DR NONE LISTED Primary Care Unavaila ble SOFY ., DR GONCALVES Attending Unavailable WEST, DR LIUDMILA Gruber Consulting Unavailable SOFY ., DR GONCALVES Admitting Unavailable SOFY ., DR GONCALVES Consulting Unavailable REQUEST, DR NONE LISTED Primary Care Unavaila ble SOFY ., DR GONCALVES Attending Unavailable SOFY ., DR GONCALVES Consulting Unavailable SOFY ., DR GONCALVES Admitting Unavailable KATKOKALYAN Admitting Unavailable KATKALYAN ROSALES Attending Unavailable GRECHNY ., ANJALI MURRIETA Consulting Unavailabl e MISC, DR LYNN Primary Care Unavailable KALYAN ZAIDI Consulting Unavailable AHDOOT, YADY Consulting Unavailable JOSEPH KWAN Consulting Unavailable REQUEST, DR NONE LISTED Primary Care Unavaila ble SOFY ., DR GONCALVES Attending Unavailable SOFY ., DR GONCALVES Admitting Unavailable SOFY ., DR GONCALVES Consulting Unavailable ZIEBER, DR ALVIN Griffin Consulting Unavailable SOFY ., DR GONCALVES Admitting Unavailable SOFY ., DR GONCALVES Attending Unavailable SOFY ., DR GONCALVES Consulting Unavailable REQUEST, DR NONE LISTED Primary Care Unavaila ble LIUDMILA CAMARA Consulting Unavailable REQUEST, NONE LISTED Primary Care Unavaila ble SOFY ., DR GONCALVES Admitting Unavailable SOFY ., DR GONCALVES Attending Unavailable WEST, DR LIUDMILA Gruber Consulting Unavailable SOFY ., DR GONCALVES Consulting Unavailable KALYAN ZAIDI Admitting Unavailable KALYAN ZAIDI Attending Unavailable NHIC, DR LYNN Primary Care Unavailable MURALI, DR LIUDMILA Gruber Consulting Unavailable SKYLER ., JANN Consulting Unavailable KALYAN ZAIDI Consulting Unavailable REQUEST, DR NONE LISTED Primary Care Unavaila ble SOFY ., DR GONCALVES Attending Unavailable KARASIK ., DR SEGURA Consulting Unavailabl e SOFY ., DR GONCALVES Admitting Unavailable ZIEBER, DR ALVIN Griffin Consulting Unavailable Megha Vega Unavailable IVANNA GOETZ Attending Unavailable IVANNA GOETZ Attending Unavailable Gregorio Allen Attending Unavailab Gregorio Summers Admitting Unavailab Ivanna Gerardo DO Unavailable Medications Current Medications MedicationDrug Class(es)DatesSig (Normalized)Sig (Original)amoxicillin 875 mg / clavulanate 125 mg oral tablet (1 source)Penicillin-class AntibacterialStart: 77-17-9918dqof 1 tablet by mouth every twelve hoursAmoxicillin-Pot Clavulanate 875-125 MG 1 tablet Orally every 12 hrs for 10 day(s) Jul, Activehydrocortisone 10 mg/ml / neomycin 3.5 mg/ml / polymyxin b 39677 unt/ml otic suspension (1 source)Aminoglycoside Antibacterial, Polymyxin-class Antibacterial, CorticosteroidStart: 36-83-1705Qbwospbg-Polymyxin-HC 3.5-07400-1 3 drops right ear Three times a day for 7 days Jul, Activeibuprofen 800 mg oral tablet (1 source)Nonsteroidal Anti-inflammatory DrugStart: 13-69-0986mffv 1 tablet by mouth every eight hoursibuprofen 800 MG tablet Take 800 mg by mouth every 8 (eight) hours 04/25/2023 Active Problems Active Problems Problem ClassificationProblemDateDocumented DateEpisodic/ChronicAbdominal pain (10 sources)Right upper quadrant pain; Translations: [Unspecified abdominal pain]Onset: 04-21-0496RxjfmmwvHyqqunhmmr disorders (1 source)Gastroesophageal reflux disease; Translations: [Gastro-esophageal reflux disease without esophagitis]Onset: 049735-56-3176UpbvpxjTembbyooz (7 sources)Viral hepatitis C; Translations: [Unspecified viral hepatitis C without hepatic coma]Onset: 77-39-0198FkgjkhdrLbynuuusmfueb and screening for infectious disease (1 source)Encounter for screening for infections with a predominantly sexual mode of transmission; Translations: [ENC SCREEN INFECTIONS SEXL TRANSMS]Onset: 00-99-2166JnjlugcpWbuzxwsqp disorders (5 sources)Irregular menstruation, unspecified; Translations: [IRREGULAR MENSTRUATION UNSPECIFIED]Onset: 03-11-2514OzjnzumIgqqz complications of (1 source)Smoking (tobacco) complicating , second trimester; Translations: [SMOKING TOBACCO COMP PREG 2ND TRI]Onset: 46-60-4129BqmbejxnSbozq complications of (4 sources)Other specified related conditions, second trimester; Translations: [OTH SPEC PREG RELATED COND 2ND TRI]Onset: 58-82-1308ObdxbmfaCznoq ear and sense organ disorders (1 source)Unspecified acute noninfective otitis externa, right earEpisodicOther female genital disorders (1 source)Other specified noninflammatory disorders of vagina; Translations: [OTH SPEC NONINFLAMMATORY D/O VAGINA]Onset: 85-66-3995VeehqcbnCpmlo gastrointestinal disorders (1 source)Diarrhea, unspecified; Translations: [DIARRHEA UNSPECIFIED]Onset: 27-80-4164XrtoehrxTpnpi liver diseases (1 source)Abnormal levels of other serum enzymesEpisodicOther screening for suspected conditions (not mental disorders or infectious disease) (20 sources)Elevated liver enzymes level; Translations: [Other specified abnormal findings of blood chemistry]Onset: 96-86-8441NubddbttWkukjb media and related conditions (1 source)Otitis media, unspecified, bilateralEpisodicResidual codes; unclassified (1 source)28 weeks gestation of ; Translations: [28 WEEKS GESTATION OF ]Onset: 08-59-3303OdolzjieGbtwiuwa codes; unclassified (1 source)24 weeks gestation of ; Translations: [24 WEEKS GESTATION OF ]Onset: 67-18-3671EigshffhZekhlmua codes; unclassified (1 source)17 weeks gestation of ; Translations: [17 WEEKS GESTATION OF ]Onset: 00-41-4692SmwuiiorVdqcfisvb-related disorders (1 source)Nicotine dependence, cigarettes, uncomplicated; Translations: [NICOTINE DEPEND CIGARETTES UNCOMP]Onset: 46-40-0743RhmlwfaFlvjxfpkx-related disorders (2 sources)Drug use complicating , second trimester; Translations: [Cannabis use, unspecified, uncomplicated]Onset: 96-57-0112MmxflinrKayfcnyygcwi (1 source)OT SPCF DIS/COND COMPL ; Translations: [OTH SPCF DIS/COND COMPL ]Onset: 26-74-0433Miaiqejnbtbl (2 sources)LOW BACK PAIN, UNSPECIFIED; Translations: [LOW BACK PAIN, UNSPECIFIED]Onset: 22-81-0563Iuarwmkybvgv (3 sources)COUGH, UNSPECIFIED; Translations: [COUGH, UNSPECIFIED]Onset: 63-63-9333Fugqfakuakcv (1 source)CONTACT W/AND (SUSP) EXPOS COVID-19; Translations: [CONTACT W/AND (SUSP) EXPOS COVID-19]Onset: 07-28-2022 Past or Other Problems Problem ClassificationProblemDateDocumented DateEpisodic/ChronicE Codes: Natural/environment (1 source)Other and unspecified overexertion or strenuous movements or postures, initial encounter; Translations: [OTH AND UNS OVREXRT/STRN MVMT/POS INT]Onset: 81-93-1781XgryoedxJyzjfrnxs and duodenitis (1 source)Gastritis, unspecified, without bleeding; Translations: [GASTRITIS UNS WITHOUT BLEEDING]Onset: 03-24-4502EonpjpyqYerybp and vomiting (4 sources)Nausea; Translations: [Nausea with vomiting, unspecified]Onset: 48-15-2039UeqxlvxgKkrfr complications of (1 source)Injury, poisoning and certain other consequences of external causes complicating , second trimester; Translations: [INJ POISON OTH EXT COMP PG 2ND TRI]Onset: 52-91-9723BwdkgwhmUzdqi complications of (1 source)Other specified related conditions, third trimester; Translations: [OTH SPEC PREG RELATEDCOND 3RD TRI]Onset: 90-90-4253KuuasnkxOuzor complications of (1 source)Smoking (tobacco) complicating , unspecified trimester; Translations: [SMOKING TOBACCO COMP PREG UNS TRI]Onset: 16-90-7963IrgojivhLkelv complications of (1 source)Diseases of the digestive system complicating , unspecified trimester; Translations: [DZ DIGESTIVE SYS COMP PREG UNS TRI]Onset: 08-25-2022 EpisodicOther complications of (1 source)Diseases of the respiratory system complicating , first trimester; Translations: [DISEASESRESP SYS COMP PREG 1ST TRI]Onset: 07-28-2022 EpisodicOther complications of (2 sources)Other specified related conditions, first trimester; Translations: [OTH SPEC PREG RELATEDCOND 1ST TRI]Onset: 68-25-0432MdcdfdeqCzwrt complications of (1 source)Smoking (tobacco) complicating , first trimester; Translations: [SMOKING TOBACCO COMP NQYA6BB TRI]Onset: 43-25-7714MnrvmkxwOslax connective tissue disease (1 source)Myalgia, unspecified site; Translations: [MYALGIA UNSPECIFIED SITE] Onset: 87-54-4205OtscbbjvRlfto non-traumatic joint disorders (1 source)Pain in unspecified joint; Translations: [PAIN IN UNSPECIFIED JOINT] Onset: 16-01-3459KgczxlqqTfhvc and delivery including normal (3 sources)Encounter for supervision of normal first , first trimester; Translations: [Encounter for supervision of other normal , first trimester]Onset: 65-21-8009AogaznjeLleeb upper respiratory infections (1 source)Acute upper respiratory infection, unspecified; Translations: [ACUTE UP RESPIRATORY INFECTION UNS]Onset: 45-01-7571VawcpidtKbtdtupa codes; unclassified (1 source)14 weeks gestation of ; Translations: [14 WEEKS GESTATION OF ]Onset: 97-61-0993JzknvodsOvstuecw codes; unclassified (1 source)Weeks of gestation of not specified; Translations: [WEEKS GESTATION NOT SPEC]Onset: 15-54-9577WdawuohyPcezdqsb codes; unclassified (1 source)Less than 8 weeks gestation of ; Translations: [< 8 WEEKS GESTATION ]Onset: 06-76-6528XkarcfedXtycksrqtlw; intervertebral disc disorders; other back problems (1 source)Lumbago with sciatica, unspecified side; Translations: [LUMBAGO WITH SCIATICA UNS SIDE]Onset: 99-26-4976PgnwaifkFqlfymt and strains (1 source)Strain of muscle, fascia and tendon of lower back, initial encounter; Translations: [STRAIN MUSC FASC TENDON LW BACK INT]Onset: 07-58-5291Brqhsqyw Unclassified (1 source)LOW BACK PAIN, UNSPECIFIED; Translations: [LOW BACK PAIN, UNSPECIFIED] Onset: 72-42-4864Wlfrugrtyrsz (1 source)COUGH, UNSPECIFIED; Translations: [COUGH, UNSPECIFIED]Onset: 07-26-2022 Results Test NameValueInterpretationReference RangeFacilityUS PELVIS W/ TRANSVAGINALon [id number] [address] Ultrasound Report Signed Patient: HAROLDO DEL VALLE MR#: [id number] : 1995 Acct:[id number] Age/Sex: 28 / F ADM Date: 10/02/23 Loc: US Attending Dr: Ivanna Goetz D.O. Ordering Physician: Ivanna Goetz D.O. Date of Service: 10/02/23 Procedure(s): US pelvis w/ transvaginal Accession Number(s): [id number] cc: Ivanna Goetz D.O.; Physician,Non-Staff [place] [address] Patient Name: HAROLDO DEL VALLE MRN: [id number] date: 1995 Sex: F Assigned Patient Location: US Current Patient Location: Accession/Order Number: [id number] Exam Date: 10/02/2023 17:00 Report Date: 10/03/2023 07:25 At the request of: IVANNA GOETZ Procedure: US pelvis w/ transvaginal EXAMINATION: US pelvis w/ transvaginal HISTORY: Menorrhagia/pelvic pain COMPARISON: No relevant comparison available. FINDINGS: The uterus is normal in size, contour and myometrial echotexture measuring 9.5-4 0.9 x 5.6 cm. No focal myometrial mass The endometrium measures 13.9 mm, normal The right ovary is normal measuring 4.5 x 2.1 x 2.7 cm. Normal color and Doppler flow Left ovary is normal measuring 2.5 x 1.7 x 1.7 cm. Normal color and Doppler flow US/US pelvis w/ transvaginal IMPRESSION: Normal exam Electronically authenticated by: LIUDMILA MARTÍNEZ Date: 10/03/2023 07:25 Dictated By: Liudmila Martínez M.D. Signed By: 10/03/2327 DD/ 4 TD/TT: Grocery Clerk:SHONNAHRadiology, Radiologist, - 10/03/2023 [place] [address] Ultrasound Report Signed Patient: HAROLDO DEL VALLE MR#: [id number] : 1995 Acct:[id number] Age/Sex: 28 / F ADM Date: 10/02/23 Loc: US Attending Dr: Ivanna Goetz D.O. Ordering Physician: Ivanna Goetz D.O. Date of Service: 10/02/23 Procedure(s): US pelvis w/ transvaginal Accession Number(s): [id number] cc: Ivanna Goetz D.O.; Physician,Non-Staff [place] [facility] [place] [address] Patient Name: HAROLDO DEL VALLE MRN: [id number] date: 1995 Sex: F Assigned Patient Location: US Current Patient Location: Accession/Order Number: [id number] Exam Date: 10/02/2023 17:00 Report Date: 10/03/2023 07:25 At the request of: IVANNA GOETZ Procedure: US pelvis w/ transvaginal EXAMINATION: US pelvis w/ transvaginal HISTORY: Menorrhagia/pelvic pain COMPARISON: No relevant comparison available. FINDINGS: The uterus is normal in size, contour and myometrial echotexture measuring 9.5-4 0.9 x 5.6 cm. No focal myometrial mass The endometrium measures 13.9 mm, normal The right ovary is normal measuring 4.5 x 2.1 x 2.7 cm. Normal color and Doppler flow Left ovary is normal measuring 2.5 x 1.7 x 1.7 cm. Normal color and Doppler flow US/US pelvis w/ transvaginal IMPRESSION: Normal exam Electronically authenticated by: LIUDMILA MARTÍNEZ Date: 10/03/2023 07:25 Dictated By: Liudmila Martínez M.D. Signed By: 10/03/2327 DD/ 4 TD/TT: Grocery Clerk: MANJU HealthcareRadiology Study observation (narrative)NOMQuan HealthcareUS PELVIS W/ TRANSVAGINALOrdered By: Radiologist Radiology on 58-63-1594FOEPSaint [facility] Work Phone: aMYLASEon 32-16-6410Aavecih [Catalytic activity/Vol]59 U/XZbnlbd39-170Qji [facility] HospitalComment on above:Performed By: #### ERUR #### [facility] [address] [place] [address] Dr. Augustine ChirinosC AUTO DIFFon 29-97-7016PRUW #0.0 103/ulNormal0.0-0.1The [facility] HospitalComment on above:Performed By: #### HIV12 #### [facility] [address] [place] [address] Dr. Augustine LouBasophils/100 WBC (Bld)0.2 %Normal0.2-2.0[facility] Comment on above:Performed By: #### HIV12 #### [facility] [address] [address] [address] Augustine Wall #0.2 103/ulNormal0.0-0.7The [facility] HospitalComment on above: Performed By: #### HIV12 #### [facility] [address] [place] [address] Dr. Augustine Mendietaosinophils/100 WBC (Bld)1.2 %Normal0.9-7.0The [facility] Comment on above:Performed By: #### HIV12 #### [facility] [address] [place] [address] Dr. Augustine Mendietarythrocyte distribution width (RBC) [Ratio]13.0 %Rjmdcu95.0-15.0 The [facility] HospitalComment on above:Performed By: #### HIV12 #### [facility] [address] [place] [address] Dr. Augustine LouHematocrit (Bld) [Volume fraction]35.9 %Critically low36.0-48.0 The [facility] HospitalComment on above:Performed By: #### HIV12 #### [facility] [address] [address] [address] Augustine LouHemoglobin (Bld) [Mass/Vol]12.1 g/hDKszxoc77.0-16.0The [facility] HospitalComment on above:Performed By: #### HIV12 #### [facility] [address] [address] [address] Augustine Almeida #0.08 10e3/ulCritically high0.00-0.03The [facility] Comment on above:Performed By: #### HIV12 #### [facility] [address] [place] [address] Dr. Augustine Almeida %0.5 %Normal0.0-0.5The [facility] HospitalComment on above: Performed By: #### HIV12 #### [facility] [address] [place] [address] Dr. Augustine Andrews #1.3 103/ulNormal1.2-3.8The [facility] HospitalComment on above:Performed By: #### HIV12 #### [facility] [address] [place] [address] Dr. Augustine Bowlinghocytes/100 WBC (Bld)7.8 %Critically low20.5-60.0The [facility] HospitalComment on above:Performed By: #### HIV12 #### [facility] [address] [place] [address] Dr. Augustine SolomonUAL DIFF REQNONormalThe [facility] HospitalComment on above: Performed By: #### HIV12 #### [facility] [address] [address] [address] Augustine Meadows (RBC) [Entitic mass]29.6 voYvvxrg41.7-34.0The [facility] HospitalComment on above:Performed By: #### HIV12 #### [facility] [address] [place] [address] Dr. Augustine Monterroso (RBC) [Mass/Vol]33.7 g/lDPwsinw39.9-35.2The [facility] HospitalComment on above:Performed By: #### HIV12 #### [facility] [address] [place] [address] Dr. Augustine Li (RBC) [Entitic vol]87.8 uQRhhjif73.0-99.0The [facility] HospitalComment on above:Performed By: #### HIV12 #### [facility] [address] [place] [address] Dr. Augustine Fuentes #0.7 103/ulNormal0.3-0.8The [facility] HospitalComment on above:Performed By: #### HIV12 #### [facility] [address] [place] [address] Dr. Augustine Kenneyocytes/100 WBC (Bld)4.3 %Normal1.7-12.0[facility] Comment on above:Performed By: #### HIV12 #### [facility] [address] [place] [address] Dr. Augustine Núñez #14.7 103/ulCritically high1.4-6.5The [facility] Comment on above:Performed By: #### HIV12 #### [facility] [address] [place] [address] Dr. Augustine Dioputrophils/100 WBC (Bld)86.0 %Critically high43.0-75.0The [facility] HospitalComment on above:Performed By: #### HIV12 #### [facility] [address] [place] [address] Dr. Augustine Epsteinlet mean volume (Bld) [Entitic vol]10.4 fLNormal9.5-13.5The [facility] HospitalComment on above:Performed By: #### HIV12 #### [facility] [address] [place] [address] Dr. Augustine ChoT249 103/hgJjrihw292-534Wrq [facility] HospitalComment on above: Performed By: #### HIV12 #### [facility] [address] [place] [address] Dr. Augustine ChisholmC4.09 106/ulCritically low4.20-5.40The [facility] HospitalComment on above:Performed By: #### HIV12 #### [facility] [address] [place] [address] Dr. Augustine LouWBC17.0 103/ulCritically high4.0-11.0The [facility] HospitalComment on above:Performed By: #### HIV12 #### [facility] [address] [place] [address] Dr. Augustine Le PANEL (PCR)on 78-93-3461Ebhsnewbfp F 40/41Not detectedNormal NOT DETECTEDThe [facility] HospitalComment on above:Performed By: #### PT #### [facility] [address] [place] [address] Dr. Augustine LouAstrovirusNot detectedNormalNOT DETECTEDThe [facility] Comment on above:Performed By: #### PT #### [facility] [address] [place] [address] Dr. Augustine Taveras. Diff toxin A/BNot detectedNormalNOT DETECTEDThe [facility] HospitalComment on above:Performed By: #### PT #### [facility] [address] [place] [address] Dr. Augustine ValdiviapylobacterNot detectedNormalNOT DETECTEDThe [facility] Comment on above:Performed By: #### PT #### [facility] [address] [place] [address] Dr. Augustine PittyptosporidiumNot detectedNormalNOT DETECTEDThe [facility] HospitalComment on above:Performed By: #### PT #### [facility] [address] [place] [address] Dr. Augustine Dumontos. CayetanensisNot detectedNormalNOT DETECTEDThe [facility] HospitalComment on above:Performed By: #### PT #### [facility] [address] [place] [address] Dr. Augustine Carias Coli D576Fgb ApplicableNormalNot ApplicableThe [facility] HospitalComment on above:Performed By: #### PT #### [facility] [address] [address] [address] Augustine Mendieta. histolyticaNot detectedNormalNOT DETECTEDThe [facility] Comment on above:Performed By: #### PT #### [facility] [address] [address] [address] Augustine MendietaAECNgelacio detectedNormalNOT DETECTEDThe [facility] HospitalComment on above:Performed By: #### PT #### [facility] [address] [address] [address] Augustine MendietaIECNgelacio detectedNormalNOT DETECTEDThe [facility] HospitalComment on above:Performed By: #### PT #### [facility] [address] [address] [address] Augustine MendietaPECNot detectedNormalNOT DETECTEDThe [facility] HospitalComment on above:Performed By: #### PT #### [facility] [address] [address] [address] Augustine MendietaTECNgelacio detectedNormalNOT DETECTEDThe [facility] HospitalComment on above:Performed By: #### PT #### [facility] [address] [address] [address] Augustine Delatorre LambliaNot detectedNormalNOT DETECTEDThe [facility] Comment on above:Performed By: #### PT #### [facility] [address] [address] [address] Augustine Silva CONTROLSPASSEDJoint Township District Memorial HospitalComment on above:Performed By: #### PT #### [facility] [address] [address] [address] Augustine Camp YUNIER HEADERGI PANEL BACTERIAJoint Township District Memorial Hospital Comment on above:Performed By: #### PT #### [facility] [address] [address] [address] Augustine Thomas ECOLIGI PANEL DIARRHEAGENIC E.COLI / SHIGELLAJoint Township District Memorial HospitalComment on above:Performed By: #### PT #### [facility] [address] [address] [address] Augustine Thomas [facility] HospitalComment on above: Result Comment: EAEC- Enteroaggregative E. Coli EPEC- Enteropathogenic E. Coli ETEC- Enterotoxigenic E. Coli lt/st STEC- Shigella-like toxin-producing E. Coli stx1/stx2 EIEC- Shigella/Enteroinvasive E. ColiPerformed By: #### PT #### [facility] [address] [address] [address] Augustine Thomas PARASITESGI [facility] Comment on above:Performed By: #### PT #### [facility] [address] [address] [address] Augustine Thomas VIRUSGI [facility] HealthComment on above:Performed By: #### PT #### [facility] [address] [address] [address] Augustine Murryrovirus GI/GIINot detectedNormalNOT DETECTEDThe [facility] HospitalComment on above:Performed By: #### PT #### [facility] [address] [address] [address] Augustine Milian ShigelloidesNot detectedNormalNOT DETECTEDThe [facility] HospitalComment on above:Performed By: #### PT #### [facility] [address] [address] [address] Augustine LouRotavirus ANot detectedNormalNOT DETECTEDThe [facility] Comment on above:Performed By: #### PT #### [facility] [address] [address] [address] Augustine LouSalmonellaNot detectedNormalNOT DETECTEDThe [facility] Comment on above:Performed By: #### PT #### [facility] [address] [address] [address] Augustine LouSapovirusNot detectedNormalNOT DETECTEDThe [facility] Comment on above:Performed By: #### PT #### [facility] [address] [address] [address] Augustine LouSTECNot detectedNormalNOT DETECTEDThe [facility] Hospitalment on above:Performed By: #### PT #### [facility] [address] [place] [address] Dr. Augustine EliasioNot detectedNormalNOT DETECTEDThe [facility] HospitalComment on above:Performed By: #### PT #### [facility] [address] [place] [address] Dr. Augustine Eliasio CholeraNot detectedNormalNOT DETECTEDThe [facility] on above:Performed By: #### PT #### [facility] [address] [place] [address] Dr. Augustine Dotson. EnterocoliticaNot detectedNormalNOT DETECTEDThe [facility] Hospitalment on above:Performed By: #### PT #### [facility] [address] [place] [address] Dr. Augustine LouLIPASEearnest 79-68-7594Vaepun [Catalytic activity/Vol]89.0 U/LNormal 73.0-393.0The [facility] HospitalComment on above:Performed By: #### ERUR #### [facility] [address] [place] [address] Dr. Augustine Garcia PROFILEon 88-68-6991Yivqeog [Mass/Vol]2.7 g/dLCritically low3.4-5.0The [facility] on above:Performed By: #### ERUR #### [facility] [address] [place] [address] Dr. Augustine LouAlbumin/Globulin [Mass ratio]0.6 {ratio}NormalThe [facility] on above:Performed By: #### ERUR #### [facility] [address] [place] [address] Dr. Augustine Fontaine [Catalytic activity/Vol]59 U/FVykkjf96-378Utt [facility] on above:Performed By: #### ERUR #### [facility] [address] [place] [address] Dr. Augustine Scanlon [Catalytic activity/Vol]18 U/LZxvzvf28-31Jhi [facility]eaddiss HospitalComment on above:Performed By: #### ERUR #### [facility] [address] [address] [address] Augustine LouAST [Catalytic activity/Vol]17 U/LUegcvg47-89RsfGreene Memorial HospitalComment on above:Performed By: #### ERUR #### [facility] [address] [address] [address] Augustine VargasI, CONJUGATED0.0 mg/dLNormal0.0-0.2[facility] Comment on above:Performed By: #### ERUR #### [facility] [address] [place] [address] Dr. Augustine Vargasirubin [Mass/Vol]0.2 mg/dLNormal0.2-1.0[facility] Comment on above:Performed By: #### ERUR #### [facility] [address] [place] [address] Dr. Augustine LouGlobulin (S) [Mass/Vol]4.4 g/dLNormalThe [facility] HospitalComment on above:Performed By: #### ERUR #### [facility] [address] [place] [address] Dr. Augustine LouProtein [Mass/Vol]7.1 g/dLNormal6.4-8.2[facility] Comment on above:Performed By: #### ERUR #### [facility] [address] [place] [address] Dr. Augustine LouPROF CHEM 8 (BAS METB)on [id number] gap [Moles/Vol]15.2 mmol/LNormalGreene Memorial HospitalComment on above:Performed By: #### ERUR #### [facility] [address] [place] [address] Dr. Augustine LouCalcium [Mass/Vol]8.9 mg/dLNormal8.5-10.1[facility] Comment on above:Performed By: #### ERUR #### [facility] [address] [place] [address] Dr. Augustine LouChloride [Moles/Vol]106 mmol/HHzowac67-630YvfGreene Memorial Hospital Comment on above:Performed By: #### ERUR #### [facility] [address] [place] [address] Dr. Augustine LouCO2 [Moles/Vol]21.7 mmol/YCefgii53.0-32.0[facility] Comment on above:Performed By: #### ERUR #### [facility] [address] [place] [address] Dr. Augustine LouCreatinine [Mass/Vol]0.53 mg/dLCritically low0.55-1.02[facility] HospitalComment on above:Performed By: #### ERUR #### [facility] [address] [place] [address] Dr. Augustine MendietaGFR-AF CHADIAN>60Normal>=60The [facility] HospitalComment on above:Performed By: #### ERUR #### [facility] [address] [place] [address] Dr. Augustine MendietaGFR-NON AF CHADIAN>60Normal>=60[facility] HospitalComment on above:Performed By: #### ERUR #### [facility] [address] [place] [address] Dr. Augustine LouGlucose [Mass/Vol]86 mg/oKPpewoy45-741EqnGreene Memorial Hospital Comment on above:Performed By: #### ERUR #### [facility] [address] [place] [address] Dr. Augustine LouPotassium [Moles/Vol]3.9 mmol/LNormal3.5-5.1The [facility] Comment on above:Performed By: #### ERUR #### [facility] [address] [place] [address] Dr. Augustine LouSodium [Moles/Vol]139 mmol/RTqzsqi952-268Trf [facility] Comment on above:Performed By: #### ERUR #### [facility] [address] [place] [address] Dr. Augustine LouUrea nitrogen [Mass/Vol]10.0 mg/dLNormal7.0-18.0The [facility] HospitalComment on above:Performed By: #### ERUR #### [facility] [address] [address] [address] Augustine LouUrea nitrogen/Creatinine [Mass ratio]18.9 mg/mgNoUniversity Hospitals Health SystemComment on above:Performed By: #### ERUR #### [facility] [address] [address] [address] Augustine Andrade SINGLE QUAD RT UPPERon [id number] SINGLE QUAD RT UPPER EXAMINATION: US SINGLE [...] No acute abnormality Electronically authenticated by: LIUDMILA MARTÍNEZ Date: 2022-12-21 16:26[facility] HospitalUS PREG INCOMPLETE ANATOMYon [id number] PREG INCOMPLETE ANATOMYEXAMINATION: US PREG INCOMPLETE ANATOMY HISTORY: screening COMPARISON: [...] Electronically authenticated by: ALVIN GALDAMEZ Date: 2022-12-05 15:13[facility] HospitalBILIRUBIN CONJUGATED (DIRECT)on [id number], CONJUGATED0.0 mg/dLNormal0.0-0.2The [facility] HospitalComment on above:Performed By: #### AFPMAT #### [facility] [address] [place] [address] Dr. Augustine Allison TOTALon 48-26-5279Xbdxpwakm [Mass/Vol]0.1 mg/dL Critically low0.2-1.0The [facility] HospitalComment on above:Performed By: #### CBC #### [facility] [address] [place] [address] Dr. Augustine Black 36-70-9470Ukzq nitrogen [Mass/Vol]6.0 mg/dLCritically low 7.0-18.0The [facility] HospitalComment on above:Performed By: #### HIV12 #### [facility] [address] [place] [address] Dr. Augustine ChirinosC AUTO DIFFon [id number] #0.0 103/ulNormal0.0-0.1The [facility] HospitalComment on above:Performed By: #### CBC #### [facility] [address] [place] [address] Dr. Augustine LouBasophils/100 WBC (Bld)0.2 %Normal0.2-2.0[facility] Comment on above:Performed By: #### CBC #### [facility] [address] [address] [address] Augustine Wall #0.3 103/ulNormal0.0-0.7The [facility] HospitalComment on above: Performed By: #### CBC #### [facility] [address] [place] [address] Dr. Augustine Mendietaosinophils/100 WBC (Bld)3.5 %Normal0.9-7.0[facility] Comment on above:Performed By: #### CBC #### [facility] [address] [address] [address] Augustine Mendietarythrocyte distribution width (RBC) [Ratio]13.1 %Anqfdx98.0-15.0 The [facility] HospitalComment on above:Performed By: #### CBC #### [facility] [address] [place] [address] Dr. Augustine LouHematocrit (Bld) [Volume fraction]32.2 %Critically low36.0-48.0 The [facility] HospitalComment on above:Performed By: #### CBC #### [facility] [address] [place] [address] Dr. Augustine LouHemoglobin (Bld) [Mass/Vol]10.7 g/dLCritically low12.0-16.0The [facility] HospitalComment on above:Performed By: #### CBC #### [facility] [address] [place] [address] Dr. Augustine Almeida #0.04 10e3/ulCritically high0.00-0.03The [facility] Comment on above:Performed By: #### CBC #### [facility] [address] [place] [address] Dr. Augustine Almeida %0.4 %Normal0.0-0.5The [facility] HospitalComment on above: Performed By: #### CBC #### [facility] [address] [place] [address] Dr. Augustine Andrews #2.6 103/ulNormal1.2-3.8The [facility] HospitalComment on above:Performed By: #### CBC #### [facility] [address] [place] [address] Dr. Augustine Bowlinghocytes/100 WBC (Bld)27.2 %Dtjrfk96.5-60.0The [facility] HospitalComment on above:Performed By: #### CBC #### [facility] [address] [place] [address] Dr. Augustine SolomonUAL DIFF REQNONormalThe [facility] HospitalComment on above: Performed By: #### CBC #### [facility] [address] [place] [address] Dr. Augustine Meadows (RBC) [Entitic mass]29.8 wbGbvitd38.7-34.0The [facility] HospitalComment on above:Performed By: #### CBC #### [facility] [address] [place] [address] Dr. Augustine Monterroso (RBC) [Mass/Vol]33.2 g/kYIzgkwc54.9-35.2The [facility] HospitalComment on above:Performed By: #### CBC #### [facility] [address] [place] [address] Dr. Augustine Li (RBC) [Entitic vol]89.7 wPNjtkou98.0-99.0The [facility] HospitalComment on above:Performed By: #### CBC #### [facility] [address] [place] [address] Dr. Augustine Fuentes #0.6 103/ulNormal0.3-0.8The [facility] HospitalComment on above:Performed By: #### CBC #### [facility] [address] [place] [address] Dr. Augustine Kenneyocytes/100 WBC (Bld)6.1 %Normal1.7-12.0The [facility] Comment on above:Performed By: #### CBC #### [facility] [address] [place] [address] Dr. Augustine Núñez #5.9 103/ulNormal1.4-6.5The [facility] HospitalComment on above:Performed By: #### CBC #### [facility] [address] [place] [address] Dr. Augustine Dioputrophils/100 WBC (Bld)62.6 %Zvztas77.0-75.0The [facility] HospitalComment on above:Performed By: #### CBC #### [facility] [address] [place] [address] Dr. Augustine Epsteinlet mean volume (Bld) [Entitic vol]10.8 fLNormal9.5-13.5The [facility] HospitalComment on above:Performed By: #### CBC #### [facility] [address] [place] [address] Dr. Augustine ChoT217 103/hyWeuvjg801-057Sad [facility] HospitalComment on above: Performed By: #### CBC #### [facility] [address] [place] [address] Dr. Yilan ChangRBC3.59 106/ulCritically low4.20-5.40The [facility] HospitalComment on above:Performed By: #### CBC #### [facility] [address] [place] [address] Dr. Augustine LouWBC9.4 103/ulNormal4.0-11.0The [facility] HospitalComment on above: Performed By: #### CBC #### [facility] [address] [place] [address] Dr. Augustine LouCREATININEon 18-15-5816Zgvdqxeycs [Mass/Vol]0.60 mg/dLNormal 0.55-1.02The [facility] HospitalComment on above:Performed By: #### HIV12 #### [facility] [address] [place] [address] Dr. Bradshaw ChangEGFR-AF CHADIAN>60Normal>=60The [facility] HospitalComment on above:Performed By: #### HIV12 #### [facility] [address] [place] [address] Dr. Augustine MendietaGFR-NON AF CHADIAN>60Normal>=60The [facility] HospitalComment on above:Performed By: #### HIV12 #### [facility] [address] [place] [address] Dr. Augustine MendietaLECTROLYTESon 12-93-0057Hejjm gap [Moles/Vol]11.0 mmol/LNormal The [facility] HospitalComment on above:Performed By: #### CBC #### [facility] [address] [place] [address] Dr. Augustine LouChloride [Moles/Vol]105 mmol/TUyrumc88-599Fzq [facility] Comment on above:Performed By: #### CBC #### [facility] [address] [place] [address] Dr. Augustine LouCO2 [Moles/Vol]25.6 mmol/JPxgguw44.0-32.0The [facility] Comment on above:Performed By: #### CBC #### [facility] [address] [place] [address] Dr. Yilan ChangPotassium [Moles/Vol]3.6 mmol/LNormal3.5-5.1[facility] Comment on above:Performed By: #### CBC #### [facility] [address] [place] [address] Dr. Augustine Ferrellum [Moles/Vol]138 mmol/JVbkbvm763-824Xjd [facility] Comment on above:Performed By: #### CBC #### [facility] [address] [place] [address] Dr. Augustine Corral 52-69-2885ZON [Catalytic activity/Vol]19 U/UNefbme92-86Kba [facility] HospitalComment on above:Performed By: #### HIV12 #### [facility] [address] [place] [address] Dr. Augustine Pruitt 80-09-1953OUE [Catalytic activity/Vol]19 U/GCqmvbl84-19Ycd [facility] HospitalComment on above:Performed By: #### CBC #### [facility] [address] [place] [address] Dr. Augustine Young (CLEAN/CATCH) REPAIRER HANDTOOLS/MICRO IF IND.on 91-16-1393Txoszhorl Ql (U) NegativeNormalNEGATIVEGreene Memorial HospitalComment on above:Performed By: #### AFPMAT #### [facility] [address] [place] [address] Dr. Augustine Holcomb (U)CLEARNormalCLEARGreene Memorial HospitalComment on above: Performed By: #### AFPMAT #### [facility] [address] [place] [address] Dr. Augustine Edwards (U)LT. YELLOWNormalYELLOWGreene Memorial HospitalComment on above:Performed By: #### AFPMAT #### [facility] [address] [place] [address] Dr. Augustine LouGlucose Ql (U)NegativeNormalNEGATIVEGreene Memorial HospitalComment on above:Performed By: #### AFPMAT #### [facility] [address] [place] [address] Dr. Augustine LouHemoglobin Ql (U)NegativeNormalNEGWVUMedicine [facility] Hospital Comment on above:Performed By: #### AFPMAT #### [facility] [address] [place] [address] Dr. Augustine Gongoraones Ql (U)15 mg/dlAbbaker cityNEGWVUMedicine Barnesville Hospital Comment on above:Performed By: #### AFPMAT #### [facility] [address] [place] [address] Dr. Augustine LouLEUKOCYTESNegativeNormalNEGATIVEGreene Memorial HospitalComment on above:Performed By: #### AFPMAT #### [facility] [address] [place] [address] Dr. Augustine LouNitrite Ql (U)NegativeNormalNEGATIVEGreene Memorial HospitalComment on above:Performed By: #### AFPMAT #### [facility] [address] [place] [address] Dr. Augustine LoupH (U)6.0 [pH]Normal5-9[facility] HospitalComment on above: Performed By: #### AFPMAT #### [facility] [address] [place] [address] Dr. Augustine LouSPEC GRAVITY1.328Rmukih4.005-<=1.025The [facility] HospitalComment on above:Performed By: #### AFPMAT #### [facility] [address] [place] [address] Dr. Augustine Young PROTEINNegativeNormalNEGATIVE/ TRACEGreene Memorial Hospital Comment on above:Performed By: #### AFPMAT #### [facility] [address] [place] [address] Dr. Augustine Garcia MICRO INDNOT INDICATEDNormalThMercy Health West HospitalComment on above:Performed By: #### AFPMAT #### [facility] [address] [place] [address] Dr. Augustine LouUrobilinogen Qn (U)0.2 {Erinn'U}/dLNormal0.2 - 1.0The [facility] HospitalComment on above:Performed By: #### AFPMAT #### [facility] [address] [address] [address] Augustine Andrade SINGLE QUAD RT UPPERon [id number] SINGLE QUAD RT UPPER EXAMINATION: US SINGLE [...] Electronically authenticated by: ALVIN GALDAMEZ Date: 2022-12-01 08:26[facility] PREG ANATOMY SINGLEon [id number] PREG ANATOMY SINGLE EXAMINATION: US PREG ANATOMY [...] days HANNAH by current US: 03/16/2023 IMPRESSION: Suboptimal/nonvisualization detailed above Otherwise normal anatomy scan *Reference: [employer] Practice Guideline for the performance of Obstetric Ultrasound Examinations, April 29, 2007. Electronically authenticated by: LIUDMILA MARTÍNEZ Date: 2022-11-03 10:30[facility] ACOG PANEL 2: 21 to 29on 10-19-2022..NormalGreene Memorial HospitalComment on above:Performed By: #### A1C #### [facility] [address] [place] [address] Dr. Augustine Wayne Gdln ACOG Lzvwwag79-51UgwbyuKboUniversity Hospitals Health SystemComment on above:Performed By: #### A1C #### [facility] [address] [place] [address] Dr. Augustine LouDIAGNOSIS:CommentVan Wert County Hospital on above: Result Comment: NEGATIVE FOR INTRAEPITHELIAL LESION OR MALIGNANCY.Performed By: #### A1C #### [facility] [address] [place] [address] Dr. Augustine LouMethodology:CommentVan Wert County Hospital on above: Result Comment: This liquid based ThinPrep(R) pap test was screened with the use of an image guided system.Performed By: #### A1C #### [facility] [address] [place] [address] Dr. Augustine LouNote:CommentVan Wert County Hospital on above:Result Comment: The Pap smear is a screening test designed to aid in the detection of premalignant and malignant conditions of the uterine cervix. It is not a diagnostic procedure and should not be used as the sole means of detecting cervical cancer. Both false-positive and false-negative reports do occur. .Performed By: #### A1C #### [facility] [address] [place] [address] Dr. Augustine LouPerformed by:CommentVan Wert County Hospital on above: Result Comment: Nash Dempsey, Pattern Chart Writer (ASCP)Performed By: #### A1C #### [facility] [address] [place] [address] Dr. Augustine Thomas Criteria:CommentVan Wert County Hospital on above:Result Comment: The HPV DNA reflex criteria were not met with this specimen result therefore, no HPV testing was performed. .Performed By: #### A1C #### [facility] [address] [place] [address] Dr. Augustine Brownimealeks adequacy:CommentVan Wert County Hospital on above:Result Comment: Satisfactory for evaluation. Endocervical and/or squamous metaplastic cells (endocervical component) are present.Performed By: #### A1C #### [facility] [address] [place] [address] Dr. Augustine Medina AUTO DIFFon [id number] #0.0 103/ulNormal0.0-0.1The [facility] HospitalComment on above:Performed By: #### HIV12 #### [facility] [address] [place] [address] Dr. Augustine LouBasophils/100 WBC (Bld)0.2 %Normal0.2-2.0[facility] Comment on above:Performed By: #### HIV12 #### [facility] [address] [place] [address] Dr. Augustine Wall #0.4 103/ulNormal0.0-0.7The [facility] on above: Performed By: #### HIV12 #### [facility] [address] [place] [address] Dr. Augustine Mendietaosinophils/100 WBC (Bld)3.5 %Normal0.9-7.0The [facility] Comment on above:Performed By: #### HIV12 #### [facility] [address] [place] [address] Dr. Augustine Mendietarythrocyte distribution width (RBC) [Ratio]13.2 %Kfgdjh11.0-15.0 The [facility] HospitalComment on above:Performed By: #### HIV12 #### [facility] [address] [place] [address] Dr. Augustine LouHematocrit (Bld) [Volume fraction]32.1 %Critically low36.0-48.0 The [facility] HospitalComment on above:Performed By: #### HIV12 #### [facility] [address] [place] [address] Dr. Augustine LouHemoglobin (Bld) [Mass/Vol]10.8 g/dLCritically low12.0-16.0The [facility] HospitalComment on above:Performed By: #### HIV12 #### [facility] [address] [place] [address] Dr. Augustine Almeida #0.03 10e3/ulNormal0.00-0.03The [facility] HospitalComment on above:Performed By: #### HIV12 #### [facility] [address] [place] [address] Dr. Augustine Almeida %0.3 %Normal0.0-0.5The [facility] HospitalComment on above: Performed By: #### HIV12 #### [facility] [address] [place] [address] Dr. Augustine Andrews #2.7 103/ulNormal1.2-3.8The [facility] HospitalComment on above:Performed By: #### HIV12 #### [facility] [address] [place] [address] Dr. Augustine Rodriguezmphocytes/100 WBC (Bld)27.5 %Vwokbf08.5-60.0[facility] Memorial HospitalComment on above:Performed By: #### HIV12 #### [facility] [address] [place] [address] Dr. Augustine SolomonUAL DIFF REQNONormalThe [facility] HospitalComment on above: Performed By: #### HIV12 #### [facility] [address] [place] [address] Dr. Augustine Meadows (RBC) [Entitic mass]29.3 gcMideon63.7-34.0The [facility] HospitalComment on above:Performed By: #### HIV12 #### [facility] [address] [place] [address] Dr. Augustine Monterroso (RBC) [Mass/Vol]33.6 g/pSAlwred26.9-35.2The [facility] HospitalComment on above:Performed By: #### HIV12 #### [facility] [address] [place] [address] Dr. Augustine Monterroso (RBC) [Entitic vol]87.0 nEGmssnl25.0-99.0The [facility] HospitalComment on above:Performed By: #### HIV12 #### [facility] [address] [place] [address] Dr. Augustine Fuentes #0.5 103/ulNormal0.3-0.8The [facility] HospitalComment on above:Performed By: #### HIV12 #### [facility] [address] [place] [address] Dr. Augustine Kenneyocytes/100 WBC (Bld)5.5 %Normal1.7-12.0The [facility] Comment on above:Performed By: #### HIV12 #### [facility] [address] [place] [address] Dr. Augustine Núñez #6.2 103/ulNormal1.4-6.5The [facility] HospitalComment on above:Performed By: #### HIV12 #### [facility] [address] [place] [address] Dr. Augustine Dioputrophils/100 WBC (Bld)63.0 %Nfdgqr70.0-75.0The [facility] HospitalComment on above:Performed By: #### HIV12 #### [facility] [address] [place] [address] Dr. Augustine Epsteinlet mean volume (Bld) [Entitic vol]10.5 fLNormal9.5-13.5The [facility] HospitalComment on above:Performed By: #### HIV12 #### [facility] [address] [address] [address] Augustine LouPLT208 103/wwTdbfqm188-418VfkGreene Memorial HospitalComment on above: Performed By: #### HIV12 #### [facility] [address] [address] [address] Augustine LouRBC3.69 106/ulCritically low4.20-5.40The [facility]walk Memorial HospitalComment on above:Performed By: #### HIV12 #### [facility] [address] [place] [address] Dr. Augustine LouWBC9.9 103/ulNormal4.0-11.0The [facility] HospitalComtr[facility] on above: Performed By: #### HIV12 #### [facility] [address] [place] [address] Dr. Augustine Daniels SCREEN RAPID (URINE)on [id number]Q [facility] HospitalCom[facility] on above:Performed By: #### A1C #### [facility] [address] [place] [address] Dr. Augustine RaineyNegativeNormalNEGATIVEKnox Community Hospital on above: Performed By: #### A1C #### [facility] [address] [place] [address] Dr. Augustine BarnettPNegativeNormalNEGATIVEKnox Community Hospital on above: Performed By: #### A1C #### [facility] [address] [place] [address] Dr. Augustine LouBZONegativeNormalNEGWVUMedicine Barnesville HospitalComtrinity health [facility] on above: Performed By: #### A1C #### [facility] [address] [place] [address] Dr. Augustine EsparzaCNegativeNormalNEGHolzer Health System on above: Performed By: #### A1C #### [facility] [address] [place] [address] Dr. Augustine [facility] HospitalComment on above: Result Comment: AMP (Amphetamine): 500ng/mL, BAR (Barbituates): 200 ng/mL, BZO (Benzodiazepines): 150 ng/mL, BUP (Buprenorphine): 10 ng/mL, FERNANDO (Cocaine): 150 ng/mL, mAMP (Methamphetamine): 500 ng/mL, MTD (Methadone): 200 ng/mL, OPI (Opiates): 100 ng/mL, OXY (Oxycodone): 100 ng/mL, PCP (Phencyclidine): 25 ng/mL, PPX (Propoxyphene): 300 ng/mL, THC (Cannabinoids): 50 ng/mL, TCA (Trycyclic Antidepressants): 300 ng/mLPerformed By: #### A1C #### [facility] [address] [place] [address] Dr. Augustine LouDRUG CUT HEADERDRUG CLASS TEST SYSTEM CUT-OFF CONCENTRATIONS ARE FOLLOWS:NormalKnox Community Hospital on above:Performed By: #### A1C #### [facility] [address] [place] [address] Dr. Augustine LoumAMPNegativeNormalNEGATIVEGreene Memorial HospitalComment on above: Performed By: #### A1C #### [facility] [address] [place] [address] Dr. Augustine LouMTDNegativeNormalNEGATIVEKnox Community Hospital on above: Performed By: #### A1C #### [facility] [address] [place] [address] Dr. Augustine LouOPINegativeNormalNEGATIVEGreene Memorial HospitalComtrinity health [facility] on above: Performed By: #### A1C #### [facility] [address] [place] [address] Dr. Augustine LouOXYNegativeNormalNEGATIVEGreene Memorial HospitalComment on above: Performed By: #### A1C #### [facility] [address] [place] [address] Dr. Augustine LouPCPNegativeNormalNEGATIVEGreene Memorial HospitalComment on above: Performed By: #### A1C #### [facility] [address] [place] [address] Dr. Augustine LouPPXNegativeNormalNEGATIVEGreene Memorial HospitalComment on above: Performed By: #### A1C #### [facility] [address] [address] [address] Augustine LouTCANegativeNormalNEGATIVEGreene Memorial HospitalComment on above: Performed By: #### A1C #### [facility] [address] [address] [address] Augustine LouTHCPositiveAbnormalNEGATIVEGreene Memorial HospitalComment on above: Performed By: #### A1C #### [facility] [address] [address] [address] Augustine Young (CLEAN/CATCH) REPAIRER HANDTOOLS/MICRO IF IND.on 55-40-8050Gmrpprfxw Ql (U) NegativeNormalNEGATIVEFlower Hospitalment on above:Performed By: #### UACSIND #### [facility] [address] [address] [address] Augustine LouClarity (U)CLEARNormalCLEARGreene Memorial HospitalComment on above: Performed By: #### UACSIND #### [facility] [address] [address] [address] Augustine Edwards (U)LT. YELLOWNormalYELLOWGreene Memorial HospitalComtrinity health livingston hospital on above:Performed By: #### UACSIND #### [facility] [address] [address] [address] Augustine LouGlucose Ql (U)NegativeNormalNEGATIVEGreene Memorial HospitalComment on above:Performed By: #### UACSIND #### [facility] [address] [address] [address] Augustine LouHemoglobin Ql (U)NegativeNormalNEGATIVEHolzer Hospital on above:Performed By: #### UACSIND #### [facility] [address] [address] [address] Augustine LouKetones Ql (U)NegativeNormalNEGATIVEGreene Memorial HospitalComment on above:Performed By: #### UACSIND #### [facility] [address] [address] [address] Augustine LouLEUKOCYTESNegativeNormalNEGATIVEThe [facility] HospitalComment on above:Performed By: #### UACSIND #### [facility] [address] [place] [address] Dr. Augustine Coffmantrite Ql (U)NegativeNormalNEGATIVEThe [facility] HospitalComment on above:Performed By: #### UACSIND #### [facility] [address] [place] [address] Dr. Augustine LoupH (U)6.0 [pH]Normal5-9The [facility] HospitalComment on above: Performed By: #### UACSIND #### [facility] [address] [place] [address] Dr. Augustine LouSPEC GRAVITY1.184Wmqtpm7.005-<=1.025The [facility] HospitalComment on above:Performed By: #### UACSIND #### [facility] [address] [place] [address] Dr. Augustine Young PROTEINNegativeNormalNEGATIVE/ TRACEThe [facility] Comment on above:Performed By: #### UACSIND #### [facility] [address] [place] [address] Dr. Augustine Garcia MICRO INDNOT INDICATEDNormalThe [facility] HospitalComment on above:Performed By: #### UACSIND #### [facility] [address] [place] [address] Dr. Augustine Chaconbilinogen Qn (U)0.2 {Erinn'U}/dLNormal0.2 - 1.0The [facility] HospitalComment on above:Performed By: #### UACSIND #### [facility] [address] [place] [address] Dr. Augustine Andrade PREG PLACENTAon [id number] PREG PLACENTAEXAMINATION: US PREG PLACENTA HISTORY: Abdominal pain ; [...] Electronically authenticated by: ALVIN GALDAMEZ Date: 2022-10-16 15:44[facility] HospitalCHLAMYDIA/GONOCOCCUS GISELLE (SWAB/URINE/PAPon 39-12-1990Hkypohbvx trachomatis, NAANegativeNormalNegativeGreene Memorial HospitalComment on above: Performed By: #### SSCRN, GRASTCX #### [facility] [address] [place] [address] Dr. Augustine LouNeisseria gonorrhoeae, NAANegativeNormalNegativeGreene Memorial HospitalComment on above:Performed By: #### SSCRN, GRASTCX #### [facility] [address] [place] [address] Dr. Augustine LouVAGINITIS/VAGINOSIS DNA PROBEon 29-71-3942Oyswwzv speciesNegative NormalNegativeGreene Memorial HospitalComment on above:Performed By: #### ERUR #### [facility] [address] [place] [address] Dr. Augustine Fernandez vaginalisPositiveAbnormalNegativeGreene Memorial HospitalComment on above:Performed By: #### ERUR #### [facility] [address] [place] [address] Dr. Augustine Lynnhomrahat vaginalisNegativeNormalNegativeGreene Memorial Hospital Comment on above:Performed By: #### ERUR #### [facility] [address] [place] [address] Dr. Augustine Sepulveda MATERNAL FOR SPINA BIFIDAon 40-21-0522XVC MoM0.58NoUniversity Hospitals Health SystemComment on above:Performed By: #### AFPMAT #### [facility] [address] [place] [address] Dr. Augustine Sepulveda Value13.6 ng/mLNormalThe [facility] HospitalComment on above: Performed By: #### AFPMAT #### [facility] [address] [place] [address] Dr. Augustine Sepulveda, Serum for Spina BifidaReMagruder Memorial Hospital Comment on above:Performed By: #### AFPMAT #### [facility] [address] [place] [address] Dr. Augustine LlamasmentWood County HospitalComtrinity health livingston hospital on above:Result Comment: Lucero Pelayo, Ph.D., [facility] Director . References: Available Upon Request. . Multiples Of Median Cutoffs For AFP Elevations Malcolm 2.5 Black 2.8 IDD 2.0 Twins 4.5 Abbreviation Definitions IDD - Insulin Dep Diabetes OSBR - Open Spina Bifida Risk . For further inquiries contact [employer] [employer] [facility] at [phone]. . This test was developed and its performance characteristics determined by [employer]. It has not been cleared or approved by the Food and Drug Administration.Performed By: #### AFPMAT #### [facility] [address] [place] [address] Dr. Augustine Gonzalez Age Collection Date15.3 weeksJoint [facility] Comment on above:Performed By: #### AFPMAT #### [facility] [address] [address] [address] Augustine Cavazos, Age Based onUltTriHealthComment on above:Result Comment: 8.9 on 08/14/2022 Recalculations are not recommended when gestational dating by LMP and ultrasound are within 10 days.Performed By: #### AFPMAT #### [facility] [address] [place] [address] Dr. Augustine LouInsulin Dep DiabetesNoNMetroHealth Cleveland Heights Medical CenterComment on above:Performed By: #### AFPMAT #### [facility] [address] [place] [address] Dr. Augustine LouInterpretationWood County HospitalComment on above: Result Comment: Interpretation: Screen Negative . This result is screen [...] Customer Services to discuss available options. The [employer] recommends amniocentesis be offered to women age 35 and older.Performed By: #### AFPMAT #### [facility] [address] [place] [address] Dr. Augustine Price [age] at ED[age] yrJoint Township District Memorial HospitalComment on above:Performed By: #### AFPMAT #### [facility] [address] [place] [address] Dr. Augustine Brisenoipltad GestationNoNormalGreene Memorial HospitalComtrinity health [facility] hospital on above: Performed By: #### AFPMAT #### [facility] [address] [place] [address] Dr. Augustine LouOSBR Risk 1 [id number] Wert County Hospital on above: Performed By: #### AFPMAT #### [facility] [address] [place] [address] Dr. Augustine Wyman.[facility] on above:Performed By: #### AFPMAT #### [facility] [address] [place] [address] Dr. Augustine JainOhioHealth Riverside Methodist Hospital on above:Result Comment: Not provided. .Performed By: #### AFPMAT #### [facility] [address] [place] [address] Dr. Augustine LouTest Results:NegativeVan Wert County Hospital on above: Performed By: #### AFPMAT #### [facility] [address] [place] [address] Dr. Augustine LouCULTKINESY URINEon [id number] URINECulture Observations: LIGHT GROWTH OF MIXED GENITAL PASTOR. NO POTENTIAL PATHOGENS SEEN.[facility] Centerment on above:Performed By: #### AFPMAT #### [facility] [address] [place] [address] Dr. Yilan ChangER URINE PROFILEon 76-07-6414Pwjymicgd Ql (U)NegativeNormal NEGATIVEGreene Memorial HospitalComment on above:Performed By: #### HIV12 #### [facility] [address] [address] [address] Augustine Zelayaarity (U)CLEARNormalCLEARGreene Memorial HospitalComment on above: Performed By: #### HIV12 #### [facility] [address] [address] [address] Augustine Esparzalor (U)YELLOWNormalYELLOWGreene Memorial HospitalComment on above: Performed By: #### HIV12 #### [facility] [address] [address] [address] Augustine RiosIDRIS micrscopic examination will be performed if indicated. NormalGreene Memorial HospitalComment on above:Performed By: #### HIV12 #### [facility] [address] [address] [address] Augustine LouGlucose Ql (U)NegativeNormalNEGATIVEGreene Memorial HospitalComment on above:Performed By: #### HIV12 #### [facility] [address] [address] [address] Augustine LouHemoglobin Ql (U)MODERATEAbnormalNEGATIVEHolzer Hospital on above:Performed By: #### HIV12 #### [facility] [address] [address] [address] Augustine LouKetones Ql (U)NegativeNormalNEGATIVEGreene Memorial HospitalComment on above:Performed By: #### HIV12 #### [facility] [address] [address] [address] Augustine LouLEUKOCYTESNegativeNormalNEGATIVEGreene Memorial HospitalComtrinity health [facility] hospital on above:Performed By: #### HIV12 #### [facility] [address] [address] [address] Augustine LouNitrite Ql (U)NegativeNormalNEGATIVEGreene Memorial HospitalComment on above:Performed By: #### HIV12 #### [facility] [address] [address] [address] Augustine LoupH (U)5.5 [pH]Normal5-9Gre[facility] Memorial HospitalComment on above: Performed By: #### HIV12 #### [facility] [address] [place] [address] Dr. Augustine Brown GRAVITY>=1.267Teaxokdj1.005-<=1.025[facility] Comment on above:Performed By: #### HIV12 #### [facility] [address] [address] [address] Augustine Young PROTEINTRACENormalNEGATIVE/ TRACEThe [facility] HospitalComment on above:Performed By: #### HIV12 #### [facility] [address] [place] [address] Dr. Augustine Garcia MICRO INDINDICATEDJoint Township District Memorial HospitalComment on above: Performed By: #### HIV12 #### [facility] [address] [place] [address] Dr. Augustine Bellamygen Qn (U)0.2 {Erinn'U}/dLNormal0.2 - 1.0Gre[facility] Memorial HospitalComment on above:Performed By: #### HIV12 #### [facility] [address] [place] [address] Dr. Augustine RamirezGNANCY URon [id number], QUALPositiveAbnormalNEGATIVE [facility] HospitalComment on above:Performed By: #### HIV12 #### [facility] [address] [place] [address] Dr. Augustine Holt MICROSCOPIC ONLYon [id number] SEENNormalNONE [facility] Medical CenterComment on above:Performed By: #### HIV12 #### [facility] [address] [place] [address] Dr. Augustine Arroyo identified Cx Nom (U)INDICATEDNormMcCullough-Hyde Memorial HospitalComment on above:Performed By: #### HIV12 #### [facility] [address] [place] [address] Dr. Yilan ChangCASTNONE SEENNormalNONE SEENKnox Community Hospital on above:Performed By: #### HIV12 #### [facility] [address] [address] [address] Augustine Quick LM Nom (Urine sed)NONE SEENNormalNONE SEENThe [facility] HospitalComtrinity health [facility] hospital on above:Performed By: #### HIV12 #### [facility] [address] [address] [address] Augustine Atnoniothelial cells LM Ql (Urine sed)FEWAbnormalNONE SEEN /RAREKnox Community Hospital on above:Performed By: #### HIV12 #### [facility] [address] [place] [address] Dr. Augustine RazoUSMODERATEAbnormalNONE SEENKnox Community Hospital on above:Performed By: #### HIV12 #### [facility] [address] [place] [address] Dr. Augustine ChisholmItmlcKJR59-58Fpnnxfes3-1Knx [facility] on above: Performed By: #### HIV12 #### [facility] [address] [address] [address] Augustine MerrillBC5-10AbnormalNONE SEENKnox Community Hospital on above: Performed By: #### HIV12 #### [facility] [address] [place] [address] Dr. Augustine Dickinson VIRUS AB W/ REFLEX QUANTon 93-52-9451INE AB>11.0 Critically high0.0-0.9[facility] on above:Result Comment: . Performed By: #### PT #### [facility] [address] [address] [address] Augustine Felix rjv54HowtwiUukVan Wert County Hospital on above:Performed By: #### PT #### [facility] [address] [place] [address] Dr. Augustine Stone C QuantitationNot detectedJoint Township District Memorial HospitalComment on above:Performed By: #### PT #### [facility] [address] [place] [address] Dr. Augustine LouInterpretationCommentNoOhioHealth Nelsonville Health Center on above: Result Comment: Positive HCV antibody screen without the presence of HCV RNA is consistent with a resolved past infection or a false positive HCV antibody. Consider repeat testing after one month.Performed By: #### PT #### [address] [address] [address] Augustine LouTest Information:CommentVan Wert County Hospital on above:Result Comment: The quantitative range of this assay is 15 IU/mL to 100 million IU/mL.Performed By: #### PT #### [address] [address] Dr[address] Augustine Stone B SURFACE ANTIGEN SCREENon 34-31-3175PAxDa ScreenNegative NormalNegativeThe [facility] on above:Performed By: #### A1C #### [address] [address] Dr[address] Augustine LouHIV 1 AND 2 WITH REFLEXon [id number] Screen 4th Generation wRfxNon-ReactiveNormalNon ReactiveThe [facility] on above:Result Comment: HIV Negative HIV-1/HIV-2 antibodies and HIV-1 p24 antigen were NOT detected. There is no laboratory evidence of HIV infection.Performed By: #### AFPMAT #### [address] [address] Dr[address] Augustine LouRPR QUANTon 78-83-3149Mkfuj Plasma Reagin, QuantNon-Reactive NormalNonRea<1:1[facility] on above:Result Comment: Please Note: This test does not meet current guidelines for screening and diagnosis of syphilis. This test is intended for following treatment response in patients being treated for syphilis infection. To screen for syphilis infection, a reflex cascade that includes both RPR and a treponema-specific assay should be utilized, such as Treponema pallidum (Syphilis) Screening [place] (082924) or Rapid Plasma Reagin (RPR) Test With Reflex to Quantitative RPR and Confirmatory Treponema pallidum Antibodies (765078).Performed By: #### ERUR #### [facility] [address] [place] [address] Dr. Augustine Roldan AB IGGon 00-38-0387Hrgauou Antibodies, IgG<0.90Critically lowImmune >0.99Gre[facility] HospitalComment on above:Result Comment: Non-immune <0.90 Equivocal 0.90 - 0.99 Immune >0.99Performed By: #### A1C #### [facility] [address] [place] [address] Dr. Augustine Medina AUTO DIFFon 43-61-5521ECJS #0.0 103/ulNormal0.0-0.1The [facility] HospitalComment on above:Performed By: #### A1C #### [facility] [address] [place] [address] Dr. Augustine LouBasophils/100 WBC (Bld)0.2 %Normal0.2-2.0[facility] Comment on above:Performed By: #### A1C #### [facility] [address] [place] [address] Dr. Augustine Wall #0.3 103/ulNormal0.0-0.7The [facility] HospitalComment on above: Performed By: #### A1C #### [facility] [address] [place] [address] Dr. Augustine Mendietaosinophils/100 WBC (Bld)2.6 %Normal0.9-7.0[facility] Comment on above:Performed By: #### A1C #### [facility] [address] [place] [address] Dr. Augustine Mendietarythrocyte distribution width (RBC) [Ratio]12.4 %Xoufhi87.0-15.0 [facility] HospitalComment on above:Performed By: #### A1C #### [facility] [address] [place] [address] Dr. Augustine LouHematocrit (Bld) [Volume fraction]35.7 %Critically low36.0-48.0 [facility] HospitalComment on above:Performed By: #### A1C #### [facility] [address] [address] [address] Augustine LouHemoglobin (Bld) [Mass/Vol]13.3 g/uFBkqrpa06.0-16.0The [facility] HospitalComment on above:Performed By: #### A1C #### [facility] [address] [place] [address] Dr. Augustine Almeida #0.04 10e3/ulCritically high0.00-0.03[facility] Comment on above:Performed By: #### A1C #### [facility] [address] [place] [address] Dr. Augustine Almeida %0.4 %Normal0.0-0.5The [facility] HospitalComment on above: Performed By: #### A1C #### [facility] [address] [place] [address] Dr. Augustine Andrews #3.1 103/ulNormal1.2-3.8The [facility] HospitalComment on above:Performed By: #### A1C #### [facility] [address] [place] [address] Dr. Augustine Bowlinghocytes/100 WBC (Bld)31.1 %Yirxys08.5-60.0The [facility] HospitalComment on above:Performed By: #### A1C #### [facility] [address] [place] [address] Dr. Augustine SolomonUAL DIFF REQNONormalThe [facility] HospitalComment on above: Performed By: #### A1C #### [facility] [address] [place] [address] Dr. Augustine Monterroso (RBC) [Entitic mass]29.5 gwSgaymj66.7-34.0The [facility] HospitalComment on above:Performed By: #### A1C #### [facility] [address] [place] [address] Dr. Augustine MonterrosoHC (RBC) [Mass/Vol]37.3 g/dLCritically high29.9-35.2The [facility] HospitalComment on above:Performed By: #### A1C #### [facility] [address] [address] [address] Augustine MonterrosoV (RBC) [Entitic vol]79.2 fLCritically low81.0-99.0The [facility] HospitalComment on above:Performed By: #### A1C #### [facility] [address] [place] [address] Dr. Augustine Fuentes #0.5 103/ulNormal0.3-0.8The [facility] HospitalComment on above:Performed By: #### A1C #### [facility] [address] [place] [address] Dr. Augustine Kenneyocytes/100 WBC (Bld)4.8 %Normal1.7-12.0[facility] Comment on above:Performed By: #### A1C #### [facility] [address] [place] [address] Dr. Augustine DiopUT #6.1 103/ulNormal1.4-6.5The [facility] HospitalComment on above:Performed By: #### A1C #### [facility] [address] [place] [address] Dr. Augustine Dioputrophils/100 WBC (Bld)60.9 %Zyxxhi97.0-75.0The [facility] HospitalComment on above:Performed By: #### A1C #### [facility] [address] [place] [address] Dr. Augustine Epsteinlet mean volume (Bld) [Entitic vol]10.7 fLNormal9.5-13.5The [facility] HospitalComment on above:Performed By: #### A1C #### [facility] [address] [place] [address] Dr. Augustine LouPLT228 103/ngRreyht873-880Hsz [facility] HospitalComment on above: Performed By: #### A1C #### [facility] [address] [place] [address] Dr. Augustine LouRBC4.51 106/ulNormal4.20-5.40The [facility] HospitalComment on above:Performed By: #### A1C #### [facility] [address] [place] [address] Dr. Augustine LouWBC10.0 103/ulNormal4.0-11.0The [facility] Hospitalment on above:Performed By: #### A1C #### [facility] [address] [place] [address] Dr. Augustine LouCULTURE URINEon 91-77-9527RHUEGIT URINECulture Observations: NO GROWTH.NormalThe [facility] HospitalComment on above:Performed By: #### AFPMAT #### [facility] [address] [place] [address] Dr. Augustine LouGLYCOHEMOGLOBIN A1Con [id number] RECOMMENDATIONSEE BELOWNormal The [facility] on above:Result Comment: ADA RECOMMENDED LIMIT 4.0 - 6.0 ADA THERAPEUTIC TARGET < 7.0 ACTION SUGGESTED > 7.0Performed By: #### A1C #### [facility] [address] [place] [address] Dr. Augustine LouGlucose [Mass/Vol]105 mg/dLNoOhioHealth Nelsonville [facility] Center on above:Performed By: #### A1C #### [facility] [address] [place] [address] Dr. Augustine LouHbA1c (Bld) [Mass fraction]5.3 %Normal4.5-6.2The [facility] on above:Performed By: #### A1C #### [facility] [address] [place] [address] Dr. Augustine Shahid BOX TEST PT SEND OUTon [id number] TO REF LAB09/01/2021 [facility] above:Performed By: #### A1C #### [facility] [address] [place] [address] Dr. Augustine LouTYPE AND SCREENon 71-30-6516WCTM AND SCREENNegativeJoint Township District Memorial HospitalComtr[facility] on above:Performed By: #### AFPMAT #### [facility] [address] [place] [address] Dr. Augustine Medina AUTO DIFFon 25-70-1564RHHP #0.0 103/ulNormal0.0-0.1The [facility] on above:Performed By: #### CBC #### [facility] [address] [address] [address] Augustine LouBasophils/100 WBC (Bld)0.1 %Critically low0.2-2.0The [facility] HospitalComment on above:Performed By: #### CBC #### [facility] [address] [address] [address] Augustine Wall #0.2 103/ulNormal0.0-0.7The [facility] HospitalComment on above: Performed By: #### CBC #### [facility] [address] [place] [address] Dr. Augustine Mendietaosinophils/100 WBC (Bld)2.1 %Normal0.9-7.0The [facility] Comment on above:Performed By: #### CBC #### [facility] [address] [place] [address] Dr. Augustine eMndietarythrocyte distribution width (RBC) [Ratio]12.9 %Cbppqm82.0-15.0 [facility] on above:Performed By: #### CBC #### [facility] [address] [place] [address] Dr. Augustine oLuHematocrit (Bld) [Volume fraction]38.8 %Etdthm52.0-48.0The [facility] HospitalComment on above:Performed By: #### CBC #### [facility] [address] [place] [address] Dr. Augustine LouHemoglobin (Bld) [Mass/Vol]11.9 g/dLCritically low12.0-16.0The [facility] on above:Performed By: #### CBC #### [facility] [address] [place] [address] Dr. Augustine Almeida #0.02 10e3/ulNormal0.00-0.03The [facility]ment on above:Performed By: #### CBC #### [facility] [address] [address] [address] Augustine Almeida %0.2 %Normal0.0-0.5The [facility] HospitalComtr[facility] on above: Performed By: #### CBC #### [facility] [address] [place] [address] Dr. Augustine Andrews #2.1 103/ulNormal1.2-3.8The [facility] HospitalComment on above:Performed By: #### CBC #### [facility] [address] [place] [address] Dr. Augustine Bowlinghocytes/100 WBC (Bld)25.8 %Ytqxub66.5-60.0The [facility] on above:Performed By: #### CBC #### [facility] [address] [place] [address] Dr. Augustine Dhaliwal DIFF REQNONormalThe [facility] HospitalComment on above: Performed By: #### CBC #### [facility] [address] [place] [address] Dr. Augustine Monterroso (RBC) [Entitic mass]29.0 wbHjedpo28.7-34.0The [facility]ment on above:Performed By: #### CBC #### [facility] [address] [place] [address] Dr. Augustine Monterroso (RBC) [Mass/Vol]30.7 g/uHPbidul77.9-35.2The [facility] on above:Performed By: #### CBC #### [facility] [address] [place] [address] Dr. Augustine Monterroso (RBC) [Entitic vol]94.4 lVUmkozi92.0-99.0The [facility] on above:Performed By: #### CBC #### [facility] [address] [place] [address] Dr. Augustine Fuentes #0.6 103/ulNormal0.3-0.8The [facility] HospitalComment on above:Performed By: #### CBC #### [facility] [address] [address] [address] Augustine Kenneyocytes/100 WBC (Bld)7.5 %Normal1.7-12.0[facility] on above:Performed By: #### CBC #### [facility] [address] [place] [address] Dr. Augustine DiopUT #5.1 103/ulNormal1.4-6.5The [facility] HospitalComment on above:Performed By: #### CBC #### [facility] [address] [place] [address] Dr. Augustine Dioputrophils/100 WBC (Bld)64.3 %Xsaunc93.0-75.0The [facility] HospitalComment on above:Performed By: #### CBC #### [facility] [address] [place] [address] Dr. Augustine LouPlatelet mean volume (Bld) [Entitic vol]11.0 fLNormal9.5-13.5The [facility] HospitalComment on above:Performed By: #### CBC #### [facility] [address] [place] [address] Dr. Augustine LouPLT234 103/puTyjejn548-220Wch [facility] HospitalComment on above: Performed By: #### CBC #### [facility] [address] [place] [address] Dr. Augustine LouRBC4.11 106/ulCritically low4.20-5.40The [facility] Hospitalment on above:Performed By: #### CBC #### [facility] [address] [place] [address] Dr. Augustine LouWBC8.0 103/ulNormal4.0-11.0The [facility] HospitalComtr[facility] on above: Performed By: #### CBC #### [facility] [address] [place] [address] Dr. Bradshaw ChangER URINE PROFILEon 13-98-5692Ixazeycfq Ql (U)NegativeNormal NEGATIVEThe [facility] HospitalComment on above:Performed By: #### HIV12 #### [facility] [address] [address] [address] Augustine LouClarity (U)CLEARNormalCLEARGreene Memorial HospitalComment on above: Performed By: #### HIV12 #### [facility] [address] [address] [address] Augustine Esparzalor (U)YELLOWNormalYELLOWGreene Memorial HospitalComment on above: Performed By: #### HIV12 #### [facility] [address] [address] [address] Augustine Tello micrscopic examination will be performed if indicated. NormalGreene Memorial HospitalComment on above:Performed By: #### HIV12 #### [facility] [address] [address] [address] Augustine LouGlucose Ql (U)NegativeNormalNEGATIVEGreene Memorial HospitalComment on above:Performed By: #### HIV12 #### [facility] [address] [address] [address] Augustine LouHemoglobin Ql (U)NegativeNormalNEGATIVEHolzer Hospital on above:Performed By: #### HIV12 #### [facility] [address] [address] [address] Augustine LouKetones Ql (U)NegativeNormalNEGATIVEGreene Memorial HospitalComment on above:Performed By: #### HIV12 #### [facility] [address] [address] [address] Augustine LouLEUKOCYTESNegativeNormalNEGATIVEGreene Memorial HospitalComment on above:Performed By: #### HIV12 #### [facility] [address] [address] [address] Augustine LouNitrite Ql (U)NegativeNormalNEGATIVEGreene Memorial HospitalComment on above:Performed By: #### HIV12 #### [facility] [address] [address] [address] Augustine LoupH (U)6.0 [pH]Normal5-9[facility] HospitalComment on above: Performed By: #### HIV12 #### [facility] [address] [address] [address] Augustine LouSPEC GRAVITY1.323Vyewgr5.005-<=1.025The [facility] HospitalComment on above:Performed By: #### HIV12 #### [facility] [address] [place] [address] Dr. Augustine Young PROTEINNegativeNormalNEGATIVE/ TRACEThe [facility] Comment on above:Performed By: #### HIV12 #### [facility] [address] [place] [address] Dr. Augustine Garcia MICRO INDNOT INDICATEDNormalThe [facility] HospitalComment on above:Performed By: #### HIV12 #### [facility] [address] [place] [address] Dr. Augustine Chaconbilinogen Qn (U)0.2 {Erinn'U}/dLNormal0.2 - 1.0The [facility] HospitalComment on above:Performed By: #### HIV12 #### [facility] [address] [place] [address] Dr. Augustine LouPROF 14(COMP METB)on 71-52-9326Wxjvsot [Mass/Vol]3.1 g/dL Critically low3.4-5.0The [facility] HospitalComment on above:Performed By: #### HIV12 #### [facility] [address] [place] [address] Dr. Augustine LouAlbumin/Globulin [Mass ratio]0.7 {ratio}NormalThe [facility] HospitalComment on above:Performed By: #### HIV12 #### [facility] [address] [place] [address] Dr. Augustine Fontaine [Catalytic activity/Vol]47 U/WGkecge80-426Jpn [facility] HospitalComment on above:Performed By: #### HIV12 #### [facility] [address] [place] [address] Dr. Augustine Scanlon [Catalytic activity/Vol]15 U/JEkqtzt96-10Nux [facility]erv[facility] HospitalComment on above:Performed By: #### HIV12 #### [facility] [address] [address] [address] Augustine Nguyen gap [Moles/Vol]10.6 mmol/LNormalThe [facility] Comment on above:Performed By: #### HIV12 #### [facility] [address] [address] [address] Augustine LouAST [Catalytic activity/Vol]11 U/LCritically iph78-71Xxe [facility] HospitalComment on above:Performed By: #### HIV12 #### [facility] [address] [address] [address] Augustine LouBilirubin [Mass/Vol]0.2 mg/dLNormal0.2-1.0[facility] Comment on above:Performed By: #### HIV12 #### [facility] [address] [address] [address] Augustine LouCalcium [Mass/Vol]9.3 mg/dLNormal8.5-10.1[facility] Comment on above:Performed By: #### HIV12 #### [facility] [address] [address] [address] Augustine LouChloride [Moles/Vol]104 mmol/PAhcoou83-387HnsGreene Memorial Hospital Comment on above:Performed By: #### HIV12 #### [facility] [address] [address] [address] Augustine LouCO2 [Moles/Vol]26.9 mmol/XGomfkw04.0-32.0[facility] Comment on above:Performed By: #### HIV12 #### [facility] [address] [address] [address] Augustine LouCreatinine [Mass/Vol]0.59 mg/dLNormal0.55-1.02The [facility] HospitalComment on above:Performed By: #### HIV12 #### [facility] [address] [address] [address] Bradshaw ChangEGFR-AF CHADIAN>60Normal>=60The [facility] HospitalComment on above:Performed By: #### HIV12 #### [facility] [address] [address] [address] Augustine MendietaGFR-NON AF CHADIAN>60Normal>=60The [facility] HospitalComment on above:Performed By: #### HIV12 #### [facility] [address] [address] [address] Augustine LouGlobulin (S) [Mass/Vol]4.2 g/dLNormMcCullough-Hyde Memorial HospitalComment on above:Performed By: #### HIV12 #### [facility] [address] [address] [address] Augustine LouGlucose [Mass/Vol]93 mg/kGRpznop88-250MjdGreene Memorial Hospital Comment on above:Performed By: #### HIV12 #### [facility] [address] [address] [address] Augustine LouPotassium [Moles/Vol]3.5 mmol/LNormal3.5-5.1[facility] Comment on above:Performed By: #### HIV12 #### [facility] [address] [address] [address] Augustine LouProtein [Mass/Vol]7.3 g/dLNormal6.4-8.2[facility] Comment on above:Performed By: #### HIV12 #### [facility] [address] [address] [address] Augustine LouSodium [Moles/Vol]138 mmol/SJgnipy254-638KkfGreene Memorial Hospital Comment on above:Performed By: #### HIV12 #### [facility] [address] [address] [address] Augustine LouUrea nitrogen [Mass/Vol]7.0 mg/dLNormal7.0-18.0The [facility] HospitalComment on above:Performed By: #### HIV12 #### [facility] [address] [address] [address] Auugstine LouUrea nitrogen/Creatinine [Mass ratio]11.9 mg/mgNormMcCullough-Hyde Memorial HospitalComment on above:Performed By: #### HIV12 #### [facility] [address] [address] [address] Augustine Andrade SINGLE QUAD RT UPPERon [id number] SINGLE QUAD RT UPPEREXAM: US SINGLE QUAD RT UPPER HISTORY: . [...] Electronically authenticated by: LIUDMILA CAMARA Date: 2022-08-24 08:36NoUniversity Hospitals Health SystemUS PREG TVon [id number] PREG TVEXAMINATION: US PREG TV HISTORY: Missed period COMPARISON: [...] weeks 6 days Electronically authenticated by: LIUDMILA MARTÍNEZ Date: 2022-08-15 16:01[facility] HospitalCovid-19 PCR (CVDTBH)on [id number]-CoV-2 (COVID-19) RNA GISELLE+probe Ql (Unsp spec)Not detectedNormalNOT DETECTEDThe [facility] Comment on above:Result Comment: This test is not yet approved or cleared by the [place] FDA. When there are no FDA-approved or cleared tests available, and other criteria are met, FDA can make tests available under an emergency access mechanism called an Emergency Use Authorization (EUA). The EUA for this test is supported by the [place] of Health and Human Service's (HHS's) declaration that circumstances exist to justify the emergency use of in vitro diagnostics for the detection and/or diagnosis of the virus that causes COVID- 19. This EUA will remain in effect (meaning [...] of clinical signs and symptoms consistent with SARS-CoV-2.Performed By: #### AFPMAT #### [facility] [address] [place] [address] Dr. Augustine Alonso URINE PROFILEon 49-04-2764Ahtjhcpsm Ql (U)NegativeNormal NEGATIVEGreene Memorial HospitalComment on above:Performed By: #### CBC #### [facility] [address] [place] [address] Dr. Augustine Holcomb (U)CLEARNormalCLEARGreene Memorial HospitalComment on above: Performed By: #### CBC #### [facility] [address] [place] [address] Dr. Augustine Edwards (U)YELLOWNormalYELLOWGreene Memorial HospitalComment on above: Performed By: #### CBC #### [facility] [address] [place] [address] Dr. Augustine Tello micrscopic examination will be performed if indicated. NormalGreene Memorial HospitalComment on above:Performed By: #### CBC #### [facility] [address] [place] [address] Dr. Augustine LouGlucose Ql (U)NegativeNormalNEGATIVEGreene Memorial HospitalComment on above:Performed By: #### CBC #### [facility] [address] [place] [address] Dr. Augustine LouHemoglobin Ql (U)NegativeNormalNEGATIVEGreene Memorial Hospital Comment on above:Performed By: #### CBC #### [facility] [address] [address] [address] Augustine Villagran Ql (U)TRACEAbnormalNEGATIVEThe [facility] HospitalComment on above:Performed By: #### CBC #### [facility] [address] [address] [address] Augustine LouLEUKOCYTESNegativeNormalNEGATIVEThe [facility] HospitalComment on above:Performed By: #### CBC #### [facility] [address] [address] [address] Augustine Coffmantrite Ql (U)NegativeNormalNEGATIVEThe [facility] HospitalComment on above:Performed By: #### CBC #### [facility] [address] [place] [address] Dr. Augustine LoupH (U)5.5 [pH]Normal5-9The [facility] HospitalComment on above: Performed By: #### CBC #### [facility] [address] [place] [address] Dr. Augustine LouSPEC GRAVITY>=1.125Acwjaswt9.005-<=1.025The [facility] Comment on above:Performed By: #### CBC #### [facility] [address] [place] [address] Dr. Augustine Young PROTEINTRACENormalNEGATIVE/ TRACEGreene Memorial HospitalComment on above:Performed By: #### CBC #### [facility] [address] [place] [address] Dr. Augustine Garcia MICRO INDNOT INDICATEDNoalThe [facility] HospitalComment on above:Performed By: #### CBC #### [facility] [address] [address] [address] Augustine Chaconbilinogen Qn (U)0.2 {Erinn'U}/dLNormal0.2 - 1.0The [facility] HospitalComment on above:Performed By: #### CBC #### [facility] [address] [place] [address] Dr. Augustine Walsh A STREP CULTUREon 07-26-2022. pyogenes Ag Ql (Unsp spec) Culture Observations: NEGATIVE FOR GROUP A STREPTOCOCCUS.NormalThe [facility] Hospitalment on above: Performed By: #### SSCRN, GRASTCX #### [facility] [address] [place] [address] Dr. Augustine Ledezma A AND B AGon [id number] BELOWJoint Township District Memorial HospitalComment on above:Result Comment: Negative for Flu A protein angiten. Infection due to Flu A cannot be ruled out. FluA angiten in the sample may be below the detection limit of the test.Performed By: #### A1C #### [facility] [address] [place] [address] Dr. Augustine IrbyUBNEGHSEE [facility] Hospital - WestComment on above: Result Comment: Negative for Flu B protein antigen. Infection due to Flu B cannot be ruled out. FluB antigen in the sample may be below the detection limit of the test.Performed By: #### A1C #### [facility] [address] [place] [address] Dr. Augustine Araiza AGNegativeNormalNEGATIVE SEE COMMENTThe [facility] on above:Performed By: #### A1C #### [facility] [address] [place] [address] Dr. Augustine Davis AGNegativeNormalNEGATIVE SEE COMMENTThe [facility] HospitalComtrinity health [facility] on above:Performed By: #### A1C #### [facility] [address] [place] [address] Dr. Augustine LouSTREPT SCREENon [id number] SCREEN ANegativeNormalNEGATIVEThe [facility] Hospitalment on above:Performed By: #### SSCRN, GRASTCX #### [facility] [address] [place] [address] Dr. Augustine Medina AUTO DIFFon [id number] #0.1 103/ulNormal0.0-0.1The [facility] HospitalComment on above:Performed By: #### AFPMAT #### [facility] [address] [place] [address] Dr. Augustine LouBasophils/100 WBC (Bld)0.6 %Normal0.2-2.0The [facility] Comment on above:Performed By: #### AFPMAT #### [facility] [address] [place] [address] Dr. Augustine Wall #0.4 103/ulNormal0.0-0.7The [facility] HospitalComment on above: Performed By: #### AFPMAT #### [facility] [address] [place] [address] Dr. Augustine Mendietaosinophils/100 WBC (Bld)5.1 %Normal0.9-7.0The [facility] Comment on above:Performed By: #### AFPMAT #### [facility] [address] [place] [address] Dr. Augustine Mendietarythrocyte distribution width (RBC) [Ratio]13.2 %Wfptgs08.0-15.0 The [facility] HospitalComment on above:Performed By: #### AFPMAT #### [facility] [address] [place] [address] Dr. Augustine LouHematocrit (Bld) [Volume fraction]38.6 %Cghydy28.0-48.0The [facility] HospitalComment on above:Performed By: #### AFPMAT #### [facility] [address] [place] [address] Dr. Augustine LouHemoglobin (Bld) [Mass/Vol]13.1 g/iEGkckri95.0-16.0The [facility] HospitalComment on above:Performed By: #### AFPMAT #### [facility] [address] [place] [address] Dr. Augustine Almeida #0.03 10e3/ulNormal0.00-0.03The [facility] HospitalComment on above:Performed By: #### AFPMAT #### [facility] [address] [place] [address] Dr. Augustine LouIG %0.4 %Normal0.0-0.5The [facility] HospitalComment on above: Performed By: #### AFPMAT #### [facility] [address] [place] [address] Dr. Augustine Andrews #2.4 103/ulNormal1.2-3.8The [facility] HospitalComment on above:Performed By: #### AFPMAT #### [facility] [address] [place] [address] Dr. Augustine Bowlinghocytes/100 WBC (Bld)27.9 %Alzxeq37.5-60.0The [facility] HospitalComment on above:Performed By: #### AFPMAT #### [facility] [address] [place] [address] Dr. Augustine Dhaliwal DIFF REQNONormalThe [facility] HospitalComment on above: Performed By: #### AFPMAT #### [facility] [address] [place] [address] Dr. Augustine Meadows (RBC) [Entitic mass]29.9 hqQivgme29.7-34.0The [facility] HospitalComment on above:Performed By: #### AFPMAT #### [facility] [address] [place] [address] Dr. Augustine Monterroso (RBC) [Mass/Vol]33.9 g/mWJycode17.9-35.2The [facility] HospitalComment on above:Performed By: #### AFPMAT #### [facility] [address] [place] [address] Dr. Augustine Monterroso (RBC) [Entitic vol]88.1 tCPvsdwu04.0-99.0The [facility] HospitalComment on above:Performed By: #### AFPMAT #### [facility] [address] [place] [address] Dr. Augustine Fuentes #0.5 103/ulNormal0.3-0.8The [facility] HospitalComment on above:Performed By: #### AFPMAT #### [facility] [address] [place] [address] Dr. Augustine Kenneyocytes/100 WBC (Bld)5.6 %Normal1.7-12.0The [facility] Comment on above:Performed By: #### AFPMAT #### [facility] [address] [place] [address] Dr. Augustine Núñez #5.1 103/ulNormal1.4-6.5The [facility] HospitalComment on above:Performed By: #### AFPMAT #### [facility] [address] [place] [address] Dr. Augustine Dioputrophils/100 WBC (Bld)60.4 %Artjed87.0-75.0The [facility] HospitalComment on above:Performed By: #### AFPMAT #### [facility] [address] [place] [address] Dr. Augustine LouPlatelet mean volume (Bld) [Entitic vol]11.4 fLNormal9.5-13.5The [facility] HospitalComment on above:Performed By: #### AFPMAT #### [facility] [address] [place] [address] Dr. Augustine LouPLT339 103/gnSnuoko581-234Hgo [facility] HospitalComment on above: Performed By: #### AFPMAT #### [facility] [address] [place] [address] Dr. Augustine LouRBC4.38 106/ulNormal4.20-5.40The [facility] HospitalComment on above:Performed By: #### AFPMAT #### [facility] [address] [place] [address] Dr. Augustine LouWBC8.4 103/ulNormal4.0-11.0The [facility] HospitalComment on above: Performed By: #### AFPMAT #### [facility] [address] [place] [address] Dr. Bradshaw ChangER URINE PROFILEon 98-51-0585Mvkqxldfl Ql (U)NegativeNormal NEGATIVEThe [facility] HospitalComment on above:Performed By: #### ERUR #### [facility] [address] [address] [address] Augustine LouClarity (U)CLEARNormalCLEARGreene Memorial HospitalComment on above: Performed By: #### ERUR #### [facility] [address] [address] [address] Augustine Esparzalor (U)YELLOWNormalYELLOWGreene Memorial HospitalComment on above: Performed By: #### ERUR #### [facility] [address] [place] [address] Dr. Augustine Tello micrscopic examination will be performed if indicated. NormalThe [facility] HospitalComment on above:Performed By: #### ERUR #### [facility] [address] [place] [address] Dr. Augustine LouGlucose Ql (U)NegativeNormalNEGATIVEGreene Memorial HospitalComment on above:Performed By: #### ERUR #### [facility] [address] [place] [address] Dr. Augustine LouHemoglobin Ql (U)NegativeNormalNEGATIVEHolzer Hospital on above:Performed By: #### ERUR #### [facility] [address] [place] [address] Dr. Auugstine LouKetones Ql (U)NegativeNormalNEGATIVEGreene Memorial HospitalComment on above:Performed By: #### ERUR #### [facility] [address] [place] [address] Dr. Augustine LouLEUKOCYTESNegativeNormalNEGATIVEGreene Memorial HospitalComment on above:Performed By: #### ERUR #### [facility] [address] [address] [address] Augustine LouNitrite Ql (U)NegativeNormalNEGATIVEGreene Memorial HospitalComment on above:Performed By: #### ERUR #### [facility] [address] [place] [address] Dr. Augustine LoupH (U)7.0 [pH]Normal5-9Gre[facility] HospitalComment on above: Performed By: #### ERUR #### [facility] [address] [place] [address] Dr. Augustine LouSPEC GRAVITY1.123Yfrdzo1.005-<=1.025The [facility] HospitalComment on above:Performed By: #### ERUR #### [facility] [address] [place] [address] Dr. Augustine Young PROTEINNegativeNormalNEGATIVE/ TRACEGreene Memorial Hospital Comment on above:Performed By: #### ERUR #### [facility] [address] [place] [address] Dr. Augustine Garcia MICRO INDNOT [facility] Medical CenterComment on above:Performed By: #### ERUR #### [facility] [address] [place] [address] Dr. Augustine Chaconbilinogen Qn (U)0.2 {Erinn'U}/dLNormal0.2 - 1.0The [facility] HospitalComment on above:Performed By: #### ERUR #### [facility] [address] [place] [address] Dr. Augustine Awad QUANT HCGon [id number] WAKWM2734 mIU/mLNormalGreene Memorial HospitalComment on above:Performed By: #### CBC #### [facility] [address] [place] [address] Dr. Augustine Gonzalez RANGESEE [facility] - WestComment on above: Result Comment: 5-50 0.2-1 WEEK 50-500 1-2 WEEKS 100-5,000 2-3 WEEKS 500-10,000 3-4 WEEKS 1,000-50,000 4-5 WEEKS 10,000-100,000 5-6 WEEKS 15,000-200,000 6-8 WEEKS 10,000-100,000 2-3 MONTHSPerformed By: #### CBC #### [facility] [address] [place] [address] Dr. Augustine LouPROF 14(COMP METB)on 58-86-1531Ichdzvh [Mass/Vol]3.2 g/dL Critically low3.4-5.0The [facility] HospitalComment on above:Performed By: #### A1C #### [facility] [address] [address] [address] Augustine LouAlbumin/Globulin [Mass ratio]0.8 {ratio}NormalThe [facility] HospitalComment on above:Performed By: #### A1C #### [facility] [address] [address] [address] Augustine BassettP [Catalytic activity/Vol]54 U/WWlbgpo14-145Ckz [facility] HospitalComment on above:Performed By: #### A1C #### [facility] [address] [address] [address] Augustine BassettT [Catalytic activity/Vol]16 U/KWxsrdd72-01Sex [facility] HospitalComment on above:Performed By: #### A1C #### [facility] [address] [place] [address] Dr. Augustine Perkinson gap [Moles/Vol]13.2 mmol/LNormalThe [facility] Comment on above:Performed By: #### A1C #### [facility] [address] [place] [address] Dr. Augustine LouAST [Catalytic activity/Vol]21 U/WCgdotr68-02Kpr [facility] HospitalComment on above:Performed By: #### A1C #### [facility] [address] [place] [address] Dr. Augustine LouBilirubin [Mass/Vol]0.2 mg/dLNormal0.2-1.0The [facility] Comment on above:Performed By: #### A1C #### [facility] [address] [place] [address] Dr. Augustine LouCalcium [Mass/Vol]9.0 mg/dLNormal8.5-10.1The [facility] Comment on above:Performed By: #### A1C #### [facility] [address] [place] [address] Dr. Augustine LouChloride [Moles/Vol]105 mmol/SGbciby69-088Rxm [facility] Comment on above:Performed By: #### A1C #### [facility] [address] [address] [address] Augustine LouCO2 [Moles/Vol]24.9 mmol/ZMbuuli59.0-32.0The [facility] Comment on above:Performed By: #### A1C #### [facility] [address] [address] [address] Augustine LouCreatinine [Mass/Vol]0.58 mg/dLNormal0.55-1.02The [facility] HospitalComment on above:Performed By: #### A1C #### [facility] [address] [address] [address] Bradshaw ChangEGFR-AF CHADIAN>60Normal>=60The [facility] HospitalComment on above:Performed By: #### A1C #### [facility] [address] [address] [address] Augustine MendietaGFR-NON AF CHADIAN>60Normal>=60The [facility] HospitalComment on above:Performed By: #### A1C #### [facility] [address] [address] [address] Augustine LouGlobulin (S) [Mass/Vol]4.1 g/dLNormalThe [facility] HospitalComment on above:Performed By: #### A1C #### [facility] [address] [address] [address] Augustine LouGlucose [Mass/Vol]96 mg/fEFtcocq39-676Evg [facility] Comment on above:Performed By: #### A1C #### [facility] [address] [address] [address] Augustine LouPotassium [Moles/Vol]4.1 mmol/LNormal3.5-5.1The [facility] Comment on above:Performed By: #### A1C #### [facility] [address] [address] [address] Augustine LouProtein [Mass/Vol]7.3 g/dLNormal6.4-8.2The [facility] Comment on above:Performed By: #### A1C #### [facility] [address] [place], [place] [address] Dr. Augustine LouSodium [Moles/Vol]139 mmol/QUceruz562-494Dgw [facility] Comment on above:Performed By: #### A1C #### [facility] [address] [address] [address] Augustine LouUrea nitrogen [Mass/Vol]10.0 mg/dLNormal7.0-18.0The [facility] HospitalComment on above:Performed By: #### A1C #### [facility] [address] [address] [address] Augustine Saravia nitrogen/Creatinine [Mass ratio]17.2 mg/mgNoUniversity Hospitals Health SystemComment on above:Performed By: #### A1C #### [facility] [address] [address] [address] Augustine Andrade APPENDIXon [id number] APPENDIXINDICATION: Acute appendicitis EXAMINATION: Ultrasound US APPENDIX TECHNIQUE: [...] Electronically authenticated by: JOSEPH KWAN Date: 2022-07-17 17:54NoUniversity Hospitals Health SystemUS PREG TVon [id number] PREG TVEXAM: US PREG TV HISTORY: Ectopic COMPARISON: CT [...] Electronically authenticated by: YADY COPELAND Date: 2022-07-17 18:16[facility] Memorial HospitalPREG QUANT HCGon [id number] COKAO427 mIU/mLNormalGreene Memorial HospitalComment on above:Performed By: #### PT #### [facility] [address] [place] [address] Dr. Augustine LouHawa Select [facility] Hospital - TrumbullComment on above: Result Comment: 5-50 0.2-1 WEEK 50-500 1-2 WEEKS 100-5,000 2-3 WEEKS 500-10,000 3-4 WEEKS 1,000-50,000 4-5 WEEKS 10,000-100,000 5-6 WEEKS 15,000-200,000 6-8 WEEKS 10,000-100,000 2-3 MONTHSPerformed By: #### PT #### [facility] [address] [place] [address] Dr. Augustine Brady-19 PCR ([facility]GOD[facility])on [id number]-CoV-2 (COVID-19) RNA GISELLE+probe Ql (Unsp spec)Not detectedNormalNOT DETECTEDGreene Memorial Hospital Comment on above:Result Comment: When diagnostic testing is negative, the [...] for this test is supported by the Raw Sampler of Health and Human Service's declaration that circumstances exist to justify the emergency use of in vitro diagnostics for the detection and/or diagnosis of the virus that causes COVID-19. This EUA will remain in effect for the duration of the COVID-19 declaration justifying emergency of IVDs, unless it is terminated or revoked by the FDA (after which the test may no longer be used).Performed By: #### PT #### [facility] [address] [place] [address] Dr. Augustine Araiza AND B AGon [id number] Marion General Hospital on above:Result Comment: Negative for Flu A protein angiten. Infection due to Flu A cannot be ruled out. FluA angiten in the sample may be below the detection limit of the test.Performed By: #### ERUR #### [facility] [address] [place] [address] Dr. Augustine IrbyUBNEGNIKOLAY [facility] on above: Result Comment: Negative for Flu B protein antigen. Infection due to Flu B cannot be ruled out. FluB antigen in the sample may be below the detection limit of the test.Performed By: #### ERUR #### [facility] [address] [place] [address] Dr. Augustine Araiza AGNegativeNormalNEGATIVE SEE COMMENTThe [facility] on above:Performed By: #### ERUR #### [facility] [address] [place] [address] Dr. Augustine Davis AGNegativeNormalNEGATIVE SEE COMMENTThe [facility] on above:Performed By: #### ERUR #### [facility] [address] [place] [address] Dr. Augustine LouINTERNAL CONTROLSWithin Normal LimitsNormalWithin Normal Limits [facility] on above:Performed By: #### ERUR #### [facility] [address] [place] [address] Dr. Augustine LouPREGNANCY URon [id number], QUALNegativeNormalNEGATIVEThe [facility]ain Hospitalment on above:Performed By: #### ERUR #### [facility] [address] [place] [address] Dr. Augustine LouXR CHEST 1 Von [id number] CHEST 1 VEXAMINATION: XR CHEST 1 V HISTORY: Cough COMPARISON: None. TECHNIQUE: Portable chest FINDINGS: The lung parenchyma is free of consolidation or infiltrate. No pneumothorax or pleural effusion. The cardiac, mediastinal and hilar contours are normal. The visualized osseous structures exhibit no gross abnormality. IMPRESSION: No acute cardiopulmonary abnormality. Electronically authenticated by: LIUDMILA MCKEON Date: 2022-06-27 18:03[facility] C VIRUS GENOTYPING, NONREFLEXon [id number] C GenotypeCommentVan Wert County Hospital on above:Result Comment: Specimen has insufficient hepatitis C virus RNA to obtain genotyping results. This genotyping assay should only be used for known HCV positive patients with HCV RNA levels above 1000 IU/mL.Performed By: #### A1C #### [facility] [address] [place] [address] Dr. Augustine Osmanase note:[facility] on above: Result Comment: This test was developed and its performance characteristics determined by [employer]. It has not been cleared or approved by the U.S. Food and Drug Administration. . The FDA has determined that such clearance or approval is not necessary. This test is used for clinical purposes. It should not be regarded as investigational or for research.Performed By: #### A1C #### [facility] [address] [place] [address] Dr. Augustine Morse C VIRUS AB W/ REFLEX QUANTon [id number] AB>11.0 Critically high0.0-0.9The [facility] on above:Result Comment: . Performed By: #### A1C #### [facility] [address] [place] [address] Dr. Augustine LouHCV oim40UslmqmRoaUniversity Hospitals Health SystemComment on above:Performed By: #### A1C #### [facility] [address] [place] [address] Dr. Augustine Stone C QuantitationNot detectedJoint Township District Memorial HospitalComment on above:Performed By: #### A1C #### [facility] [address] [place] [address] Dr. Augustine LouInterpretationCommentVan Wert County Hospital on above: Result Comment: Positive HCV antibody screen without the presence of HCV RNA is consistent with a resolved past infection or a false positive HCV antibody. Consider repeat testing after one month.Performed By: #### A1C #### [address] [address] [address] Augustine LouTest Information:[facility] on above:Result Comment: The quantitative range of this assay is 15 IU/mL to 100 million IU/mL.Performed By: #### A1C #### [address] [address] Dr[address] Augustine Stone B SURFACE ANTIGEN SCREENon [id number] ScreenNegative NormalNegativeThe [facility] HospitalComtr[facility] on above:Performed By: #### AFPMAT #### [address] [address] Dr[address] Augustine Morse B CORE, IgMon 35-11-4411Oin B Core Ab, IgMNegative NormalNegativeThe [facility] HospitalComtrinity health [facility] on above:Performed By: #### ERUR #### [address] [address] Dr[address] Augustine Morse B SURFACE ANTIBODY, QUANTon 46-87-9250Rysubzjfp B Surf AB Quant<3.1Critically lowImmunity>9.9The [facility] on above: Result Comment: Status of Immunity Anti-HBs Level Inconsistent with Immunity 0.0 - 9.9 Consistent with Immunity >9.9Performed By: #### HEPBSRF #### [address] [place], [place] [address] Dr. Augustine Neves 1 AND 2 WITH REFLEXon [id number] Screen 4th Generation wRfxNon-ReactiveNormalNon ReactiveThe [facility] HospitalComment on above:Result Comment: HIV Negative HIV-1/HIV-2 antibodies and HIV-1 p24 antigen were NOT detected. There is no laboratory evidence of HIV infection.Performed By: #### HIV12 #### [facility] [address] [place] [address] Dr. Augustine Medina AUTO DIFFon [id number] #0.0 103/ulNormal0.0-0.1The [facility] HospitalComment on above:Performed By: #### ERUR #### [facility] [address] [place] [address] Dr. Augustine LouBasophils/100 WBC (Bld)0.4 %Normal0.2-2.0[facility] Comment on above:Performed By: #### ERUR #### [facility] [address] [place] [address] Dr. Augustine Wall #0.2 103/ulNormal0.0-0.7The [facility] HospitalComment on above: Performed By: #### ERUR #### [facility] [address] [place] [address] Dr. Augustine Mendietaosinophils/100 WBC (Bld)1.5 %Normal0.9-7.0[facility] Comment on above:Performed By: #### ERUR #### [facility] [address] [place] [address] Dr. Augustine Mendietarythrocyte distribution width (RBC) [Ratio]13.2 %Aklxtq95.0-15.0 The [facility] HospitalComment on above:Performed By: #### ERUR #### [facility] [address] [place] [address] Dr. Augustine LouHematocrit (Bld) [Volume fraction]44.4 %Oklrdl30.0-48.0The [facility] HospitalComment on above:Performed By: #### ERUR #### [facility] [address] [place] [address] Dr. Augustine LouHemoglobin (Bld) [Mass/Vol]14.6 g/wHBdycqf44.0-16.0The [facility] HospitalComment on above:Performed By: #### ERUR #### [facility] [address] [place] [address] Dr. Augustine Almeida #0.03 10e3/ulNormal0.00-0.03The [facility] HospitalComment on above:Performed By: #### ERUR #### [facility] [address] [place] [address] Dr. Augustine Amleida %0.3 %Normal0.0-0.5The [facility] HospitalComment on above: Performed By: #### ERUR #### [facility] [address] [place] [address] Dr. Augustine Andrews #2.8 103/ulNormal1.2-3.8The [facility] HospitalComment on above:Performed By: #### ERUR #### [facility] [address] [place] [address] Dr. Augustine Bowlinghocytes/100 WBC (Bld)26.3 %Qjyyvw22.5-60.0The [facility] HospitalComment on above:Performed By: #### ERUR #### [facility] [address] [place] [address] Dr. Augustine SolomonUAL DIFF REQNONormalThe [facility] HospitalComment on above: Performed By: #### ERUR #### [facility] [address] [place] [address] Dr. Augustine Monterroso (RBC) [Entitic mass]28.9 hmLdezte46.7-34.0The [facility] HospitalComment on above:Performed By: #### ERUR #### [facility] [address] [place] [address] Dr. Augustine Monterroso (RBC) [Mass/Vol]32.9 g/wPIieauu29.9-35.2The [facility] HospitalComment on above:Performed By: #### ERUR #### [facility] [address] [place] [address] Dr. Augustine MonterrosoV (RBC) [Entitic vol]87.7 cEYwhkgb17.0-99.0The [facility] HospitalComment on above:Performed By: #### ERUR #### [facility] [address] [place] [address] Dr. Augustine Fuentes #0.5 103/ulNormal0.3-0.8The [facility] HospitalComment on above:Performed By: #### ERUR #### [facility] [address] [place] [address] Dr. Augustine Kenneyocytes/100 WBC (Bld)4.3 %Normal1.7-12.0The [facility] Comment on above:Performed By: #### ERUR #### [facility] [address] [place] [address] Dr. Augustine Núñez #7.2 103/ulCritically high1.4-6.5The [facility] Comment on above:Performed By: #### ERUR #### [facility] [address] [place] [address] Dr. Augustine Dioputrophils/100 WBC (Bld)67.2 %Pcdiqj99.0-75.0The [facility] HospitalComment on above:Performed By: #### ERUR #### [facility] [address] [place] [address] Dr. Augustine Epsteinlet mean volume (Bld) [Entitic vol]10.7 fLNormal9.5-13.5The [facility] HospitalComment on above:Performed By: #### ERUR #### [facility] [address] [place] [address] Dr. Augustine LouPLT258 103/msLuhzgt529-496Obq [facility] HospitalComment on above: Performed By: #### ERUR #### [facility] [address] [place] [address] Dr. Augustine LouRBC5.06 106/ulNormal4.20-5.40The [facility] HospitalComment on above:Performed By: #### ERUR #### [facility] [address] [place] [address] Dr. Augustine LouWBC10.8 103/ulNormal4.0-11.0The [facility] HospitalComment on above:Performed By: #### ERUR #### [facility] [address] [place] [address] Dr. Augustine Nunes 14(COMP METB)on 24-63-1799Wyccpfq [Mass/Vol]4.3 g/dLNormal 3.4-5.0The [facility] HospitalComment on above:Performed By: #### CBC #### [facility] [address] [place] [address] Dr. Augustine LouAlbumin/Globulin [Mass ratio]1.0 {ratio}NormalThe [facility] HospitalComment on above:Performed By: #### CBC #### [facility] [address] [place] [address] Dr. Augustine Fontaine [Catalytic activity/Vol]65 U/MXntvlg58-037Luj [facility] HospitalComment on above:Performed By: #### CBC #### [facility] [address] [place] [address] Dr. Augustine Scanlon [Catalytic activity/Vol]38 U/QJsoauq42-05War [facility] HospitalComment on above:Performed By: #### CBC #### [facility] [address] [place] [address] Dr. Augustine Nguyen gap [Moles/Vol]14.9 mmol/LNormalThe [facility] Comment on above:Performed By: #### CBC #### [facility] [address] [place] [address] Dr. Augustine Ford [Catalytic activity/Vol]23 U/PCgkqrv44-22Wvw [facility] HospitalComment on above:Performed By: #### CBC #### [facility] [address] [place] [address] Dr. Augustine LouBilirubin [Mass/Vol]0.9 mg/dLNormal0.2-1.0[facility] Comment on above:Performed By: #### CBC #### [facility] [address] [address] [address] Augustine LouCalcium [Mass/Vol]9.8 mg/dLNormal8.5-10.1[facility] Comment on above:Performed By: #### CBC #### [facility] [address] [address] [address] Augustine LouChloride [Moles/Vol]104 mmol/KQhsozc10-480YebGreene Memorial Hospital Comment on above:Performed By: #### CBC #### [facility] [address] [address] [address] Augustine LouCO2 [Moles/Vol]24.8 mmol/QDkfucw14.0-32.0[facility] Comment on above:Performed By: #### CBC #### [facility] [address] [address] [address] Augustine LouCreatinine [Mass/Vol]0.87 mg/dLNormal0.55-1.02[facility] HospitalComment on above:Performed By: #### CBC #### [facility] [address] [address] [address] Augustine MendietaGFR-AF CHADIAN>60Normal>=60The [facility] HospitalComment on above:Performed By: #### CBC #### [facility] [address] [address] [address] Augustine MendietaGFR-NON AF CHADIAN>60Normal>=60The [facility] HospitalComment on above:Performed By: #### CBC #### [facility] [address] [address] [address] Augustine LouGlobulin (S) [Mass/Vol]4.4 g/dLNormalThe [facility] HospitalComment on above:Performed By: #### CBC #### [facility] [address] [address] [address] Augustine LouGlucose [Mass/Vol]90 mg/gNGcviul82-757OexGreene Memorial Hospital Comment on above:Performed By: #### CBC #### [facility] [address] [address] [address] Augustine LouPotassium [Moles/Vol]3.7 mmol/LNormal3.5-5.1The [facility] Comment on above:Performed By: #### CBC #### [facility] [address] [address] [address] Augustine LouProtein [Mass/Vol]8.7 g/dLCritically high6.4-8.2The [facility] HospitalComment on above:Performed By: #### CBC #### [facility] [address] [address] [address] Augustine LouSodium [Moles/Vol]140 mmol/TKzolcc008-008Gli [facility] Comment on above:Performed By: #### CBC #### [facility] [address] [place] [address] Dr. Augustine LouUrea nitrogen [Mass/Vol]12.0 mg/dLNormal7.0-18.0The [facility] HospitalComment on above:Performed By: #### CBC #### [facility] [address] [place] [address] Dr. Augustine Saravia nitrogen/Creatinine [Mass ratio]13.8 mg/mgNoUniversity Hospitals Health SystemComment on above:Performed By: #### CBC #### [facility] [address] [place] [address] Dr. Augustine LouPROTIMEearnest [id number] Coag (PPP) [Relative time]1.02 {INR} NormalGreene Memorial HospitalComment on above:Performed By: #### PT #### [facility] [address] [place] [address] Dr. Augustine Murdock GUIDELINESSEE BELOWJoint Township District Memorial HospitalComment on above:Result Comment: DESIRED INR: 2.0 - 3.0 CONDITIONS NOT LISTED BELOW 2.5 - 3.5 FOR PROSTHETIC HEART VALVE REPLACEMENT 2.5 - 3.5 RECURRENT THROMBOSIS Performed By: #### PT #### [facility] [address] [place] [address] Dr. Augustine LouPT Coag (PPP) [Time]11.0 sNormal9.0-11.6The [facility] Comment on above:Performed By: #### PT #### [facility] [address] [address] [address] Augustine Lou Vital Signs Date TimeVital SignValuePerforming TljocrgvuLuyvyahn06-13-4670 14:05-0500Body .8 cmPchristina Vega Other [facility] Other 01-21-2024 14:05-0500Body mass index (BMI) [Ratio] 41.89 kg/s9Envlfw Silvia Other [facility] Other 01-21-2024 14:05-0500Body gdyiafgbzkg07.7 [degF]Megha Vega Other [facility] Other 01-21-2024 14:05-0500Body ormseq915.45 kgMegha Vega Other [facility] Other 01-21-2024 14:05-0500Diastolic blood lpaysknz87 mm[Hg] Megha Vega Other [facility] Other 01-21-2024 14:05-0500Respiratory rate18 /minMegha Vega Other [facility] Other 01-21-2024 14:05-0118GxJ8% (BldA) [Mass fraction]96 % Megha Vega Other [facility] Other 01-21-2024 14:05-0500Systolic blood qatkaseq692 mm[Hg] Megha Vega Other [facility] Other 03-04-2023 03:06-0500Body tkawmy501.5752 kgDR NONE LISTED REQUESTThe [facility] Memorial HospitalComment on above:Performed By: #### AFPMAT #### [facility] [address] [address] [address] Augustine Lou09-27-2022 12:15-0400Body anblfa083.88 cmCameron Dimary bethy Other [facility] Other 09-27-2022 12:15-0400Body mass index (BMI) [Ratio] 32.82 kg/n1Eaqngfs Ditty Other [facility] Other 09-27-2022 12:15-0400Body tovqnn751.77 kgCameron Ditty Other [facility] Other 09-27-2022 12:15-0400Diastolic blood lynxinvz318 mm[Hg]Radames Ditty Other [facility] Other 09-27-2022 12:15-0400Systolic blood mm[Hg] Radames Ditty Other [facility] Other Encounters Encounter DateEncounter TypeCare ProviderFacilityStart: 69-20-5277swuzmfebdh Gregorioblayne AllenFacility:[facility]: 10-11-2023 End: 98-22-0335zxkpyayitoQTPLO FAZIONot AvailableStart: 10-03-2023 End: 07-35-7567Nktulcckj Result EncounterCorey Sofy DO Work Phone: NODE External Department UnsolicitedStart: 10-03-2023 End: 71-39-4272Hxrswumux Result EncounterCorey Sofy DO Work Phone: NOOK External Department UnsolicitedStart: 09-18-2023 End: 94-80-1007rkoapzpxbwRRNEY FAZIONorishabh AvailableStart: 08-19-2023 End: 60-96-0998eauljxfjgrDyglkc Dymond Other [facility] [employer] Other Start: 44-04-9005Xhohkn outpatient visit 15 minutes [facility] ClydeStart: 12-21-2022 End: 39-16-3380ssinhzgojtCXLWYJU Jair CAIOKOFacility:I0Xtzre: 12-05-2022 End: 93-97-8665ezeqodxsydKG NONE LISTED REQUESTFacility:L3Ofjra: 12-01-2022 End: 33-13-6018bmcaxwngqjQC NONE LISTED REQUESTFacility:G8Mjqtt: 11-03-2022 End: 36-84-3307gyuhqdeacfKA NONE LISTED REQUESTFacility:D0Spivg: 10-16-2022 End: 48-90-8553mqhhbhkclqJG NONE LISTED REQUESTFacility:X8Jvgip: 10-11-2022 End: 74-60-2858ypgaufumdbBQ NONE LISTED REQUESTFacility:V0Gclvp: 09-28-2022 End: 74-43-9163xwydbrgtflZR NONE LISTED REQUESTFacility:K0Avata: 09-14-2022 End: 01-03-7761fyhkayinawUO NONE LISTED REQUESTFacility:N4Dqbny: 09-01-2022 End: 61-73-8755zfafllqfxuXG NONE LISTED REQUESTFacility:C8Mnlhv: 08-24-2022 End: 42-83-4089qsxxwyrugaNO IVANNA GOETZ .Facility:M9Xshge: 08-24-2022 End: 01-81-4852ifokyejqtlCE NONE LISTED REQUESTFacility:P6Vrnyv: 08-14-2022 End: 08-20-7688rebwnbywjrAG NONE LISTED REQUESTFacility:Y8Iwshs: 07-26-2022 End: 71-75-0012rwzkkcndfvDK NONE LISTED REQUESTFacility:X5Vwibv: 07-17-2022 End: 45-34-1415nccuoucuebXF IVANNA GOETZ .Facility:N4Wczun: 07-14-2022 End: 95-30-9447acqzdgiymtVV NONE LISTED REQUESTFacility:C9Ovhcw: 06-27-2022 End: 09-39-3785nkzzunetayWVPOWN H FAWWADFacility:A7Whmsb: 04-25-2022 End: 81-65-9017urpiwzudtwZW DOCTOR OstrovokCritiSense Other Start: 84-85-9925SBZA visit new patientBobbruce Ridley [facility] Gastroenterology Procedures DateProcedureProcedure DetailPerforming ClinicianStart: 45-63-3042DN PELVIS W/ TRANSVAGINALCorey Sofy DO Work Phone: Start: 53-75-2082Ojesnstllhs observation [Identifier] in Cervix by Cyto stainCorey Sofy DO Work Phone: Plan of Treatment DateCare ActivityDetailAuthorStart: 04-52-5660Uumcmepyo for malignant neoplasm of cervixNOMS HealthcareStart: 87-29-7846Baufkuaey vaccinationInfluenza Vaccine (#1)NOMS HealthcareStart: 45-15-1662Srhhsdrso for malignant neoplasm of cervix HPV/CotestNOMS Healthcare Payers DatePayer CategoryPayerPolicy [id number] Health InsuranceCAR[facility] [place] [facility] Member Subscriber Plan / Payer (Effective 2022-Present) Name: Haroldo Del Valle Relation to Subscriber: Self Name: Haroldo Del Valle Payer ID: Not on file Group ID: [id number] Type: Not on file Address: [facility] [address] [place], [place] [address] [id number] 2.16.840.1.294196.3.57[id number] 2.16840.1.873018.3.57[id number] 2.16840.1.878626.3.57[id number] 2.16840.1.668443.3.57[id number] 2.16840.1.659609.3.57[id number] 2.840.1.328209.3.579.[id number] 2.840.1.011520.3.57[id number] 2.840.1.117197.3.579.2.9[id number] 2.840.1.963575.3.57[id number] 2.0.1.575445.3.579.[id number] 2.840.1.746159.3.57[id number] 2.840.1.769947.3.579.[id number] 2.840.1.108048.3.579.[id number] 2.840.1.556710.3.57[id number] 2.16840.1.028364.3.57[id number] 2.840.1.277849.3.57[id number] 2..840.1.765872.3.579.[id number] 2.16.840.1.668382.3.57[id number] 2.16.840.1.733737.3.579.2.519053-50-5127Ucevqvm7560008 2.0.1.627788.3.579.2.94429[id number] 2.16.840.1.893592.19 2[id number] 2.16840.1.773694.3.579.2.593 Social History DateTypeDetailFacilityStart: 43-31-3056Lnh Assigned At [facility] [employer] Other Start: 34-18-6858Hflyylr smoking status NHISNever smoked tobaccoNOMS HealthcareStart: 45-07-8676Rtgenza use and exposureSmokeless tobacco non-userNOMS HealthcareStart: 12-02-2034Cbpzghikd beverage intake Lifetime non-drinker (finding)NOMS HealthcareStart: 02-99-6618Ftrkavq of Social functionNOMS HealthcareStart: 98-25-9217Kig assigned at [facility] HealthcareStart: 62-69-0211CteJhmeiwIVMY HealthcareStart: 24-80-2109Cfmstd identityIdentifies as female gender (finding)NOMS HealthcareStart: 01-16-2023 Sexual orientationBisexual (finding)NOMS HealthcareStart: 04-69-0493Oaiaam orientationHeterosexual (finding)[facility] Evaluation note 08-19-2023 Note Date & OkllIvmeCbkqzwza70-23-1557 Evaluation note* Encounter Date Diagnosis Assessment Notes Treatment Notes Treatment Clinical Notes Jul, Bilateral otitis med ia, unspecified otitis media type (ICD-10 - H66.93) Drink plenty fluids, get plenty of rest. Take the amoxicillin with clavulanate as prescribed until gone for your middle ear infections. Use eardrops as prescribed for your outer ear infection on the right. You may use them on the left if you need to. Take Tylenol or Motrin as needed for aches painsor fevers. Follow-up with your family physician if no improvement in 2 to 3 days if no improvement Jul,cute otitis externa of right ear, unspecified type (ICD-10 - H60.501) [facility] Other History general Narrative - Reported 03-30-2023 Note Date & RoukZztfMyscycbo12-90-2316 History general Narrative - Reported* Type Description Date Surgical History tubal ligation 03/2023 [facility] Other Evaluation note 04-25-2022 Note Date & MzlqJkwpBjuoxxpe06-75-5885 Evaluation note* Encounter Date Diagnosis Assessment Notes Treatment Notes Treatment Clinical Notes Mar, Elevated liver enzymes (ICD-10 - R74.8) Mar,Hepatitis C (ICD-10 - B19.20)START PPW FOR MAVYRET THERAPY THIS PATIENT IS A GOOD CANDIDATE FOR THERAPY HE / SHE IS MOTIVATED AND AGREES TO PROCEED WITH THERAPY THE PATIENT READINESS CONSENT WAS DISCUSSED AND SIGNED BY PATIENT AND PHYSICIAN HE / SHE DOES NOT HAVE ANY LIMITED LIFE EXPECTACNCY DUE TO NON LIVER COMORBITIES AND AGREES TO RNA TESTING Q 4 WEEKS WHILE ON THERAPY Mar,Nausea (ICD-10 - R11.0) [facility] Other Summary Purpose Family History No Family [...] and content) DATE CREATED AUTHOR 01/05/2023 [facility] DATE CREATED AUTHOR AUTHOR'S ORGANIZ ATION 10/12/2023 [facility] DATE CREATED AUTHOR AUTHOR'S ORGANIZ ATION 02/14/2024 [facility] Care Teams (unrecognized sec tion and content) Team MemberRelationshipSpecialtyStart DateEnd Date Sofy Ivanna DO RANDALL: [phone] [address] [place], [place] [address]tad [place] [address] PCP - [facility] FOR RECORDS PERTAINING TO PATIENTS WHO ARE [...] BE BASED ON THE PRIMARY CLINICAL RECORDS. [facility]. provides no warranty or guarantee of the accuracy or completeness of information in this document.
[2025-07-06 13:27] LABS: Glucose Urine UA NEGATIVE (NEGATIVE)
[2025-07-06] MEDS: 0.9 % SODIUM CHLORIDE 1,000 ML 500 ML IV (13:29)
[2025-07-06 13:40] VITALS: BP 133/72; PULSE 83; O2SAT 98
[2025-07-06 13:40] LABS: Cast Seen? NONE SEEN #/LPF (NONE SEEN); Crystals Seen? None Seen #/HPF (None Seen); Urine Culture Indicated YES-FRMC
[2025-07-06] MEDS: AMPICILLIN SODIUM/SULBACTAM NA 3 GM in 0.9 % SODIUM CHLORIDE 100 ML IV (14:08)
[2025-07-06] MEDS: OXYCODONE HCL/ACETAMINOPHEN 5MG/325MG 1 TAB PO (14:08)
--- NOTE | 2025-07-06 14:15 | ED_ITS ---
HPI - Abdominal Pain General Chief Complaint: Abdominal Pain Stated Complaint: L SIDED ABDOMINAL PAIN Time Seen by Provider: 07/06/25 11:55 Source: patient Mode of arrival: walk-in Limitations: no limitations History of Present Illness HPI narrative: The patient 29 years old female presenting to the ER with a left lower quadrant abdominal pain that has been going on for the last 24 hours, have no fever or chills but she also had nausea and vomiting, no change in bowel movement no blood in urine or any burning with urination The patient mentioned that she had similar pain almost few years ago when she had kidney stones as well Related Data Previous Rx's ?Medication ?Instructions ?Recorded amoxicillin 875 mg-potassium 1 tab PO Q12H #20 tabs clavulanate 125 mg tablet naproxen 375 mg tablet 375 mg PO BID PRN pain #10 t abs 07/06/25 tramadol 50 mg tablet 50 mg PO BID PRN pain 2 days #4 07/06/25 tabs Allergies Allergy/AdvReac Type Severity Reaction Status Date / Time No Known Drug Allergies Allergy Verified 07/06/25 11:52 Review of Systems ROS Status of ROS 10 or more systems reviewed and unremark able except as noted in history and below PFSH [facility] Medical History (Updated 07/06/25 @ 14:47 by Sofy Medina MD) Pelvic pain ?R10.2 - Pelvic and perineal pain (ICD-10) Abnormal uterine bleeding ?N93.9 - Abnormal uterine and vaginal bleeding, unspecified (ICD-10) Menorrhagia ?N92.0 - Excessive and frequent menstruation with regular cycle (ICD-10) Headache ?R51.9 - Headache, unspecified (ICD-10) Migraine ?G43.909 - Migraine, unspecified, not intractable, without status migrainosus (ICD-10) Heartburn ?R12 - Heartburn (ICD-10) Request for sterilization ?Z30.2 - Encounter for sterilization (ICD-10) Enlarged liver ?R16.0 - Hepatomegaly, not elsewhere classified (ICD-10) Suicidal thoughts ?R45.851 - Suicidal ideations (ICD-10) Depression ?F32.A - Depression, unspecified (ICD-10) Panic attack ?F41.0 - Panic disorder [episodic paroxysmal anxiety] (ICD-10) Anxiety ?F41.9 - Anxiety disorder, unspecified (ICD-10) GERD (gastroesophageal reflux disease) ?K21.9 - Gastro-esophageal reflux disease without esophagitis (ICD-10) Hepatitis C ?B19.20 - Unspecified viral hepatitis C without hepatic coma (ICD-10) Surgical History (Updated 10/29/23 @ 12:33 by Clari Pineda NP) History of salpingectomy (04/25/23) ?Z90.79 - Acquired absence of other genital organ(s) (ICD-10) History of wisdom tooth extraction ?K08.409 - Partial loss of teeth, unspecified cause, unspecified class (ICD- 10) Family History (Updated 03/16/23 @ 03:25 by Jostin Rose) Grandmother Family history of COPD (chronic obstructive pulmonary disease) Family history of diabetes mellitus Family history of hypertension Family history of stroke Mother Family history of hypertension Grandfather Family history of myocardial infarction Sister Cystic fibrosis carrier Social History (Updated 10/29/23 @ 12:40 by Clari Pineda NP) Within the past year, how often did you have a drink containing alcohol: never Within the past year, how often did you have six or more drinks on one occasion: never Score interpretation: A score less than 3 is consistent with normal alcohol consumption. Smoking status: Current every day smoker What tobacco products do you use: cigarettes Cigarettes per day: 4 Years smoked: 5 Smoking pack-years: 1.00 Non-prescribed substance use: cannabis (any form) Non-prescribed substance use details: past IV drug use Previous occupational history: [employer] Highest level of school completed/degree received: some college, no degree In a typical week, how many times do you talk on the telephone with family, friends, or neighbors: 3 or more times per week How often do you get together with friends or relatives: 3 or more times per week How often do you attend jehovah's witness or mormonism services: never Do you belong to any clubs or organizations such as jehovah's witness groups unions, fraternal or athletic groups, or school groups: no Little interest or pleasure in doing things: not at all Feeling down, depressed, or hopeless: not at all Feel stressed/tense/nervous/anxious/difficulty sleeping: not at all Do you think of yourself as: straight/heterosexual Gender Identity: female Exam Narrative Exam Narrative: Nurses notes and vital signs reviewed and patient is not hypoxic. General: Well-appearing and in no apparent distress. Skin: Warm, dry, no pallor noted. No rash. Head: Normocephalic, atraumatic. Neck: Supple, non-tender. Cardiovascular: Regular Rate and Rhythm without murmur, gallop or rub. Respiratory: No accessory muscle use or respiratory distress. Lungs are clear to auscultation, no wheezing, rales or rhonchi Back: No midline thoracic or lumbar vertebral tenderness. No CVA tenderness Musculoskeletal: normal ROM, no calf or popliteal tenderness, no lower extremity edema/swelling GI: Abdomen is soft, non-distended. Normal bowel sounds. No masses appreciated. Left lower quadrant tenderness noted on palpation. Neurological: A&O x4. No cranial nerve dysfunction observed. Constitutional Vital Signs, click to edit/add: Last Vital Signs Temp 98.7 F 07/06/25 11:47 Pulse 83 07/06/25 15:09 Resp 16 07/06/25 15:09 BP 155/82 H 07/06/25 15:09 Pulse Ox 98 07/06/25 15:09 O2 Del Method Room Air 07/06/25 15:09 Course Vital Signs Vital signs: Vital Signs Temperature 98.7 F 07/06/25 11:47 Pulse Rate 85 07/06/25 11:47 Respiratory Rate 20 07/06/25 11:47 Blood Pressure 144/110 H 07/06/25 11:47 Pulse Oximetry 98 07/06/25 11:47 Oxygen Delivery Method Room Air 07/06/25 11:47 Temperature 98.7 F 07/06/25 11:47 Pulse Rate 83 07/06/25 15:09 Respiratory Rate 16 07/06/25 15:09 Blood Pressure 155/82 H 07/06/25 15:09 Pulse Oximetry 98 07/06/25 15:09 Oxygen Delivery Method Room Air 07/06/25 15:09 MDM - Abdominal Pain MDM Narrative Medical decision making narrative: The patient blood workup did show some leukocytosis of 15 and the chemistry was within normal The patient initially treated with IV fluids as well as Toradol and Zofran after which the pain still need to be controlled CAT scan of the abdomen pelvis without contrast showed that the patient had acute diverticulitis with no perforation or abscess The patient provided with Percocet was feeling better and she requested to go home she does not want to be admitted, the patient mentioned that she will come back in case any new symptoms or worsening of symptoms I did explain to her that after she got 1 dose of Unasyn here in the ER that she will be discharged with Augmentin and liquid diet to go home with In case of any worsening of pain or any fever or any nausea or vomiting show patient to come back to the ER Patient understand the plan and will come back in case any new symptoms Patient discharged home with naproxen for pain control as well as Augmentin and tramadol as needed for pain as needed only for 4 tablets The patient to follow-up with the primary care within 2 to 3 days and to come back to the ER in case of any worsening of the current symptoms or any new symptoms or concerns Lab Data Labs: Lab Results 07/06/25 07/06/25 Range/Units 12:00 13:14 WBC 15.7 H (4.0-11.0) 10^3/uL RBC 5.03 (4.20-5.40) 10^6/uL Hgb 14.8 (12.0-16.0) g/dL Hct 44.6 (36.0-48.0) % MCV 88.7 (81.0-99.0) fL MCH 29.4 (26.7-34.0) pg MCHC 33.2 (29.9-35.2) g/dL RDW 13.1 (11.0-15.0) % Plt Count 246 (150-450) 10^3/uL MPV 11.0 (9.5-13.5) fL Neut % (Auto) 72.8 (43.0-75.0) % Lymph % (Auto) 17.3 L (20.5-60.0) % Trinity % (Auto) 5.7 (1.7-12.0) % Eos % (Auto) 3.6 (0.9-7.0) % Baso % (Auto) 0.3 (0.2-2.0) % Neut # (Auto) 11.4 H (1.4-6.5) 10^3/uL Lymph # (Auto) 2.7 (1.2-3.8) 10^3/uL Trinity # (Auto) 0.9 H (0.3-0.8) 10^3/uL Eos # (Auto) 0.6 (0.0-0.7) 10^3/uL Baso # (Auto) 0.1 (0.0-0.1) 10^3/uL Abs Immat Gran (auto) 0.05 H (0.00-0.03) 10^3/uL Imm/Tot Granulo (auto) 0.3 (0.0-0.5) % Sodium 138 (136-145) mmol/L Potassium 3.8 (3.5-5.1) mmol/L Chloride 104 (98-107) mmol/L Carbon Dioxide 26.4 (21.0-32.0) mmol/L Anion Gap 11.4 BUN 7.0 (7.0-18.0) mg/dL Creatinine 0.78 (0.55-1.02) mg/dL Est GFR ( Amer) >60 (>=60 mL/min/1.73m^2) Est GFR (Non-Af Amer) >60 (>=60 mL/min/1.73m^2) BUN/Creatinine Ratio 9.0 Glucose 91 (74-106) mg/dL Calcium 9.1 (8.5-10.1) mg/dL Total Bilirubin 0.2 (0.2-1.0) mg/dL AST 30 (15-37) U/L ALT 79 H (14-59) U/L Alkaline Phosphatase 61 (46-116) U/L Total Protein 7.9 (6.4-8.2) g/dL Albumin 3.6 (3.4-5.0) g/dL Globulin 4.3 g/dL Albumin/Globulin Ratio 0.8 Serum HCG, Qual Negative (NEGATIVE) Urine Color Lt. yellow (YELLOW) Urine Clarity Clear (CLEAR) Urine pH 7.5 (5.0-9.0) Ur Specific Worden 1.015 (1.005-1.025) Urine Protein Trace (NEG/TRACE) mg/dL Urine Glucose (UA) Negative (NEGATIVE) mg/dL Urine Ketones Negative (NEGATIVE) mg/dL Urine Occult Blood Negative (NEGATIVE) Urine Nitrite Negative (NEGATIVE) Urine Bilirubin Negative (NEGATIVE) Urine Urobilinogen 0.2 (0.2-1.0) EU/dL Ur Leukocyte Esterase Trace A (NEGATIVE) Urine RBC 2-5 A (0-2) #/HPF Urine WBC 2-5 A (NONE SEEN) #/HPF Ur Squamous Epith Cells Moderate A (NONE/RARE) #/LPF Urine Crystals None seen (None Seen) #/HPF Urine Bacteria Small A (NONE SEEN) #/HPF Urine Casts None seen (NONE SEEN) #/LPF Urine Mucus Small A (NONE SEEN) Ur Culture Indicated? Yes-[facility] [place], [place] Discharge Plan Discharge Chief Complaint: Abdominal Pain Clinical Impression: Diverticulitis Patient Disposition: Home, Self-Care Time of Disposition Decision: 14:47 Condition: Good Prescriptions / Home Meds: New amoxicillin-pot clavulanate 875-125 mg tablet 1 tab PO Q12H Qty: 20 0RF naproxen 375 mg tablet 375 mg PO BID PRN (Reason: pain) Qty: 10 0RF tramadol 50 mg tablet 50 mg PO BID PRN (Reason: pain) 2 Days Qty: 4 0RF Print Language: Spanish Instructions: Diverticulitis (DC), Clear Liquid Diet (ED), Full Liquid Diet (DC) Referrals: Physician,Non-Staff, MD [Primary Care Provider] - 1 week Discharge Date/Time: 07/06/25 15:12
[2025-07-06 15:09] VITALS: BP 155/82; PULSE 83; O2SAT 98
== END 2025-07-06 15:12 | disposition home or self-care (01) ==
PROVIDERS: Emergency Provider Emergency Medicine
DX: K57.32 Diverticulitis of large intestine without perforation or abscess without bleeding (principal); Z87.442 Personal history of urinary calculi; F17.210 Nicotine dependence, cigarettes, uncomplicated
CPT/HCPCS: 36415; 74176; 80053; 81001; 84703; 85025; 87086; 96365; 96375; 99284; 99285; J0295; J1885; J2405